=== PATIENT | female | born 1995 | race Caucasian/White ===

== ENCOUNTER 2018-02-17 20:08 | Emergency (ER) | payer SELFPAY ==
[~2018-02-17] VITALS: Ht 172.7 cm; Wt 113.4 kg
--- NOTE | 2018-02-17 20:22 | ED GU-Female ---
General Stated Complaint: ABD PAIN/BURNING WITH URINATION Source: patient Exam Limitations: no limitations History of Present Illness Date Seen by Provider: Feb 17, 2018 Time Seen by Provider: 20:20 Initial Comments To ER with reports of suprapubic abdominal pain that began this morning associated with urinary frequency, burning upon urination, only dribbling when she does urinate and noticing some blood on the toilet paper when she wipes. She thought she may be starting her menstrual period because she is a few days late. She inserted a tampon and when she removed it there was no blood on it. No fevers chills nausea or vomiting. Timing/Duration: this morning Severity/Quality: moderate Location: suprapubic Radiation: none Activities at Onset: none Prior Genitourinary Problems: none Associated Symptoms: dysuria, nausea/vomiting Allergies and Home Medications Patient Home Medication List Home Medication List Reviewed: Yes Review of Systems Review of Systems Constitutional: see HPI; No chills, No fever EENTM: see HPI Respiratory: no symptoms reported Cardiovascular: no symptoms reported Genitourinary: see HPI, dysuria Musculoskeletal: no symptoms reported Skin: no symptoms reported Past Xlvkqwb-Kuowbv-Izqjqy Hx Patient Social History Recent Foreign Travel: No Contact w/Someone Who Travel: No Physical Exam Vital Signs Vital Signs - First Documented 02/17/18 20:12 Temp 98.5 Pulse 73 Resp 12 B/P (MAP) 141/98 (112) Pulse Ox 100 Capillary Refill : Height, Weight, BMI Height: '" Weight: lbs. oz. kg; BMI Method: General Appearance: WD/WN, no apparent distress HEENT: PERRL/EOMI, normal ENT inspection Respiratory: no respiratory distress, no accessory muscle use Gastrointestinal: normal bowel sounds, non tender, soft Extremities: normal range of motion, non-tender Neurologic/Psychiatric: alert, normal mood/affect, oriented x 3 Skin: normal color, warm/dry Progress/Results/Core Measures Suspected Sepsis SIRS Temperature: Pulse: Respiratory Rate: Blood Pressure / Mean: Results/Orders Lab Results Laboratory Tests Test 02/17/18 20:15 Range/Units Urine Color YELLOW Urine Clarity VERY CLOUDY H Urine pH 6 5-9 Urine Specific [place] 1.020 1.016-1.022 Urine Protein 3+ H NEGATIVE Urine Glucose (UA) NEGATIVE NEGATIVE Urine Ketones 1+ H NEGATIVE Urine Nitrite POSITIVE H NEGATIVE Urine Bilirubin NEGATIVE NEGATIVE Urine Urobilinogen 4 H NORMAL MG/DL Urine Leukocyte Esterase 3+ H NEGATIVE Urine RBC (Auto) 5+ H NEGATIVE Urine RBC TNTC H /HPF Urine WBC TNTC H /HPF Urine Squamous Epithelial Cells 10-25 H /HPF Urine Crystals NONE /LPF Urine Bacteria MODERATE H /HPF Urine Casts NONE /LPF Urine Mucus NEGATIVE /LPF Urine Culture Indicated YES My Orders Orders - SANDRA VARGAS APRN Ua Culture If Indicated (02/17/18 20:10) Urine Bedside (02/17/18 20:10) Urine Culture (02/17/18 20:15) Vital Signs/I&O 02/17/18 20:12 Temp 98.5 Pulse 73 Resp 12 B/P (MAP) 141/98 (112) Pulse Ox 100 Capillary Refill : Departure Impression Primary Impression: Urinary tract infection Disposition: 01 HOME, SELF-CARE Condition: Stable Departure-Patient Inst. Decision time for Depature: 20:44 Referrals: NO,LOCAL PHYSICIAN (PCP/Family) Primary Care Physician Patient Instructions: Urinary Tract Infection, Adult (DC) Add. Discharge Instructions: 1. Return to ER for any concerns 2. Follow-up with your doctor next week 3. Scripts Sulfamethoxazole/Trimethoprim (Bactrim Ds Tablet) 1 Each Tablet 1 EACH PO BID, #10 TAB Prov: SANDRA VARGAS APRN 02/17/18 Work/School Note: Work Release Form Date Seen in the Emergency Department: Feb 17, 2018 Return to Work: Feb 18, 2018 SANDRA VARGAS APRN Feb 17, 2018 20:22
[2018-02-17 20:24] LABS: BILIRUBIN,URINE NEGATIVE (NEGATIVE); CLARITY,URINE VERY CLOUDY; COLOR,URINE YELLOW; GLUCOSE, URINE (UA) NEGATIVE (NEGATIVE); KETONES,URINE 1+ (NEGATIVE); LEUKOCYTE ESTERASE ,URINE 3+ (NEGATIVE); NITRITE,URINE POSITIVE (NEGATIVE); PH,URINE 6 (5-9); PROTEIN,URINE 3+ (NEGATIVE); UROBILINOGEN,URINE 4 MG/DL (NORMAL)
[2018-02-17 20:32] LABS: BACTERIA,URINE MODERATE /HPF; RBC,URINE TNTC /HPF; WBC,URINE TNTC /HPF
[2018-02-17] MEDS ORDERED: cefTRIAXone 1,000 MG/2.86 ml vial (IM ONLY) IM SCH (20:45)
[2018-02-17] MEDS ORDERED: SULF1TAB35 PO (20:45)
[2018-02-17] MEDS ORDERED: LIDOCAINE 1% INJ 20 ML 20 ML VIAL ONE (20:47)
[2018-02-17] MEDS: cefTRIAXone 1 GM/10 ML for IV (ROCEPHIN) ONE ×2 (20:57→20:58)
[2018-02-17] MEDS ORDERED: LIDOCAINE 1% INJ 20 ML 20 ML VIAL INJ ONE (21:00)
[2018-02-17 21:11] VITALS: BP 141/98
--- OUTSIDE RECORDS SUMMARY | 2018-02-18 12:18 | XMS REPORT ---
Author Author [facility] Medical Staff Organization [facility] Address [address], [place] [address] Phone [phone] Care Team Providers Care Music Department Chair Name Role Phone MAGY MONTALVO, HARDEEP PP [phone] Summary purpose TRANSITION OF CARE AUTO GENERATION Chief Complaint and Reason for Visit No authorized Reason for Visit (Admitting Diagnosis) is available for this visit. Problem list No authorized problems tracked for continuity of care are available for this visit. Encounters No authorized problems tracked for encounter diagnoses are available for this visit. Medications No medications recorded for this patient visit Allergies, adverse reactions, alerts Allergen Category Ingredient Status Reaction Severity Onset No known drug allergies No known drug allergies No known drug allergies Confirmed or Verified Immunizations No immunizations recorded for this patient visit Relevant diagnostic tests and/or laboratory data No authorized results are available for this patient visit History of procedures Procedure Code Code Type Description Date Performed Performing Physician 49579 CPT-4 THERAPEUTIC EXERCISES 03-12-2015 LANA PLATT 88688 CPT-4 THERAPEUTIC EXERCISES 03-18-2015 LANA PLATT 16721 CPT-4 THERAPEUTIC EXERCISES 03-21-2015 LANA PLATT Functional status No functional or cognitive status observations are available for this visit. Vital signs No authorized vital signs are available for this visit. Social history No Social History or smoking status observations were recorded for this visit. ( Unknown if ever smoked.) Treatment Plan No treatment plan text is available for this visit. Hospital discharge instructions No discharge instruction text is available for this visit.
--- OUTSIDE RECORDS SUMMARY | 2018-02-18 12:18 | XMS REPORT ---
Author Author [facility] Medical Staff Organization [facility] Address [address] [place], [place] [address] Phone [phone] Care Team Providers Care Library Circulation Department Chief Name Role Phone HARDEEP BHATTI MD PP [phone] Summary purpose TRANSITION OF CARE AUTO GENERATION [...] for this patient visit History of procedures No procedures recorded for this patient visit. Functional status No functional or cognitive status [...]
--- OUTSIDE RECORDS SUMMARY | 2018-02-18 12:18 | XMS REPORT ---
Author Author [facility] Medical Staff Organization [facility] Address [address] [place], [place] [address] Phone [phone] Care Team Providers Care Sap Fico Architect Name Role Phone HARDEEP BHATTI MD PP [phone] Summary purpose TRANSITION OF CARE AUTO GENERATION [...]
--- OUTSIDE RECORDS SUMMARY | 2018-02-18 12:18 | XMS REPORT ---
Author Author [facility] Medical Staff Organization [facility] Address [address] [place], [place] [address] Phone [phone] Care Team Providers Care Nurse Transition Name Role Phone HARDEEP BHATTI MD PP [phone] Summary purpose TRANSITION OF CARE AUTO GENERATION [...]
--- OUTSIDE RECORDS SUMMARY | 2018-02-18 12:19 | XMS REPORT ---
Author Author MISTY PAK Organization [facility] Address [address] [place] [address] Care Team Providers Care Manager Practice Name Role Phone MISTY PAK Unavailable PROBLEMS Unknown Problems ALLERGIES Substance Reaction Event Type Date Status Iodine hives Drug Allergy May, Active ENCOUNTERS Encounter Location Date Diagnosis [facility] [address] [place] [address] C [id number] [place], [place] [id number] May, BMI 40.0-44.9, adult Z68.41 and Acute right ankle pain M25.[address] C [id number] [place], [place] [id number] Dec, Pre-conception counseling Z31.69 and Non morbid obesity, unspecified obesity type E66.9 [facility] [address] [id number] [place] [id number] Nov, Breast tenderness N64.4 ; Morning sickness O21.0 and Non morbid obesity, unspecified obesity type E66.9 [facility] [address] [id number] [place] [id number] Dec, IMMUNIZATIONS No Known Immunizations SOCIAL HISTORY Never Assessed REASON FOR VISIT broke ankle 4 years ago. recently started new job. ankle and foot have been swelling and shooting pain throughtout leg. Jazmin PLAN OF CARE Activity Details Follow Up prn Reason: VITAL SIGNS Height 66.5 in 2017-05-30 Weight 256.6 lbs 2017-05-30 Temperature 98.2 degrees Fahrenheit 2017-05-30 Heart Rate 69 bpm 2017-05-30 Respiratory Rate 18 2017-05-30 BMI 40.79 kg/m2 2017-05-30 Blood pressure systolic 108 mmHg 2017-05-30 Blood pressure diastolic 76 mmHg 2017-05-30 MEDICATIONS Medication Instructions Dosage Frequency Start Date End Date Duration Status Meloxicam 15 mg Orally Once a day 1 tablet 24h May, Jun, 30 day(s) Active RESULTS Name Result Date Reference Range Xray : Ankle, Right 3 views (IN HOUSE) 2017-05-30 PROCEDURES Procedure Date Ordered Result Body Site X-RAY EXAM OF ANKLE May 30, 2017 INSTRUCTIONS MEDICATIONS ADMINISTERED No Known Medications MEDICAL (GENERAL) HISTORY Type Description Date Medical History Broken foot R Surgical History Right foot Surgical History tonsilectomy Surgical History screw removed from right ankle Hospitalization History surgeries Hospitalization History dehydration at age 6
--- OUTSIDE RECORDS SUMMARY | 2018-02-18 12:19 | XMS REPORT ---
Author GALDINO Myers Organization [employer] Address Unknown Phone Unavailable Care Team Providers Care Metal Sprayer Name Role Phone GALDINO TORRES CP Unavailable Allergies, Adverse Reactions, Alerts Substance Reaction Event Type Iodine hives Drug Allergy Problems Problem Type Condition Code Onset Dates Condition Status Assessment Non morbid obesity, unspecified obesity type E66.9 Active Assessment Pre-conception counseling Z31.69 Active Medications No Known Medications Procedures Procedure Coding System Code Date Office Visit, Est Pt., Level 2 CPT-4 70160 Dec 18, 2015 Vital Signs Date/Time: Dec 18, 2015 Cardiac Monitoring Heart Rate 78 bpm Weight 247.6 lbs Height 66.5 in Wt Percentile 99.26 % BMI 39.36 Index Blood Pressure Diastolic 82 mmHg Blood Pressure Systolic 130 mmHg BMIPercentile 98.63 % Results No Known Results Summary Purpose [employer] Submission
--- OUTSIDE RECORDS SUMMARY | 2018-02-18 12:19 | XMS REPORT ---
Author [facility] Medical Staff Organization [facility] Address [address] [place], [place] [address] Phone [phone] Care Team Providers Care Director Biologics Name Role Phone HARDEEP BHATTI MD PP [phone] Summary purpose TRANSITION OF CARE AUTO GENERATION [...] Code Type Description Date Performed Performing Physician 33531 CPT-4 PT EVALUATION 02-07-2015 LANA PLATT 51576 CPT-4 THERAPEUTIC EXERCISES 02-19-2015 LANA PLATT 22730 CPT-4 THERAPEUTIC EXERCISES 02-21-2015 LANA PLATT 05534 CPT-4 THERAPEUTIC EXERCISES 02-25-2015 LANA PLATT 65789 CPT-4 THERAPEUTIC EXERCISES 03-05-2015 LANA PLATT 97190 CPT-4 THERAPEUTIC EXERCISES 03-06-2015 LANA PLATT Functional status No functional or [...]
--- OUTSIDE RECORDS SUMMARY | 2018-02-18 12:19 | XMS REPORT ---
Author Author [facility] Medical Staff Organization [facility] Address [address] [place], [place] [address] Phone [phone] Care Team Providers Care Road Cleaner Name Role Phone MAGY MONTALVO, HARDEEP PP [phone] Summary purpose TRANSITION OF CARE AUTO GENERATION [...] Code Type Description Date Performed Performing Physician 80453 CPT-4 THERAPEUTIC EXERCISES 03-12-2015 LANA PLATT 89554 CPT-4 THERAPEUTIC EXERCISES 03-18-2015 LANA PLATT 43173 CPT-4 THERAPEUTIC EXERCISES 03-21-2015 LANA PLATT Functional [...]
--- OUTSIDE RECORDS SUMMARY | 2018-02-18 12:19 | XMS REPORT ---
Author Author Tameka Flores [facility] Address [address] [place], [place] [address] Care Team Providers Care Radio Director Name Role Phone Tameka Flores PCP Unavailable Allergies and Adverse Reactions Name Reaction Notes iodine hives Plan of Treatment Planned Activity Comments Planned Date Planned Time Plan/Goal TB Skin Test 03/24/2016 12:00 AM Medications Not available. Problem List Description Status Onset *No known medical problems Active Vital Signs Date Time BP-Sys(mm[Hg] BP-Alexa(mm[Hg]) HR(bpm) RR(rpm) Temp WT HT HC BMI BSA BMI Percentile O2 Sat(%) 03/24/2016 1:23:00 PM 126 mmHg 76 mmHg 85 bpm 18 rpm 98.5 F 252.125 lbs 68 in 38.34 kg/m2 2.34 m2 98.3 % 97 % Social History Name Description Comments denies alcohol use Tobacco Never smoker 03/24/2016 - History of Procedures Not available. Results Summary Not available. History Of Immunizations Not available. History of Past Illness Name Date of Onset Comments *No known medical problems Encounter for occupational health examination Mar 24 2016 1:25PM Payers Insurance Name Company Name Plan Name Plan Number Policy Number Policy Group Number Start Date [facility] Med Occupational Medicine [id number] N/A History of Encounters Visit Date Visit Type Provider 03/24/2016 Office visit Tameka Flores FIELD SERVICE TECHNICIAN
--- OUTSIDE RECORDS SUMMARY | 2018-02-18 12:19 | XMS REPORT | Clinical Summary ---
Author Author Admin, QIE Organization [employer] Address Unknown Phone Unavailable Allergies, Adverse Reactions, Alerts Allergy Name Reaction Description Start Date Severity Status Provider NKDA Critical Active Tay MAJOR Conditions or Problems Problem Name Problem Code Onset Date Status Entry Date Provider Comment Standard Description Annotate SPORTS PHYSICAL V70.3 Resolved Boo Vasquez MD Other general medical examination for administrative purposes Family History of Diabetes V18.0 Resolved Boo Vasquez MD Family history of diabetes mellitus Family History of Hypertension V17.4 Resolved Boo Vasquez MD Family history of other cardiovascular diseases Pharyngitis Acute 462 Inactive Liat Cheng MD Acute pharyngitis Toe injury 959.7 Resolved Liat Cheng MD Other and unspecified injury to knee, leg, ankle, and foot Sinusitis, acute 461.9 Resolved Liat Cheng MD Acute sinusitis, unspecified Cellulitis 682.9 Resolved Liat Cheng MD Cellulitis and abscess of unspecified sites Laceration, finger 883.0 Resolved Liat Cheng MD Open wound of fingers, without mention of complication Gastroenteritis 558.9 Inactive Liat Cheng MD Other and unspecified noninfectious gastroenteritis and colitis Abscess, skin 682.9 Resolved Boo Vasquez MD Cellulitis and abscess of unspecified sites Upper respiratory infection, viral 465.9 Resolved Liat Cheng MD Acute upper respiratory infections of unspecified site Insect bite NEC w/o infection 919.4 Resolved Liat Cheng MD Insect bite, nonvenomous, of other, multiple, and unspecified sites, without mention of infection Ankle pain, right 719.47 Resolved Liat Cheng MD Pain in joint involving ankle and foot Abdominal bloating 787.3 Resolved Liat Cheng MD Flatulence, eructation, and gas pain Pharyngitis 462 Resolved Liat Cheng MD Acute pharyngitis Fatigue 780.79 Resolved Liat Cheng MD Other malaise and fatigue U R I Active Liat Cheng MD UTI 599.0 Active Thai Almendarez APRN Urinary tract infection, site not specified Sexual activity, high risk V69.2 Active Thai Almendarez APRN High-risk sexual behavior SPORTS PHYSICAL ICD-V70.3 Inactive Boo Vasquez MD Family History of Diabetes ICD-V18.0 Inactive Boo Vasquez MD Family History of Hypertension ICD-V17.4 Inactive Boo Vasquez MD Pharyngitis Acute ICD-462 Inactive Liat Cheng MD Toe injury ICD-959.7 Inactive Liat Cheng MD Sinusitis, acute ICD-461.9 Inactive Liat Cheng MD Cellulitis ICD-682.9 Inactive Liat Cheng MD Laceration, finger ICD-883.0 Inactive Liat Cheng MD Gastroenteritis ICD-558.9 Inactive Liat Cheng MD Abscess, skin ICD-682.9 Inactive Boo Vasquez MD Upper respiratory infection, viral ICD-465.9 Inactive Liat Cheng MD Insect bite NEC w/o infection ICD-919.4 Inactive Lita Cheng MD Ankle pain, right ICD-719.47 Inactive Liat Cheng MD Abdominal bloating ICD-787.3 Inactive Liat Cheng MD Pharyngitis ICD-462 Inactive Liat Cheng MD Fatigue ICD-780.79 Inactive Liat Cheng MD Medication List Medication Instructions Start Date Stop Date Generic Name NDC Status Provider Patient Instruction KEFLEX 500 MG CAP 1 po qid CEPHALEXIN 26340265907 Active Thai Almendarez EXTERNAL GRINDER TENDER Active FLONASE 50 MCG/ACT SUSP 1 puff in easch nostril bid FLUTICASONE PROPIONATE Active Liat Cheng MD Active AZITHROMYCIN 250 MG TABS 2 pills day 1,1 pill day 2-5 AZITHROMYCIN 80373057574 No Longer Active Liat Cheng MD Active ZITHROMAX Z-GIANLUCA 250 MG TABS 2 today and then 1 daily for 4 days AZITHROMYCIN 68962952152 No Longer Active Liat Cheng MD Active LORATADINE 10 MG TABS 1 tablet by mouth daily PRN Congestion 2014 LORATADINE 00134679153 No Longer Active Audelia Ochoa EXTERNAL GRINDER TENDER Active MUCINEX DM MAXIMUM STRENGTH 60-1200 MG [id number] 1 po BID PRN Cough DEXTROMETHORPHAN-GUAIFENESIN 72411957157 No Longer Active Audelia Ochoa APRN Active PREDNISONE 20 MG TAB 2 tabs daily for 3 days, 1 tab daily for 3 days, 1/2 tab daily for 2 days PREDNISONE 29055315311 No Longer Active Boo Vasquez MD Active BACTRIM DS 800-160 MG TAB 1 tab by mouth twice daily TRIMETHOPRIM-SULFAMETHOXAZOLE 31086682989 No Longer Active Gama Bermeo MD Active ZOFRAN 8 MG ORAL TABS 1 q 8hr prn vomiting ONDANSETRON HCL 23385204048 No Longer Active Gama Bermeo MD Active AUGMENTIN 875-125 MG TABS 1 bid AMOXICILLIN-POT CLAVULANATE 70902783042 No Longer Active Liat Cheng MD Active HYDROCODONE-ACETAMINOPHEN TABS Take as directed/PRN HYDROCODONE-ACETAMINOPHEN TABS 58076192050 No Longer Active Liat Cheng MD Active CEFDINIR 300 MG CAPS 1 PO bid x 7 days CEFDINIR 21728468843 No Longer Active Liat Cheng MD Active CEFDINIR 300 MG CAPS 1 PO bid x 7 days CEFDINIR 300 MG CAPS 657778 CEFDINIR Inactive HYDROCODONE-ACETAMINOPHEN TABS Take as directed/PRN HYDROCODONE-ACETAMINOPHEN TABS HYDROCODONE-ACETAMINOPHEN TABS Inactive ZOFRAN 8 MG ORAL TABS 1 q 8hr prn vomiting ZOFRAN 8 MG ORAL TABS 556721 ONDANSETRON HCL Inactive MUCINEX DM MAXIMUM STRENGTH 60-1200 MG [id number] 1 po BID PRN Cough MUCINEX DM MAXIMUM STRENGTH 60-1200 MG [id number] DEXTROMETHORPHAN-GUAIFENESIN Inactive LORATADINE 10 MG TABS 1 tablet by mouth daily PRN Congestion 2014 LORATADINE 10 MG TABS 872937 LORATADINE Inactive ZITHROMAX Z-GIANLUCA 250 MG TABS 2 today and then 1 daily for 4 days ZITHROMAX Z-GIANLUCA 250 MG TABS 0109692 AZITHROMYCIN Inactive AUGMENTIN 875-125 MG TABS 1 bid AUGMENTIN 875-125 MG TABS 681488 AMOXICILLIN-POT CLAVULANATE Inactive BACTRIM DS 800-160 MG TAB 1 tab by mouth twice daily BACTRIM DS 800-160 MG TAB 990577 TRIMETHOPRIM-SULFAMETHOXAZOLE Inactive PREDNISONE 20 MG TAB 2 tabs daily for 3 days, 1 tab daily for 3 days, 1/2 tab daily for 2 days PREDNISONE 20 MG TAB 803061 PREDNISONE Inactive AZITHROMYCIN 250 MG TABS 2 pills day 1,1 pill day 2-5 AZITHROMYCIN 250 MG TABS 5627550 AZITHROMYCIN Inactive Immunizations Vaccine Administration Date Value Standard Description Adacel (Tetanus, reduced Diphtheria, and acellular Pertussis Immunization) Adacel [[id number]] tetanus toxoid, reduced diphtheria toxoid, and acellular pertussis vaccine, adsorbed DPT immunization #5 Historical oral polio vaccine (OPV) #4 Historical poliovirus vaccine, unspecified formulation MMR (measles, mumps, rubella) virus immunization #2 Historical DPT immunization #4 Historical oral polio vaccine (OPV) #3 Historical poliovirus vaccine, unspecified formulation MMR (measles, mumps, rubella) virus immunization #1 Historical hepatitis B vaccine #3 Historical hepatitis B vaccine, unspecified formulation DPT immunization #3 Historical Hemophilus influenza B immunization #3 Historical Haemophilus influenzae type b vaccine, conjugate unspecified formulation hepatitis B vaccine #2 given Historical hepatitis B vaccine, unspecified formulation DPT immunization #2 Historical Hemophilus influenza B immunization #2 Historical Haemophilus influenzae type b vaccine, conjugate unspecified formulation oral polio vaccine (OPV) #2 Historical poliovirus vaccine, unspecified formulation hepatitis B vaccine #1 given Historical hepatitis B vaccine, unspecified formulation DPT immunization #1 Historical Hemophilus influenza B immunization #1 Historical Haemophilus influenzae type b vaccine, conjugate unspecified formulation oral polio vaccine (OPV) #1 Historical poliovirus vaccine, unspecified formulation Vital Signs Date Name Value Unit Range Description blood pressure, diastolic - 8462-4 70 mm[Hg] BP grady blood pressure, systolic - 8480-6 112 mm[Hg] BP sys height E&M - 8302-2 65.5 [in_us] Bdy height temperature E&M 98.1 [degF] Body temperature weight E&M - 3141-9 254 [lb_av] Weight Measured blood pressure, diastolic - 8462-4 80 mm[Hg] BP grady blood pressure, systolic - 8480-6 132 mm[Hg] BP sys height E&M - 8302-2 65.5 [in_us] Bdy height temperature E&M 98.9 [degF] Body temperature weight E&M - 3141-9 249 [lb_av] Weight Measured blood pressure, diastolic - 8462-4 66 mm[Hg] BP grady blood pressure, systolic - 8480-6 129 mm[Hg] BP sys pulse rate E&M - 8867-4 102 /min Heart rate temperature E&M 97.9 [degF] Body temperature weight E&M - 3141-9 250 [lb_av] Weight Measured blood pressure, diastolic - 8462-4 70 mm[Hg] BP grady blood pressure, systolic - 8480-6 102 mm[Hg] BP sys pulse rate E&M - 8867-4 69 /min Heart rate temperature E&M 99.2 [degF] Body temperature weight E&M - 3141-9 250 [lb_av] Weight Measured blood pressure, diastolic - 8462-4 76 mm[Hg] BP grady blood pressure, systolic - 8480-6 112 mm[Hg] BP sys temperature E&M 98.9 [degF] Body temperature weight E&M - 3141-9 248.4 [lb_av] Weight Measured blood pressure, diastolic - 8462-4 74 mm[Hg] BP grady blood pressure, systolic - 8480-6 108 mm[Hg] BP sys pulse rate E&M - 8867-4 56 /min Heart rate temperature E&M 97.4 [degF] Body temperature weight E&M - 3141-9 249 [lb_av] Weight Measured blood pressure, diastolic - 8462-4 83 mm[Hg] BP grady blood pressure, systolic - 8480-6 119 mm[Hg] BP sys pulse rate E&M - 8867-4 91 /min Heart rate temperature E&M 97.8 [degF] Body temperature weight E&M - 3141-9 249 [lb_av] Weight Measured blood pressure, diastolic - 8462-4 77 mm[Hg] BP grady blood pressure, systolic - 8480-6 121 mm[Hg] BP sys pulse rate E&M - 8867-4 99 /min Heart rate temperature E&M 98.8 [degF] Body temperature weight E&M - 3141-9 243 [lb_av] Weight Measured Diagnostic Results Date Name Value Unit Range Description Lab Report: CBC W/DIFF, MONO w/Rflx EBV, Myco Pneumo - Hematology leukocyte count, blood 10.7 10^3/MM^3 10*3/mm3 4.6-10.2 neutrophils as percent of blood leukocytes 54.3 % 42.2-75.2 monocytes as percent of blood leukocytes 7.4 % 1.7-9.3 lymphocytes as percent of blood leukocytes 28.7 % 20.5-51.1 erythrocyte (RBC) count 4.35 10^6/MM^3 10*6/mm3 4.04-5.48 hemoglobin, blood 11.3 g/dL 12.0-16.0 hematocrit, blood 34.7 % 36.0-46.0 mean corpuscular volume, RBC 80 fL 80-97 mean corpuscular hemoglobin, RBC 26.1 pg 27.0-31.2 mean corpuscular hemoglobin concentration, RBC 32.7 G/DL % 31.8- 35.4 red blood cell distribution width 14.6 % 11.6-14.8 platelet count 369 10^3/MM^3 10*3/mm3 142-424 Lab Report: Comp. Metabolic Panel - Chemistry sodium, serum 140 mmol/L 758-618 7572/11/17 carbon dioxide, venous blood 25.9 mmol/L 21.0-32.0 potassium, serum 4.0 mmol/L 3.5-5.2 chloride, serum 103 mmol/L 98-107 blood glucose 83 mg/dL 65-110 urea nitrogen, blood 10 mg/dL 7-18 creatinine, serum 0.68 mg/dL 0.55-1.30 alanine aminotransferase (SGPT), serum 23 U/L 12-78 aspartate aminotransferase (SGOT), serum 16 U/L 15-37 calcium, serum 8.2 mg/dL 8.5-10.1 bilirubin, serum, total 0.80 mg/dL 0.00-1.00 Lab Report: RapidStrep Rflx/Cx - Lab Microbial identification kit, rapid strep method Negative-Throat Culture to Follow Negative Encounters Code Encounter Date Provider Facility CPT-13707 Level 3 Est. Patient 14:42:12 BEAVER TRAPPER Liat Cheng MD [facility] CPT-81548 Level 3 Est. Patient 16:38:12 BEAVER TRAPPER Valentin Blanco MD [facility] CPT-68234 Level 3 Est. Patient 14:12:52 CDT Liat Cheng MD [facility] CPT-72416 Level 2 Est. Patient 12:17:18 CDT Audelia Ochoa [facility] CPT-58195 Level 3 Est. Patient 15:02:49 CDT Boo Vasquez MD [facility] CPT-06153 Level 3 Est. Patient 16:21:33 BEAVER TRAPPER Gama Bermeo MD [facility] CPT-89899 Level 3 Est. Patient 11:32:23 BEAVER TRAPPER Liat Cheng MD [facility] CPT-61052 Level 3 Est. Patient 16:59:23 CDT Liat Cheng MD [facility] CPT-58252 Level 3 Est. Patient 17:02:11 BEAVER TRAPPER Tay MAJOR [facility] CPT-47120 Level 3 Est. Patient 16:49:05 BEAVER TRAPPER Liat Cheng MD [facility] CPT-90676 Level 3 Est. Patient 16:36:13 CDT Vivien Conway [facility] Procedures Code Procedure Name Date Entry Date Standard Description CPT-OV Office Visit 18:49:18 CDT CPT-41014 Administration single or combination vaccine inc oral 11 :11:48 CDT CPT-07463 Adacel Intramuscular Suspension 5-2-15.5 11:11:48 CDT CPT-20548 Toes 2V 17:03:02 BEAVER TRAPPER
--- OUTSIDE RECORDS SUMMARY | 2018-02-18 12:19 | XMS REPORT ---
Author GALDINO Myers Organization [employer] Address Unknown Phone Unavailable Care Team Providers Care Shingle Packer Name Role Phone GALDINO TORRES CP Unavailable Allergies, Adverse Reactions, Alerts Substance Reaction Event Type Iodine hives Drug Allergy Problems Problem Type Condition Code Onset Dates Condition Status Assessment Morning sickness O21.0 Active Assessment Non morbid obesity, unspecified obesity type E66.9 Active Assessment Breast tenderness N64.4 Active Medications Medication Code System Code Instructions Start Date End Date Status Dosage Implanon [facility] [address]-24 68 MG Subcutaneous not defined Procedures Procedure Coding System Code Date Office Visit, New Pt., Level 2 CPT-4 93199 December 02, 2015 URINE TEST CPT-4 53523 December 02, 2015 Vital Signs Date/Time: December 02, 2015 Cardiac Monitoring Heart Rate 84 bpm Weight 251.2 lbs Height 66.5 in Ht Percentile 81.24 % BMI 39.93 Index Blood Pressure Diastolic 62 mmHg Blood Pressure Systolic 140 mmHg BMIPercentile 98.73 % Wt Percentile 99.31 % Results No Known Results Summary Purpose [employer] Submission
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
--- OUTSIDE RECORDS SUMMARY | 2018-02-18 12:21 | XMS REPORT | Clinical Summary ---
Author Author Admin, QIE Organization [employer] Address Unknown Phone Unavailable Allergies, Adverse Reactions, [...] Pain in joint involving ankle and foot Ankle pain, right 719.47 Resolved Boo Vasquez MD Pain in joint involving ankle and foot Abdominal bloating 787.3 Resolved Liat Cheng MD Flatulence, eructation, and gas pain Pharyngitis 462 Resolved Liat Cheng MD Acute pharyngitis Pharyngitis 462 Resolved Boo Vasquez MD Acute pharyngitis Fatigue 780.79 Resolved Liat Cheng MD Other malaise and fatigue U R I Inactive Liat Cheng MD UTI 599.0 Resolved Liat Cheng MD Urinary tract infection, site not specified Sexual activity, high risk V69.2 Resolved Liat Cheng MD High-risk sexual behavior Premenstrual symptom 625.4 Active Anaya Ferrara MD Premenstrual tension syndromes CONTRACEPTION MANAGEMENT V25.09 Active Anaya Ferrara MD Encounter for other general counseling and advice on contraceptive management Incontinence, urine 788.30 Resolved Liat Cheng MD Urinary incontinence, unspecified Trichomonal infection 131.9 Resolved Liat Cheng MD Trichomoniasis, unspecified Abdominal pain 789.00 Resolved Liat Cheng MD Abdominal pain, unspecified site Lightheadedness 780.4 Resolved Liat Cheng MD Dizziness and giddiness Chest wall pain 786.52 Resolved Liat Cheng MD Painful respiration Pharyngitis Acute Active Liat Cheng MD Acute pharyngitis SPORTS PHYSICAL ICD-V70.3 Inactive Boo Vasquez MD [...] Cheng MD Ankle pain, right ICD-719.47 Inactive Boo Vasquez MD Abdominal bloating ICD-787.3 Inactive Liat Cheng MD Pharyngitis ICD-462 Inactive Boo Vasquez MD Fatigue ICD-780.79 Inactive Liat Cheng MD U R I Inactive Liat Cheng MD UTI ICD-599.0 Inactive Liat Cheng MD Sexual activity, high risk ICD-V69.2 Inactive Liat Cheng MD Incontinence, urine ICD-788.30 Inactive Liat Cheng MD Trichomonal infection ICD-131.9 Inactive Liat Cheng MD Abdominal pain ICD-789.00 Inactive Liat Cheng MD Lightheadedness ICD-780.4 Inactive Liat Cheng MD Chest wall pain ICD-786.52 Inactive Liat Cheng MD Medication List Medication Instructions Start Date Stop Date Generic Name NDC Status Provider Patient Instruction DICLOFENAC SODIUM 50 MG TBEC 1 tablet by mouth four times daily PRN Pain 2015 DICLOFENAC SODIUM 75844278391 No Longer Active Liat Cehng MD Active ZOFRAN 4 MG TABS 1 po q8hr PRN Nausea ONDANSETRON HCL 95268465488 No Longer Active Liat Cheng MD Active NEXPLANON 68 MG SC IMPL Inserted in the left upper arm ETONOGESTREL 88067711327 Active Liat Cheng MD Active FLAGYL 500 MG TAB 1 tablet by mouth bid. do not mix with etoh. METRONIDAZOLE 19908105214 No Longer Active Liat Cheng MD Active CIPRO 500 MG TAB 1 tablet by mouth twice daily CIPROFLOXACIN HCL 26439960263 No Longer Active Jillina Frazell METAL REFINER Active FLONASE 50 MCG/ACT SUSP 1 puff in easch nostril bid FLUTICASONE PROPIONATE No Longer Active Jillina Frazell METAL REFINER Active KEFLEX 500 MG CAP 1 po qid CEPHALEXIN 39661831455 No Longer Active Jillina Frazell METAL REFINER Active AZITHROMYCIN 250 MG TABS 2 pills day 1,1 pill day 2-5 AZITHROMYCIN 22038332240 No Longer Active Liat Cheng MD Active ZITHROMAX Z-GIANLUCA 250 MG TABS 2 today and then 1 daily for 4 days AZITHROMYCIN 41187119577 No Longer Active Liat Cheng MD Active LORATADINE 10 MG TABS 1 tablet by mouth daily PRN Congestion 2014 LORATADINE 97650685803 No Longer Active Audelia Yokum METAL REFINER Active MUCINEX DM MAXIMUM STRENGTH 60-1200 MG [id number] 1 po BID PRN Cough DEXTROMETHORPHAN-GUAIFENESIN 82419459624 No Longer Active Audelia Yokum METAL REFINER Active PREDNISONE 20 MG TAB 2 tabs daily for 3 days, 1 tab daily for 3 days, 1/2 tab daily for 2 days PREDNISONE 46490106135 No Longer Active Boo Vasquez MD Active BACTRIM DS 800-160 MG TAB 1 tab by mouth twice daily TRIMETHOPRIM-SULFAMETHOXAZOLE 68973917023 No Longer Active Gama Bermeo MD Active ZOFRAN 8 MG ORAL TABS 1 q 8hr prn vomiting ONDANSETRON HCL 20682126366 No Longer Active Gama Bermeo MD Active AUGMENTIN 875-125 MG TABS 1 bid AMOXICILLIN-POT CLAVULANATE 42998836864 No Longer Active Liat Cheng MD Active HYDROCODONE-ACETAMINOPHEN TABS Take as directed/PRN HYDROCODONE-ACETAMINOPHEN TABS 04582515743 No Longer Active Liat Cheng MD Active CEFDINIR 300 MG CAPS 1 PO bid x 7 days CEFDINIR 87735639067 No Longer Active Liat Cheng MD Active CEFDINIR 300 MG CAPS 1 PO bid x 7 days CEFDINIR 300 MG CAPS 907387 CEFDINIR Inactive HYDROCODONE-ACETAMINOPHEN TABS Take as directed/PRN HYDROCODONE-ACETAMINOPHEN TABS HYDROCODONE-ACETAMINOPHEN TABS Inactive ZOFRAN 8 MG ORAL TABS 1 q 8hr prn vomiting ZOFRAN 8 MG ORAL TABS 935286 ONDANSETRON HCL Inactive MUCINEX DM MAXIMUM STRENGTH 60-1200 MG [id number] 1 po BID PRN Cough MUCINEX DM MAXIMUM STRENGTH 60-1200 MG [id number] DEXTROMETHORPHAN-GUAIFENESIN Inactive LORATADINE 10 MG TABS 1 tablet by mouth daily PRN Congestion 2014 LORATADINE 10 MG TABS 553387 LORATADINE Inactive ZITHROMAX Z-GIANLUCA 250 MG TABS 2 today and then 1 daily for 4 days ZITHROMAX Z-GIANLUCA 250 MG TABS 0488631 AZITHROMYCIN Inactive KEFLEX 500 MG CAP 1 po qid KEFLEX 500 MG CAP 596001 CEPHALEXIN Inactive FLONASE 50 MCG/ACT SUSP 1 puff in easch nostril bid FLONASE 50 MCG/ACT SUSP 921221 FLUTICASONE PROPIONATE Inactive CIPRO 500 MG TAB 1 tablet by mouth twice daily CIPRO 500 MG TAB 341080 CIPROFLOXACIN HCL Inactive FLAGYL 500 MG TAB 1 tablet by mouth bid. do not mix with etoh. FLAGYL 500 MG TAB 135018 METRONIDAZOLE Inactive ZOFRAN 4 MG TABS 1 po q8hr PRN Nausea ZOFRAN 4 MG TABS 711681 ONDANSETRON HCL Inactive DICLOFENAC SODIUM 50 MG TBEC 1 tablet by mouth four times daily PRN Pain 2015 DICLOFENAC SODIUM 50 MG TBEC 823302 DICLOFENAC SODIUM Inactive AUGMENTIN 875-125 MG TABS 1 bid AUGMENTIN 875-125 MG TABS 264582 AMOXICILLIN-POT CLAVULANATE Inactive BACTRIM DS 800-160 MG TAB 1 tab by mouth twice daily BACTRIM DS 800-160 MG TAB 726872 TRIMETHOPRIM-SULFAMETHOXAZOLE Inactive PREDNISONE 20 MG TAB 2 tabs daily for 3 days, 1 tab daily for 3 days, 1/2 tab daily for 2 days PREDNISONE 20 MG TAB 150176 PREDNISONE Inactive AZITHROMYCIN 250 MG TABS 2 pills day 1,1 pill day 2-5 AZITHROMYCIN 250 MG TABS 1431987 AZITHROMYCIN Inactive Advance Directives Directive Description Start Date PERMISSION TO SHARE Immunizations Vaccine Administration Date Value Standard Description Adacel (Tetanus, reduced Diphtheria, and acellular Pertussis Immunization) Adacel [[id number]] tetanus toxoid, reduced diphtheria toxoid, and acellular [...] Range Description blood pressure, diastolic - 8462-4 72 mm[Hg] BP grady blood pressure, systolic - 8480-6 128 mm[Hg] BP sys temperature E&M 99.1 [degF] Body temperature weight E&M - 3141-9 252 [lb_av] Weight Measured blood pressure, diastolic - 8462-4 81 mm[Hg] BP grady blood pressure, systolic - 8480-6 145 mm[Hg] BP sys pulse rate E&M - 8867-4 101 /min Heart rate temperature E&M 99.3 [degF] Body temperature weight E&M - 3141-9 252.5 [lb_av] Weight Measured blood pressure, diastolic - 8462-4 88 mm[Hg] BP grady blood pressure, systolic - 8480-6 140 mm[Hg] BP sys height E&M - 8302-2 66 [in_us] Bdy height temperature E&M 98.3 [degF] Body temperature weight E&M - 3141-9 245.25 [lb_av] Weight Measured blood pressure, diastolic - 8462-4 72 mm[Hg] BP grady blood pressure, systolic - 8480-6 116 mm[Hg] BP sys temperature E&M 97.7 [degF] Body temperature weight E&M - 3141-9 246 [lb_av] Weight Measured blood pressure, diastolic - 8462-4 82 mm[Hg] BP grady blood pressure, systolic - 8480-6 134 mm[Hg] BP sys height E&M - 8302-2 66 [in_us] Bdy height temperature E&M 98.3 [degF] Body temperature weight E&M - 3141-9 244.38 [lb_av] Weight Measured blood pressure, diastolic - 8462-4 79 mm[Hg] BP grady blood pressure, systolic - 8480-6 144 mm[Hg] BP sys pulse rate E&M - 8867-4 87 /min Heart rate temperature E&M 99.9 [degF] Body temperature weight E&M - 3141-9 248.5 [lb_av] Weight Measured blood pressure, diastolic - 8462-4 79 mm[Hg] BP grady blood pressure, systolic - 8480-6 129 mm[Hg] BP sys pulse rate E&M - 8867-4 85 /min Heart rate temperature E&M 99.4 [degF] Body temperature weight E&M - 3141-9 252.5 [lb_av] Weight Measured blood pressure, diastolic - 8462-4 84 mm[Hg] BP grady blood pressure, systolic - 8480-6 128 mm[Hg] BP sys pulse rate E&M - 8867-4 88 /min Heart rate temperature E&M 98.5 [degF] Body temperature weight E&M - 3141-9 [...] E&M - 3141-9 249 [lb_av] Weight Measured Diagnostic Results Date Name [...] count 369 10^3/MM^3 10*3/mm3 142-424 Lab Report: Chlamydia/GC APTIMA/00572 - Lab chlamydia DNA probe NOT DETECTED NOT DETECTED chlamydia DNA probe NOT DETECTED NOT DETECTED Lab Report: Chlamydia/GC APTIMA/21606 - Microbiology Neisseria gonorrhoeae DNA probe NOT DETECTED NOT DETECTED Neisseria gonorrhoeae DNA probe NOT DETECTED NOT DETECTED Lab Report: Comp. Metabolic Panel - Chemistry sodium, serum 140 mmol/L 661-756 1774/11/17 carbon dioxide, venous blood 25.9 mmol/L 21.0-32.0 [...] strep method Negative-Throat Culture to Follow Negative Microbial identification kit, rapid strep method Negative-Throat Culture to Follow Negative Lab Report: NA INFLUENZA A/B - Toxicology rapid flu test Negative Negative;Positive Lab Report: UADIP W/MICRO, AUTO - Chemistry RBC, urine, dipstick 1+ Negative protein, total urine random Negative mg/dL Negative Lab Report: UADIP W/MICRO, AUTO - Urinalysis glucose, urine, semiquantitative Negative Negative ketones, urine, by test strip Negative Negative bilirubin, urine Negative Negative urine color Yellow Colorless;Lightyellow;Straw;Yellow appearance, urine Cloudy Clear specific gravity, urine 1.025 1.000-1.030 pH, urine, semiquantitative 5.0 5.0-8.5 urobilinogen, urine, semiquantitative (dipstick) 0.2 Normal leukocyte esterase, urine, by dipstick 2+ Negative nitrite, urine, semiquantitative Negative Negative Lab Report: UADIP W/MICRO, AUTO, Wet Prep - Chemistry protein, total urine random Negative mg/dL Negative RBC, urine, dipstick Negative Negative Lab Report: UADIP W/MICRO, AUTO, Wet Prep - Urinalysis urobilinogen, urine, semiquantitative (dipstick) 0.2 Normal leukocyte esterase, urine, by dipstick Negative Negative nitrite, urine, semiquantitative Negative Negative glucose, urine, semiquantitative Negative Negative ketones, urine, by test strip Negative Negative bilirubin, urine Negative Negative urine color Yellow Colorless;Lightyellow;Straw;Yellow appearance, urine Clear Clear specific gravity, urine 1.025 1.000-1.030 pH, urine, semiquantitative 6.5 5.0-8.5 Office Visit: 2 week follow up - Chemistry human chorionic gonadotropin, urine, qualitative (urine test) Negative Office Visit: 3 month follow up [...] negative Encounters Code Encounter Date Provider Facility CPT-76345 Level 3 Est. Patient 13:10:51 CDT Liat Cheng MD [facility] CPT-17211 Level 3 Est. Patient 14:16:58 CDT Boo Vasquez MD [facility]-43712 Level 3 Est. Patient 16:08:19 CDT Liat Cheng MD [facility] CPT-89327 Level 3 Est. Patient 15:48:30 PACKING MACHINE INSPECTOR Liat Cheng MD [facility] CPT-77686 Level 3 Est. Patient 14:24:59 PACKING MACHINE INSPECTOR Liat Cheng MD [facility] CPT-47040 Level 3 Est. Patient 15:06:21 PACKING MACHINE INSPECTOR Thai Almendarez APRN [facility] CPT-49601 Level 3 Est. Patient 15:43:50 PACKING MACHINE INSPECTOR Thai Almendarez METAL REFINER [facility] CPT-15278 Level 3 Est. Patient 14:42:12 PACKING MACHINE INSPECTOR Liat Cheng MD [facility] CPT-73422 Level 3 Est. Patient 16:38:12 PACKING MACHINE INSPECTOR Valentin Blanco MD [facility] CPT-00314 Level 3 Est. Patient 14:12:52 CDT Liat Cheng MD [facility] CPT-87803 Level 2 Est. Patient 12:17:18 CDT Audelia Ochoa [facility] [place] CPT-23266 Level 3 Est. Patient 15:02:49 CDT Boo Vasquez MD [facility] CPT-68638 Level 3 Est. Patient 16:21:33 PACKING MACHINE INSPECTOR Gama Bermeo MD [facility] CPT-74170 Level 3 Est. Patient 11:32:23 PACKING MACHINE INSPECTOR Liat Cheng MD [facility] CPT-33393 Level 3 Est. Patient 16:59:23 CDT Liat Cheng MD [facility] CPT-26960 Level 3 Est. Patient 17:02:11 PACKING MACHINE INSPECTOR Tay MAJOR [facility] CPT-46392 Level 3 Est. Patient 16:49:05 PACKING MACHINE INSPECTOR Liat Cheng MD [facility] CPT-45990 Level 3 Est. Patient 16:36:13 CDT Vivien Conway METAL REFINER [facility] Procedures Code Procedure Name Date Entry Date Standard Description CPT-27221 Ankle, right, Complete - Min 3V 16:15:36 CDT CPT-J7307 Nexplanon (Implant) 16:25:36 PACKING MACHINE INSPECTOR CPT-31088 Nexplanon Placement 16:25:36 PACKING MACHINE INSPECTOR CPT-OV Office Visit 16:25:36 PACKING MACHINE INSPECTOR CPT-OV Office Visit 18:49:22 PACKING MACHINE INSPECTOR CPT-OV Office Visit 18:49:18 CDT CPT-94982 Administration single or combination vaccine inc oral 11 :11:48 CDT CPT-58607 Adacel Intramuscular Suspension 5-2-15.5 11:11:48 CDT CPT-48861 Toes 2V 17:03:02 PACKING MACHINE INSPECTOR
--- OUTSIDE RECORDS SUMMARY | 2018-02-18 12:22 | XMS REPORT | Clinical Summary ---
Author Author Admin, QIE Organization [employer] Address Unknown Phone Unavailable Allergies, Adverse Reactions, [...] Liat Cheng MD Painful respiration Pharyngitis Acute Inactive Liat Cheng MD Acute pharyngitis SPORTS PHYSICAL ICD-V70.3 Inactive Boo Vasquez MD Family History of Diabetes ICD-V18.0 Inactive Boo Vasquez MD Family History of Hypertension ICD-V17.4 Inactive Boo Vasquez MD Pharyngitis Acute ICD-462 Inactive Liat Cheng MD Sinusitis, acute ICD-461.9 [...] Trichomonal infection ICD-131.9 Inactive Liat Cheng MD Toe injury ICD-959.7 Inactive Liat Cheng MD Abdominal pain ICD-789.00 Inactive Liat Cheng MD Lightheadedness ICD-780.4 Inactive Liat Cheng MD Chest wall pain ICD-786.52 Inactive Liat Cheng MD Pharyngitis Acute Inactive Liat Cheng MD Medication List Medication Instructions Start Date Stop Date Generic Name NDC Status Provider Patient Instruction DICLOFENAC SODIUM 50 MG TBEC 1 tablet by mouth four times daily PRN Pain 2015 DICLOFENAC SODIUM 50120605043 No Longer Active Liat Cheng MD Active ZOFRAN 4 MG TABS 1 po q8hr PRN Nausea ONDANSETRON HCL 72562670068 No Longer Active Liat Cheng MD Active NEXPLANON 68 MG SC IMPL Inserted in the left upper arm ETONOGESTREL 41225126109 Active Liat Cheng MD Active FLAGYL 500 MG TAB 1 tablet by mouth bid. do not mix with etoh. METRONIDAZOLE 73196317679 No Longer Active Liat Cheng MD Active CIPRO 500 MG TAB 1 tablet by mouth twice daily CIPROFLOXACIN HCL 55063107403 No Longer Active Mxaimllpb Almendarez APRN Active FLONASE 50 MCG/ACT SUSP 1 puff in easch nostril bid FLUTICASONE PROPIONATE No Longer Active Maximllpb Almendarez APRN Active KEFLEX 500 MG CAP 1 po qid CEPHALEXIN 30738335812 No Longer Active Maximllpb Almendarez APRN Active AZITHROMYCIN 250 MG TABS 2 pills day 1,1 pill day 2-5 AZITHROMYCIN 21877013036 No Longer Active Liat Cheng MD Active ZITHROMAX Z-GIANLUCA 250 MG TABS 2 today and then 1 daily for 4 days AZITHROMYCIN 87907113313 No Longer Active Liat Cheng MD Active LORATADINE 10 MG TABS 1 tablet by mouth daily PRN Congestion 2014 LORATADINE 68313266080 No Longer Active Audelia Yokum BOX NAILER Active MUCINEX DM MAXIMUM STRENGTH 60-1200 MG [id number] 1 po BID PRN Cough DEXTROMETHORPHAN-GUAIFENESIN 50573706562 No Longer Active Audelia Yokum BOX NAILER Active PREDNISONE 20 MG TAB 2 tabs daily for 3 days, 1 tab daily for 3 days, 1/2 tab daily for 2 days PREDNISONE 79439399799 No Longer Active Boo Vasquez MD Active BACTRIM DS 800-160 MG TAB 1 tab by mouth twice daily TRIMETHOPRIM-SULFAMETHOXAZOLE 03815269718 No Longer Active Gama Bermeo MD Active ZOFRAN 8 MG ORAL TABS 1 q 8hr prn vomiting ONDANSETRON HCL 07866340948 No Longer Active Gama Bermeo MD Active AUGMENTIN 875-125 MG TABS 1 bid AMOXICILLIN-POT CLAVULANATE 33388717250 No Longer Active Liat Cheng MD Active HYDROCODONE-ACETAMINOPHEN TABS Take as directed/PRN HYDROCODONE-ACETAMINOPHEN TABS 28819203856 No Longer Active Liat Cheng MD Active CEFDINIR 300 MG CAPS 1 PO bid x 7 days CEFDINIR 53137857291 No Longer Active Liat Cheng MD Active CEFDINIR 300 MG CAPS 1 PO bid x 7 days CEFDINIR 300 MG CAPS 206168 CEFDINIR Inactive HYDROCODONE-ACETAMINOPHEN TABS Take as directed/PRN HYDROCODONE-ACETAMINOPHEN TABS HYDROCODONE-ACETAMINOPHEN TABS Inactive ZOFRAN 8 MG ORAL TABS 1 q 8hr prn vomiting ZOFRAN 8 MG ORAL TABS 781826 ONDANSETRON HCL Inactive MUCINEX DM MAXIMUM STRENGTH 60-1200 MG [id number] 1 po BID PRN Cough MUCINEX DM MAXIMUM STRENGTH 60-1200 MG [id number] DEXTROMETHORPHAN-GUAIFENESIN Inactive LORATADINE 10 MG TABS 1 tablet by mouth daily PRN Congestion 2014 LORATADINE 10 MG TABS 675479 LORATADINE Inactive ZITHROMAX Z-GIANLUCA 250 MG TABS 2 today and then 1 daily for 4 days ZITHROMAX Z-GIANLUCA 250 MG TABS 9119765 AZITHROMYCIN Inactive KEFLEX 500 MG CAP 1 po qid KEFLEX 500 MG CAP 442728 CEPHALEXIN Inactive FLONASE 50 MCG/ACT SUSP 1 puff in easch nostril bid FLONASE 50 MCG/ACT SUSP 158116 FLUTICASONE PROPIONATE Inactive CIPRO 500 MG TAB 1 tablet by mouth twice daily CIPRO 500 MG TAB 842038 CIPROFLOXACIN HCL Inactive FLAGYL 500 MG TAB 1 tablet by mouth bid. do not mix with etoh. FLAGYL 500 MG TAB 322336 METRONIDAZOLE Inactive ZOFRAN 4 MG TABS 1 po q8hr PRN Nausea ZOFRAN 4 MG TABS 989309 ONDANSETRON HCL Inactive DICLOFENAC SODIUM 50 MG TBEC 1 tablet by mouth four times daily PRN Pain 2015 DICLOFENAC SODIUM 50 MG TBEC 246101 DICLOFENAC SODIUM Inactive AUGMENTIN 875-125 MG TABS 1 bid AUGMENTIN 875-125 MG TABS 605110 AMOXICILLIN-POT CLAVULANATE Inactive BACTRIM DS 800-160 MG TAB 1 tab by mouth twice daily BACTRIM DS 800-160 MG TAB 958260 TRIMETHOPRIM-SULFAMETHOXAZOLE Inactive PREDNISONE 20 MG TAB 2 tabs daily for 3 days, 1 tab daily for 3 days, 1/2 tab daily for 2 days PREDNISONE 20 MG TAB 115077 PREDNISONE Inactive AZITHROMYCIN 250 MG TABS 2 pills day 1,1 pill day 2-5 AZITHROMYCIN 250 MG TABS 8829829 AZITHROMYCIN Inactive Advance Directives Directive Description Start Date PERMISSION TO SHARE Immunizations Vaccine Administration Date Value Standard Description Adacel (Tetanus, reduced Diphtheria, and acellular Pertussis Immunization) Adacel [[id number]] tetanus toxoid, reduced diphtheria toxoid, and acellular [...] 369 10^3/MM^3 10*3/mm3 142-424 Lab Report: Chlamydia/GC [facility]/09197 - Lab chlamydia DNA probe NOT DETECTED NOT DETECTED chlamydia DNA probe NOT DETECTED NOT DETECTED Lab Report: Chlamydia/GC [facility]/50833 - Microbiology Neisseria gonorrhoeae DNA probe NOT DETECTED NOT DETECTED Neisseria gonorrhoeae DNA probe NOT DETECTED NOT DETECTED Lab Report: Comp. Metabolic Panel - Chemistry sodium, serum 140 mmol/L 546-528 1324/11/17 carbon dioxide, venous blood 25.9 mmol/L 21.0-32.0 [...] negative Encounters Code Encounter Date Provider Facility CPT-93606 Level 3 Est. Patient 13:10:51 CDT Liat Cheng MD [facility] CPT-88154 Level 3 Est. Patient 14:16:58 CDT Boo Vasquez MD [facility]-03626 Level 3 Est. Patient 16:08:19 CDT Liat Cheng MD [facility]-86340 Level 3 Est. Patient 15:48:30 CAREER ADVISOR Liat Cheng MD [facility] CPT-81146 Level 3 Est. Patient 14:24:59 CAREER ADVISOR Liat Cheng MD [facility]-20972 Level 3 Est. Patient 15:06:21 CAREER ADVISOR Thai Almendarez [facility]-93643 Level 3 Est. Patient 15:43:50 CAREER ADVISOR Thai Almendarez [facility]-44336 Level 3 Est. Patient 14:42:12 CAREER ADVISOR Liat Cheng MD [facility] CPT-14398 Level 3 Est. Patient 16:38:12 CAREER ADVISOR Valentin Blanco MD [facility]-35693 Level 3 Est. Patient 14:12:52 CDT Liat Cheng MD [facility] CPT-64396 Level 2 Est. Patient 12:17:18 CDT Audelia Ochoa [facility] CPT-52037 Level 3 Est. Patient 15:02:49 CDT Boo Vasquez MD [facility] CPT-11984 Level 3 Est. Patient 16:21:33 CAREER ADVISOR Gama Bermeo MD [facility] CPT-09360 Level 3 Est. Patient 11:32:23 CAREER ADVISOR Liat Cheng MD [facility] CPT-23161 Level 3 Est. Patient 16:59:23 CDT Liat Cheng MD [facility] CPT-04321 Level 3 Est. Patient 17:02:11 CAREER ADVISOR Tay MAJOR [facility] CPT-59687 Level 3 Est. Patient 16:49:05 CAREER ADVISOR Liat Cheng MD [facility] CPT-41676 Level 3 Est. Patient 16:36:13 CDT Vivien Conway [facility] Procedures Code Procedure Name Date Entry Date Standard Description CPT-58446 Ankle, right, Complete - Min 3V 16:15:36 CDT CPT-J7307 Nexplanon (Implant) 16:25:36 CAREER ADVISOR CPT-83627 Nexplanon Placement 16:25:36 CAREER ADVISOR CPT-OV Office Visit 16:25:36 CAREER ADVISOR CPT-OV Office Visit 18:49:22 CAREER ADVISOR CPT-OV Office Visit 18:49:18 CDT CPT-51391 Administration single or combination vaccine inc oral 11 :11:48 CDT CPT-72948 Adacel Intramuscular Suspension 5-2-15.5 11:11:48 CDT CPT-89626 Toes 2V 17:03:02 CAREER ADVISOR
--- OUTSIDE RECORDS SUMMARY | 2018-02-18 12:23 | XMS REPORT | Clinical Summary ---
Author Author Admin, QIE Organization [employer] Address Unknown Phone Unavailable Allergies, Adverse Reactions, [...] unspecified sites Upper respiratory infection, viral 465.9 Active Boo Vasquez MD Acute upper respiratory infections of unspecified site SPORTS PHYSICAL ICD-V70.3 Inactive Boo Vasquez MD [...] Abscess, skin ICD-682.9 Inactive Boo Vasquez MD Medication List Medication Instructions Start Date Stop Date Generic Name NDC Status Provider Patient Instruction LORATADINE 10 MG TABS 1 tablet by mouth daily PRN Congestion 2014 LORATADINE 38703434156 No Longer Active Audelia Yokum STUCCO WORKER Active MUCINEX DM MAXIMUM STRENGTH 60-1200 MG [id number] 1 po BID PRN Cough DEXTROMETHORPHAN-GUAIFENESIN 06390537435 No Longer Active Audelia Yokum STUCCO WORKER Active PREDNISONE 20 MG TAB 2 tabs daily for 3 days, 1 tab daily for 3 days, 1/2 tab daily for 2 days PREDNISONE 98687617481 No Longer Active Boo Vasquez MD Active BACTRIM DS 800-160 MG TAB 1 tab by mouth twice daily TRIMETHOPRIM-SULFAMETHOXAZOLE 73198863086 No Longer Active Gama Bermeo MD Active ZOFRAN 8 MG ORAL TABS 1 q 8hr prn vomiting ONDANSETRON HCL 29483213371 No Longer Active Gama Bermeo MD Active AUGMENTIN 875-125 MG TABS 1 bid AMOXICILLIN-POT CLAVULANATE 94288461319 No Longer Active Liat Cheng MD Active HYDROCODONE-ACETAMINOPHEN TABS Take as directed/PRN HYDROCODONE-ACETAMINOPHEN TABS 97758780602 No Longer Active Liat Cheng MD Active CEFDINIR 300 MG CAPS 1 PO bid x 7 days CEFDINIR 32795672644 No Longer Active Liat Cheng MD Active CEFDINIR 300 MG CAPS 1 PO bid x 7 days CEFDINIR 300 MG CAPS 242466 CEFDINIR Inactive HYDROCODONE-ACETAMINOPHEN TABS Take as directed/PRN HYDROCODONE-ACETAMINOPHEN TABS HYDROCODONE-ACETAMINOPHEN TABS Inactive ZOFRAN 8 MG ORAL TABS 1 q 8hr prn vomiting ZOFRAN 8 MG ORAL TABS 090648 ONDANSETRON HCL Inactive MUCINEX DM MAXIMUM STRENGTH 60-1200 MG [id number] 1 po BID PRN Cough MUCINEX DM MAXIMUM STRENGTH 60-1200 MG [id number] DEXTROMETHORPHAN-GUAIFENESIN Inactive LORATADINE 10 MG TABS 1 tablet by mouth daily PRN Congestion 2014 LORATADINE 10 MG TABS 525721 LORATADINE Inactive AUGMENTIN 875-125 MG TABS 1 bid AUGMENTIN 875-125 MG TABS 801243 AMOXICILLIN-POT CLAVULANATE Inactive BACTRIM DS 800-160 MG TAB 1 tab by mouth twice daily BACTRIM DS 800-160 MG TAB TRIMETHOPRIM-SULFAMETHOXAZOLE Inactive PREDNISONE 20 MG TAB 2 tabs daily for 3 days, 1 tab daily for 3 days, 1/2 tab daily for 2 days PREDNISONE 20 MG TAB 289854 PREDNISONE Inactive Immunizations Vaccine Administration Date Value Standard Description Adacel (Tetanus, reduced Diphtheria, and acellular Pertussis Immunization) Adacel [[id number]] tetanus toxoid, reduced diphtheria toxoid, and acellular [...] E&M - 3141-9 243 [lb_av] Weight Measured blood pressure, diastolic - 8462-4 64 mm[Hg] BP grady blood pressure, systolic - 8480-6 120 mm[Hg] BP sys height E&M - 8302-2 66 [in_us] Bdy height temperature E&M 98.1 [degF] Body temperature weight E&M - 3141-9 237.38 [lb_av] Weight Measured blood pressure, diastolic - 8462-4 64 mm[Hg] BP grady blood pressure, systolic - 8480-6 130 mm[Hg] BP sys height E&M - 8302-2 65 [in_us] Bdy height temperature E&M 98.4 [degF] Body temperature weight E&M - 3141-9 230.13 [lb_av] Weight Measured blood pressure, diastolic - 8462-4 70 mm[Hg] BP grady blood pressure, systolic - 8480-6 130 mm[Hg] BP sys height E&M - 8302-2 65.5 [in_us] Bdy height temperature E&M 99.5 [degF] Body temperature weight E&M - 3141-9 233.50 [lb_av] Weight Measured Encounters Code Encounter Date Provider Facility CPT-90200 Level 3 Est. Patient 15:02:49 CDT Boo Vasquez MD [facility] CPT-15268 Level 3 Est. Patient 16:21:33 INSOLE BEVELER Gama Bermeo MD [facility] CPT-93586 Level 3 Est. Patient 11:32:23 INSOLE BEVELER Liat Cheng MD [facility] CPT-46903 Level 3 Est. Patient 16:59:23 CDT Liat Cheng MD [facility] CPT-14256 Level 3 Est. Patient 17:02:11 INSOLE BEVELER Tay MAJOR [facility] CPT-46335 Level 3 Est. Patient 16:49:05 INSOLE BEVELER Liat Cheng MD [facility] CPT-66076 Level 3 Est. Patient 16:36:13 CDT Vivien Conway APRN [facility] Procedures Code Procedure Name Date Entry Date Standard Description CPT-14378 Administration single or combination vaccine inc oral 11 :11:48 CDT CPT-56879 Adacel Intramuscular Suspension 5-2-15.5 11:11:48 CDT CPT-04820 Toes 2V 17:03:02 INSOLE BEVELER
--- OUTSIDE RECORDS SUMMARY | 2018-02-18 12:23 | XMS REPORT | Clinical Summary ---
Author Author Admin, QIE Organization [employer] Address Unknown Phone Unavailable Allergies, Adverse Reactions, Alerts Allergy Name Reaction Description Start Date Severity Status Provider NKDA Mild No Longer Active Valentin Blanco MD IODINE break out in a rash Critical Active Anaya Ferrara MD NKDA Critical No Longer Active Tay MAJOR NKDA UNK Inactive Viktoria Wood LRT Conditions or Problems Problem Name Problem Code [...] MD Acute pharyngitis Toe injury 959.7 Resolved iLat Cheng MD Other and unspecified injury to [...] Acute Inactive Liat Cheng MD Acute pharyngitis Preconception counseling V26.49 Active Anaya Ferrara MD Other procreative management counseling and advice HTN 401.9 Active Anaya Ferrara MD Unspecified essential hypertension Pharyngitis 462 Active Valentin Blanco MD Acute pharyngitis SPORTS PHYSICAL ICD-V70.3 Inactive [...] Generic Name NDC Status Provider Patient Instruction AMOXICILLIN 500 MG TABS 2 tabs twice a day for 10 days AMOXICILLIN 43077748870 Active Valentin Blanco MD Active NEXPLANON 68 MG SC IMPL Inserted in the left upper arm ETONOGESTREL 08648714402 No Longer Active Valentin Blanco MD Active DICLOFENAC SODIUM 50 MG TBEC 1 tablet by mouth four times daily PRN Pain 2015 DICLOFENAC SODIUM 40943467764 No Longer Active Liat Cheng MD Active ZOFRAN 4 MG TABS 1 po q8hr PRN Nausea ONDANSETRON HCL 22485300719 No Longer Active Liat Cheng MD Active FLAGYL 500 MG TAB 1 tablet by mouth bid. do not mix with etoh. METRONIDAZOLE 07966869335 No Longer Active Liat Cheng MD Active CIPRO 500 MG TAB 1 tablet by mouth twice daily CIPROFLOXACIN HCL 05675679197 No Longer Active Jillina Fraaranzal RUSSELL Active FLONASE 50 MCG/ACT SUSP 1 puff in easch nostril bid FLUTICASONE PROPIONATE No Longer Active Jillpb Fraaranzal RUSSELL Active KEFLEX 500 MG CAP 1 po qid CEPHALEXIN 12275650528 No Longer Active Jillpb Almendarez APRN Active AZITHROMYCIN 250 MG TABS 2 pills day 1,1 pill day 2-5 AZITHROMYCIN 86179313051 No Longer Active Liat Cheng MD Active ZITHROMAX Z-GIANLUCA 250 MG TABS 2 today and then 1 daily for 4 days AZITHROMYCIN 73521299283 No Longer Active Liat Cheng MD Active LORATADINE 10 MG TABS 1 tablet by mouth daily PRN Congestion 2014 LORATADINE 56135328409 No Longer Active Audelia Yokbillie WELLS Active MUCINEX DM MAXIMUM STRENGTH 60-1200 MG [id number] 1 po BID PRN Cough DEXTROMETHORPHAN-GUAIFENESIN 57871957282 No Longer Active Audelia Yokum ORCHESTRA DIRECTOR Active PREDNISONE 20 MG TAB 2 tabs daily for 3 days, 1 tab daily for 3 days, 1/2 tab daily for 2 days PREDNISONE 11491562552 No Longer Active Boo Vasquez MD Active BACTRIM DS 800-160 MG TAB 1 tab by mouth twice daily TRIMETHOPRIM-SULFAMETHOXAZOLE 50845684702 No Longer Active Gama Bermeo MD Active ZOFRAN 8 MG ORAL TABS 1 q 8hr prn vomiting ONDANSETRON HCL 67044052118 No Longer Active Gama Bermeo MD Active AUGMENTIN 875-125 MG TABS 1 bid AMOXICILLIN-POT CLAVULANATE 76653984631 No Longer Active Liat Cheng MD Active HYDROCODONE-ACETAMINOPHEN TABS Take as directed/PRN HYDROCODONE-ACETAMINOPHEN TABS 87532592956 No Longer Active Liat Cheng MD Active CEFDINIR 300 MG CAPS 1 PO bid x 7 days CEFDINIR 24182134995 No Longer Active Liat Cheng MD Active CEFDINIR 300 MG CAPS 1 PO bid x 7 days CEFDINIR 300 MG CAPS 955528 CEFDINIR Inactive HYDROCODONE-ACETAMINOPHEN TABS Take as directed/PRN HYDROCODONE-ACETAMINOPHEN TABS HYDROCODONE-ACETAMINOPHEN TABS Inactive ZOFRAN 8 MG ORAL TABS 1 q 8hr prn vomiting ZOFRAN 8 MG ORAL TABS 261522 ONDANSETRON HCL Inactive MUCINEX DM MAXIMUM STRENGTH 60-1200 MG [id number] 1 po BID PRN Cough MUCINEX DM MAXIMUM STRENGTH 60-1200 MG [id number] DEXTROMETHORPHAN-GUAIFENESIN Inactive LORATADINE 10 MG TABS 1 tablet by mouth daily PRN Congestion 2014 LORATADINE 10 MG TABS 308510 LORATADINE Inactive ZITHROMAX Z-GIANLUCA 250 MG TABS 2 today and then 1 daily for 4 days ZITHROMAX Z-GIANLUCA 250 MG TABS 9369030 AZITHROMYCIN Inactive KEFLEX 500 MG CAP 1 po qid KEFLEX 500 MG CAP 290842 CEPHALEXIN Inactive FLONASE 50 MCG/ACT SUSP 1 puff in easch nostril bid FLONASE 50 MCG/ACT SUSP FLUTICASONE PROPIONATE Inactive CIPRO 500 MG TAB 1 tablet by mouth twice daily CIPRO 500 MG TAB 715805 CIPROFLOXACIN HCL Inactive FLAGYL 500 MG TAB 1 tablet by mouth bid. do not mix with etoh. FLAGYL 500 MG TAB 579276 METRONIDAZOLE Inactive ZOFRAN 4 MG TABS 1 po q8hr PRN Nausea ZOFRAN 4 MG TABS 402556 ONDANSETRON HCL Inactive DICLOFENAC SODIUM 50 MG TBEC 1 tablet by mouth four times daily PRN Pain 2015 DICLOFENAC SODIUM 50 MG TBEC 913411 DICLOFENAC SODIUM Inactive NEXPLANON 68 MG SC IMPL Inserted in the left upper arm NEXPLANON 68 MG SC IMPL ETONOGESTREL Inactive AUGMENTIN 875-125 MG TABS 1 bid AUGMENTIN 875-125 MG TABS 024401 AMOXICILLIN-POT CLAVULANATE Inactive BACTRIM DS 800-160 MG TAB 1 tab by mouth twice daily BACTRIM DS 800-160 MG TAB 063693 TRIMETHOPRIM-SULFAMETHOXAZOLE Inactive PREDNISONE 20 MG TAB 2 tabs daily for 3 days, 1 tab daily for 3 days, 1/2 tab daily for 2 days PREDNISONE 20 MG TAB 079092 PREDNISONE Inactive AZITHROMYCIN 250 MG TABS 2 pills day 1,1 pill day 2-5 AZITHROMYCIN 250 MG TABS 7581841 AZITHROMYCIN Inactive Advance Directives Directive Description Start Date PERMISSION TO SHARE Immunizations Vaccine Administration Date Value Standard Description Adacel (Tetanus, reduced Diphtheria, and acellular Pertussis Immunization) Adacel [[id number]] tetanus toxoid, reduced diphtheria toxoid, and acellular [...] Range Description blood pressure, diastolic - 8462-4 94 mm[Hg] BP grady blood pressure, systolic - 8480-6 162 mm[Hg] BP sys pulse rate E&M - 8867-4 115 /min Heart rate temperature E&M 99.9 [degF] Body temperature weight E&M - 3141-9 251.5 [lb_av] Weight Measured blood pressure, diastolic - 8462-4 82 mm[Hg] BP grady blood pressure, systolic - 8480-6 151 mm[Hg] BP sys pulse rate E&M - 8867-4 85 /min Heart rate temperature E&M 98.5 [degF] [...] 369 10^3/MM^3 10*3/mm3 142-424 Lab Report: Chlamydia/GC APTIMA/[id number] - Lab chlamydia DNA probe NOT DETECTED NOT DETECTED chlamydia DNA probe NOT DETECTED NOT DETECTED Lab Report: Chlamydia/GC [facility]TIMA/38645 - Microbiology Neisseria gonorrhoeae DNA probe NOT DETECTED NOT DETECTED Neisseria gonorrhoeae DNA probe NOT DETECTED NOT DETECTED Lab Report: Comp. Metabolic Panel - Chemistry sodium, serum 140 mmol/L 608-456 9904/11/17 carbon dioxide, venous blood 25.9 mmol/L 21.0-32.0 [...] negative Encounters Code Encounter Date Provider Facility CPT-55160 Level 3 Est. Patient 16:38:37 PLATE INSPECTOR Valentin Blanco MD [facility] CPT-52481 Level 3 Est. Patient 13:10:51 CDT Liat Cheng MD [facility] CPT-33244 Level 3 Est. Patient 14:16:58 CDT Boo Vasquez MD [facility]-00170 Level 3 Est. Patient 16:08:19 CDT Liat Cheng MD [facility] CPT-68080 Level 3 Est. Patient 15:48:30 PLATE INSPECTOR Liat Cheng MD [facility] CPT-03435 Level 3 Est. Patient 14:24:59 PLATE INSPECTOR Liat Cheng MD [facility] CPT-04041 Level 3 Est. Patient 15:06:21 PLATE INSPECTOR Thai Almendarez [facility]-53445 Level 3 Est. Patient 15:43:50 PLATE INSPECTOR Thai Almendarez [facility]-75532 Level 3 Est. Patient 14:42:12 PLATE INSPECTOR Liat Cheng MD [facility]-95647 Level 3 Est. Patient 16:38:12 PLATE INSPECTOR Valentin Blanco MD [facility] CPT-30266 Level 3 Est. Patient 14:12:52 CDT Liat Cheng MD [facility] CPT-04917 Level 2 Est. Patient 12:17:18 CDT Audelia Ochoa [facility] CPT-40769 Level 3 Est. Patient 15:02:49 CDT Boo Vasquez MD [facility] CPT-77389 Level 3 Est. Patient 16:21:33 PLATE INSPECTOR Gama Bermeo MD [facility] CPT-94768 Level 3 Est. Patient 11:32:23 PLATE INSPECTOR Liat Cheng MD [facility] CPT-37829 Level 3 Est. Patient 16:59:23 CDT Liat Cheng MD [facility] CPT-80132 Level 3 Est. Patient 17:02:11 PLATE INSPECTOR Tay MAJOR [facility] CPT-00108 Level 3 Est. Patient 16:49:05 PLATE INSPECTOR Liat Cheng MD [facility] CPT-89080 Level 3 Est. Patient 16:36:13 CDT Vivien Conway [facility] Procedures Code Procedure Name Date Entry Date Standard Description CPT-67092 Nexplanon Removal 15:41:24 CDT CPT-OV Office Visit 09:29:28 CDT CPT-000 Give Immunizations Due 16:59:23 CDT CPT-08415 Ankle, right, Complete - Min 3V 16:15:36 CDT CPT-J7307 Nexplanon (Implant) 16:25:36 PLATE INSPECTOR CPT-56156 Nexplanon Placement 16:25:36 PLATE INSPECTOR CPT-OV Office Visit 16:25:36 PLATE INSPECTOR CPT-OV Office Visit 18:49:22 PLATE INSPECTOR CPT-OV Office Visit 18:49:18 CDT CPT-63959 Administration single or combination vaccine inc oral 11 :11:48 CDT CPT-23868 Adacel Intramuscular Suspension 5-2-15.5 11:11:48 CDT CPT-52775 Toes 2V 17:03:02 PLATE INSPECTOR
--- OUTSIDE RECORDS SUMMARY | 2018-02-18 12:24 | XMS REPORT | Clinical Summary ---
Author Author Admin, QIE Organization [employer] Address Unknown Phone Unavailable Allergies, Adverse Reactions, [...] Liat Cheng MD UTI 599.0 Active Thai Almendarze APRN Urinary tract infection, site not specified [...] 500 MG CAP 1 po qid CEPHALEXIN 80762045546 Active Thai Almendarez [employer]APER [employer]ED [employer] LAYOUT Active FLONASE 50 MCG/ACT SUSP 1 puff in easch nostril bid FLUTICASONE PROPIONATE Active Liat Cheng MD Active AZITHROMYCIN 250 MG TABS 2 pills day 1,1 pill day 2-5 AZITHROMYCIN 46653471247 No Longer Active Liat Cheng MD Active ZITHROMAX Z-GIANLUCA 250 MG TABS 2 today and then 1 daily for 4 days AZITHROMYCIN 37191840614 No Longer Active Liat Cheng MD Active LORATADINE 10 MG TABS 1 tablet by mouth daily PRN Congestion 2014 LORATADINE 61715200850 No Longer Active Audelia Ochoa TAPER PRINTED CIRCUIT LAYOUT Active MUCINEX DM MAXIMUM STRENGTH 60-1200 MG [id number] 1 po BID PRN Cough DEXTROMETHORPHAN-GUAIFENESIN 09817964789 No Longer Active Audelia Ochoa APRN Active PREDNISONE 20 MG TAB 2 tabs daily for 3 days, 1 tab daily for 3 days, 1/2 tab daily for 2 days PREDNISONE 23445354254 No Longer Active Boo Vasquez MD Active BACTRIM DS 800-160 MG TAB 1 tab by mouth twice daily TRIMETHOPRIM-SULFAMETHOXAZOLE 83440692244 No Longer Active Gama Bermeo MD Active ZOFRAN 8 MG ORAL TABS 1 q 8hr prn vomiting ONDANSETRON HCL 57759379157 No Longer Active Gama Bermeo MD Active AUGMENTIN 875-125 MG TABS 1 bid AMOXICILLIN-POT CLAVULANATE 12024286501 No Longer Active Liat Cheng MD Active HYDROCODONE-ACETAMINOPHEN TABS Take as directed/PRN HYDROCODONE-ACETAMINOPHEN TABS 82653357960 No Longer Active Liat Cheng MD Active CEFDINIR 300 MG CAPS 1 PO bid x 7 days CEFDINIR 50572407133 No Longer Active Liat Cheng MD Active CEFDINIR 300 MG CAPS 1 PO bid x 7 days CEFDINIR 300 MG CAPS 799171 CEFDINIR Inactive HYDROCODONE-ACETAMINOPHEN TABS Take as directed/PRN HYDROCODONE-ACETAMINOPHEN TABS HYDROCODONE-ACETAMINOPHEN TABS Inactive ZOFRAN 8 MG ORAL TABS 1 q 8hr prn vomiting ZOFRAN 8 MG ORAL TABS 545768 ONDANSETRON HCL Inactive MUCINEX DM MAXIMUM STRENGTH 60-1200 MG [id number]-QVM 1 po BID PRN Cough MUCINEX DM MAXIMUM STRENGTH 60-1200 MG [id number] DEXTROMETHORPHAN-GUAIFENESIN Inactive LORATADINE 10 MG TABS 1 tablet by mouth daily PRN Congestion 2014 LORATADINE 10 MG TABS 073901 LORATADINE Inactive ZITHROMAX Z-GIANLUCA 250 MG TABS 2 today and then 1 daily for 4 days ZITHROMAX Z-GIANLUCA 250 MG TABS 5313438 AZITHROMYCIN Inactive AUGMENTIN 875-125 MG TABS 1 bid AUGMENTIN 875-125 MG TABS 224030 AMOXICILLIN-POT CLAVULANATE Inactive BACTRIM DS 800-160 MG TAB 1 tab by mouth twice daily BACTRIM DS 800-160 MG TAB 040057 TRIMETHOPRIM-SULFAMETHOXAZOLE Inactive PREDNISONE 20 MG TAB 2 tabs daily for 3 days, 1 tab daily for 3 days, 1/2 tab daily for 2 days PREDNISONE 20 MG TAB 297971 PREDNISONE Inactive AZITHROMYCIN 250 MG TABS 2 pills day 1,1 pill day 2-5 AZITHROMYCIN 250 MG TABS 4777597 AZITHROMYCIN Inactive Immunizations Vaccine Administration Date Value Standard Description Adacel (Tetanus, reduced Diphtheria, and acellular Pertussis Immunization) Adacel [[id number]] tetanus toxoid, reduced diphtheria toxoid, and acellular [...] Panel - Chemistry sodium, serum 140 mmol/L 356-393 3527/11/17 carbon dioxide, venous blood 25.9 mmol/L 21.0-32.0 [...] Negative Encounters Code Encounter Date Provider Facility CPT-10918 Level 3 Est. Patient 14:42:12 CLIENT TECHNICAL SUPPORT ASSOCIATE Liat Cheng MD [facility] CPT-23146 Level 3 Est. Patient 16:38:12 CLIENT TECHNICAL SUPPORT ASSOCIATE Vaelntin Blanco MD [facility] CPT-78864 Level 3 Est. Patient 14:12:52 CDT Liat Cheng MD [facility] CPT-22852 Level 2 Est. Patient 12:17:18 CDT Audelia Ochoa [facility] CPT-70545 Level 3 Est. Patient 15:02:49 CDT Boo Vasquez MD [facility] CPT-12792 Level 3 Est. Patient 16:21:33 CLIENT TECHNICAL SUPPORT ASSOCIATE Gama Bermeo MD [facility] CPT-20760 Level 3 Est. Patient 11:32:23 CLIENT TECHNICAL SUPPORT ASSOCIATE Liat Cheng MD [facility] CPT-85563 Level 3 Est. Patient 16:59:23 CDT Liat Cheng MD [facility] CPT-39392 Level 3 Est. Patient 17:02:11 CLIENT TECHNICAL SUPPORT ASSOCIATE Tay MAJOR [facility] CPT-59715 Level 3 Est. Patient 16:49:05 CLIENT TECHNICAL SUPPORT ASSOCIATE Liat Cheng MD [facility] CPT-21850 Level 3 Est. Patient 16:36:13 CDT Vivien Conway [facility] Procedures Code Procedure Name Date Entry Date Standard Description CPT-OV Office Visit 18:49:18 CDT CPT-75421 Administration single or combination vaccine inc oral 11 :11:48 CDT CPT-75703 Adacel Intramuscular Suspension 5-2-15.5 11:11:48 CDT CPT-83314 Toes 2V 17:03:02 CLIENT TECHNICAL SUPPORT ASSOCIATE
--- OUTSIDE RECORDS SUMMARY | 2018-02-18 12:24 | XMS REPORT | Clinical Summary ---
Author Author Admin, ISRRAEL Organization [facility] Address Unknown Phone Unavailable Allergies, Adverse Reactions, [...] Insect bite NEC w/o infection 919.4 Resolved Lait Cheng MD Insect bite, nonvenomous, of other, [...] I Inactive Liat Cheng MD UTI 599.0 Active Thai Almendarez APRN Urinary tract infection, site not specified Sexual activity, high risk V69.2 Active Thai Almendarez APRN High-risk sexual behavior Premenstrual symptom 625.4 Active Anaya Ferrara MD Premenstrual tension syndromes CONTRACEPTION MANAGEMENT V25.09 Active Anaya Ferrara MD Encounter for other general counseling and advice on contraceptive management Incontinence, urine 788.30 Active Thai Almendarez APRN Urinary incontinence, unspecified Trichomonal infection 131.9 Active Thai Almendarez APRN Trichomoniasis, unspecified Abdominal pain 789.00 Active Liat Cheng MD Abdominal pain, unspecified site SPORTS PHYSICAL ICD-V70.3 Inactive Boo [...] Liat Cheng MD Ankle pain, right ICD-719.47 Oneil Cheng MD Abdominal bloating ICD-787.3 Oneil Cheng MD Pharyngitis ICD-462 Inactive Liat Cheng MD Fatigue ICD-780.79 Oneil Cheng MD U R I Inactive Liat Cheng MD Medication List Medication Instructions Start Date Stop Date Generic Name NDC Status Provider Patient Instruction ZOFRAN 4 MG TABS 1 po q8hr PRN Nausea ONDANSETRON HCL 17883668449 Active Angeline Santiago CAR INSTALLATIONS SUPERVISOR Active NEXPLANON 68 MG SC IMPL Inserted in the left upper arm ETONOGESTREL 80979912383 Active Liat Cheng MD Active FLAGYL 500 MG TAB 1 tablet by mouth bid. do not mix with etoh. METRONIDAZOLE 51450017040 No Longer Active Liat Cheng MD Active CIPRO 500 MG TAB 1 tablet by mouth twice daily CIPROFLOXACIN HCL 95956282228 No Longer Active Jillina Frazell CAR INSTALLATIONS SUPERVISOR Active FLONASE 50 MCG/ACT SUSP 1 puff in easch nostril bid FLUTICASONE PROPIONATE No Longer Active Jillina Erickson WELLS Active KEFLEX 500 MG CAP 1 po qid CEPHALEXIN 88693427842 No Longer Active Jillina Frankiel CAR INSTALLATIONS SUPERVISOR Active AZITHROMYCIN 250 MG TABS 2 pills day 1,1 pill day 2-5 AZITHROMYCIN 93610525670 No Longer Active Liat Cheng MD Active ZITHROMAX Z-GIANLUCA 250 MG TABS 2 today and then 1 daily for 4 days AZITHROMYCIN 44361786179 No Longer Active Liat Cheng MD Active LORATADINE 10 MG TABS 1 tablet by mouth daily PRN Congestion 2014 LORATADINE 83727838987 No Longer Active Audelia Yokum CAR INSTALLATIONS SUPERVISOR Active MUCINEX DM MAXIMUM STRENGTH 60-1200 MG [id number] 1 po BID PRN Cough DEXTROMETHORPHAN-GUAIFENESIN 56100119327 No Longer Active Audelia Yokum CAR INSTALLATIONS SUPERVISOR Active PREDNISONE 20 MG TAB 2 tabs daily for 3 days, 1 tab daily for 3 days, 1/2 tab daily for 2 days PREDNISONE 09256061480 No Longer Active Boo Vasquez MD Active BACTRIM DS 800-160 MG TAB 1 tab by mouth twice daily TRIMETHOPRIM-SULFAMETHOXAZOLE 12946925789 No Longer Active Gama Bermeo MD Active ZOFRAN 8 MG ORAL TABS 1 q 8hr prn vomiting ONDANSETRON HCL 24584996332 No Longer Active Gama Bermeo MD Active AUGMENTIN 875-125 MG TABS 1 bid AMOXICILLIN-POT CLAVULANATE 14194498200 No Longer Active Liat Cheng MD Active HYDROCODONE-ACETAMINOPHEN TABS Take as directed/PRN HYDROCODONE-ACETAMINOPHEN TABS 96302520099 No Longer Active Liat Cheng MD Active CEFDINIR 300 MG CAPS 1 PO bid x 7 days CEFDINIR 14989974744 No Longer Active Liat Cheng MD Active CEFDINIR 300 MG CAPS 1 PO bid x 7 days CEFDINIR 300 MG CAPS 420265 CEFDINIR Inactive HYDROCODONE-ACETAMINOPHEN TABS Take as directed/PRN HYDROCODONE-ACETAMINOPHEN TABS HYDROCODONE-ACETAMINOPHEN TABS Inactive ZOFRAN 8 MG ORAL TABS 1 q 8hr prn vomiting ZOFRAN 8 MG ORAL TABS 316223 ONDANSETRON HCL Inactive MUCINEX DM MAXIMUM STRENGTH 60-1200 MG [id number] 1 po BID PRN Cough MUCINEX DM MAXIMUM STRENGTH 60-1200 MG [id number] DEXTROMETHORPHAN-GUAIFENESIN Inactive LORATADINE 10 MG TABS 1 tablet by mouth daily PRN Congestion 2014 LORATADINE 10 MG TABS 019370 LORATADINE Inactive ZITHROMAX Z-GIANLUCA 250 MG TABS 2 today and then 1 daily for 4 days ZITHROMAX Z-GIANLUCA 250 MG TABS 6012038 AZITHROMYCIN Inactive KEFLEX 500 MG CAP 1 po qid KEFLEX 500 MG CAP 905773 CEPHALEXIN Inactive FLONASE 50 MCG/ACT SUSP 1 puff in easch nostril bid FLONASE 50 MCG/ACT SUSP FLUTICASONE PROPIONATE Inactive CIPRO 500 MG TAB 1 tablet by mouth twice daily CIPRO 500 MG TAB 189141 CIPROFLOXACIN HCL Inactive FLAGYL 500 MG TAB 1 tablet by mouth bid. do not mix with etoh. FLAGYL 500 MG TAB 043685 METRONIDAZOLE Inactive AUGMENTIN 875-125 MG TABS 1 bid AUGMENTIN 875-125 MG TABS 286205 AMOXICILLIN-POT CLAVULANATE Inactive BACTRIM DS 800-160 MG TAB 1 tab by mouth twice daily BACTRIM DS 800-160 MG TAB 106255 TRIMETHOPRIM-SULFAMETHOXAZOLE Inactive PREDNISONE 20 MG TAB 2 tabs daily for 3 days, 1 tab daily for 3 days, 1/2 tab daily for 2 days PREDNISONE 20 MG TAB 574003 PREDNISONE Inactive AZITHROMYCIN 250 MG TABS 2 pills day 1,1 pill day 2-5 AZITHROMYCIN 250 MG TABS 9696954 AZITHROMYCIN Inactive Advance Directives Directive Description Start Date PERMISSION TO SHARE Immunizations Vaccine Administration Date Value Standard Description Adacel (Tetanus, reduced Diphtheria, and acellular Pertussis Immunization) Adacel [[id number]] tetanus toxoid, reduced diphtheria toxoid, and acellular pertussis vaccine, adsorbed DPT immunization #5 Historical oral polio vaccine (OPV) #4 Historical poliovirus vaccine, unspecified formulation MMR (measles, mumps, rubella) virus immunization #2 Historical DPT immunization #4 Historical oral polio vaccine (OPV) #3 Historical poliovirus vaccine, unspecified formulation MMR (measles, mumps, rubella) virus immunization #1 Historical Hemophilus influenza B immunization #3 Historical Haemophilus influenzae type b vaccine, conjugate unspecified formulation DPT immunization #3 Historical hepatitis B vaccine #3 Historical hepatitis B vaccine, unspecified formulation Hemophilus influenza B immunization #2 Historical Haemophilus influenzae type b vaccine, conjugate unspecified formulation oral polio vaccine (OPV) #2 Historical poliovirus vaccine, unspecified formulation DPT immunization #2 Historical hepatitis B vaccine #2 given Historical hepatitis B vaccine, unspecified formulation Hemophilus influenza B immunization #1 Historical Haemophilus influenzae type b vaccine, conjugate unspecified formulation oral polio vaccine (OPV) #1 Historical poliovirus vaccine, unspecified formulation DPT immunization #1 Historical hepatitis B vaccine #1 given Historical hepatitis B vaccine, unspecified formulation Vital Signs Date Name Value Unit Range Description blood pressure, diastolic - 8462-4 82 mm[Hg] [...] 369 10^3/MM^3 10*3/mm3 142-424 Lab Report: Chlamydia/GC APTIMA/60732 - Lab chlamydia DNA probe NOT DETECTED NOT DETECTED chlamydia DNA probe NOT DETECTED NOT DETECTED Lab Report: Chlamydia/GC APTIMA/46042 - Microbiology Neisseria gonorrhoeae DNA probe NOT DETECTED NOT DETECTED Neisseria gonorrhoeae DNA probe NOT DETECTED NOT DETECTED Lab Report: Comp. Metabolic Panel - Chemistry sodium, serum 140 mmol/L 560-175 0399/11/17 carbon dioxide, venous blood 25.9 mmol/L 21.0-32.0 [...] Negative-Throat Culture to Follow Negative Lab Report: UADIP W/MICRO, AUTO - Chemistry protein, total urine random Negative mg/dL Negative RBC, urine, dipstick 1+ Negative Lab Report: UADIP W/MICRO, AUTO - Urinalysis urobilinogen, urine, semiquantitative (dipstick) 0.2 Normal leukocyte esterase, urine, by dipstick 2+ Negative nitrite, urine, semiquantitative Negative Negative glucose, urine, semiquantitative Negative Negative ketones, urine, by test strip Negative Negative bilirubin, urine Negative Negative urine color Yellow Colorless;Lightyellow;Straw;Yellow appearance, urine Cloudy Clear specific gravity, urine 1.025 1.000-1.030 pH, urine, semiquantitative 5.0 5.0-8.5 Lab Report: UADIP W/MICRO, AUTO, Wet Prep [...] negative Encounters Code Encounter Date Provider Facility CPT-59444 Level 3 Est. Patient 14:24:59 REHABILITATION PSYCHOLOGIST Liat Cheng MD [facility] CPT-51123 Level 3 Est. Patient 15:06:21 REHABILITATION PSYCHOLOGIST Thai Almendarez [facility] CPT-83599 Level 3 Est. Patient 15:43:50 REHABILITATION PSYCHOLOGIST Thai Almendarez [facility] CPT-50502 Level 3 Est. Patient 14:42:12 REHABILITATION PSYCHOLOGIST Liat Cheng MD [facility] CPT-63333 Level 3 Est. Patient 16:38:12 REHABILITATION PSYCHOLOGIST Valentin Blanco MD [facility] CPT-86334 Level 3 Est. Patient 14:12:52 CDT Liat Cheng MD [facility] CPT-62322 Level 2 Est. Patient 12:17:18 CDT Audelia Ochoa [facility] CPT-91417 Level 3 Est. Patient 15:02:49 CDT Boo Vasquez MD [facility] CPT-76411 Level 3 Est. Patient 16:21:33 REHABILITATION PSYCHOLOGIST Gama Bermeo MD [facility] CPT-60635 Level 3 Est. Patient 11:32:23 REHABILITATION PSYCHOLOGIST Liat Cheng MD [facility] CPT-23443 Level 3 Est. Patient 16:59:23 CDT Liat Cheng MD [facility] CPT-33078 Level 3 Est. Patient 17:02:11 REHABILITATION PSYCHOLOGIST Tay MAJOR [facility] CPT-70859 Level 3 Est. Patient 16:49:05 REHABILITATION PSYCHOLOGIST Liat Cheng MD [facility] CPT-35761 Level 3 Est. Patient 16:36:13 CDT Vivien Conway [facility] Procedures Code Procedure Name Date Entry Date Standard Description CPT-J7307 Nexplanon (Implant) 16:25:36 REHABILITATION PSYCHOLOGIST CPT-19547 Nexplanon Placement 16:25:36 REHABILITATION PSYCHOLOGIST CPT-OV Office Visit 16:25:36 REHABILITATION PSYCHOLOGIST CPT-OV Office Visit 18:49:22 REHABILITATION PSYCHOLOGIST CPT-OV Office Visit 18:49:18 CDT CPT-56382 Administration single or combination vaccine inc oral 11 :11:48 CDT CPT-55655 Adacel Intramuscular Suspension 5-2-15.5 11:11:48 CDT CPT-90675 Toes 2V 17:03:02 REHABILITATION PSYCHOLOGIST
--- OUTSIDE RECORDS SUMMARY | 2018-02-18 12:26 | XMS REPORT | Clinical Summary ---
Author Author Admin, QIE Organization [facility] Address Unknown Phone Unavailable Allergies, Adverse Reactions, [...] twice a day for 10 days AMOXICILLIN 00385593063 Active Valentin Blanco MD Active NEXPLANON 68 MG SC IMPL Inserted in the left upper arm ETONOGESTREL 10736888309 No Longer Active Valentin Blanco MD Active DICLOFENAC SODIUM 50 MG TBEC 1 tablet by mouth four times daily PRN Pain 2015 DICLOFENAC SODIUM 08725990244 No Longer Active Liat Cheng MD Active ZOFRAN 4 MG TABS 1 po q8hr PRN Nausea ONDANSETRON HCL 20325553276 No Longer Active Liat Cheng MD Active FLAGYL 500 MG TAB 1 tablet by mouth bid. do not mix with etoh. METRONIDAZOLE 87076454621 No Longer Active Liat Cheng MD Active CIPRO 500 MG TAB 1 tablet by mouth twice daily CIPROFLOXACIN HCL 03684319873 No Longer Active Jillina Fraaranzal RUSSELL Active FLONASE 50 MCG/ACT SUSP 1 puff in easch nostril bid FLUTICASONE PROPIONATE No Longer Active Jillpb Fraaranzal RUSSELL Active KEFLEX 500 MG CAP 1 po qid CEPHALEXIN 49393388699 No Longer Active Jillpb Almendarez APRN Active AZITHROMYCIN 250 MG TABS 2 pills day 1,1 pill day 2-5 AZITHROMYCIN 53631880649 No Longer Active Liat Cheng MD Active ZITHROMAX Z-GIANLUCA 250 MG TABS 2 today and then 1 daily for 4 days AZITHROMYCIN 69896303417 No Longer Active Liat Cheng MD Active LORATADINE 10 MG TABS 1 tablet by mouth daily PRN Congestion 2014 LORATADINE 38669477319 No Longer Active Audelia Yokbillie WELLS Active MUCINEX DM MAXIMUM STRENGTH 60-1200 MG [id number] 1 po BID PRN Cough DEXTROMETHORPHAN-GUAIFENESIN 44589860661 No Longer Active Audelia Yokum EDUCATIONAL GUIDANCE COUNSELOR Active PREDNISONE 20 MG TAB 2 tabs daily for 3 days, 1 tab daily for 3 days, 1/2 tab daily for 2 days PREDNISONE 25775302970 No Longer Active Boo Vasquez MD Active BACTRIM DS 800-160 MG TAB 1 tab by mouth twice daily TRIMETHOPRIM-SULFAMETHOXAZOLE 90188115748 No Longer Active Gama Bermeo MD Active ZOFRAN 8 MG ORAL TABS 1 q 8hr prn vomiting ONDANSETRON HCL 39691327179 No Longer Active Gama Bermeo MD Active AUGMENTIN 875-125 MG TABS 1 bid AMOXICILLIN-POT CLAVULANATE 70735308943 No Longer Active Liat Cheng MD Active HYDROCODONE-ACETAMINOPHEN TABS Take as directed/PRN HYDROCODONE-ACETAMINOPHEN TABS 96090530258 No Longer Active Liat Cheng MD Active CEFDINIR 300 MG CAPS 1 PO bid x 7 days CEFDINIR 05576278578 No Longer Active Liat Cheng MD Active CEFDINIR 300 MG CAPS 1 PO bid x 7 days CEFDINIR 300 MG CAPS 403611 CEFDINIR Inactive HYDROCODONE-ACETAMINOPHEN TABS Take as directed/PRN HYDROCODONE-ACETAMINOPHEN TABS HYDROCODONE-ACETAMINOPHEN TABS Inactive ZOFRAN 8 MG ORAL TABS 1 q 8hr prn vomiting ZOFRAN 8 MG ORAL TABS 566244 ONDANSETRON HCL Inactive MUCINEX DM MAXIMUM STRENGTH 60-1200 MG [id number] 1 po BID PRN Cough MUCINEX DM MAXIMUM STRENGTH 60-1200 MG [id number] DEXTROMETHORPHAN-GUAIFENESIN Inactive LORATADINE 10 MG TABS 1 tablet by mouth daily PRN Congestion 2014 LORATADINE 10 MG TABS 874972 LORATADINE Inactive ZITHROMAX Z-GIANLUCA 250 MG TABS 2 today and then 1 daily for 4 days ZITHROMAX Z-GIANLUCA 250 MG TABS 0498878 AZITHROMYCIN Inactive KEFLEX 500 MG CAP 1 po qid KEFLEX 500 MG CAP 613319 CEPHALEXIN Inactive FLONASE 50 MCG/ACT SUSP 1 puff in easch nostril bid FLONASE 50 MCG/ACT SUSP FLUTICASONE PROPIONATE Inactive CIPRO 500 MG TAB 1 tablet by mouth twice daily CIPRO 500 MG TAB 095712 CIPROFLOXACIN HCL Inactive FLAGYL 500 MG TAB 1 tablet by mouth bid. do not mix with etoh. FLAGYL 500 MG TAB 760002 METRONIDAZOLE Inactive ZOFRAN 4 MG TABS 1 po q8hr PRN Nausea ZOFRAN 4 MG TABS 990895 ONDANSETRON HCL Inactive DICLOFENAC SODIUM 50 MG TBEC 1 tablet by mouth four times daily PRN Pain 2015 DICLOFENAC SODIUM 50 MG TBEC 446634 DICLOFENAC SODIUM Inactive NEXPLANON 68 MG SC IMPL Inserted in the left upper arm NEXPLANON 68 MG SC IMPL ETONOGESTREL Inactive AUGMENTIN 875-125 MG TABS 1 bid AUGMENTIN 875-125 MG TABS 032040 AMOXICILLIN-POT CLAVULANATE Inactive BACTRIM DS 800-160 MG TAB 1 tab by mouth twice daily BACTRIM DS 800-160 MG TAB 337043 TRIMETHOPRIM-SULFAMETHOXAZOLE Inactive PREDNISONE 20 MG TAB 2 tabs daily for 3 days, 1 tab daily for 3 days, 1/2 tab daily for 2 days PREDNISONE 20 MG TAB 082853 PREDNISONE Inactive AZITHROMYCIN 250 MG TABS 2 pills day 1,1 pill day 2-5 AZITHROMYCIN 250 MG TABS 6016274 AZITHROMYCIN Inactive Advance Directives Directive Description Start Date PERMISSION TO SHARE Immunizations Vaccine Administration Date Value Standard Description Adacel (Tetanus, reduced Diphtheria, and acellular Pertussis Immunization) Adacel [[id number]] tetanus toxoid, reduced diphtheria toxoid, and acellular [...] 369 10^3/MM^3 10*3/mm3 142-424 Lab Report: Chlamydia/GC APTIMA/84779 - Lab chlamydia DNA probe NOT DETECTED NOT DETECTED chlamydia DNA probe NOT DETECTED NOT DETECTED Lab Report: Chlamydia/GC APTIMA/99867 - Microbiology Neisseria gonorrhoeae DNA probe NOT DETECTED NOT DETECTED Neisseria gonorrhoeae DNA probe NOT DETECTED NOT DETECTED Lab Report: Comp. Metabolic Panel - Chemistry sodium, serum 140 mmol/L 401-633 9270/11/17 carbon dioxide, venous blood 25.9 mmol/L 21.0-32.0 [...] negative Encounters Code Encounter Date Provider Facility CPT-37815 Level 3 Est. Patient 16:38:37 BLUEPRINT ASSEMBLER Valentin Blanco MD [facility] CPT-43997 Level 3 Est. Patient 13:10:51 CDT Liat Cheng MD [facility] CPT-08820 Level 3 Est. Patient 14:16:58 CDT Boo Vasquez MD [facility]-75609 Level 3 Est. Patient 16:08:19 CDT Liat Cheng MD [facility] CPT-53415 Level 3 Est. Patient 15:48:30 BLUEPRINT ASSEMBLER Liat Cheng MD [facility] CPT-58603 Level 3 Est. Patient 14:24:59 BLUEPRINT ASSEMBLER Liat Cheng MD [facility] CPT-50054 Level 3 Est. Patient 15:06:21 BLUEPRINT ASSEMBLER Thai Almendarez [facility]-15760 Level 3 Est. Patient 15:43:50 BLUEPRINT ASSEMBLER Thai Almendarez [facility]-93229 Level 3 Est. Patient 14:42:12 BLUEPRINT ASSEMBLER Liat Cheng MD [facility]-09263 Level 3 Est. Patient 16:38:12 BLUEPRINT ASSEMBLER Valentin Blanco MD [facility] CPT-79074 Level 3 Est. Patient 14:12:52 CDT Liat Cheng MD [facility] CPT-58597 Level 2 Est. Patient 12:17:18 CDT Audelia Ochoa [facility] CPT-49726 Level 3 Est. Patient 15:02:49 CDT Boo Vasquez MD [facility] CPT-50928 Level 3 Est. Patient 16:21:33 BLUEPRINT ASSEMBLER Gama Bermeo MD [facility] CPT-63996 Level 3 Est. Patient 11:32:23 BLUEPRINT ASSEMBLER Liat Cheng MD [facility] CPT-11196 Level 3 Est. Patient 16:59:23 CDT Liat Cheng MD [facility] CPT-59395 Level 3 Est. Patient 17:02:11 BLUEPRINT ASSEMBLER Tay MAJOR [facility] CPT-33752 Level 3 Est. Patient 16:49:05 BLUEPRINT ASSEMBLER Liat Cheng MD [facility] CPT-97327 Level 3 Est. Patient 16:36:13 CDT Vivien Conway [facility] Procedures Code Procedure Name Date Entry Date Standard Description CPT-41253 Nexplanon Removal 15:41:24 CDT CPT-OV Office Visit 09:29:28 CDT CPT-000 Give Immunizations Due 16:59:23 CDT CPT-49757 Ankle, right, Complete - Min 3V 16:15:36 CDT CPT-J7307 Nexplanon (Implant) 16:25:36 BLUEPRINT ASSEMBLER CPT-16480 Nexplanon Placement 16:25:36 BLUEPRINT ASSEMBLER CPT-OV Office Visit 16:25:36 BLUEPRINT ASSEMBLER CPT-OV Office Visit 18:49:22 BLUEPRINT ASSEMBLER CPT-OV Office Visit 18:49:18 CDT CPT-11458 Administration single or combination vaccine inc oral 11 :11:48 CDT CPT-94386 Adacel Intramuscular Suspension 5-2-15.5 11:11:48 CDT CPT-80560 Toes 2V 17:03:02 BLUEPRINT ASSEMBLER
--- OUTSIDE RECORDS SUMMARY | 2018-02-18 12:26 | XMS REPORT | Clinical Summary ---
Author Author Admin, QIE Organization [employer] Address Unknown Phone Unavailable Allergies, Adverse Reactions, [...] tension syndromes CONTRACEPTION MANAGEMENT V25.09 Active Anaya Ferraar MD Encounter for other general counseling and advice on contraceptive management Incontinence, urine 788.30 Active Thai Almendarez APRN Urinary incontinence, unspecified Trichomonal infection 131.9 Active Thai Almendarez APRN Trichomoniasis, unspecified SPORTS PHYSICAL ICD-V70.3 Inactive Boo Vasquez MD [...] ICD-719.47 Oneil Cheng MD Abdominal bloating ICD-787.3 Inactive Liat Cheng MD Pharyngitis ICD-462 Inactive Liat Cheng MD Fatigue ICD-780.79 Inactive Liat Cheng MD U R I Inactive Liat Cheng MD Medication List Medication Instructions Start Date Stop Date Generic Name NDC Status Provider Patient Instruction CIPRO 500 MG TAB 1 tablet by mouth twice daily CIPROFLOXACIN HCL 31039688057 No Longer Active Jillina Frazell ELECTRIC ORGAN CHECKER Active FLAGYL 500 MG TAB 1 tablet by mouth bid. do not mix with etoh. METRONIDAZOLE 13663208835 Active Jillina Frazell ELECTRIC ORGAN CHECKER Active FLONASE 50 MCG/ACT SUSP 1 puff in easch nostril bid FLUTICASONE PROPIONATE No Longer Active Jillina Erickson WELLS Active KEFLEX 500 MG CAP 1 po qid CEPHALEXIN 90996845911 No Longer Active Thai Almendarez APRN Active AZITHROMYCIN 250 MG TABS 2 pills day 1,1 pill day 2-5 AZITHROMYCIN 00900513155 No Longer Active Liat Cheng MD Active ZITHROMAX Z-GIANLUCA 250 MG TABS 2 today and then 1 daily for 4 days AZITHROMYCIN 36809144293 No Longer Active Liat Cheng MD Active LORATADINE 10 MG TABS 1 tablet by mouth daily PRN Congestion 2014 LORATADINE 23998497882 No Longer Active Audelia Yokum ELECTRIC ORGAN CHECKER Active MUCINEX DM MAXIMUM STRENGTH 60-1200 MG [id number] 1 po BID PRN Cough DEXTROMETHORPHAN-GUAIFENESIN 47638458656 No Longer Active Audelia Yokum ELECTRIC ORGAN CHECKER Active PREDNISONE 20 MG TAB 2 tabs daily for 3 days, 1 tab daily for 3 days, 1/2 tab daily for 2 days PREDNISONE 88462455293 No Longer Active Boo Vasquez MD Active BACTRIM DS 800-160 MG TAB 1 tab by mouth twice daily TRIMETHOPRIM-SULFAMETHOXAZOLE 84253228572 No Longer Active Gama Bermeo MD Active ZOFRAN 8 MG ORAL TABS 1 q 8hr prn vomiting ONDANSETRON HCL 13757741791 No Longer Active Gama Bermeo MD Active AUGMENTIN 875-125 MG TABS 1 bid AMOXICILLIN-POT CLAVULANATE 58084790658 No Longer Active Liat Cheng MD Active HYDROCODONE-ACETAMINOPHEN TABS Take as directed/PRN HYDROCODONE-ACETAMINOPHEN TABS 48974001379 No Longer Active Liat Cheng MD Active CEFDINIR 300 MG CAPS 1 PO bid x 7 days CEFDINIR 81084756025 No Longer Active Liat Cheng MD Active CEFDINIR 300 MG CAPS 1 PO bid x 7 days CEFDINIR 300 MG CAPS 882817 CEFDINIR Inactive HYDROCODONE-ACETAMINOPHEN TABS Take as directed/PRN HYDROCODONE-ACETAMINOPHEN TABS HYDROCODONE-ACETAMINOPHEN TABS Inactive ZOFRAN 8 MG ORAL TABS 1 q 8hr prn vomiting ZOFRAN 8 MG ORAL TABS 393149 ONDANSETRON HCL Inactive MUCINEX DM MAXIMUM STRENGTH 60-1200 MG [id number] 1 po BID PRN Cough MUCINEX DM MAXIMUM STRENGTH 60-1200 MG [id number] DEXTROMETHORPHAN-GUAIFENESIN Inactive LORATADINE 10 MG TABS 1 tablet by mouth daily PRN Congestion 2014 LORATADINE 10 MG TABS 511531 LORATADINE Inactive ZITHROMAX Z-GIANLUCA 250 MG TABS 2 today and then 1 daily for 4 days ZITHROMAX Z-GIANLUCA 250 MG TABS 0641899 AZITHROMYCIN Inactive KEFLEX 500 MG CAP 1 po qid KEFLEX 500 MG CAP 577552 CEPHALEXIN Inactive FLONASE 50 MCG/ACT SUSP 1 puff in easch nostril bid FLONASE 50 MCG/ACT SUSP FLUTICASONE PROPIONATE Inactive CIPRO 500 MG TAB 1 tablet by mouth twice daily CIPRO 500 MG TAB 889518 CIPROFLOXACIN HCL Inactive AUGMENTIN 875-125 MG TABS 1 bid AUGMENTIN 875-125 MG TABS 535287 AMOXICILLIN-POT CLAVULANATE Inactive BACTRIM DS 800-160 MG TAB 1 tab by mouth twice daily BACTRIM DS 800-160 MG TAB 177709 TRIMETHOPRIM-SULFAMETHOXAZOLE Inactive PREDNISONE 20 MG TAB 2 tabs daily for 3 days, 1 tab daily for 3 days, 1/2 tab daily for 2 days PREDNISONE 20 MG TAB 623374 PREDNISONE Inactive AZITHROMYCIN 250 MG TABS 2 pills day 1,1 pill day 2-5 AZITHROMYCIN 250 MG TABS 2253239 AZITHROMYCIN Inactive Immunizations Vaccine Administration Date Value Standard Description Adacel (Tetanus, reduced Diphtheria, and acellular Pertussis Immunization) Adacel [[id number]] tetanus toxoid, reduced diphtheria toxoid, and acellular [...] Range Description blood pressure, diastolic - 8462-4 79 mm[Hg] [...] 369 10^3/MM^3 10*3/mm3 142-424 Lab Report: Chlamydia/GC APTIMA/26253 - Lab chlamydia DNA probe NOT DETECTED NOT DETECTED chlamydia DNA probe NOT DETECTED NOT DETECTED Lab Report: Chlamydia/GC APTIMA/79260 - Microbiology Neisseria gonorrhoeae DNA probe NOT DETECTED NOT DETECTED Neisseria gonorrhoeae DNA probe NOT DETECTED NOT DETECTED Lab Report: Comp. Metabolic Panel - Chemistry sodium, serum 140 mmol/L 393-125 7539/11/17 carbon dioxide, venous blood 25.9 mmol/L 21.0-32.0 [...] negative Encounters Code Encounter Date Provider Facility CPT-61866 Level 3 Est. Patient 15:06:21 RECEIVER/LABORER Thai Almendarez [facility] CPT-88828 Level 3 Est. Patient 15:43:50 RECEIVER/LABORER Thai Almendarez [facility] CPT-44608 Level 3 Est. Patient 14:42:12 RECEIVER/LABORER Liat Cheng MD [facility] CPT-30721 Level 3 Est. Patient 16:38:12 RECEIVER/LABORER Valentin Blanco MD [facility] CPT-21591 Level 3 Est. Patient 14:12:52 CDT Liat Cheng MD [facility] CPT-03806 Level 2 Est. Patient 12:17:18 CDT Audelia Ochoa [facility] CPT-10970 Level 3 Est. Patient 15:02:49 CDT Boo Vasquez MD [facility] CPT-03339 Level 3 Est. Patient 16:21:33 RECEIVER/LABORER Gama Bermeo MD [facility] CPT-90732 Level 3 Est. Patient 11:32:23 RECEIVER/LABORER Liat Cheng MD [facility] CPT-55129 Level 3 Est. Patient 16:59:23 CDT Liat Cheng MD [facility] CPT-22042 Level 3 Est. Patient 17:02:11 RECEIVER/LABORER Tay MAJOR [facility] CPT-38642 Level 3 Est. Patient 16:49:05 RECEIVER/LABORER Liat Cheng MD [facility] CPT-11448 Level 3 Est. Patient 16:36:13 CDT Vivien Conway [facility] Procedures Code Procedure Name Date Entry Date Standard Description CPT-J7307 Nexplanon (Implant) 16:25:36 RECEIVER/LABORER CPT-58925 Nexplanon Placement 16:25:36 RECEIVER/LABORER CPT-OV Office Visit 16:25:36 RECEIVER/LABORER CPT-OV Office Visit 18:49:22 RECEIVER/LABORER CPT-OV Office Visit 18:49:18 CDT CPT-90071 Administration single or combination vaccine inc oral 11 :11:48 CDT CPT-86957 Adacel Intramuscular Suspension 5-2-15.5 11:11:48 CDT CPT-20541 Toes 2V 17:03:02 RECEIVER/LABORER
--- OUTSIDE RECORDS SUMMARY | 2018-02-18 12:27 | XMS REPORT | Clinical Summary ---
Author Author Admin, QIE Organization [employer] Address Unknown Phone Unavailable Allergies, Adverse Reactions, [...] 500 MG CAP 1 po qid CEPHALEXIN 16589200812 Active Thai Almendarez MOLD PULLER Active FLONASE 50 MCG/ACT SUSP 1 puff in easch nostril bid FLUTICASONE PROPIONATE Active Liat Cheng MD Active AZITHROMYCIN 250 MG TABS 2 pills day 1,1 pill day 2-5 AZITHROMYCIN 12825369802 No Longer Active Liat Cheng MD Active ZITHROMAX Z-GIANLUCA 250 MG TABS 2 today and then 1 daily for 4 days AZITHROMYCIN 40522685566 No Longer Active Liat Cheng MD Active LORATADINE 10 MG TABS 1 tablet by mouth daily PRN Congestion 2014 LORATADINE 75588090726 No Longer Active Audelia Ochoa MOLD PULLER Active MUCINEX DM MAXIMUM STRENGTH 60-1200 MG [id number] 1 po BID PRN Cough DEXTROMETHORPHAN-GUAIFENESIN 82460699979 No Longer Active Audelia Ochoa APRN Active PREDNISONE 20 MG TAB 2 tabs daily for 3 days, 1 tab daily for 3 days, 1/2 tab daily for 2 days PREDNISONE 23486710734 No Longer Active Boo Vasquez MD Active BACTRIM DS 800-160 MG TAB 1 tab by mouth twice daily TRIMETHOPRIM-SULFAMETHOXAZOLE 81067098481 No Longer Active Gama Bermeo MD Active ZOFRAN 8 MG ORAL TABS 1 q 8hr prn vomiting ONDANSETRON HCL 13863457120 No Longer Active Gama Bermeo MD Active AUGMENTIN 875-125 MG TABS 1 bid AMOXICILLIN-POT CLAVULANATE 29651717018 No Longer Active Liat Cheng MD Active HYDROCODONE-ACETAMINOPHEN TABS Take as directed/PRN HYDROCODONE-ACETAMINOPHEN TABS 83712726318 No Longer Active Liat Cheng MD Active CEFDINIR 300 MG CAPS 1 PO bid x 7 days CEFDINIR 63854188588 No Longer Active Liat Cheng MD Active CEFDINIR 300 MG CAPS 1 PO bid x 7 days CEFDINIR 300 MG CAPS 030326 CEFDINIR Inactive HYDROCODONE-ACETAMINOPHEN TABS Take as directed/PRN HYDROCODONE-ACETAMINOPHEN TABS HYDROCODONE-ACETAMINOPHEN TABS Inactive ZOFRAN 8 MG ORAL TABS 1 q 8hr prn vomiting ZOFRAN 8 MG ORAL TABS 317541 ONDANSETRON HCL Inactive MUCINEX DM MAXIMUM STRENGTH 60-1200 MG [id number] 1 po BID PRN Cough MUCINEX DM MAXIMUM STRENGTH 60-1200 MG [id number] DEXTROMETHORPHAN-GUAIFENESIN Inactive LORATADINE 10 MG TABS 1 tablet by mouth daily PRN Congestion 2014 LORATADINE 10 MG TABS 111157 LORATADINE Inactive ZITHROMAX Z-GIANLUCA 250 MG TABS 2 today and then 1 daily for 4 days ZITHROMAX Z-GIANLUCA 250 MG TABS 9702523 AZITHROMYCIN Inactive AUGMENTIN 875-125 MG TABS 1 bid AUGMENTIN 875-125 MG TABS 967370 AMOXICILLIN-POT CLAVULANATE Inactive BACTRIM DS 800-160 MG TAB 1 tab by mouth twice daily BACTRIM DS 800-160 MG TAB 466960 TRIMETHOPRIM-SULFAMETHOXAZOLE Inactive PREDNISONE 20 MG TAB 2 tabs daily for 3 days, 1 tab daily for 3 days, 1/2 tab daily for 2 days PREDNISONE 20 MG TAB 246567 PREDNISONE Inactive AZITHROMYCIN 250 MG TABS 2 pills day 1,1 pill day 2-5 AZITHROMYCIN 250 MG TABS 3670269 AZITHROMYCIN Inactive Immunizations Vaccine Administration Date Value Standard Description Adacel (Tetanus, reduced Diphtheria, and acellular Pertussis Immunization) Adacel [[id number]] tetanus toxoid, reduced diphtheria toxoid, and acellular [...] Panel - Chemistry sodium, serum 140 mmol/L 509-491 9525/11/17 carbon dioxide, venous blood 25.9 mmol/L 21.0-32.0 [...] Negative Encounters Code Encounter Date Provider Facility CPT-22704 Level 3 Est. Patient 14:42:12 MANAGER EMPLOYMENT Liat Cheng MD [facility] CPT-97984 Level 3 Est. Patient 16:38:12 MANAGER EMPLOYMENT Valentin Blanco MD [facility] CPT-97333 Level 3 Est. Patient 14:12:52 CDT Liat Cheng MD [facility] CPT-20729 Level 2 Est. Patient 12:17:18 CDT Audelia Ochoa [facility] CPT-47749 Level 3 Est. Patient 15:02:49 CDT Boo Vasquez MD [facility] CPT-22193 Level 3 Est. Patient 16:21:33 MANAGER EMPLOYMENT Gama Bermeo MD [facility] CPT-43023 Level 3 Est. Patient 11:32:23 MANAGER EMPLOYMENT Liat Cheng MD [facility] CPT-18829 Level 3 Est. Patient 16:59:23 CDT Liat Cheng MD [facility] CPT-88867 Level 3 Est. Patient 17:02:11 MANAGER EMPLOYMENT Tay MAJOR [facility] CPT-18875 Level 3 Est. Patient 16:49:05 MANAGER EMPLOYMENT Liat Cheng MD [facility] CPT-82989 Level 3 Est. Patient 16:36:13 CDT Vivien Conway [facility] Procedures Code Procedure Name Date Entry Date Standard Description CPT-OV Office Visit 18:49:18 CDT CPT-59820 Administration single or combination vaccine inc oral 11 :11:48 CDT CPT-11835 Adacel Intramuscular Suspension 5-2-15.5 11:11:48 CDT CPT-75785 Toes 2V 17:03:02 MANAGER EMPLOYMENT
--- OUTSIDE RECORDS SUMMARY | 2018-02-18 12:27 | XMS REPORT | Clinical Summary ---
[...] tablet by mouth twice daily CIPROFLOXACIN HCL 19472405876 Active Jillina Frazell MECHANICAL INSPECTOR Active FLAGYL 500 MG TAB 1 tablet by mouth bid. do not mix with etoh. METRONIDAZOLE 28576292846 Active Jillina Frazell MECHANICAL INSPECTOR Active FLONASE 50 MCG/ACT SUSP 1 puff in easch nostril bid FLUTICASONE PROPIONATE No Longer Active Jillpb Almendarez MECHANICAL INSPECTOR Active KEFLEX 500 MG CAP 1 po qid CEPHALEXIN 89301787435 No Longer Active Jillina Frankiel MECHANICAL INSPECTOR Active AZITHROMYCIN 250 MG TABS 2 pills day 1,1 pill day 2-5 AZITHROMYCIN 45814693512 No Longer Active Liat Cheng MD Active ZITHROMAX Z-GIANLUCA 250 MG TABS 2 today and then 1 daily for 4 days AZITHROMYCIN 26643464897 No Longer Active Liat Cheng MD Active LORATADINE 10 MG TABS 1 tablet by mouth daily PRN Congestion 2014 LORATADINE 38324684198 No Longer Active Audelia Yokum MECHANICAL INSPECTOR Active MUCINEX DM MAXIMUM STRENGTH 60-1200 MG [id number] 1 po BID PRN Cough DEXTROMETHORPHAN-GUAIFENESIN 05901615982 No Longer Active Audelia Yokum MECHANICAL INSPECTOR Active PREDNISONE 20 MG TAB 2 tabs daily for 3 days, 1 tab daily for 3 days, 1/2 tab daily for 2 days PREDNISONE 50517100615 No Longer Active Boo Vasquez MD Active BACTRIM DS 800-160 MG TAB 1 tab by mouth twice daily TRIMETHOPRIM-SULFAMETHOXAZOLE 86405479360 No Longer Active Gama Bermeo MD Active ZOFRAN 8 MG ORAL TABS 1 q 8hr prn vomiting ONDANSETRON HCL 07808438185 No Longer Active Gama Bermeo MD Active AUGMENTIN 875-125 MG TABS 1 bid AMOXICILLIN-POT CLAVULANATE 97524626738 No Longer Active Liat Cheng MD Active HYDROCODONE-ACETAMINOPHEN TABS Take as directed/PRN HYDROCODONE-ACETAMINOPHEN TABS 43139725184 No Longer Active Liat Cheng MD Active CEFDINIR 300 MG CAPS 1 PO bid x 7 days CEFDINIR 24219400902 No Longer Active Liat Cheng MD Active CEFDINIR 300 MG CAPS 1 PO bid x 7 days CEFDINIR 300 MG CAPS 087100 CEFDINIR Inactive HYDROCODONE-ACETAMINOPHEN TABS Take as directed/PRN HYDROCODONE-ACETAMINOPHEN TABS HYDROCODONE-ACETAMINOPHEN TABS Inactive ZOFRAN 8 MG ORAL TABS 1 q 8hr prn vomiting ZOFRAN 8 MG ORAL TABS 900379 ONDANSETRON HCL Inactive MUCINEX DM MAXIMUM STRENGTH 60-1200 MG [id number] 1 po BID PRN Cough MUCINEX DM MAXIMUM STRENGTH 60-1200 MG [id number] DEXTROMETHORPHAN-GUAIFENESIN Inactive LORATADINE 10 MG TABS 1 tablet by mouth daily PRN Congestion 2014 LORATADINE 10 MG TABS 912901 LORATADINE Inactive ZITHROMAX Z-GIANLUCA 250 MG TABS 2 today and then 1 daily for 4 days ZITHROMAX Z-GIANLUCA 250 MG TABS 1511705 AZITHROMYCIN Inactive KEFLEX 500 MG CAP 1 po qid KEFLEX 500 MG CAP 520724 CEPHALEXIN Inactive FLONASE 50 MCG/ACT SUSP 1 puff in easch nostril bid FLONASE 50 MCG/ACT SUSP FLUTICASONE PROPIONATE Inactive AUGMENTIN 875-125 MG TABS 1 bid AUGMENTIN 875-125 MG TABS 985581 AMOXICILLIN-POT CLAVULANATE Inactive BACTRIM DS 800-160 MG TAB 1 tab by mouth twice daily BACTRIM DS 800-160 MG TAB 616215 TRIMETHOPRIM-SULFAMETHOXAZOLE Inactive PREDNISONE 20 MG TAB 2 tabs daily for 3 days, 1 tab daily for 3 days, 1/2 tab daily for 2 days PREDNISONE 20 MG TAB 607421 PREDNISONE Inactive AZITHROMYCIN 250 MG TABS 2 pills day 1,1 pill day 2-5 AZITHROMYCIN 250 MG TABS 0939634 AZITHROMYCIN Inactive Immunizations Vaccine Administration Date Value Standard Description Adacel (Tetanus, reduced Diphtheria, and acellular Pertussis Immunization) Adacel [[id number]] tetanus toxoid, reduced diphtheria toxoid, and acellular [...] Range Description blood pressure, diastolic - 8462-4 84 mm[Hg] [...] 369 10^3/MM^3 10*3/mm3 142-424 Lab Report: Chlamydia/GC APTIMA/66555 - Lab chlamydia DNA probe NOT DETECTED NOT DETECTED Lab Report: Chlamydia/GC APTIMA/79140 - Microbiology Neisseria gonorrhoeae DNA probe NOT DETECTED NOT DETECTED Lab Report: Comp. Metabolic Panel - Chemistry sodium, serum 140 mmol/L 543-574 1379/11/17 carbon dioxide, venous blood 25.9 mmol/L 21.0-32.0 [...] 1.025 1.000-1.030 pH, urine, semiquantitative 5.0 5.0-8.5 Office Visit: 2 week follow up [...] negative Encounters Code Encounter Date Provider Facility CPT-86822 Level 3 Est. Patient 15:43:50 WARP DRESSER Thai Almendarez [facility] CPT-65736 Level 3 Est. Patient 14:42:12 WARP DRESSER Liat Cheng MD [facility] CPT-74812 Level 3 Est. Patient 16:38:12 WARP DRESSER Valentin Blanco MD [facility] CPT-21072 Level 3 Est. Patient 14:12:52 CDT Liat Cheng MD [facility] CPT-35445 Level 2 Est. Patient 12:17:18 CDT Audelia Ochoa [facility] CPT-97025 Level 3 Est. Patient 15:02:49 CDT Boo Vasquez MD [facility] CPT-29846 Level 3 Est. Patient 16:21:33 WARP DRESSER Gama Bermeo MD [facility] CPT-82307 Level 3 Est. Patient 11:32:23 WARP DRESSER Liat Cheng MD [facility] CPT-40717 Level 3 Est. Patient 16:59:23 CDT Liat Cheng MD [facility] CPT-46562 Level 3 Est. Patient 17:02:11 WARP DRESSER Tay MAJOR [facility] CPT-78363 Level 3 Est. Patient 16:49:05 WARP DRESSER Liat Cheng MD [facility] CPT-66248 Level 3 Est. Patient 16:36:13 CDT Vivien Conway MECHANICAL INSPECTOR [facility] Procedures Code Procedure Name Date Entry Date Standard Description CPT-J7307 Nexplanon (Implant) 16:25:36 WARP DRESSER CPT-04607 Nexplanon Placement 16:25:36 WARP DRESSER CPT-OV Office Visit 16:25:36 WARP DRESSER CPT-OV Office Visit 18:49:22 WARP DRESSER CPT-OV Office Visit 18:49:18 CDT CPT-50161 Administration single or combination vaccine inc oral 11 :11:48 CDT CPT-05233 Adacel Intramuscular Suspension 5-2-15.5 11:11:48 CDT CPT-11095 Toes 2V 17:03:02 WARP DRESSER
--- OUTSIDE RECORDS SUMMARY | 2018-02-18 12:28 | XMS REPORT | Clinical Summary ---
Author Author Admin, ISRRAEL Organization [facility] Address Unknown Phone Unavailable Allergies, Adverse Reactions, [...] 1 po q8hr PRN Nausea ONDANSETRON HCL 31893086264 Active Angeline Santiago SLIDE FASTENERS INSPECTOR Active NEXPLANON 68 MG SC IMPL Inserted in the left upper arm ETONOGESTREL 75455337858 Active Liat Cheng MD Active FLAGYL 500 MG TAB 1 tablet by mouth bid. do not mix with etoh. METRONIDAZOLE 29788144041 No Longer Active Liat Cheng MD Active CIPRO 500 MG TAB 1 tablet by mouth twice daily CIPROFLOXACIN HCL 49458318198 No Longer Active Jillina Frazell SLIDE FASTENERS INSPECTOR Active FLONASE 50 MCG/ACT SUSP 1 puff in easch nostril bid FLUTICASONE PROPIONATE No Longer Active Jillina Erickson WELLS Active KEFLEX 500 MG CAP 1 po qid CEPHALEXIN 68046292373 No Longer Active Jillina Frankiel SLIDE FASTENERS INSPECTOR Active AZITHROMYCIN 250 MG TABS 2 pills day 1,1 pill day 2-5 AZITHROMYCIN 85853347517 No Longer Active Liat Cheng MD Active ZITHROMAX Z-GIANLUCA 250 MG TABS 2 today and then 1 daily for 4 days AZITHROMYCIN 23620375767 No Longer Active Liat Cheng MD Active LORATADINE 10 MG TABS 1 tablet by mouth daily PRN Congestion 2014 LORATADINE 05404102329 No Longer Active Audelia Yokum SLIDE FASTENERS INSPECTOR Active MUCINEX DM MAXIMUM STRENGTH 60-1200 MG [id number] 1 po BID PRN Cough DEXTROMETHORPHAN-GUAIFENESIN 63634159185 No Longer Active Audelia Yokum SLIDE FASTENERS INSPECTOR Active PREDNISONE 20 MG TAB 2 tabs daily for 3 days, 1 tab daily for 3 days, 1/2 tab daily for 2 days PREDNISONE 98386861602 No Longer Active Boo Vasquez MD Active BACTRIM DS 800-160 MG TAB 1 tab by mouth twice daily TRIMETHOPRIM-SULFAMETHOXAZOLE 52526030563 No Longer Active Gama Bermeo MD Active ZOFRAN 8 MG ORAL TABS 1 q 8hr prn vomiting ONDANSETRON HCL 57221084929 No Longer Active Gama Bermeo MD Active AUGMENTIN 875-125 MG TABS 1 bid AMOXICILLIN-POT CLAVULANATE 82698880969 No Longer Active Liat Cheng MD Active HYDROCODONE-ACETAMINOPHEN TABS Take as directed/PRN HYDROCODONE-ACETAMINOPHEN TABS 75699973440 No Longer Active Liat Cheng MD Active CEFDINIR 300 MG CAPS 1 PO bid x 7 days CEFDINIR 15790914324 No Longer Active Liat Cheng MD Active CEFDINIR 300 MG CAPS 1 PO bid x 7 days CEFDINIR 300 MG CAPS 218648 CEFDINIR Inactive HYDROCODONE-ACETAMINOPHEN TABS Take as directed/PRN HYDROCODONE-ACETAMINOPHEN TABS HYDROCODONE-ACETAMINOPHEN TABS Inactive ZOFRAN 8 MG ORAL TABS 1 q 8hr prn vomiting ZOFRAN 8 MG ORAL TABS 975316 ONDANSETRON HCL Inactive MUCINEX DM MAXIMUM STRENGTH 60-1200 MG [id number] 1 po BID PRN Cough MUCINEX DM MAXIMUM STRENGTH 60-1200 MG [id number] DEXTROMETHORPHAN-GUAIFENESIN Inactive LORATADINE 10 MG TABS 1 tablet by mouth daily PRN Congestion 2014 LORATADINE 10 MG TABS 499541 LORATADINE Inactive ZITHROMAX Z-GIANLUCA 250 MG TABS 2 today and then 1 daily for 4 days ZITHROMAX Z-GIANLUCA 250 MG TABS 2652783 AZITHROMYCIN Inactive KEFLEX 500 MG CAP 1 po qid KEFLEX 500 MG CAP 398760 CEPHALEXIN Inactive FLONASE 50 MCG/ACT SUSP 1 puff in easch nostril bid FLONASE 50 MCG/ACT SUSP FLUTICASONE PROPIONATE Inactive CIPRO 500 MG TAB 1 tablet by mouth twice daily CIPRO 500 MG TAB 028648 CIPROFLOXACIN HCL Inactive FLAGYL 500 MG TAB 1 tablet by mouth bid. do not mix with etoh. FLAGYL 500 MG TAB 844887 METRONIDAZOLE Inactive AUGMENTIN 875-125 MG TABS 1 bid AUGMENTIN 875-125 MG TABS 092361 AMOXICILLIN-POT CLAVULANATE Inactive BACTRIM DS 800-160 MG TAB 1 tab by mouth twice daily BACTRIM DS 800-160 MG TAB 341337 TRIMETHOPRIM-SULFAMETHOXAZOLE Inactive PREDNISONE 20 MG TAB 2 tabs daily for 3 days, 1 tab daily for 3 days, 1/2 tab daily for 2 days PREDNISONE 20 MG TAB 132668 PREDNISONE Inactive AZITHROMYCIN 250 MG TABS 2 pills day 1,1 pill day 2-5 AZITHROMYCIN 250 MG TABS 9758325 AZITHROMYCIN Inactive Advance Directives Directive Description Start Date PERMISSION TO SHARE Immunizations Vaccine Administration Date Value Standard Description Adacel (Tetanus, reduced Diphtheria, and acellular Pertussis Immunization) Adacel [[id number]] tetanus toxoid, reduced diphtheria toxoid, and acellular [...] MONO w/Rflx EBV, Myco Pneumo - Hematology erythrocyte (RBC) count 4.35 10^6/MM^3 10*6/mm3 4.04-5.48 hemoglobin, blood 11.3 g/dL 12.0-16.0 hematocrit, blood 34.7 % 36.0-46.0 mean corpuscular volume, RBC 80 fL 80-97 mean corpuscular hemoglobin, RBC 26.1 pg 27.0-31.2 mean corpuscular hemoglobin concentration, RBC 32.7 G/DL % 31.8- 35.4 red blood cell distribution width 14.6 % 11.6-14.8 platelet count 369 10^3/MM^3 10*3/mm3 004-824 1902/11/17 lymphocytes as percent of blood leukocytes 28.7 % 20.5-51.1 monocytes as percent of blood leukocytes 7.4 % 1.7-9.3 neutrophils as percent of blood leukocytes 54.3 % 42.2-75.2 leukocyte count, blood 10.7 10^3/MM^3 10*3/mm3 4.6-10.2 Lab Report: Chlamydia/GC APTIMA/85982 - Lab chlamydia DNA probe NOT DETECTED NOT DETECTED chlamydia DNA probe NOT DETECTED NOT DETECTED Lab Report: Chlamydia/GC APTIMA/21595 - Microbiology Neisseria gonorrhoeae DNA probe NOT DETECTED NOT DETECTED Neisseria gonorrhoeae DNA probe NOT DETECTED NOT DETECTED Lab Report: Comp. Metabolic Panel - Chemistry carbon dioxide, venous blood 25.9 mmol/L 21.0-32.0 potassium, serum 4.0 mmol/L 3.5-5.2 chloride, serum 103 mmol/L 98-107 blood glucose 83 mg/dL 65-110 sodium, serum 140 mmol/L 705-889 3710/11/17 urea nitrogen, blood 10 mg/dL 7-18 creatinine, [...] leukocyte esterase, urine, by dipstick 2+ Negative glucose, urine, semiquantitative Negative Negative ketones, urine, by test strip Negative Negative bilirubin, urine Negative Negative urine color Yellow Colorless;Lightyellow;Straw;Yellow appearance, urine Cloudy Clear specific gravity, urine 1.025 1.000-1.030 pH, urine, semiquantitative 5.0 5.0-8.5 nitrite, urine, semiquantitative Negative Negative Lab Report: [...] Office Visit: Redness, vaginal burning - Chemistry RBC, urine, dipstick 1+ protein, total urine random negative mg/dL Office Visit: Redness, vaginal burning - Urinalysis pH, urine, semiquantitative 6 specific gravity, urine 1.015 ketones, urine, by test strip negative bilirubin, urine negative glucose, urine, semiquantitative negative urinalysis, routine Clean Catch urine color yellow appearance, urine clear leukocyte esterase, urine, by dipstick 2+ nitrite, urine, semiquantitative negative urobilinogen, urine, semiquantitative (dipstick) negative Encounters Code Encounter Date Provider Facility CPT-25246 Level 3 Est. Patient 14:24:59 HEAD SCORER Liat Cheng MD [facility] CPT-56306 Level 3 Est. Patient 15:06:21 HEAD SCORER Thai Almendarez [facility] CPT-17502 Level 3 Est. Patient 15:43:50 HEAD SCORER Thai Almendarez [facility] CPT-44266 Level 3 Est. Patient 14:42:12 HEAD SCORER Liat Cheng MD [facility] CPT-64929 Level 3 Est. Patient 16:38:12 HEAD SCORER Valentin Blanco MD [facility] CPT-20008 Level 3 Est. Patient 14:12:52 CDT Liat Cheng MD [facility] CPT-68737 Level 2 Est. Patient 12:17:18 CDT Audelia Ochoa [facility] CPT-91869 Level 3 Est. Patient 15:02:49 CDT Boo Vasquez MD [facility] CPT-81907 Level 3 Est. Patient 16:21:33 HEAD SCORER Gama Bermeo MD [facility] CPT-70153 Level 3 Est. Patient 11:32:23 HEAD SCORER Liat Cheng MD [facility] CPT-97015 Level 3 Est. Patient 16:59:23 CDT Liat Cheng MD [facility] CPT-28763 Level 3 Est. Patient 17:02:11 HEAD SCORER Tay MAJOR [facility] CPT-00336 Level 3 Est. Patient 16:49:05 HEAD SCORER Liat Cheng MD [facility] CPT-18168 Level 3 Est. Patient 16:36:13 CDT Vivien Conway [facility] Procedures Code Procedure Name Date Entry Date Standard Description CPT-J7307 Nexplanon (Implant) 16:25:36 HEAD SCORER CPT-45968 Nexplanon Placement 16:25:36 HEAD SCORER CPT-OV Office Visit 16:25:36 HEAD SCORER CPT-OV Office Visit 18:49:22 HEAD SCORER CPT-OV Office Visit 18:49:18 CDT CPT-02782 Administration single or combination vaccine inc oral 11 :11:48 CDT CPT-44681 Adacel Intramuscular Suspension 5-2-15.5 11:11:48 CDT CPT-28176 Toes 2V 17:03:02 HEAD SCORER
--- OUTSIDE RECORDS SUMMARY | 2018-02-18 12:29 | XMS REPORT | Clinical Summary ---
Author Author Admin, QIE Organization [facility] [employer] Address Unknown Phone Unavailable Allergies, Adverse Reactions, [...] tablet by mouth twice daily CIPROFLOXACIN HCL 83984172463 No Longer Active Jillina Frazell MAINSPRING BARREL ASSEMBLY CLEANER Active FLAGYL 500 MG TAB 1 tablet by mouth bid. do not mix with etoh. METRONIDAZOLE 88277301962 Active Jillina Frazell MAINSPRING BARREL ASSEMBLY CLEANER Active FLONASE 50 MCG/ACT SUSP 1 puff in easch nostril bid FLUTICASONE PROPIONATE No Longer Active Jillina Erickson WELLS Active KEFLEX 500 MG CAP 1 po qid CEPHALEXIN 12375797084 No Longer Active Thai Almendarez APRN Active AZITHROMYCIN 250 MG TABS 2 pills day 1,1 pill day 2-5 AZITHROMYCIN 03620965214 No Longer Active Liat Cheng MD Active ZITHROMAX Z-GIANLUCA 250 MG TABS 2 today and then 1 daily for 4 days AZITHROMYCIN 54382120312 No Longer Active Liat Cheng MD Active LORATADINE 10 MG TABS 1 tablet by mouth daily PRN Congestion 2014 LORATADINE 62028420945 No Longer Active Audelia Yokum MAINSPRING BARREL ASSEMBLY CLEANER Active MUCINEX DM MAXIMUM STRENGTH 60-1200 MG [id number] 1 po BID PRN Cough DEXTROMETHORPHAN-GUAIFENESIN 19631564205 No Longer Active Audelia Yokum MAINSPRING BARREL ASSEMBLY CLEANER Active PREDNISONE 20 MG TAB 2 tabs daily for 3 days, 1 tab daily for 3 days, 1/2 tab daily for 2 days PREDNISONE 64908406224 No Longer Active Boo Vasquez MD Active BACTRIM DS 800-160 MG TAB 1 tab by mouth twice daily TRIMETHOPRIM-SULFAMETHOXAZOLE 21619666238 No Longer Active Gama Bermeo MD Active ZOFRAN 8 MG ORAL TABS 1 q 8hr prn vomiting ONDANSETRON HCL 20668401212 No Longer Active Gama Bermeo MD Active AUGMENTIN 875-125 MG TABS 1 bid AMOXICILLIN-POT CLAVULANATE 70039428132 No Longer Active Liat Cheng MD Active HYDROCODONE-ACETAMINOPHEN TABS Take as directed/PRN HYDROCODONE-ACETAMINOPHEN TABS 91868068432 No Longer Active Liat Cheng MD Active CEFDINIR 300 MG CAPS 1 PO bid x 7 days CEFDINIR 61518873129 No Longer Active Liat Cheng MD Active CEFDINIR 300 MG CAPS 1 PO bid x 7 days CEFDINIR 300 MG CAPS 627648 CEFDINIR Inactive HYDROCODONE-ACETAMINOPHEN TABS Take as directed/PRN HYDROCODONE-ACETAMINOPHEN TABS HYDROCODONE-ACETAMINOPHEN TABS Inactive ZOFRAN 8 MG ORAL TABS 1 q 8hr prn vomiting ZOFRAN 8 MG ORAL TABS 224835 ONDANSETRON HCL Inactive MUCINEX DM MAXIMUM STRENGTH 60-1200 MG [id number] 1 po BID PRN Cough MUCINEX DM MAXIMUM STRENGTH 60-1200 MG [id number] DEXTROMETHORPHAN-GUAIFENESIN Inactive LORATADINE 10 MG TABS 1 tablet by mouth daily PRN Congestion 2014 LORATADINE 10 MG TABS 050718 LORATADINE Inactive ZITHROMAX Z-GIANLUCA 250 MG TABS 2 today and then 1 daily for 4 days ZITHROMAX Z-GIANLUCA 250 MG TABS 3938328 AZITHROMYCIN Inactive KEFLEX 500 MG CAP 1 po qid KEFLEX 500 MG CAP 105608 CEPHALEXIN Inactive FLONASE 50 MCG/ACT SUSP 1 puff in easch nostril bid FLONASE 50 MCG/ACT SUSP FLUTICASONE PROPIONATE Inactive CIPRO 500 MG TAB 1 tablet by mouth twice daily CIPRO 500 MG TAB 796634 CIPROFLOXACIN HCL Inactive AUGMENTIN 875-125 MG TABS 1 bid AUGMENTIN 875-125 MG TABS 561122 AMOXICILLIN-POT CLAVULANATE Inactive BACTRIM DS 800-160 MG TAB 1 tab by mouth twice daily BACTRIM DS 800-160 MG TAB 786849 TRIMETHOPRIM-SULFAMETHOXAZOLE Inactive PREDNISONE 20 MG TAB 2 tabs daily for 3 days, 1 tab daily for 3 days, 1/2 tab daily for 2 days PREDNISONE 20 MG TAB 385374 PREDNISONE Inactive AZITHROMYCIN 250 MG TABS 2 pills day 1,1 pill day 2-5 AZITHROMYCIN 250 MG TABS 9535943 AZITHROMYCIN Inactive Immunizations Vaccine Administration Date Value Standard Description Adacel (Tetanus, reduced Diphtheria, and acellular Pertussis Immunization) Adacel [[id number]] tetanus toxoid, reduced diphtheria toxoid, and acellular [...] 369 10^3/MM^3 10*3/mm3 142-424 Lab Report: Chlamydia/GC APTIMA/93668 - Lab chlamydia DNA probe NOT DETECTED NOT DETECTED Lab Report: Chlamydia/GC APTIMA/59221 - Microbiology Neisseria gonorrhoeae DNA probe NOT DETECTED NOT DETECTED Lab Report: Comp. Metabolic Panel - Chemistry sodium, serum 140 mmol/L 697-290 6527/11/17 carbon dioxide, venous blood 25.9 mmol/L 21.0-32.0 [...] negative Encounters Code Encounter Date Provider Facility CPT-82853 Level 3 Est. Patient 15:06:21 SUPERVISOR ENGRAVING Thai Almendarez [facility] CPT-57229 Level 3 Est. Patient 15:43:50 SUPERVISOR ENGRAVING Thai Almendarez [facility] CPT-57619 Level 3 Est. Patient 14:42:12 SUPERVISOR ENGRAVING Liat Cheng MD [facility] CPT-41972 Level 3 Est. Patient 16:38:12 SUPERVISOR ENGRAVING Valentin Blanco MD [facility] CPT-68424 Level 3 Est. Patient 14:12:52 CDT Liat Cheng MD [facility] CPT-66745 Level 2 Est. Patient 12:17:18 CDT [facility] 3 Est. Patient 15:02:49 CDT Boo Vasquez MD [facility] CPT-74615 Level 3 Est. Patient 16:21:33 SUPERVISOR ENGRAVING Gama Bermeo MD [facility] CPT-09443 Level 3 Est. Patient 11:32:23 SUPERVISOR ENGRAVING Liat Cheng MD [facility] CPT-97527 Level 3 Est. Patient 16:59:23 CDT Liat Cheng MD [facility] CPT-10987 Level 3 Est. Patient 17:02:11 SUPERVISOR ENGRAVING Tay MAJOR [facility] CPT-93781 Level 3 Est. Patient 16:49:05 SUPERVISOR ENGRAVING Liat Cheng MD [facility] CPT-32351 Level 3 Est. Patient 16:36:13 CDT Vivien Conway MAINSPRING BARREL ASSEMBLY CLEANER [facility] Procedures Code Procedure Name Date Entry Date Standard Description CPT-J7307 Nexplanon (Implant) 16:25:36 SUPERVISOR ENGRAVING CPT-27682 Nexplanon Placement 16:25:36 SUPERVISOR ENGRAVING CPT-OV Office Visit 16:25:36 SUPERVISOR ENGRAVING CPT-OV Office Visit 18:49:22 SUPERVISOR ENGRAVING CPT-OV Office Visit 18:49:18 CDT CPT-03993 Administration single or combination vaccine inc oral 11 :11:48 CDT CPT-90265 Adacel Intramuscular Suspension 5-2-15.5 11:11:48 CDT CPT-00885 Toes 2V 17:03:02 SUPERVISOR ENGRAVING
--- OUTSIDE RECORDS SUMMARY | 2018-02-18 12:30 | XMS REPORT | Clinical Summary ---
Author Author Admin, QIE Organization [facility] Address Unknown Phone Unavailable Allergies, Adverse Reactions, [...] tablet by mouth twice daily CIPROFLOXACIN HCL 10218451035 No Longer Active Jillina Frazell LIBRARIAN Active FLAGYL 500 MG TAB 1 tablet by mouth bid. do not mix with etoh. METRONIDAZOLE 91333421095 Active Jillina Frazell LIBRARIAN Active FLONASE 50 MCG/ACT SUSP 1 puff in easch nostril bid FLUTICASONE PROPIONATE No Longer Active Jillina Erickson WELLS Active KEFLEX 500 MG CAP 1 po qid CEPHALEXIN 76868765102 No Longer Active Thai Almendarez APRN Active AZITHROMYCIN 250 MG TABS 2 pills day 1,1 pill day 2-5 AZITHROMYCIN 61582284131 No Longer Active Liat Cheng MD Active ZITHROMAX Z-GIANLUCA 250 MG TABS 2 today and then 1 daily for 4 days AZITHROMYCIN 46975411583 No Longer Active Liat Cheng MD Active LORATADINE 10 MG TABS 1 tablet by mouth daily PRN Congestion 2014 LORATADINE 68864950176 No Longer Active Audelia Yokum LIBRARIAN Active MUCINEX DM MAXIMUM STRENGTH 60-1200 MG [id number] 1 po BID PRN Cough DEXTROMETHORPHAN-GUAIFENESIN 76659284194 No Longer Active Audelia Yokum LIBRARIAN Active PREDNISONE 20 MG TAB 2 tabs daily for 3 days, 1 tab daily for 3 days, 1/2 tab daily for 2 days PREDNISONE 83565931653 No Longer Active Boo Vasquez MD Active BACTRIM DS 800-160 MG TAB 1 tab by mouth twice daily TRIMETHOPRIM-SULFAMETHOXAZOLE 06723933519 No Longer Active Gama Bermeo MD Active ZOFRAN 8 MG ORAL TABS 1 q 8hr prn vomiting ONDANSETRON HCL 83620630579 No Longer Active Gama Bermeo MD Active AUGMENTIN 875-125 MG TABS 1 bid AMOXICILLIN-POT CLAVULANATE 32361813429 No Longer Active Liat Cheng MD Active HYDROCODONE-ACETAMINOPHEN TABS Take as directed/PRN HYDROCODONE-ACETAMINOPHEN TABS 15662223261 No Longer Active Liat Cheng MD Active CEFDINIR 300 MG CAPS 1 PO bid x 7 days CEFDINIR 41255768628 No Longer Active Liat Cheng MD Active CEFDINIR 300 MG CAPS 1 PO bid x 7 days CEFDINIR 300 MG CAPS 449154 CEFDINIR Inactive HYDROCODONE-ACETAMINOPHEN TABS Take as directed/PRN HYDROCODONE-ACETAMINOPHEN TABS HYDROCODONE-ACETAMINOPHEN TABS Inactive ZOFRAN 8 MG ORAL TABS 1 q 8hr prn vomiting ZOFRAN 8 MG ORAL TABS 923701 ONDANSETRON HCL Inactive MUCINEX DM MAXIMUM STRENGTH 60-1200 MG [id number] 1 po BID PRN Cough MUCINEX DM MAXIMUM STRENGTH 60-1200 MG [id number] DEXTROMETHORPHAN-GUAIFENESIN Inactive LORATADINE 10 MG TABS 1 tablet by mouth daily PRN Congestion 2014 LORATADINE 10 MG TABS 639301 LORATADINE Inactive ZITHROMAX Z-GIANLUCA 250 MG TABS 2 today and then 1 daily for 4 days ZITHROMAX Z-GIANLUCA 250 MG TABS 8096237 AZITHROMYCIN Inactive KEFLEX 500 MG CAP 1 po qid KEFLEX 500 MG CAP 603197 CEPHALEXIN Inactive FLONASE 50 MCG/ACT SUSP 1 puff in easch nostril bid FLONASE 50 MCG/ACT SUSP FLUTICASONE PROPIONATE Inactive CIPRO 500 MG TAB 1 tablet by mouth twice daily CIPRO 500 MG TAB 051502 CIPROFLOXACIN HCL Inactive AUGMENTIN 875-125 MG TABS 1 bid AUGMENTIN 875-125 MG TABS 582946 AMOXICILLIN-POT CLAVULANATE Inactive BACTRIM DS 800-160 MG TAB 1 tab by mouth twice daily BACTRIM DS 800-160 MG TAB 802663 TRIMETHOPRIM-SULFAMETHOXAZOLE Inactive PREDNISONE 20 MG TAB 2 tabs daily for 3 days, 1 tab daily for 3 days, 1/2 tab daily for 2 days PREDNISONE 20 MG TAB 220664 PREDNISONE Inactive AZITHROMYCIN 250 MG TABS 2 pills day 1,1 pill day 2-5 AZITHROMYCIN 250 MG TABS 1885708 AZITHROMYCIN Inactive Immunizations Vaccine Administration Date Value Standard Description Adacel (Tetanus, reduced Diphtheria, and acellular Pertussis Immunization) Adacel [[id number]] tetanus toxoid, reduced diphtheria toxoid, and acellular [...] 369 10^3/MM^3 10*3/mm3 142-424 Lab Report: Chlamydia/GC APTIMA/52003 - Lab chlamydia DNA probe NOT DETECTED NOT DETECTED chlamydia DNA probe NOT DETECTED NOT DETECTED Lab Report: Chlamydia/GC APTIMA/22752 - Microbiology Neisseria gonorrhoeae DNA probe NOT DETECTED NOT DETECTED Neisseria gonorrhoeae DNA probe NOT DETECTED NOT DETECTED Lab Report: Comp. Metabolic Panel - Chemistry sodium, serum 140 mmol/L 508-278 3347/11/17 carbon dioxide, venous blood 25.9 mmol/L 21.0-32.0 [...] negative Encounters Code Encounter Date Provider Facility CPT-13069 Level 3 Est. Patient 15:06:21 REFINERY OPERATOR Thai Almendarez [facility] CPT-43576 Level 3 Est. Patient 15:43:50 REFINERY OPERATOR Thai Almendarez [facility] CPT-17497 Level 3 Est. Patient 14:42:12 REFINERY OPERATOR Liat Cheng MD [facility] CPT-34752 Level 3 Est. Patient 16:38:12 REFINERY OPERATOR Valentin Blanco MD [facility] CPT-42605 Level 3 Est. Patient 14:12:52 CDT Liat Cheng MD [facility] CPT-53474 Level 2 Est. Patient 12:17:18 CDT Audelia Ochoa [facility] CPT-94349 Level 3 Est. Patient 15:02:49 CDT Boo Vasquez MD [facility] CPT-74734 Level 3 Est. Patient 16:21:33 REFINERY OPERATOR Gama Bermeo MD [facility] CPT-29609 Level 3 Est. Patient 11:32:23 REFINERY OPERATOR Liat Cheng MD [facility] CPT-27200 Level 3 Est. Patient 16:59:23 CDT Liat Cheng MD [facility] CPT-41154 Level 3 Est. Patient 17:02:11 REFINERY OPERATOR Tay MAJOR [facility] CPT-14860 Level 3 Est. Patient 16:49:05 REFINERY OPERATOR Liat Cheng MD [facility] CPT-19366 Level 3 Est. Patient 16:36:13 CDT Vivien Conway [facility] Procedures Code Procedure Name Date Entry Date Standard Description CPT-J7307 Nexplanon (Implant) 16:25:36 REFINERY OPERATOR CPT-11638 Nexplanon Placement 16:25:36 REFINERY OPERATOR CPT-OV Office Visit 16:25:36 REFINERY OPERATOR CPT-OV Office Visit 18:49:22 REFINERY OPERATOR CPT-OV Office Visit 18:49:18 CDT CPT-11826 Administration single or combination vaccine inc oral 11 :11:48 CDT CPT-19497 Adacel Intramuscular Suspension 5-2-15.5 11:11:48 CDT CPT-16869 Toes 2V 17:03:02 REFINERY OPERATOR
--- OUTSIDE RECORDS SUMMARY | 2018-02-18 12:31 | XMS REPORT | Clinical Summary ---
Author Author Admin, QIE Organization [employer] Address Unknown Phone Unavailable Allergies, Adverse Reactions, [...] ankle and foot Abdominal bloating 787.3 Resolved Lait Cheng MD Flatulence, eructation, and gas pain Pharyngitis 462 Resolved Liat Cheng MD Acute pharyngitis Pharyngitis 462 Active Liat Cheng MD Acute pharyngitis Fatigue 780.79 [...] MD Abdominal pain, unspecified site Lightheadedness 780.4 Active Liat Cheng MD Dizziness and giddiness Family History of Diabetes ICD-V18.0 Inactive Boo [...] w/o infection ICD-919.4 Inactive Liat Cheng MD SPORTS PHYSICAL ICD-V70.3 Inactive Boo Vasquez MD Fatigue ICD-780.79 Inactive Liat Cheng MD U R I Inactive Liat Cheng MD UTI ICD-599.0 Inactive Liat Cheng MD Sexual activity, high risk ICD-V69.2 Inactive Liat Cheng MD Incontinence, urine ICD-788.30 Inactive Liat Cheng MD Trichomonal infection ICD-131.9 Inactive Liat Cheng MD Abdominal pain ICD-789.00 Inactive Liat Cheng MD Ankle pain, right ICD-719.47 Inactive Liat Cheng MD Abdominal bloating ICD-787.3 Inactive Liat Cheng MD Medication List Medication Instructions Start Date Stop Date Generic Name NDC Status Provider Patient Instruction ZOFRAN 4 MG TABS 1 po q8hr PRN Nausea ONDANSETRON HCL 41870166222 Active Angeline Santiago APRN Active NEXPLANON 68 MG SC IMPL Inserted in the left upper arm ETONOGESTREL 79812099983 Active Liat Cheng MD Active FLAGYL 500 MG TAB 1 tablet by mouth bid. do not mix with etoh. METRONIDAZOLE 45158937909 No Longer Active Liat Cheng MD Active CIPRO 500 MG TAB 1 tablet by mouth twice daily CIPROFLOXACIN HCL 38496360601 No Longer Active Jillina Frazell WRITER PRODUCER Active FLONASE 50 MCG/ACT SUSP 1 puff in easch nostril bid FLUTICASONE PROPIONATE No Longer Active Jillina Frazell WRITER PRODUCER Active KEFLEX 500 MG CAP 1 po qid CEPHALEXIN 33074846929 No Longer Active Jillina Frazell WRITER PRODUCER Active AZITHROMYCIN 250 MG TABS 2 pills day 1,1 pill day 2-5 AZITHROMYCIN 50050048310 No Longer Active Liat Cheng MD Active ZITHROMAX Z-GIANLUCA 250 MG TABS 2 today and then 1 daily for 4 days AZITHROMYCIN 60653448148 No Longer Active Liat Cheng MD Active LORATADINE 10 MG TABS 1 tablet by mouth daily PRN Congestion 2014 LORATADINE 06282699784 No Longer Active Audelia Yokum WRITER PRODUCER Active MUCINEX DM MAXIMUM STRENGTH 60-1200 MG [id number] 1 po BID PRN Cough DEXTROMETHORPHAN-GUAIFENESIN 63639425447 No Longer Active Audelia Yokum WRITER PRODUCER Active PREDNISONE 20 MG TAB 2 tabs daily for 3 days, 1 tab daily for 3 days, 1/2 tab daily for 2 days PREDNISONE 04961396684 No Longer Active Boo Vasquez MD Active BACTRIM DS 800-160 MG TAB 1 tab by mouth twice daily TRIMETHOPRIM-SULFAMETHOXAZOLE 68576473244 No Longer Active Gama Bermeo MD Active ZOFRAN 8 MG ORAL TABS 1 q 8hr prn vomiting ONDANSETRON HCL 08946711570 No Longer Active Gama Bermeo MD Active AUGMENTIN 875-125 MG TABS 1 bid AMOXICILLIN-POT CLAVULANATE 52897232061 No Longer Active Liat Cheng MD Active HYDROCODONE-ACETAMINOPHEN TABS Take as directed/PRN HYDROCODONE-ACETAMINOPHEN TABS 91738687327 No Longer Active Liat Cheng MD Active CEFDINIR 300 MG CAPS 1 PO bid x 7 days CEFDINIR 78472277876 No Longer Active Liat Cheng MD Active CEFDINIR 300 MG CAPS 1 PO bid x 7 days CEFDINIR 300 MG CAPS 886294 CEFDINIR Inactive HYDROCODONE-ACETAMINOPHEN TABS Take as directed/PRN HYDROCODONE-ACETAMINOPHEN TABS HYDROCODONE-ACETAMINOPHEN TABS Inactive ZOFRAN 8 MG ORAL TABS 1 q 8hr prn vomiting ZOFRAN 8 MG ORAL TABS 961906 ONDANSETRON HCL Inactive MUCINEX DM MAXIMUM STRENGTH 60-1200 MG [id number] 1 po BID PRN Cough MUCINEX DM MAXIMUM STRENGTH 60-1200 MG [id number] DEXTROMETHORPHAN-GUAIFENESIN Inactive LORATADINE 10 MG TABS 1 tablet by mouth daily PRN Congestion 2014 LORATADINE 10 MG TABS 902720 LORATADINE Inactive ZITHROMAX Z-GIANLUCA 250 MG TABS 2 today and then 1 daily for 4 days ZITHROMAX Z-GIANLUCA 250 MG TABS 4311394 AZITHROMYCIN Inactive KEFLEX 500 MG CAP 1 po qid KEFLEX 500 MG CAP 333264 CEPHALEXIN Inactive FLONASE 50 MCG/ACT SUSP 1 puff in easch nostril bid FLONASE 50 MCG/ACT SUSP FLUTICASONE PROPIONATE Inactive CIPRO 500 MG TAB 1 tablet by mouth twice daily CIPRO 500 MG TAB 737654 CIPROFLOXACIN HCL Inactive FLAGYL 500 MG TAB 1 tablet by mouth bid. do not mix with etoh. FLAGYL 500 MG TAB 744225 METRONIDAZOLE Inactive AUGMENTIN 875-125 MG TABS 1 bid AUGMENTIN 875-125 MG TABS 106560 AMOXICILLIN-POT CLAVULANATE Inactive BACTRIM DS 800-160 MG TAB 1 tab by mouth twice daily BACTRIM DS 800-160 MG TAB 069067 TRIMETHOPRIM-SULFAMETHOXAZOLE Inactive PREDNISONE 20 MG TAB 2 tabs daily for 3 days, 1 tab daily for 3 days, 1/2 tab daily for 2 days PREDNISONE 20 MG TAB 710841 PREDNISONE Inactive AZITHROMYCIN 250 MG TABS 2 pills day 1,1 pill day 2-5 AZITHROMYCIN 250 MG TABS 5370955 AZITHROMYCIN Inactive Advance Directives Directive Description Start Date PERMISSION TO SHARE Immunizations Vaccine Administration Date Value Standard Description Adacel (Tetanus, reduced Diphtheria, and acellular Pertussis Immunization) Adacel [[id number]] tetanus toxoid, reduced diphtheria toxoid, and acellular [...] pressure, diastolic - 8462-4 82 mm[Hg] BP grday blood pressure, systolic - 8480-6 134 mm[Hg] [...] 369 10^3/MM^3 10*3/mm3 142-424 Lab Report: Chlamydia/GC APTIMA/[id number] - Lab chlamydia DNA probe NOT DETECTED NOT DETECTED chlamydia DNA probe NOT DETECTED NOT DETECTED Lab Report: Chlamydia/GC APTIMA/35423 - Microbiology Neisseria gonorrhoeae DNA probe NOT DETECTED NOT DETECTED Neisseria gonorrhoeae DNA probe NOT DETECTED NOT DETECTED Lab Report: Comp. Metabolic Panel - Chemistry sodium, serum 140 mmol/L 408-296 9980/11/17 carbon dioxide, venous blood 25.9 mmol/L 21.0-32.0 [...] negative Encounters Code Encounter Date Provider Facility CPT-49995 Level 3 Est. Patient 15:48:30 SOURCING CONSULTANT Liat Cheng MD [facility] CPT-89229 Level 3 Est. Patient 14:24:59 SOURCING CONSULTANT Liat Cheng MD [facility] CPT-67596 Level 3 Est. Patient 15:06:21 SOURCING CONSULTANT Thai Almendarez [facility]-76007 Level 3 Est. Patient 15:43:50 SOURCING CONSULTANT Thai Almendarez [facility]-39408 Level 3 Est. Patient 14:42:12 SOURCING CONSULTANT Liat Cheng MD [facility] CPT-44733 Level 3 Est. Patient 16:38:12 SOURCING CONSULTANT Valentin Blanco MD [facility] CPT-17404 Level 3 Est. Patient 14:12:52 CDT Liat Cheng MD [facility]-79307 Level 2 Est. Patient 12:17:18 CDT Audelia Ochoa [facility]-15559 Level 3 Est. Patient 15:02:49 CDT Boo Vasquez MD [facility]-38704 Level 3 Est. Patient 16:21:33 SOURCING CONSULTANT Gama Bermeo MD [facility]-09531 Level 3 Est. Patient 11:32:23 SOURCING CONSULTANT Liat Cheng MD [facility] CPT-00702 Level 3 Est. Patient 16:59:23 CDT Liat Cheng MD [facility] CPT-63095 Level 3 Est. Patient 17:02:11 SOURCING CONSULTANT Tay MAJOR [facility] CPT-81267 Level 3 Est. Patient 16:49:05 SOURCING CONSULTANT Liat Cheng MD [facility] CPT-97913 Level 3 Est. Patient 16:36:13 CDT Vivien Conway APRN [facility] Procedures Code Procedure Name Date Entry Date Standard Description CPT-J7307 Nexplanon (Implant) 16:25:36 SOURCING CONSULTANT CPT-00945 Nexplanon Placement 16:25:36 SOURCING CONSULTANT CPT-OV Office Visit 16:25:36 SOURCING CONSULTANT CPT-OV Office Visit 18:49:22 SOURCING CONSULTANT CPT-OV Office Visit 18:49:18 CDT CPT-83110 Administration single or combination vaccine inc oral 11 :11:48 CDT CPT-98672 Adacel Intramuscular Suspension 5-2-15.5 11:11:48 CDT CPT-57566 Toes 2V 17:03:02 SOURCING CONSULTANT
--- OUTSIDE RECORDS SUMMARY | 2018-02-18 12:31 | XMS REPORT | Clinical Summary ---
Author Author Admin, QIE Organization [employer] Address Unknown Phone Unavailable Allergies, Adverse Reactions, [...] Acute pharyngitis Toe injury 959.7 Resolved Liat Chegn MD Other and unspecified injury to knee, [...] Sinusitis, acute ICD-461.9 Inactive Liat Cheng MD Laceration, finger ICD-883.0 Inactive Liat Cheng MD Gastroenteritis ICD-558.9 Inactive Liat Cheng MD Abscess, skin ICD-682.9 Inactive Boo Vasquez MD Upper respiratory infection, viral ICD-465.9 Inactive Liat Cheng MD Insect bite NEC w/o infection ICD-919.4 Oneil Cheng MD Abdominal bloating ICD-787.3 Oneil Cheng MD Ankle pain, right ICD-719.47 Oneil Cheng MD Cellulitis ICD-682.9 Inactive Liat Cheng MD U R I Inactive Liat Cheng MD Pharyngitis ICD-462 Inactive Liat Cheng MD Fatigue ICD-780.79 Inactive Liat Cheng MD Medication List Medication Instructions Start Date Stop Date Generic Name NDC Status Provider Patient Instruction CIPRO 500 MG TAB 1 tablet by mouth twice daily CIPROFLOXACIN HCL 37074949941 No Longer Active Jillina Frazell SOLDERING TECHNICIAN Active FLAGYL 500 MG TAB 1 tablet by mouth bid. do not mix with etoh. METRONIDAZOLE 03139778469 Active Jillina Frazell SOLDERING TECHNICIAN Active FLONASE 50 MCG/ACT SUSP 1 puff in easch nostril bid FLUTICASONE PROPIONATE No Longer Active Jillina Erickson WELLS Active KEFLEX 500 MG CAP 1 po qid CEPHALEXIN 61906116535 No Longer Active Thai Almendarez APRN Active AZITHROMYCIN 250 MG TABS 2 pills day 1,1 pill day 2-5 AZITHROMYCIN 50067899080 No Longer Active Liat Cheng MD Active ZITHROMAX Z-GIANLUCA 250 MG TABS 2 today and then 1 daily for 4 days AZITHROMYCIN 30862316268 No Longer Active Liat Cheng MD Active LORATADINE 10 MG TABS 1 tablet by mouth daily PRN Congestion 2014 LORATADINE 77834803507 No Longer Active Audelia Yokum SOLDERING TECHNICIAN Active MUCINEX DM MAXIMUM STRENGTH 60-1200 MG [id number] 1 po BID PRN Cough DEXTROMETHORPHAN-GUAIFENESIN 92694853609 No Longer Active Audelia Yokum SOLDERING TECHNICIAN Active PREDNISONE 20 MG TAB 2 tabs daily for 3 days, 1 tab daily for 3 days, 1/2 tab daily for 2 days PREDNISONE 48374512831 No Longer Active Boo Vasquez MD Active BACTRIM DS 800-160 MG TAB 1 tab by mouth twice daily TRIMETHOPRIM-SULFAMETHOXAZOLE 96182367108 No Longer Active Gama Bermeo MD Active ZOFRAN 8 MG ORAL TABS 1 q 8hr prn vomiting ONDANSETRON HCL 61808740939 No Longer Active Gama Bermeo MD Active AUGMENTIN 875-125 MG TABS 1 bid AMOXICILLIN-POT CLAVULANATE 44836729265 No Longer Active Liat Cheng MD Active HYDROCODONE-ACETAMINOPHEN TABS Take as directed/PRN HYDROCODONE-ACETAMINOPHEN TABS 26066128377 No Longer Active Liat Cheng MD Active CEFDINIR 300 MG CAPS 1 PO bid x 7 days CEFDINIR 95271676719 No Longer Active Liat Cheng MD Active CEFDINIR 300 MG CAPS 1 PO bid x 7 days CEFDINIR 300 MG CAPS 548461 CEFDINIR Inactive HYDROCODONE-ACETAMINOPHEN TABS Take as directed/PRN HYDROCODONE-ACETAMINOPHEN TABS HYDROCODONE-ACETAMINOPHEN TABS Inactive ZOFRAN 8 MG ORAL TABS 1 q 8hr prn vomiting ZOFRAN 8 MG ORAL TABS 490748 ONDANSETRON HCL Inactive MUCINEX DM MAXIMUM STRENGTH 60-1200 MG [id number] 1 po BID PRN Cough MUCINEX DM MAXIMUM STRENGTH 60-1200 MG [id number] DEXTROMETHORPHAN-GUAIFENESIN Inactive LORATADINE 10 MG TABS 1 tablet by mouth daily PRN Congestion 2014 LORATADINE 10 MG TABS 623835 LORATADINE Inactive ZITHROMAX Z-GIANLUCA 250 MG TABS 2 today and then 1 daily for 4 days ZITHROMAX Z-GIANLUCA 250 MG TABS 2099647 AZITHROMYCIN Inactive KEFLEX 500 MG CAP 1 po qid KEFLEX 500 MG CAP 725600 CEPHALEXIN Inactive FLONASE 50 MCG/ACT SUSP 1 puff in easch nostril bid FLONASE 50 MCG/ACT SUSP FLUTICASONE PROPIONATE Inactive CIPRO 500 MG TAB 1 tablet by mouth twice daily CIPRO 500 MG TAB 739997 CIPROFLOXACIN HCL Inactive AUGMENTIN 875-125 MG TABS 1 bid AUGMENTIN 875-125 MG TABS 014767 AMOXICILLIN-POT CLAVULANATE Inactive BACTRIM DS 800-160 MG TAB 1 tab by mouth twice daily BACTRIM DS 800-160 MG TAB 277945 TRIMETHOPRIM-SULFAMETHOXAZOLE Inactive PREDNISONE 20 MG TAB 2 tabs daily for 3 days, 1 tab daily for 3 days, 1/2 tab daily for 2 days PREDNISONE 20 MG TAB 077306 PREDNISONE Inactive AZITHROMYCIN 250 MG TABS 2 pills day 1,1 pill day 2-5 AZITHROMYCIN 250 MG TABS 3494035 AZITHROMYCIN Inactive Immunizations Vaccine Administration Date Value Standard Description Adacel (Tetanus, reduced Diphtheria, and acellular Pertussis Immunization) Adacel [NPR652] tetanus toxoid, reduced diphtheria toxoid, and acellular pertussis vaccine, adsorbed oral polio vaccine (OPV) #4 Historical poliovirus vaccine, unspecified formulation MMR (measles, mumps, rubella) virus immunization #2 Historical DPT immunization #5 Historical oral polio vaccine (OPV) #3 Historical poliovirus vaccine, unspecified formulation DPT immunization #4 Historical MMR (measles, mumps, rubella) virus immunization #1 Historical DPT immunization #3 Historical hepatitis B vaccine #3 Historical hepatitis B vaccine, unspecified formulation Hemophilus influenza B immunization #3 Historical Haemophilus influenzae type b vaccine, conjugate unspecified formulation oral polio vaccine (OPV) #2 Historical poliovirus vaccine, unspecified formulation DPT immunization #2 Historical hepatitis B vaccine #2 given Historical hepatitis B vaccine, unspecified formulation Hemophilus influenza B immunization #2 Historical Haemophilus influenzae type b vaccine, conjugate unspecified formulation DPT immunization #1 Historical hepatitis B vaccine #1 given Historical hepatitis B vaccine, unspecified formulation oral polio vaccine (OPV) #1 Historical poliovirus vaccine, unspecified formulation Hemophilus influenza B immunization #1 Historical Haemophilus influenzae type b vaccine, conjugate unspecified formulation Vital Signs Date Name Value [...] % 11.6-14.8 platelet count 369 10^3/MM^3 10*3/mm3 603-102 0670/11/17 lymphocytes as percent of blood leukocytes 28.7 % 20.5-51.1 monocytes as percent of blood leukocytes 7.4 % 1.7-9.3 neutrophils as percent of blood leukocytes 54.3 % 42.2-75.2 leukocyte count, blood 10.7 10^3/MM^3 10*3/mm3 4.6-10.2 Lab Report: Chlamydia/GC APTIMA/82736 - Lab chlamydia DNA probe NOT DETECTED NOT DETECTED chlamydia DNA probe NOT DETECTED NOT DETECTED Lab Report: Chlamydia/GC APTIMA/66685 - Microbiology Neisseria gonorrhoeae DNA probe NOT DETECTED NOT DETECTED Neisseria gonorrhoeae DNA probe NOT DETECTED NOT DETECTED Lab Report: Comp. Metabolic Panel - Chemistry carbon dioxide, venous blood 25.9 mmol/L 21.0-32.0 potassium, serum 4.0 mmol/L 3.5-5.2 chloride, serum 103 mmol/L 98-107 blood glucose 83 mg/dL 65-110 urea nitrogen, blood 10 mg/dL 7-18 sodium, serum 140 mmol/L 678-520 7238/11/17 creatinine, serum 0.68 mg/dL 0.55-1.30 alanine aminotransferase [...] negative Encounters Code Encounter Date Provider Facility CPT-18586 Level 3 Est. Patient 15:06:21 OFFICE RENTAL CLERK Thai Almendarez [facility] CPT-15338 Level 3 Est. Patient 15:43:50 OFFICE RENTAL CLERK Thai Almendarez [facility] CPT-00606 Level 3 Est. Patient 14:42:12 OFFICE RENTAL CLERK Liat Cheng MD [facility] CPT-55252 Level 3 Est. Patient 16:38:12 OFFICE RENTAL CLERK Valentin Blanco MD [facility] CPT-36737 Level 3 Est. Patient 14:12:52 CDT Liat Cheng MD [facility] CPT-01139 Level 2 Est. Patient 12:17:18 CDT Audelia Ochoa [facility] CPT-11967 Level 3 Est. Patient 15:02:49 CDT Boo Vasquez MD [facility] CPT-28766 Level 3 Est. Patient 16:21:33 OFFICE RENTAL CLERK Gama Bermeo MD [facility] CPT-51679 Level 3 Est. Patient 11:32:23 OFFICE RENTAL CLERK Liat Cheng MD [facility] CPT-30661 Level 3 Est. Patient 16:59:23 CDT Liat Chneg MD [facility] CPT-59340 Level 3 Est. Patient 17:02:11 OFFICE RENTAL CLERK Tay MAJOR [facility] CPT-24785 Level 3 Est. Patient 16:49:05 OFFICE RENTAL CLERK Liat Cheng MD [facility] CPT-25690 Level 3 Est. Patient 16:36:13 CDT Vivien Conway [facility] Procedures Code Procedure Name Date Entry Date Standard Description CPT-J7307 Nexplanon (Implant) 16:25:36 OFFICE RENTAL CLERK CPT-90951 Nexplanon Placement 16:25:36 OFFICE RENTAL CLERK CPT-OV Office Visit 16:25:36 OFFICE RENTAL CLERK CPT-OV Office Visit 18:49:22 OFFICE RENTAL CLERK CPT-OV Office Visit 18:49:18 CDT CPT-16208 Administration single or combination vaccine inc oral 11 :11:48 CDT CPT-83148 Adacel Intramuscular Suspension 5-2-15.5 11:11:48 CDT CPT-37989 Toes 2V 17:03:02 OFFICE RENTAL CLERK
--- OUTSIDE RECORDS SUMMARY | 2018-02-18 12:32 | XMS REPORT | Clinical Summary ---
Author Author Admin, QIE Organization [employer] Address Unknown Phone Unavailable Allergies, Adverse Reactions, [...] Active Liat Cheng MD Dizziness and giddiness SPORTS PHYSICAL ICD-V70.3 Inactive Boo Vasquez MD [...] NEC w/o infection ICD-919.4 Oneil Cheng MD Ankle pain, right ICD-719.47 Inactive Liat Cheng MD Abdominal bloating ICD-787.3 Inactive Liat Cheng MD Fatigue ICD-780.79 Inactive Liat Cheng MD U R I Inactive Liat Cheng MD UTI ICD-599.0 Inactive Liat Cheng MD Sexual activity, high risk ICD-V69.2 Inactive Liat Cheng MD Incontinence, urine ICD-788.30 Inactive Liat Cheng MD Trichomonal infection ICD-131.9 Inactive Liat Cheng MD Abdominal pain ICD-789.00 Inactive Liat Cheng MD Medication List Medication Instructions Start Date Stop Date Generic Name NDC Status Provider Patient Instruction ZOFRAN 4 MG TABS 1 po q8hr PRN Nausea ONDANSETRON HCL 46380101226 Active Angeline Santiago APRN Active NEXPLANON 68 MG SC IMPL Inserted in the left upper arm ETONOGESTREL 15349037275 Active Liat Cheng MD Active FLAGYL 500 MG TAB 1 tablet by mouth bid. do not mix with etoh. METRONIDAZOLE 64960475506 No Longer Active Liat Cheng MD Active CIPRO 500 MG TAB 1 tablet by mouth twice daily CIPROFLOXACIN HCL 60849535999 No Longer Active Jillina Erickson WELLS Active FLONASE 50 MCG/ACT SUSP 1 puff in easch nostril bid FLUTICASONE PROPIONATE No Longer Active Maximllpb Almendarez APRN Active KEFLEX 500 MG CAP 1 po qid CEPHALEXIN 49481426241 No Longer Active Jillina Fraaranzal LEAD DATA ENTRY OPERATOR Active AZITHROMYCIN 250 MG TABS 2 pills day 1,1 pill day 2-5 AZITHROMYCIN 22248450724 No Longer Active Liat Cheng MD Active ZITHROMAX Z-GIANLUCA 250 MG TABS 2 today and then 1 daily for 4 days AZITHROMYCIN 31555100129 No Longer Active Liat Cheng MD Active LORATADINE 10 MG TABS 1 tablet by mouth daily PRN Congestion 2014 LORATADINE 40157876770 No Longer Active Audelia Yokum LEAD DATA ENTRY OPERATOR Active MUCINEX DM MAXIMUM STRENGTH 60-1200 MG [id number] 1 po BID PRN Cough DEXTROMETHORPHAN-GUAIFENESIN 29316036579 No Longer Active Audelia Yokum LEAD DATA ENTRY OPERATOR Active PREDNISONE 20 MG TAB 2 tabs daily for 3 days, 1 tab daily for 3 days, 1/2 tab daily for 2 days PREDNISONE 19982754559 No Longer Active Boo Vasquez MD Active BACTRIM DS 800-160 MG TAB 1 tab by mouth twice daily TRIMETHOPRIM-SULFAMETHOXAZOLE 18198262268 No Longer Active Gama Bermeo MD Active ZOFRAN 8 MG ORAL TABS 1 q 8hr prn vomiting ONDANSETRON HCL 24612500743 No Longer Active Gama Bermeo MD Active AUGMENTIN 875-125 MG TABS 1 bid AMOXICILLIN-POT CLAVULANATE 12289062965 No Longer Active Liat Cheng MD Active HYDROCODONE-ACETAMINOPHEN TABS Take as directed/PRN HYDROCODONE-ACETAMINOPHEN TABS 90186064036 No Longer Active Liat Cheng MD Active CEFDINIR 300 MG CAPS 1 PO bid x 7 days CEFDINIR 13869966673 No Longer Active Liat Cheng MD Active CEFDINIR 300 MG CAPS 1 PO bid x 7 days CEFDINIR 300 MG CAPS 264560 CEFDINIR Inactive HYDROCODONE-ACETAMINOPHEN TABS Take as directed/PRN HYDROCODONE-ACETAMINOPHEN TABS HYDROCODONE-ACETAMINOPHEN TABS Inactive ZOFRAN 8 MG ORAL TABS 1 q 8hr prn vomiting ZOFRAN 8 MG ORAL TABS 886529 ONDANSETRON HCL Inactive MUCINEX DM MAXIMUM STRENGTH 60-1200 MG [id number] 1 po BID PRN Cough MUCINEX DM MAXIMUM STRENGTH 60-1200 MG [id number] DEXTROMETHORPHAN-GUAIFENESIN Inactive LORATADINE 10 MG TABS 1 tablet by mouth daily PRN Congestion 2014 LORATADINE 10 MG TABS 684561 LORATADINE Inactive ZITHROMAX Z-GIANLUCA 250 MG TABS 2 today and then 1 daily for 4 days ZITHROMAX Z-GIANLUCA 250 MG TABS 7652285 AZITHROMYCIN Inactive KEFLEX 500 MG CAP 1 po qid KEFLEX 500 MG CAP 034981 CEPHALEXIN Inactive FLONASE 50 MCG/ACT SUSP 1 puff in easch nostril bid FLONASE 50 MCG/ACT SUSP FLUTICASONE PROPIONATE Inactive CIPRO 500 MG TAB 1 tablet by mouth twice daily CIPRO 500 MG TAB 327711 CIPROFLOXACIN HCL Inactive FLAGYL 500 MG TAB 1 tablet by mouth bid. do not mix with etoh. FLAGYL 500 MG TAB 594814 METRONIDAZOLE Inactive AUGMENTIN 875-125 MG TABS 1 bid AUGMENTIN 875-125 MG TABS 323982 AMOXICILLIN-POT CLAVULANATE Inactive BACTRIM DS 800-160 MG TAB 1 tab by mouth twice daily BACTRIM DS 800-160 MG TAB 415189 TRIMETHOPRIM-SULFAMETHOXAZOLE Inactive PREDNISONE 20 MG TAB 2 tabs daily for 3 days, 1 tab daily for 3 days, 1/2 tab daily for 2 days PREDNISONE 20 MG TAB 807171 PREDNISONE Inactive AZITHROMYCIN 250 MG TABS 2 pills day 1,1 pill day 2-5 AZITHROMYCIN 250 MG TABS 6775043 AZITHROMYCIN Inactive Advance Directives Directive Description Start Date PERMISSION TO SHARE Immunizations Vaccine Administration Date Value Standard Description Adacel (Tetanus, reduced Diphtheria, and acellular Pertussis Immunization) Adacel [NLR501] tetanus toxoid, reduced diphtheria toxoid, and acellular [...] 369 10^3/MM^3 10*3/mm3 142-424 Lab Report: Chlamydia/GC APTIMA/31069 - Lab chlamydia DNA probe NOT DETECTED NOT DETECTED chlamydia DNA probe NOT DETECTED NOT DETECTED Lab Report: Chlamydia/GC APTIMA/74641 - Microbiology Neisseria gonorrhoeae DNA probe NOT DETECTED NOT DETECTED Neisseria gonorrhoeae DNA probe NOT DETECTED NOT DETECTED Lab Report: Comp. Metabolic Panel - Chemistry sodium, serum 140 mmol/L 134-797 0425/11/17 carbon dioxide, venous blood 25.9 mmol/L 21.0-32.0 [...] negative Encounters Code Encounter Date Provider Facility CPT-92885 Level 3 Est. Patient 15:48:30 ROCKET ENGINE TESTER Liat Cheng MD [facility] CPT-51219 Level 3 Est. Patient 14:24:59 ROCKET ENGINE TESTER Liat Cheng MD [facility] CPT-27572 Level 3 Est. Patient 15:06:21 ROCKET ENGINE TESTER Thai Almendarez [facility]-84699 Level 3 Est. Patient 15:43:50 ROCKET ENGINE TESTER Thai Almendarez [facility]-85258 Level 3 Est. Patient 14:42:12 ROCKET ENGINE TESTER Liat Cheng MD [facility] CPT-89179 Level 3 Est. Patient 16:38:12 ROCKET ENGINE TESTER Valentin Blanco MD [facility] CPT-99764 Level 3 Est. Patient 14:12:52 CDT Liat Cheng MD [facility]-39306 Level 2 Est. Patient 12:17:18 CDT Audelia Ochoa [facility]-96969 Level 3 Est. Patient 15:02:49 CDT Boo Vasquez MD [facility]-59185 Level 3 Est. Patient 16:21:33 ROCKET ENGINE TESTER Gama Bermeo MD [facility]-08675 Level 3 Est. Patient 11:32:23 ROCKET ENGINE TESTER Liat Cheng MD [facility] CPT-23764 Level 3 Est. Patient 16:59:23 CDT Liat Cheng MD [facility] CPT-30064 Level 3 Est. Patient 17:02:11 ROCKET ENGINE TESTER Tay MAJOR [facility] CPT-95531 Level 3 Est. Patient 16:49:05 ROCKET ENGINE TESTER Liat Cheng MD [facility] CPT-01061 Level 3 Est. Patient 16:36:13 CDT Vivien Conway APRN [facility] Procedures Code Procedure Name Date Entry Date Standard Description CPT-J7307 Nexplanon (Implant) 16:25:36 ROCKET ENGINE TESTER CPT-46433 Nexplanon Placement 16:25:36 ROCKET ENGINE TESTER CPT-OV Office Visit 16:25:36 ROCKET ENGINE TESTER CPT-OV Office Visit 18:49:22 ROCKET ENGINE TESTER CPT-OV Office Visit 18:49:18 CDT CPT-78452 Administration single or combination vaccine inc oral 11 :11:48 CDT CPT-17231 Adacel Intramuscular Suspension 5-2-15.5 11:11:48 CDT CPT-22795 Toes 2V 17:03:02 ROCKET ENGINE TESTER
--- OUTSIDE RECORDS SUMMARY | 2018-02-18 12:33 | XMS REPORT | Clinical Summary ---
Author Author Admin, QIE Organization [employer] Address Unknown Phone Unavailable Allergies, Adverse Reactions, [...] Sexual activity, high risk V69.2 Active Thai Almednarez APRN High-risk sexual behavior Premenstrual symptom 625.4 Active Anaya Ferrara MD Premenstrual tension syndromes CONTRACEPTION MANAGEMENT V25.09 Active Anaya Ferrara MD Encounter for other general counseling and advice on contraceptive management Incontinence, urine 788.30 Active Thai Almendarez APRN Urinary incontinence, unspecified Trichomonal infection 131.9 Active Thai Almendarez APRN Trichomoniasis, unspecified Family History of Diabetes ICD-V18.0 Inactive Boo Vasquez MD Family History of Hypertension ICD-V17.4 Inactive Boo Vasquez MD Pharyngitis Acute ICD-462 Inactive Liat Cheng MD SPORTS PHYSICAL ICD-V70.3 Inactive Boo Vasquez MD Toe injury ICD-959.7 Inactive Liat Cheng MD Sinusitis, acute ICD-461.9 Inactive Liat Cheng MD Gastroenteritis ICD-558.9 Inactive Liat Cheng MD Abscess, skin ICD-682.9 Inactive Boo Vasquez MD Upper respiratory infection, viral ICD-465.9 Inactive Liat Cheng MD Insect bite NEC w/o infection ICD-919.4 Inactive Liat Cheng MD Cellulitis ICD-682.9 Inactive Liat Cheng MD Abdominal bloating ICD-787.3 Inactive Liat Cheng MD Ankle pain, right ICD-719.47 Inactive Liat Cheng MD Fatigue ICD-780.79 Inactive Liat Cheng MD U R I Inactive Liat Cheng MD Pharyngitis ICD-462 Oneil Cheng MD Laceration, finger ICD-883.0 Oneil Cheng MD Medication List Medication Instructions Start Date Stop Date Generic Name NDC Status Provider Patient Instruction CIPRO 500 MG TAB 1 tablet by mouth twice daily CIPROFLOXACIN HCL 68559567252 Active Jillina Frazell C D STRIPPER Active FLAGYL 500 MG TAB 1 tablet by mouth bid. do not mix with etoh. METRONIDAZOLE 27129573557 Active Jillina Frazell C D STRIPPER Active FLONASE 50 MCG/ACT SUSP 1 puff in easch nostril bid FLUTICASONE PROPIONATE No Longer Active Jillpb Almendarez C D STRIPPER Active KEFLEX 500 MG CAP 1 po qid CEPHALEXIN 54961981490 No Longer Active Jillina Frankiel C D STRIPPER Active AZITHROMYCIN 250 MG TABS 2 pills day 1,1 pill day 2-5 AZITHROMYCIN 15906019576 No Longer Active Liat Cheng MD Active ZITHROMAX Z-GIANLUCA 250 MG TABS 2 today and then 1 daily for 4 days AZITHROMYCIN 98422736541 No Longer Active Liat Cheng MD Active LORATADINE 10 MG TABS 1 tablet by mouth daily PRN Congestion 2014 LORATADINE 55344760518 No Longer Active Audelia Yokum C D STRIPPER Active MUCINEX DM MAXIMUM STRENGTH 60-1200 MG [id number] 1 po BID PRN Cough DEXTROMETHORPHAN-GUAIFENESIN 11017569550 No Longer Active Audelia Yokum C D STRIPPER Active PREDNISONE 20 MG TAB 2 tabs daily for 3 days, 1 tab daily for 3 days, 1/2 tab daily for 2 days PREDNISONE 61165632438 No Longer Active Boo Vasquez MD Active BACTRIM DS 800-160 MG TAB 1 tab by mouth twice daily TRIMETHOPRIM-SULFAMETHOXAZOLE 82883943100 No Longer Active Gama Bermeo MD Active ZOFRAN 8 MG ORAL TABS 1 q 8hr prn vomiting ONDANSETRON HCL 20290621071 No Longer Active Gama Bermeo MD Active AUGMENTIN 875-125 MG TABS 1 bid AMOXICILLIN-POT CLAVULANATE 41656892328 No Longer Active Liat Cheng MD Active HYDROCODONE-ACETAMINOPHEN TABS Take as directed/PRN HYDROCODONE-ACETAMINOPHEN TABS 44370927568 No Longer Active Liat Cheng MD Active CEFDINIR 300 MG CAPS 1 PO bid x 7 days CEFDINIR 02424508202 No Longer Active Liat Cheng MD Active CEFDINIR 300 MG CAPS 1 PO bid x 7 days CEFDINIR 300 MG CAPS 054973 CEFDINIR Inactive HYDROCODONE-ACETAMINOPHEN TABS Take as directed/PRN HYDROCODONE-ACETAMINOPHEN TABS HYDROCODONE-ACETAMINOPHEN TABS Inactive ZOFRAN 8 MG ORAL TABS 1 q 8hr prn vomiting ZOFRAN 8 MG ORAL TABS 124116 ONDANSETRON HCL Inactive MUCINEX DM MAXIMUM STRENGTH 60-1200 MG [id number] 1 po BID PRN Cough MUCINEX DM MAXIMUM STRENGTH 60-1200 MG [id number] DEXTROMETHORPHAN-GUAIFENESIN Inactive LORATADINE 10 MG TABS 1 tablet by mouth daily PRN Congestion 2014 LORATADINE 10 MG TABS 229494 LORATADINE Inactive ZITHROMAX Z-GIANLUCA 250 MG TABS 2 today and then 1 daily for 4 days ZITHROMAX Z-GIANLUCA 250 MG TABS 1526825 AZITHROMYCIN Inactive KEFLEX 500 MG CAP 1 po qid KEFLEX 500 MG CAP 250178 CEPHALEXIN Inactive FLONASE 50 MCG/ACT SUSP 1 puff in easch nostril bid FLONASE 50 MCG/ACT SUSP FLUTICASONE PROPIONATE Inactive AUGMENTIN 875-125 MG TABS 1 bid AUGMENTIN 875-125 MG TABS 459878 AMOXICILLIN-POT CLAVULANATE Inactive BACTRIM DS 800-160 MG TAB 1 tab by mouth twice daily BACTRIM DS 800-160 MG TAB 890560 TRIMETHOPRIM-SULFAMETHOXAZOLE Inactive PREDNISONE 20 MG TAB 2 tabs daily for 3 days, 1 tab daily for 3 days, 1/2 tab daily for 2 days PREDNISONE 20 MG TAB 070785 PREDNISONE Inactive AZITHROMYCIN 250 MG TABS 2 pills day 1,1 pill day 2-5 AZITHROMYCIN 250 MG TABS 2391554 AZITHROMYCIN Inactive Immunizations Vaccine Administration Date Value Standard Description Adacel (Tetanus, reduced Diphtheria, and acellular Pertussis Immunization) Adacel [[id number]] tetanus toxoid, reduced diphtheria toxoid, and acellular [...] 369 10^3/MM^3 10*3/mm3 142-424 Lab Report: Chlamydia/GC APTIMA/[id number] - Lab chlamydia DNA probe NOT DETECTED NOT DETECTED Lab Report: Chlamydia/GC APTIMA/96971 - Microbiology Neisseria gonorrhoeae DNA probe NOT DETECTED NOT DETECTED Lab Report: Comp. Metabolic Panel - Chemistry chloride, serum 103 mmol/L 98-107 potassium, serum 4.0 mmol/L 3.5-5.2 carbon dioxide, venous blood 25.9 mmol/L 21.0-32.0 sodium, serum 140 mmol/L 055-560 1258/11/17 blood glucose 83 mg/dL 65-110 urea nitrogen, [...] 5.0 5.0-8.5 nitrite, urine, semiquantitative Negative Negative Office Visit: 2 week follow up - [...] negative Encounters Code Encounter Date Provider Facility CPT-92116 Level 3 Est. Patient 15:43:50 ENDOCRINOLOGIST Thai Almendarez Formerly named [facility] CPT-74381 Level 3 Est. Patient 14:42:12 ENDOCRINOLOGIST Liat Cheng MD [facility] CPT-37323 Level 3 Est. Patient 16:38:12 ENDOCRINOLOGIST Valentin Blanco MD [facility] CPT-61240 Level 3 Est. Patient 14:12:52 CDT Liat Cheng MD [facility] CPT-99439 Level 2 Est. Patient 12:17:18 CDT Audelia Ochoa [facility] CPT-40451 Level 3 Est. Patient 15:02:49 CDT Boo Vasquez MD [facility] CPT-09274 Level 3 Est. Patient 16:21:33 ENDOCRINOLOGIST Gama Bermeo MD [facility] CPT-98215 Level 3 Est. Patient 11:32:23 ENDOCRINOLOGIST Liat Cheng MD [facility] CPT-59479 Level 3 Est. Patient 16:59:23 CDT Liat Cheng MD [facility] CPT-52150 Level 3 Est. Patient 17:02:11 ENDOCRINOLOGIST Tay MAJOR [facility] CPT-91578 Level 3 Est. Patient 16:49:05 ENDOCRINOLOGIST Liat Cheng MD [facility] CPT-28672 Level 3 Est. Patient 16:36:13 CDT Vivien Conway C D STRIPPER [facility] Procedures Code Procedure Name Date Entry Date Standard Description CPT-J7307 Nexplanon (Implant) 16:25:36 ENDOCRINOLOGIST CPT-65706 Nexplanon Placement 16:25:36 ENDOCRINOLOGIST CPT-OV Office Visit 16:25:36 ENDOCRINOLOGIST CPT-OV Office Visit 18:49:22 ENDOCRINOLOGIST CPT-OV Office Visit 18:49:18 CDT CPT-14877 Administration single or combination vaccine inc oral 11 :11:48 CDT CPT-97319 Adacel Intramuscular Suspension 5-2-15.5 11:11:48 CDT CPT-64902 Toes 2V 17:03:02 ENDOCRINOLOGIST
--- OUTSIDE RECORDS SUMMARY | 2018-02-18 12:34 | XMS REPORT | Clinical Summary ---
Author Author Admin, QIE Organization [employer] Address Unknown Phone Unavailable Allergies, Adverse Reactions, [...] tablet by mouth twice daily CIPROFLOXACIN HCL 90774750422 Active Jillina Frazell HEEL STAINER Active FLAGYL 500 MG TAB 1 tablet by mouth bid. do not mix with etoh. METRONIDAZOLE 52027843032 Active Jillina Frazell HEEL STAINER Active FLONASE 50 MCG/ACT SUSP 1 puff in easch nostril bid FLUTICASONE PROPIONATE No Longer Active Jillpb Almendarez HEEL STAINER Active KEFLEX 500 MG CAP 1 po qid CEPHALEXIN 37527879914 No Longer Active Jillina Frankiel HEEL STAINER Active AZITHROMYCIN 250 MG TABS 2 pills day 1,1 pill day 2-5 AZITHROMYCIN 89632489463 No Longer Active Liat Cheng MD Active ZITHROMAX Z-GIANLUCA 250 MG TABS 2 today and then 1 daily for 4 days AZITHROMYCIN 71940634538 No Longer Active Liat Cheng MD Active LORATADINE 10 MG TABS 1 tablet by mouth daily PRN Congestion 2014 LORATADINE 17870980911 No Longer Active Audelia Yokum HEEL STAINER Active MUCINEX DM MAXIMUM STRENGTH 60-1200 MG [id number] 1 po BID PRN Cough DEXTROMETHORPHAN-GUAIFENESIN 50258306373 No Longer Active Audelia Yokum HEEL STAINER Active PREDNISONE 20 MG TAB 2 tabs daily for 3 days, 1 tab daily for 3 days, 1/2 tab daily for 2 days PREDNISONE 70801877768 No Longer Active Boo Vasquez MD Active BACTRIM DS 800-160 MG TAB 1 tab by mouth twice daily TRIMETHOPRIM-SULFAMETHOXAZOLE 50913371773 No Longer Active Gama Bermeo MD Active ZOFRAN 8 MG ORAL TABS 1 q 8hr prn vomiting ONDANSETRON HCL 85632618438 No Longer Active Gama Bermeo MD Active AUGMENTIN 875-125 MG TABS 1 bid AMOXICILLIN-POT CLAVULANATE 07939533942 No Longer Active Liat Cheng MD Active HYDROCODONE-ACETAMINOPHEN TABS Take as directed/PRN HYDROCODONE-ACETAMINOPHEN TABS 22370149259 No Longer Active Liat Cheng MD Active CEFDINIR 300 MG CAPS 1 PO bid x 7 days CEFDINIR 29881043261 No Longer Active Liat Cheng MD Active CEFDINIR 300 MG CAPS 1 PO bid x 7 days CEFDINIR 300 MG CAPS 394311 CEFDINIR Inactive HYDROCODONE-ACETAMINOPHEN TABS Take as directed/PRN HYDROCODONE-ACETAMINOPHEN TABS HYDROCODONE-ACETAMINOPHEN TABS Inactive ZOFRAN 8 MG ORAL TABS 1 q 8hr prn vomiting ZOFRAN 8 MG ORAL TABS 418986 ONDANSETRON HCL Inactive MUCINEX DM MAXIMUM STRENGTH 60-1200 MG [id number] 1 po BID PRN Cough MUCINEX DM MAXIMUM STRENGTH 60-1200 MG [id number] DEXTROMETHORPHAN-GUAIFENESIN Inactive LORATADINE 10 MG TABS 1 tablet by mouth daily PRN Congestion 2014 LORATADINE 10 MG TABS 229766 LORATADINE Inactive ZITHROMAX Z-GIANLUCA 250 MG TABS 2 today and then 1 daily for 4 days ZITHROMAX Z-GIANLUCA 250 MG TABS 5748843 AZITHROMYCIN Inactive KEFLEX 500 MG CAP 1 po qid KEFLEX 500 MG CAP 555379 CEPHALEXIN Inactive FLONASE 50 MCG/ACT SUSP 1 puff in easch nostril bid FLONASE 50 MCG/ACT SUSP FLUTICASONE PROPIONATE Inactive AUGMENTIN 875-125 MG TABS 1 bid AUGMENTIN 875-125 MG TABS 810118 AMOXICILLIN-POT CLAVULANATE Inactive BACTRIM DS 800-160 MG TAB 1 tab by mouth twice daily BACTRIM DS 800-160 MG TAB 328597 TRIMETHOPRIM-SULFAMETHOXAZOLE Inactive PREDNISONE 20 MG TAB 2 tabs daily for 3 days, 1 tab daily for 3 days, 1/2 tab daily for 2 days PREDNISONE 20 MG TAB 506959 PREDNISONE Inactive AZITHROMYCIN 250 MG TABS 2 pills day 1,1 pill day 2-5 AZITHROMYCIN 250 MG TABS 4688356 AZITHROMYCIN Inactive Immunizations Vaccine Administration Date Value Standard Description Adacel (Tetanus, reduced Diphtheria, and acellular Pertussis Immunization) Adacel [[id number]] tetanus toxoid, reduced diphtheria toxoid, and acellular [...] Panel - Chemistry sodium, serum 140 mmol/L 669-342 9090/11/17 carbon dioxide, venous blood 25.9 mmol/L 21.0-32.0 [...] negative Encounters Code Encounter Date Provider Facility CPT-86675 Level 3 Est. Patient 15:43:50 WIND ENERGY ENGINEER Thai Almendarez [facility] CPT-31568 Level 3 Est. Patient 14:42:12 WIND ENERGY ENGINEER Liat Cheng MD [facility] CPT-04160 Level 3 Est. Patient 16:38:12 WIND ENERGY ENGINEER Valentin Blanco MD [facility] CPT-41241 Level 3 Est. Patient 14:12:52 CDT Liat Cheng MD [facility] CPT-25406 Level 2 Est. Patient 12:17:18 CDT Audelia Ochoa [facility] CPT-22864 Level 3 Est. Patient 15:02:49 CDT Boo Vasquez MD [facility] CPT-81852 Level 3 Est. Patient 16:21:33 WIND ENERGY ENGINEER Gama Bermeo MD [facility] CPT-50041 Level 3 Est. Patient 11:32:23 WIND ENERGY ENGINEER Liat Cheng MD [facility] CPT-08063 Level 3 Est. Patient 16:59:23 CDT Liat Cheng MD [facility] CPT-44262 Level 3 Est. Patient 17:02:11 WIND ENERGY ENGINEER Tay MAJOR [facility] CPT-59118 Level 3 Est. Patient 16:49:05 WIND ENERGY ENGINEER Liat Cheng MD [facility] CPT-33804 Level 3 Est. Patient 16:36:13 CDT Vivien Conway [facility] Procedures Code Procedure Name Date Entry Date Standard Description CPT-J7307 Nexplanon (Implant) 16:25:36 WIND ENERGY ENGINEER CPT-26424 Nexplanon Placement 16:25:36 WIND ENERGY ENGINEER CPT-OV Office Visit 16:25:36 WIND ENERGY ENGINEER CPT-OV Office Visit 18:49:22 WIND ENERGY ENGINEER CPT-OV Office Visit 18:49:18 CDT CPT-92153 Administration single or combination vaccine inc oral 11 :11:48 CDT CPT-23735 Adacel Intramuscular Suspension 5-2-15.5 11:11:48 CDT CPT-51117 Toes 2V 17:03:02 WIND ENERGY ENGINEER
--- OUTSIDE RECORDS SUMMARY | 2018-02-18 12:34 | XMS REPORT | Clinical Summary ---
Author Author Admin, ISRRAEL Organization [facility] Address Unknown Phone Unavailable Allergies, Adverse [...] 1 po q8hr PRN Nausea ONDANSETRON HCL 02621063176 Active Angeline Santiago PRODUCT CONTROL AND LOGISTICS ANALYST Active NEXPLANON 68 MG SC IMPL Inserted in the left upper arm ETONOGESTREL 33601093020 Active Liat Cheng MD Active FLAGYL 500 MG TAB 1 tablet by mouth bid. do not mix with etoh. METRONIDAZOLE 98799415303 No Longer Active Liat Cheng MD Active CIPRO 500 MG TAB 1 tablet by mouth twice daily CIPROFLOXACIN HCL 01735658740 No Longer Active Jillina Frazell PRODUCT CONTROL AND LOGISTICS ANALYST Active FLONASE 50 MCG/ACT SUSP 1 puff in easch nostril bid FLUTICASONE PROPIONATE No Longer Active Jillina Erickson WELLS Active KEFLEX 500 MG CAP 1 po qid CEPHALEXIN 47783218780 No Longer Active Jillina Frankiel PRODUCT CONTROL AND LOGISTICS ANALYST Active AZITHROMYCIN 250 MG TABS 2 pills day 1,1 pill day 2-5 AZITHROMYCIN 32295847808 No Longer Active Liat Cheng MD Active ZITHROMAX Z-GIANLUCA 250 MG TABS 2 today and then 1 daily for 4 days AZITHROMYCIN 47952563534 No Longer Active Liat Cheng MD Active LORATADINE 10 MG TABS 1 tablet by mouth daily PRN Congestion 2014 LORATADINE 20096730805 No Longer Active Audelia Yokum PRODUCT CONTROL AND LOGISTICS ANALYST Active MUCINEX DM MAXIMUM STRENGTH 60-1200 MG [id number] 1 po BID PRN Cough DEXTROMETHORPHAN-GUAIFENESIN 89804711706 No Longer Active Audelia Yokum PRODUCT CONTROL AND LOGISTICS ANALYST Active PREDNISONE 20 MG TAB 2 tabs daily for 3 days, 1 tab daily for 3 days, 1/2 tab daily for 2 days PREDNISONE 61782325742 No Longer Active Boo Vasquez MD Active BACTRIM DS 800-160 MG TAB 1 tab by mouth twice daily TRIMETHOPRIM-SULFAMETHOXAZOLE 00578751503 No Longer Active Gama Bermeo MD Active ZOFRAN 8 MG ORAL TABS 1 q 8hr prn vomiting ONDANSETRON HCL 17811921445 No Longer Active Gama Bermeo MD Active AUGMENTIN 875-125 MG TABS 1 bid AMOXICILLIN-POT CLAVULANATE 15103507628 No Longer Active Liat Cheng MD Active HYDROCODONE-ACETAMINOPHEN TABS Take as directed/PRN HYDROCODONE-ACETAMINOPHEN TABS 93500976996 No Longer Active Liat Cheng MD Active CEFDINIR 300 MG CAPS 1 PO bid x 7 days CEFDINIR 48789049442 No Longer Active Liat Cheng MD Active CEFDINIR 300 MG CAPS 1 PO bid x 7 days CEFDINIR 300 MG CAPS 449680 CEFDINIR Inactive HYDROCODONE-ACETAMINOPHEN TABS Take as directed/PRN HYDROCODONE-ACETAMINOPHEN TABS HYDROCODONE-ACETAMINOPHEN TABS Inactive ZOFRAN 8 MG ORAL TABS 1 q 8hr prn vomiting ZOFRAN 8 MG ORAL TABS 557277 ONDANSETRON HCL Inactive MUCINEX DM MAXIMUM STRENGTH 60-1200 MG [id number] 1 po BID PRN Cough MUCINEX DM MAXIMUM STRENGTH 60-1200 MG [id number] DEXTROMETHORPHAN-GUAIFENESIN Inactive LORATADINE 10 MG TABS 1 tablet by mouth daily PRN Congestion 2014 LORATADINE 10 MG TABS 510127 LORATADINE Inactive ZITHROMAX Z-GIANLUCA 250 MG TABS 2 today and then 1 daily for 4 days ZITHROMAX Z-GIANLUCA 250 MG TABS 7345716 AZITHROMYCIN Inactive KEFLEX 500 MG CAP 1 po qid KEFLEX 500 MG CAP 338103 CEPHALEXIN Inactive FLONASE 50 MCG/ACT SUSP 1 puff in easch nostril bid FLONASE 50 MCG/ACT SUSP FLUTICASONE PROPIONATE Inactive CIPRO 500 MG TAB 1 tablet by mouth twice daily CIPRO 500 MG TAB 282817 CIPROFLOXACIN HCL Inactive FLAGYL 500 MG TAB 1 tablet by mouth bid. do not mix with etoh. FLAGYL 500 MG TAB 706300 METRONIDAZOLE Inactive AUGMENTIN 875-125 MG TABS 1 bid AUGMENTIN 875-125 MG TABS 852224 AMOXICILLIN-POT CLAVULANATE Inactive BACTRIM DS 800-160 MG TAB 1 tab by mouth twice daily BACTRIM DS 800-160 MG TAB 906050 TRIMETHOPRIM-SULFAMETHOXAZOLE Inactive PREDNISONE 20 MG TAB 2 tabs daily for 3 days, 1 tab daily for 3 days, 1/2 tab daily for 2 days PREDNISONE 20 MG TAB 136183 PREDNISONE Inactive AZITHROMYCIN 250 MG TABS 2 pills day 1,1 pill day 2-5 AZITHROMYCIN 250 MG TABS 5545633 AZITHROMYCIN Inactive Advance Directives Directive Description Start Date PERMISSION TO SHARE Immunizations Vaccine Administration Date Value Standard Description Adacel (Tetanus, reduced Diphtheria, and acellular Pertussis Immunization) Adacel [[id number]] tetanus toxoid, reduced diphtheria toxoid, and acellular [...] 369 10^3/MM^3 10*3/mm3 142-424 Lab Report: Chlamydia/GC APTIMA/99674 - Lab chlamydia DNA probe NOT DETECTED NOT DETECTED chlamydia DNA probe NOT DETECTED NOT DETECTED Lab Report: Chlamydia/GC APTIMA/[id number] - Microbiology Neisseria gonorrhoeae DNA probe NOT DETECTED NOT DETECTED Neisseria gonorrhoeae DNA probe NOT DETECTED NOT DETECTED Lab Report: Comp. Metabolic Panel - Chemistry sodium, serum 140 mmol/L 565-214 2083/11/17 carbon dioxide, venous blood 25.9 mmol/L 21.0-32.0 [...] negative Encounters Code Encounter Date Provider Facility CPT-26260 Level 3 Est. Patient 14:24:59 REAL ESTATE RECRUITER Liat Cheng MD [facility] CPT-08191 Level 3 Est. Patient 15:06:21 REAL ESTATE RECRUITER Thai Almendarez [facility]-76437 Level 3 Est. Patient 15:43:50 REAL ESTATE RECRUITER Thai Almendarez [facility]-73073 Level 3 Est. Patient 14:42:12 REAL ESTATE RECRUITER Liat Cheng MD [facility] CPT-05611 Level 3 Est. Patient 16:38:12 REAL ESTATE RECRUITER Valentin Blanco MD [facility] CPT-25591 Level 3 Est. Patient 14:12:52 CDT Liat Cheng MD [facility] CPT-24298 Level 2 Est. Patient 12:17:[address] [facility] CPT-25681 Level 3 Est. Patient 15:02:49 CDT Boo Vasquez MD [facility] CPT-44752 Level 3 Est. Patient 16:21:33 REAL ESTATE RECRUITER Gama Bermeo MD [facility]-53947 Level 3 Est. Patient 11:32:23 REAL ESTATE RECRUITER Liat Cheng MD [facility] CPT-71792 Level 3 Est. Patient 16:59:23 CDT Liat Cheng MD [facility] CPT-36748 Level 3 Est. Patient 17:02:11 REAL ESTATE RECRUITER Tay MAJOR [facility] CPT-90650 Level 3 Est. Patient 16:49:05 REAL ESTATE RECRUITER Liat Cheng MD [facility] CPT-66405 Level 3 Est. Patient 16:36:13 CDT Vivien Conway APRN [facility] Procedures Code Procedure Name Date Entry Date Standard Description CPT-J7307 Nexplanon (Implant) 16:25:36 REAL ESTATE RECRUITER CPT-58316 Nexplanon Placement 16:25:36 REAL ESTATE RECRUITER CPT-OV Office Visit 16:25:36 REAL ESTATE RECRUITER CPT-OV Office Visit 18:49:22 REAL ESTATE RECRUITER CPT-OV Office Visit 18:49:18 CDT CPT-47952 Administration single or combination vaccine inc oral 11 :11:48 CDT CPT-72886 Adacel Intramuscular Suspension 5-2-15.5 11:11:48 CDT CPT-40610 Toes 2V 17:03:02 REAL ESTATE RECRUITER
--- OUTSIDE RECORDS SUMMARY | 2018-02-18 12:35 | XMS REPORT | Clinical Summary ---
Author Author Admin, QIE Organization [employer] Address Unknown Phone Unavailable Allergies, Adverse Reactions, [...] Cheng MD Sinusitis, acute ICD-461.9 Inactive Liat Chegn MD Cellulitis ICD-682.9 Inactive Liat Cheng MD [...] 500 MG CAP 1 po qid CEPHALEXIN 40012805348 Active Jillina Zulayzell BIN FILLER Active FLONASE 50 MCG/ACT SUSP 1 puff in easch nostril bid FLUTICASONE PROPIONATE Active Liat Cheng MD Active AZITHROMYCIN 250 MG TABS 2 pills day 1,1 pill day 2-5 AZITHROMYCIN 50698901241 No Longer Active Liat Cheng MD Active ZITHROMAX Z-GIANLUCA 250 MG TABS 2 today and then 1 daily for 4 days AZITHROMYCIN 98780438021 No Longer Active Liat Cheng MD Active LORATADINE 10 MG TABS 1 tablet by mouth daily PRN Congestion 2014 LORATADINE 06893502933 No Longer Active Audelia Yokum BIN FILLER Active MUCINEX DM MAXIMUM STRENGTH 60-1200 MG [id number] 1 po BID PRN Cough DEXTROMETHORPHAN-GUAIFENESIN 73089294227 No Longer Active Audelia Yokum BIN FILLER Active PREDNISONE 20 MG TAB 2 tabs daily for 3 days, 1 tab daily for 3 days, 1/2 tab daily for 2 days PREDNISONE 85960554197 No Longer Active Boo Vasquez MD Active BACTRIM DS 800-160 MG TAB 1 tab by mouth twice daily TRIMETHOPRIM-SULFAMETHOXAZOLE 81300780943 No Longer Active Gama Bermeo MD Active ZOFRAN 8 MG ORAL TABS 1 q 8hr prn vomiting ONDANSETRON HCL 27631735140 No Longer Active Gama Bermeo MD Active AUGMENTIN 875-125 MG TABS 1 bid AMOXICILLIN-POT CLAVULANATE 11705726605 No Longer Active Liat Cheng MD Active HYDROCODONE-ACETAMINOPHEN TABS Take as directed/PRN HYDROCODONE-ACETAMINOPHEN TABS 47106248787 No Longer Active Liat Cheng MD Active CEFDINIR 300 MG CAPS 1 PO bid x 7 days CEFDINIR 36168793947 No Longer Active Liat Cheng MD Active CEFDINIR 300 MG CAPS 1 PO bid x 7 days CEFDINIR 300 MG CAPS 841958 CEFDINIR Inactive HYDROCODONE-ACETAMINOPHEN TABS Take as directed/PRN HYDROCODONE-ACETAMINOPHEN TABS HYDROCODONE-ACETAMINOPHEN TABS Inactive ZOFRAN 8 MG ORAL TABS 1 q 8hr prn vomiting ZOFRAN 8 MG ORAL TABS 675533 ONDANSETRON HCL Inactive MUCINEX DM MAXIMUM STRENGTH 60-1200 MG [id number] 1 po BID PRN Cough MUCINEX DM MAXIMUM STRENGTH 60-1200 MG [id number] DEXTROMETHORPHAN-GUAIFENESIN Inactive LORATADINE 10 MG TABS 1 tablet by mouth daily PRN Congestion 2014 LORATADINE 10 MG TABS 544912 LORATADINE Inactive ZITHROMAX Z-GIANLUCA 250 MG TABS 2 today and then 1 daily for 4 days ZITHROMAX Z-GIANLUCA 250 MG TABS 4785660 AZITHROMYCIN Inactive AUGMENTIN 875-125 MG TABS 1 bid AUGMENTIN 875-125 MG TABS 780425 AMOXICILLIN-POT CLAVULANATE Inactive BACTRIM DS 800-160 MG TAB 1 tab by mouth twice daily BACTRIM DS 800-160 MG TAB 239882 TRIMETHOPRIM-SULFAMETHOXAZOLE Inactive PREDNISONE 20 MG TAB 2 tabs daily for 3 days, 1 tab daily for 3 days, 1/2 tab daily for 2 days PREDNISONE 20 MG TAB 576212 PREDNISONE Inactive AZITHROMYCIN 250 MG TABS 2 pills day 1,1 pill day 2-5 AZITHROMYCIN 250 MG TABS 7042947 AZITHROMYCIN Inactive Immunizations Vaccine Administration Date Value Standard Description Adacel (Tetanus, reduced Diphtheria, and acellular Pertussis Immunization) Adacel [[id number]] tetanus toxoid, reduced diphtheria toxoid, and acellular [...] Lab Report: Comp. Metabolic Panel - Chemistry blood glucose 83 mg/dL 65-110 urea nitrogen, blood 10 mg/dL 7-18 creatinine, serum 0.68 mg/dL 0.55-1.30 alanine aminotransferase (SGPT), serum 23 U/L 12-78 aspartate aminotransferase (SGOT), serum 16 U/L 15-37 calcium, serum 8.2 mg/dL 8.5-10.1 bilirubin, serum, total 0.80 mg/dL 0.00-1.00 chloride, serum 103 mmol/L 98-107 potassium, serum 4.0 mmol/L 3.5-5.2 carbon dioxide, venous blood 25.9 mmol/L 21.0-32.0 sodium, serum 140 mmol/L 136-145 Lab Report: RapidStrep Rflx/Cx - Lab Microbial [...] negative Encounters Code Encounter Date Provider Facility CPT-57496 Level 3 Est. Patient 14:42:12 QUALITY OFFICER Liat Cheng MD [facility] CPT-67416 Level 3 Est. Patient 16:38:12 QUALITY OFFICER Valentin Blanco MD [facility] CPT-30121 Level 3 Est. Patient 14:12:52 CDT Liat Cheng MD [facility] CPT-98761 Level 2 Est. Patient 12:17:18 CDT Audelia Ochoa [facility] CPT-29185 Level 3 Est. Patient 15:02:49 CDT Boo Vasquez MD [facility] CPT-02214 Level 3 Est. Patient 16:21:33 QUALITY OFFICER Gama Bermeo MD [facility] CPT-02557 Level 3 Est. Patient 11:32:23 QUALITY OFFICER Liat Cheng MD [facility] CPT-65572 Level 3 Est. Patient 16:59:23 CDT Liat Cheng MD [facility] CPT-13154 Level 3 Est. Patient 17:02:11 QUALITY OFFICER Tay MAJOR [facility] CPT-48016 Level 3 Est. Patient 16:49:05 QUALITY OFFICER Liat Cheng MD [facility] CPT-11871 Level 3 Est. Patient 16:36:13 CDT Vivien Conway APRN [facility] Procedures Code Procedure Name Date Entry Date Standard Description CPT-J7307 Nexplanon (Implant) 16:25:36 QUALITY OFFICER CPT-04457 Nexplanon Placement 16:25:36 QUALITY OFFICER CPT-OV Office Visit 16:25:36 QUALITY OFFICER CPT-OV Office Visit 18:49:22 QUALITY OFFICER CPT-OV Office Visit 18:49:18 CDT CPT-44866 Administration single or combination vaccine inc oral 11 :11:48 CDT CPT-87584 Adacel Intramuscular Suspension 5-2-15.5 11:11:48 CDT CPT-35825 Toes 2V 17:03:02 QUALITY OFFICER
--- OUTSIDE RECORDS SUMMARY | 2018-02-18 12:35 | XMS REPORT | Clinical Summary ---
Author Author Admin, QIE Organization [employer] Address Unknown Phone Unavailable Allergies, Adverse Reactions, [...] 500 MG CAP 1 po qid CEPHALEXIN 34794862182 Active Thai Almendarez RETAIL PHARMACY TECHNICIAN Active FLONASE 50 MCG/ACT SUSP 1 puff in easch nostril bid FLUTICASONE PROPIONATE Active Liat Cheng MD Active AZITHROMYCIN 250 MG TABS 2 pills day 1,1 pill day 2-5 AZITHROMYCIN 35210751185 No Longer Active Liat Cheng MD Active ZITHROMAX Z-GIANLUCA 250 MG TABS 2 today and then 1 daily for 4 days AZITHROMYCIN 44650050973 No Longer Active Liat Cheng MD Active LORATADINE 10 MG TABS 1 tablet by mouth daily PRN Congestion 2014 LORATADINE 95650479717 No Longer Active Audelia Ochoa RETAIL PHARMACY TECHNICIAN Active MUCINEX DM MAXIMUM STRENGTH 60-1200 MG [id number] 1 po BID PRN Cough DEXTROMETHORPHAN-GUAIFENESIN 68740005970 No Longer Active Audelia Ochoa APRN Active PREDNISONE 20 MG TAB 2 tabs daily for 3 days, 1 tab daily for 3 days, 1/2 tab daily for 2 days PREDNISONE 52829553303 No Longer Active Boo Vasquez MD Active BACTRIM DS 800-160 MG TAB 1 tab by mouth twice daily TRIMETHOPRIM-SULFAMETHOXAZOLE 80772052472 No Longer Active Gama Bermeo MD Active ZOFRAN 8 MG ORAL TABS 1 q 8hr prn vomiting ONDANSETRON HCL 01940001213 No Longer Active Gama Bermeo MD Active AUGMENTIN 875-125 MG TABS 1 bid AMOXICILLIN-POT CLAVULANATE 72513616295 No Longer Active Liat Cheng MD Active HYDROCODONE-ACETAMINOPHEN TABS Take as directed/PRN HYDROCODONE-ACETAMINOPHEN TABS 86987163912 No Longer Active Liat Cheng MD Active CEFDINIR 300 MG CAPS 1 PO bid x 7 days CEFDINIR 01683593616 No Longer Active Liat Cheng MD Active CEFDINIR 300 MG CAPS 1 PO bid x 7 days CEFDINIR 300 MG CAPS 991859 CEFDINIR Inactive HYDROCODONE-ACETAMINOPHEN TABS Take as directed/PRN HYDROCODONE-ACETAMINOPHEN TABS HYDROCODONE-ACETAMINOPHEN TABS Inactive ZOFRAN 8 MG ORAL TABS 1 q 8hr prn vomiting ZOFRAN 8 MG ORAL TABS 311032 ONDANSETRON HCL Inactive MUCINEX DM MAXIMUM STRENGTH 60-1200 MG [id number] 1 po BID PRN Cough MUCINEX DM MAXIMUM STRENGTH 60-1200 MG [id number] DEXTROMETHORPHAN-GUAIFENESIN Inactive LORATADINE 10 MG TABS 1 tablet by mouth daily PRN Congestion 2014 LORATADINE 10 MG TABS 157334 LORATADINE Inactive ZITHROMAX Z-GIANLUCA 250 MG TABS 2 today and then 1 daily for 4 days ZITHROMAX Z-GIANLUCA 250 MG TABS 8724235 AZITHROMYCIN Inactive AUGMENTIN 875-125 MG TABS 1 bid AUGMENTIN 875-125 MG TABS 934620 AMOXICILLIN-POT CLAVULANATE Inactive BACTRIM DS 800-160 MG TAB 1 tab by mouth twice daily BACTRIM DS 800-160 MG TAB 745671 TRIMETHOPRIM-SULFAMETHOXAZOLE Inactive PREDNISONE 20 MG TAB 2 tabs daily for 3 days, 1 tab daily for 3 days, 1/2 tab daily for 2 days PREDNISONE 20 MG TAB 080580 PREDNISONE Inactive AZITHROMYCIN 250 MG TABS 2 pills day 1,1 pill day 2-5 AZITHROMYCIN 250 MG TABS 8481332 AZITHROMYCIN Inactive Immunizations Vaccine Administration Date Value Standard Description Adacel (Tetanus, reduced Diphtheria, and acellular Pertussis Immunization) Adacel [[id number]] tetanus toxoid, reduced diphtheria toxoid, and acellular [...] MONO w/Rflx EBV, Myco Pneumo - Hematology hemoglobin, blood 11.3 g/dL 12.0-16.0 hematocrit, blood 34.7 % 36.0-46.0 mean corpuscular volume, RBC 80 fL 80-97 mean corpuscular hemoglobin, RBC 26.1 pg 27.0-31.2 mean corpuscular hemoglobin concentration, RBC 32.7 G/DL % 31.8- 35.4 red blood cell distribution width 14.6 % 11.6-14.8 platelet count 369 10^3/MM^3 10*3/mm3 435-065 6961/11/17 erythrocyte (RBC) count 4.35 10^6/MM^3 10*6/mm3 4.04-5.48 lymphocytes as percent of blood leukocytes 28.7 % 20.5-51.1 monocytes as percent of blood leukocytes 7.4 % 1.7-9.3 neutrophils as percent of blood leukocytes 54.3 % 42.2-75.2 leukocyte count, blood 10.7 10^3/MM^3 10*3/mm3 4.6-10.2 Lab Report: Comp. Metabolic Panel - Chemistry sodium, serum 140 mmol/L 962-490 6534/11/17 creatinine, serum 0.68 mg/dL 0.55-1.30 alanine aminotransferase (SGPT), serum 23 U/L 12-78 aspartate aminotransferase (SGOT), serum 16 U/L 15-37 calcium, serum 8.2 mg/dL 8.5-10.1 bilirubin, serum, total 0.80 mg/dL 0.00-1.00 carbon dioxide, venous blood 25.9 mmol/L 21.0-32.0 potassium, serum 4.0 mmol/L 3.5-5.2 chloride, serum 103 mmol/L 98-107 blood glucose 83 mg/dL 65-110 urea nitrogen, blood 10 mg/dL 7-18 Lab Report: RapidStrep Rflx/Cx - Lab Microbial identification kit, rapid strep method Negative-Throat Culture to Follow Negative Encounters Code Encounter Date Provider Facility CPT-67458 Level 3 Est. Patient 14:42:12 BELLPERSON Liat Cheng MD [facility] CPT-64883 Level 3 Est. Patient 16:38:12 BELLPERSON Valentin Blanco MD [facility] CPT-53439 Level 3 Est. Patient 14:12:52 CDT Liat Cheng MD [facility] CPT-75795 Level 2 Est. Patient 12:17:18 CDT Audelia Ochoa [facility] CPT-84921 Level 3 Est. Patient 15:02:49 CDT Boo Vasquez MD [facility] CPT-01826 Level 3 Est. Patient 16:21:33 BELLPERSON Gama Bermeo MD [facility] CPT-59154 Level 3 Est. Patient 11:32:23 BELLPERSON Liat Cheng MD [facility] CPT-40443 Level 3 Est. Patient 16:59:23 CDT Liat Cheng MD [facility] CPT-25053 Level 3 Est. Patient 17:02:11 BELLPERSON Tay MAJOR [facility] CPT-60486 Level 3 Est. Patient 16:49:05 BELLPERSON Liat Cheng MD [facility] CPT-83449 Level 3 Est. Patient 16:36:13 CDT Vivien Conway [facility] Procedures Code Procedure Name Date Entry Date Standard Description CPT-OV Office Visit 18:49:18 CDT CPT-59248 Administration single or combination vaccine inc oral 11 :11:48 CDT CPT-27366 Adacel Intramuscular Suspension 5-2-15.5 11:11:48 CDT CPT-65272 Toes 2V 17:03:02 BELLPERSON
--- OUTSIDE RECORDS SUMMARY | 2018-02-18 12:36 | XMS REPORT | Clinical Summary ---
Author Author Admin, QIE Organization [employer] Address Unknown Phone Unavailable Allergies, Adverse Reactions, [...] ankle and foot Ankle pain, right 719.47 Active Liat Cheng MD Pain in joint involving [...] Resolved Liat Cheng MD Dizziness and giddiness Family [...] Abscess, skin ICD-682.9 Inactive Boo Vasquez MD Cellulitis ICD-682.9 Inactive Liat Cheng MD Insect bite NEC w/o infection ICD-919.4 Inactive Liat Cheng MD Upper respiratory infection, viral ICD-465.9 Oneil Cheng MD Laceration, finger ICD-883.0 Inactive Liat Cheng MD Fatigue ICD-780.79 Inactive Liat Cheng MD U R I Inactive Liat Cheng MD Abdominal bloating ICD-787.3 Inactive Liat Cheng MD Sexual activity, high risk ICD-V69.2 Inactive Liat Cheng MD Incontinence, urine ICD-788.30 Inactive Liat Cheng MD Trichomonal infection ICD-131.9 Inactive Liat Cheng MD Abdominal pain ICD-789.00 Inactive Liat Cheng MD Lightheadedness ICD-780.4 Inactive Liat Cheng MD UTI ICD-599.0 Inactive Liat Cheng MD Medication List Medication Instructions Start Date Stop Date Generic Name NDC Status Provider Patient Instruction ZOFRAN 4 MG TABS 1 po q8hr PRN Nausea ONDANSETRON HCL 73076711353 No Longer Active Liat Cheng MD Active NEXPLANON 68 MG SC IMPL Inserted in the left upper arm ETONOGESTREL 30074922525 Active Liat Cheng MD Active FLAGYL 500 MG TAB 1 tablet by mouth bid. do not mix with etoh. METRONIDAZOLE 31732383765 No Longer Active Liat Cheng MD Active CIPRO 500 MG TAB 1 tablet by mouth twice daily CIPROFLOXACIN HCL 90599270858 No Longer Active Jillina Erickson WELLS Active FLONASE 50 MCG/ACT SUSP 1 puff in easch nostril bid FLUTICASONE PROPIONATE No Longer Active Jillina Frazell MONORAIL HELPER Active KEFLEX 500 MG CAP 1 po qid CEPHALEXIN 76883682275 No Longer Active Jillina Fraaranzal MONORAIL HELPER Active AZITHROMYCIN 250 MG TABS 2 pills day 1,1 pill day 2-5 AZITHROMYCIN 06485071374 No Longer Active Liat Cheng MD Active ZITHROMAX Z-GIANLUCA 250 MG TABS 2 today and then 1 daily for 4 days AZITHROMYCIN 82276570813 No Longer Active Liat Cheng MD Active LORATADINE 10 MG TABS 1 tablet by mouth daily PRN Congestion 2014 LORATADINE 50050300064 No Longer Active Audelia Yokum MONORAIL HELPER Active MUCINEX DM MAXIMUM STRENGTH 60-1200 MG [id number] 1 po BID PRN Cough DEXTROMETHORPHAN-GUAIFENESIN 59178807622 No Longer Active Audelia Yokum MONORAIL HELPER Active PREDNISONE 20 MG TAB 2 tabs daily for 3 days, 1 tab daily for 3 days, 1/2 tab daily for 2 days PREDNISONE 23196787603 No Longer Active Boo Vasquez MD Active BACTRIM DS 800-160 MG TAB 1 tab by mouth twice daily TRIMETHOPRIM-SULFAMETHOXAZOLE 07724808661 No Longer Active Gama Bermeo MD Active ZOFRAN 8 MG ORAL TABS 1 q 8hr prn vomiting ONDANSETRON HCL 54298766644 No Longer Active Gama Bermeo MD Active AUGMENTIN 875-125 MG TABS 1 bid AMOXICILLIN-POT CLAVULANATE 52848343477 No Longer Active Liat Cheng MD Active HYDROCODONE-ACETAMINOPHEN TABS Take as directed/PRN HYDROCODONE-ACETAMINOPHEN TABS 31144708038 No Longer Active Liat Cheng MD Active CEFDINIR 300 MG CAPS 1 PO bid x 7 days CEFDINIR 76382532143 No Longer Active Liat Cheng MD Active CEFDINIR 300 MG CAPS 1 PO bid x 7 days CEFDINIR 300 MG CAPS 340574 CEFDINIR Inactive HYDROCODONE-ACETAMINOPHEN TABS Take as directed/PRN HYDROCODONE-ACETAMINOPHEN TABS HYDROCODONE-ACETAMINOPHEN TABS Inactive ZOFRAN 8 MG ORAL TABS 1 q 8hr prn vomiting ZOFRAN 8 MG ORAL TABS 136014 ONDANSETRON HCL Inactive MUCINEX DM MAXIMUM STRENGTH 60-1200 MG [id number] 1 po BID PRN Cough MUCINEX DM MAXIMUM STRENGTH 60-1200 MG [id number] DEXTROMETHORPHAN-GUAIFENESIN Inactive LORATADINE 10 MG TABS 1 tablet by mouth daily PRN Congestion 2014 LORATADINE 10 MG TABS 526503 LORATADINE Inactive ZITHROMAX Z-GIANLUCA 250 MG TABS 2 today and then 1 daily for 4 days ZITHROMAX Z-GIANLUCA 250 MG TABS 6881393 AZITHROMYCIN Inactive KEFLEX 500 MG CAP 1 po qid KEFLEX 500 MG CAP 530041 CEPHALEXIN Inactive FLONASE 50 MCG/ACT SUSP 1 puff in easch nostril bid FLONASE 50 MCG/ACT SUSP FLUTICASONE PROPIONATE Inactive CIPRO 500 MG TAB 1 tablet by mouth twice daily CIPRO 500 MG TAB 522714 CIPROFLOXACIN HCL Inactive FLAGYL 500 MG TAB 1 tablet by mouth bid. do not mix with etoh. FLAGYL 500 MG TAB 243598 METRONIDAZOLE Inactive ZOFRAN 4 MG TABS 1 po q8hr PRN Nausea ZOFRAN 4 MG TABS 755200 ONDANSETRON HCL Inactive AUGMENTIN 875-125 MG TABS 1 bid AUGMENTIN 875-125 MG TABS 314042 AMOXICILLIN-POT CLAVULANATE Inactive BACTRIM DS 800-160 MG TAB 1 tab by mouth twice daily BACTRIM DS 800-160 MG TAB 655924 TRIMETHOPRIM-SULFAMETHOXAZOLE Inactive PREDNISONE 20 MG TAB 2 tabs daily for 3 days, 1 tab daily for 3 days, 1/2 tab daily for 2 days PREDNISONE 20 MG TAB 425562 PREDNISONE Inactive AZITHROMYCIN 250 MG TABS 2 pills day 1,1 pill day 2-5 AZITHROMYCIN 250 MG TABS 8342165 AZITHROMYCIN Inactive Advance Directives Directive Description Start Date PERMISSION TO SHARE Immunizations Vaccine Administration Date Value Standard Description Adacel (Tetanus, reduced Diphtheria, and acellular Pertussis Immunization) Adacel [[id number]] tetanus toxoid, reduced diphtheria toxoid, and acellular [...] Range Description blood pressure, diastolic - 8462-4 88 mm[Hg] [...] % 11.6-14.8 platelet count 369 10^3/MM^3 10*3/mm3 224-211 3037/11/17 erythrocyte (RBC) count 4.35 10^6/MM^3 10*6/mm3 4.04-5.48 lymphocytes as percent of blood leukocytes 28.7 % 20.5-51.1 monocytes as percent of blood leukocytes 7.4 % 1.7-9.3 neutrophils as percent of blood leukocytes 54.3 % 42.2-75.2 leukocyte count, blood 10.7 10^3/MM^3 10*3/mm3 4.6-10.2 Lab Report: Chlamydia/GC APTIMA/[id number] - Lab chlamydia DNA probe NOT DETECTED NOT DETECTED chlamydia DNA probe NOT DETECTED NOT DETECTED Lab Report: Chlamydia/GC APTIMA/[id number] - Microbiology Neisseria gonorrhoeae DNA probe NOT DETECTED NOT DETECTED Neisseria gonorrhoeae DNA probe NOT DETECTED NOT DETECTED Lab Report: Comp. Metabolic Panel - Chemistry carbon dioxide, venous blood 25.9 mmol/L 21.0-32.0 potassium, serum 4.0 mmol/L 3.5-5.2 chloride, serum 103 mmol/L 98-107 blood glucose 83 mg/dL 65-110 urea nitrogen, blood 10 mg/dL 7-18 sodium, serum 140 mmol/L 780-772 1635/11/17 creatinine, serum 0.68 mg/dL 0.55-1.30 alanine aminotransferase [...] negative Encounters Code Encounter Date Provider Facility CPT-12469 Level 3 Est. Patient 16:08:19 CDT Liat Cheng MD [facility] CPT-89090 Level 3 Est. Patient 15:48:30 PRINTING EQUIPMENT MECHANIC Liat Cheng MD [facility] CPT-80835 Level 3 Est. Patient 14:24:59 PRINTING EQUIPMENT MECHANIC Liat Cheng MD [facility] CPT-80777 Level 3 Est. Patient 15:06:21 PRINTING EQUIPMENT MECHANIC Thai Almendarez [facility] CPT-20668 Level 3 Est. Patient 15:43:50 PRINTING EQUIPMENT MECHANIC Thai Almendarez [facility] CPT-94764 Level 3 Est. Patient 14:42:12 PRINTING EQUIPMENT MECHANIC Liat Cheng MD [facility] CPT-25102 Level 3 Est. Patient 16:38:12 PRINTING EQUIPMENT MECHANIC Valentin Blanco MD [facility] CPT-45775 Level 3 Est. Patient 14:12:52 CDT Liat Cheng MD [facility] CPT-12345 Level 2 Est. Patient 12:17:18 CDT Audelia Ochoa [facility] CPT-98492 Level 3 Est. Patient 15:02:49 CDT Boo Vasquez MD [facility] CPT-45513 Level 3 Est. Patient 16:21:33 PRINTING EQUIPMENT MECHANIC Gama Bermeo MD [facility] CPT-13272 Level 3 Est. Patient 11:32:23 PRINTING EQUIPMENT MECHANIC Liat Cheng MD [facility] CPT-33747 Level 3 Est. Patient 16:59:23 CDT Liat Cheng MD [facility] CPT-26495 Level 3 Est. Patient 17:02:11 PRINTING EQUIPMENT MECHANIC Tay MAJOR [facility] CPT-85919 Level 3 Est. Patient 16:49:05 PRINTING EQUIPMENT MECHANIC Liat Cheng MD [facility] CPT-02801 Level 3 Est. Patient 16:36:13 CDT Vivien Conway MONORAIL HELPER [facility] Procedures Code Procedure Name Date Entry Date Standard Description CPT-70278 Ankle, right, Complete - Min 3V 16:15:36 CDT CPT-J7307 Nexplanon (Implant) 16:25:36 PRINTING EQUIPMENT MECHANIC CPT-80346 Nexplanon Placement 16:25:36 PRINTING EQUIPMENT MECHANIC CPT-OV Office Visit 16:25:36 PRINTING EQUIPMENT MECHANIC CPT-OV Office Visit 18:49:22 PRINTING EQUIPMENT MECHANIC CPT-OV Office Visit 18:49:18 CDT CPT-03263 Administration single or combination vaccine inc oral 11 :11:48 CDT CPT-92821 Adacel Intramuscular Suspension 5-2-15.5 11:11:48 CDT CPT-45938 Toes 2V 17:03:02 PRINTING EQUIPMENT MECHANIC
--- OUTSIDE RECORDS SUMMARY | 2018-02-18 12:37 | XMS REPORT | Clinical Summary ---
Author Author Admin, QIE Organization [employer] Address Unknown Phone Unavailable Allergies, Adverse Reactions, [...] management counseling and advice HTN 401.9 Active Anyaa Ferrara MD Unspecified essential hypertension Pharyngitis 462 [...] twice a day for 10 days AMOXICILLIN 98249370259 Active Valentin Blanco MD Active NEXPLANON 68 MG SC IMPL Inserted in the left upper arm ETONOGESTREL 36239053021 No Longer Active Valentin Blanco MD Active DICLOFENAC SODIUM 50 MG TBEC 1 tablet by mouth four times daily PRN Pain 2015 DICLOFENAC SODIUM 92216916899 No Longer Active Liat Cheng MD Active ZOFRAN 4 MG TABS 1 po q8hr PRN Nausea ONDANSETRON HCL 33651293047 No Longer Active Liat Cheng MD Active FLAGYL 500 MG TAB 1 tablet by mouth bid. do not mix with etoh. METRONIDAZOLE 52846022910 No Longer Active Liat Cheng MD Active CIPRO 500 MG TAB 1 tablet by mouth twice daily CIPROFLOXACIN HCL 43091019976 No Longer Active Jillina Fraaranzal RUSSELL Active FLONASE 50 MCG/ACT SUSP 1 puff in easch nostril bid FLUTICASONE PROPIONATE No Longer Active Jillpb Fraaranzal RUSSELL Active KEFLEX 500 MG CAP 1 po qid CEPHALEXIN 17131269666 No Longer Active Jillpb Almendarez APRN Active AZITHROMYCIN 250 MG TABS 2 pills day 1,1 pill day 2-5 AZITHROMYCIN 22608957063 No Longer Active Liat Cheng MD Active ZITHROMAX Z-GIANLUCA 250 MG TABS 2 today and then 1 daily for 4 days AZITHROMYCIN 06747371199 No Longer Active Liat Cheng MD Active LORATADINE 10 MG TABS 1 tablet by mouth daily PRN Congestion 2014 LORATADINE 23277554422 No Longer Active Audelia Yokbillie WELLS Active MUCINEX DM MAXIMUM STRENGTH 60-1200 MG [id number] 1 po BID PRN Cough DEXTROMETHORPHAN-GUAIFENESIN 11446565218 No Longer Active Audelia Yokum ENGINE LATHE OPERATOR Active PREDNISONE 20 MG TAB 2 tabs daily for 3 days, 1 tab daily for 3 days, 1/2 tab daily for 2 days PREDNISONE 11000759575 No Longer Active Boo Vasquez MD Active BACTRIM DS 800-160 MG TAB 1 tab by mouth twice daily TRIMETHOPRIM-SULFAMETHOXAZOLE 64762042896 No Longer Active Gama Bermeo MD Active ZOFRAN 8 MG ORAL TABS 1 q 8hr prn vomiting ONDANSETRON HCL 70620620740 No Longer Active Gama Bermeo MD Active AUGMENTIN 875-125 MG TABS 1 bid AMOXICILLIN-POT CLAVULANATE 08015879850 No Longer Active Liat Cheng MD Active HYDROCODONE-ACETAMINOPHEN TABS Take as directed/PRN HYDROCODONE-ACETAMINOPHEN TABS 38501597527 No Longer Active Liat Cheng MD Active CEFDINIR 300 MG CAPS 1 PO bid x 7 days CEFDINIR 38737336427 No Longer Active Liat Cheng MD Active CEFDINIR 300 MG CAPS 1 PO bid x 7 days CEFDINIR 300 MG CAPS 359556 CEFDINIR Inactive HYDROCODONE-ACETAMINOPHEN TABS Take as directed/PRN HYDROCODONE-ACETAMINOPHEN TABS HYDROCODONE-ACETAMINOPHEN TABS Inactive ZOFRAN 8 MG ORAL TABS 1 q 8hr prn vomiting ZOFRAN 8 MG ORAL TABS 780424 ONDANSETRON HCL Inactive MUCINEX DM MAXIMUM STRENGTH 60-1200 MG [id number] 1 po BID PRN Cough MUCINEX DM MAXIMUM STRENGTH 60-1200 MG [id number] DEXTROMETHORPHAN-GUAIFENESIN Inactive LORATADINE 10 MG TABS 1 tablet by mouth daily PRN Congestion 2014 LORATADINE 10 MG TABS 188197 LORATADINE Inactive ZITHROMAX Z-GIANLUCA 250 MG TABS 2 today and then 1 daily for 4 days ZITHROMAX Z-GIANLUCA 250 MG TABS 2390198 AZITHROMYCIN Inactive KEFLEX 500 MG CAP 1 po qid KEFLEX 500 MG CAP 152288 CEPHALEXIN Inactive FLONASE 50 MCG/ACT SUSP 1 puff in easch nostril bid FLONASE 50 MCG/ACT SUSP FLUTICASONE PROPIONATE Inactive CIPRO 500 MG TAB 1 tablet by mouth twice daily CIPRO 500 MG TAB 024180 CIPROFLOXACIN HCL Inactive FLAGYL 500 MG TAB 1 tablet by mouth bid. do not mix with etoh. FLAGYL 500 MG TAB 512376 METRONIDAZOLE Inactive ZOFRAN 4 MG TABS 1 po q8hr PRN Nausea ZOFRAN 4 MG TABS 933199 ONDANSETRON HCL Inactive DICLOFENAC SODIUM 50 MG TBEC 1 tablet by mouth four times daily PRN Pain 2015 DICLOFENAC SODIUM 50 MG TBEC 844597 DICLOFENAC SODIUM Inactive NEXPLANON 68 MG SC IMPL Inserted in the left upper arm NEXPLANON 68 MG SC IMPL ETONOGESTREL Inactive AUGMENTIN 875-125 MG TABS 1 bid AUGMENTIN 875-125 MG TABS 182837 AMOXICILLIN-POT CLAVULANATE Inactive BACTRIM DS 800-160 MG TAB 1 tab by mouth twice daily BACTRIM DS 800-160 MG TAB 903293 TRIMETHOPRIM-SULFAMETHOXAZOLE Inactive PREDNISONE 20 MG TAB 2 tabs daily for 3 days, 1 tab daily for 3 days, 1/2 tab daily for 2 days PREDNISONE 20 MG TAB 259007 PREDNISONE Inactive AZITHROMYCIN 250 MG TABS 2 pills day 1,1 pill day 2-5 AZITHROMYCIN 250 MG TABS 4110412 AZITHROMYCIN Inactive Advance Directives Directive Description Start Date PERMISSION TO SHARE Immunizations Vaccine Administration Date Value Standard Description Adacel (Tetanus, reduced Diphtheria, and acellular Pertussis Immunization) Adacel [[id number]] tetanus toxoid, reduced diphtheria toxoid, and acellular [...] 369 10^3/MM^3 10*3/mm3 142-424 Lab Report: Chlamydia/GC APTIMA/47670 - Lab chlamydia DNA probe NOT DETECTED NOT DETECTED chlamydia DNA probe NOT DETECTED NOT DETECTED Lab Report: Chlamydia/GC APTIMA/30534 - Microbiology Neisseria gonorrhoeae DNA probe NOT DETECTED NOT DETECTED Neisseria gonorrhoeae DNA probe NOT DETECTED NOT DETECTED Lab Report: Comp. Metabolic Panel - Chemistry sodium, serum 140 mmol/L 890-068 5833/11/17 carbon dioxide, venous blood 25.9 mmol/L 21.0-32.0 [...] negative Encounters Code Encounter Date Provider Facility CPT-20942 Level 3 Est. Patient 16:38:37 CIRCULAR KNIFE MACHINE CUTTER Valentin Blanco MD [facility] CPT-81916 Level 3 Est. Patient 13:10:51 CDT Liat Cheng MD [facility] CPT-50830 Level 3 Est. Patient 14:16:58 CDT Boo Vasquez MD [facility]-76646 Level 3 Est. Patient 16:08:19 CDT Liat Cheng MD [facility] CPT-06338 Level 3 Est. Patient 15:48:30 CIRCULAR KNIFE MACHINE CUTTER Liat Cheng MD [facility] CPT-16393 Level 3 Est. Patient 14:24:59 CIRCULAR KNIFE MACHINE CUTTER Liat Cheng MD [facility] CPT-35541 Level 3 Est. Patient 15:06:21 CIRCULAR KNIFE MACHINE CUTTER Thai Almendarez [facility]-10113 Level 3 Est. Patient 15:43:50 CIRCULAR KNIFE MACHINE CUTTER Thai Almendarez [facility]-82905 Level 3 Est. Patient 14:42:12 CIRCULAR KNIFE MACHINE CUTTER Liat Cheng MD [facility]-28974 Level 3 Est. Patient 16:38:12 CIRCULAR KNIFE MACHINE CUTTER Valentin Blanco MD [facility] CPT-20085 Level 3 Est. Patient 14:12:52 CDT Liat Cheng MD [facility] CPT-04900 Level 2 Est. Patient 12:17:18 CDT Audelia Ochoa [facility] CPT-98402 Level 3 Est. Patient 15:02:49 CDT Boo Vasquez MD [facility] CPT-00859 Level 3 Est. Patient 16:21:33 CIRCULAR KNIFE MACHINE CUTTER Gama Bermeo MD [facility] CPT-67620 Level 3 Est. Patient 11:32:23 CIRCULAR KNIFE MACHINE CUTTER Liat Cheng MD [facility] CPT-60216 Level 3 Est. Patient 16:59:23 CDT Liat Cheng MD [facility] CPT-04425 Level 3 Est. Patient 17:02:11 CIRCULAR KNIFE MACHINE CUTTER Tay MAJOR [facility] CPT-59405 Level 3 Est. Patient 16:49:05 CIRCULAR KNIFE MACHINE CUTTER Liat Cheng MD [facility] CPT-32940 Level 3 Est. Patient 16:36:13 CDT Vivien Conway [facility] Procedures Code Procedure Name Date Entry Date Standard Description CPT-23842 Nexplanon Removal 15:41:24 CDT CPT-OV Office Visit 09:29:28 CDT CPT-000 Give Immunizations Due 16:59:23 CDT CPT-63303 Ankle, right, Complete - Min 3V 16:15:36 CDT CPT-J7307 Nexplanon (Implant) 16:25:36 CIRCULAR KNIFE MACHINE CUTTER CPT-28086 Nexplanon Placement 16:25:36 CIRCULAR KNIFE MACHINE CUTTER CPT-OV Office Visit 16:25:36 CIRCULAR KNIFE MACHINE CUTTER CPT-OV Office Visit 18:49:22 CIRCULAR KNIFE MACHINE CUTTER CPT-OV Office Visit 18:49:18 CDT CPT-33141 Administration single or combination vaccine inc oral 11 :11:48 CDT CPT-58217 Adacel Intramuscular Suspension 5-2-15.5 11:11:48 CDT CPT-53800 Toes 2V 17:03:02 CIRCULAR KNIFE MACHINE CUTTER
--- OUTSIDE RECORDS SUMMARY | 2018-02-18 12:38 | XMS REPORT | Clinical Summary ---
Author Author Admin, QIE Organization [employer] Address Unknown Phone Unavailable Allergies, Adverse Reactions, [...] Resolved Liat Cheng MD Dizziness and giddiness SPORTS [...] Vasquez MD Upper respiratory infection, viral ICD-465.9 Oneil Cheng MD Insect bite NEC w/o infection ICD-919.4 Inactive Liat Cheng MD Abdominal bloating ICD-787.3 Inactive Liat Cheng MD U R I Inactive Liat Cheng MD UTI ICD-599.0 Inactive Liat Cheng MD Sexual activity, high risk ICD-V69.2 Inactive Liat Cheng MD Incontinence, urine ICD-788.30 Inactive Liat Cheng MD Trichomonal infection ICD-131.9 Inactive Liat Cheng MD Abdominal pain ICD-789.00 Inactive Liat Cheng MD Lightheadedness ICD-780.4 Inactive Liat Cheng MD Fatigue ICD-780.79 Inactive Liat Cheng MD Medication List Medication Instructions Start Date Stop Date Generic Name NDC Status Provider Patient Instruction ZOFRAN 4 MG TABS 1 po q8hr PRN Nausea ONDANSETRON HCL 36352619904 No Longer Active Liat Cheng MD Active NEXPLANON 68 MG SC IMPL Inserted in the left upper arm ETONOGESTREL 72603767125 Active Liat Cheng MD Active FLAGYL 500 MG TAB 1 tablet by mouth bid. do not mix with etoh. METRONIDAZOLE 28023541169 No Longer Active Liat Cheng MD Active CIPRO 500 MG TAB 1 tablet by mouth twice daily CIPROFLOXACIN HCL 31696630052 No Longer Active Jillina Erickson WELLS Active FLONASE 50 MCG/ACT SUSP 1 puff in easch nostril bid FLUTICASONE PROPIONATE No Longer Active Jillina Frazell MUSIC VIDEO PRODUCER Active KEFLEX 500 MG CAP 1 po qid CEPHALEXIN 27142621910 No Longer Active Jillina Frazell MUSIC VIDEO PRODUCER Active AZITHROMYCIN 250 MG TABS 2 pills day 1,1 pill day 2-5 AZITHROMYCIN 85963591462 No Longer Active Liat Cheng MD Active ZITHROMAX Z-GIANLUCA 250 MG TABS 2 today and then 1 daily for 4 days AZITHROMYCIN 54037434658 No Longer Active Liat Cheng MD Active LORATADINE 10 MG TABS 1 tablet by mouth daily PRN Congestion 2014 LORATADINE 62168144896 No Longer Active Audelia Yokum MUSIC VIDEO PRODUCER Active MUCINEX DM MAXIMUM STRENGTH 60-1200 MG [id number] 1 po BID PRN Cough DEXTROMETHORPHAN-GUAIFENESIN 37107976827 No Longer Active Audelia Yokum MUSIC VIDEO PRODUCER Active PREDNISONE 20 MG TAB 2 tabs daily for 3 days, 1 tab daily for 3 days, 1/2 tab daily for 2 days PREDNISONE 95481875229 No Longer Active Boo Vasquez MD Active BACTRIM DS 800-160 MG TAB 1 tab by mouth twice daily TRIMETHOPRIM-SULFAMETHOXAZOLE 48821826356 No Longer Active Gama Bermeo MD Active ZOFRAN 8 MG ORAL TABS 1 q 8hr prn vomiting ONDANSETRON HCL 52190210379 No Longer Active Gama Bermeo MD Active AUGMENTIN 875-125 MG TABS 1 bid AMOXICILLIN-POT CLAVULANATE 49557421298 No Longer Active Liat Cheng MD Active HYDROCODONE-ACETAMINOPHEN TABS Take as directed/PRN HYDROCODONE-ACETAMINOPHEN TABS 00184753595 No Longer Active Liat Cheng MD Active CEFDINIR 300 MG CAPS 1 PO bid x 7 days CEFDINIR 46694527660 No Longer Active Liat Cheng MD Active CEFDINIR 300 MG CAPS 1 PO bid x 7 days CEFDINIR 300 MG CAPS 641344 CEFDINIR Inactive HYDROCODONE-ACETAMINOPHEN TABS Take as directed/PRN HYDROCODONE-ACETAMINOPHEN TABS HYDROCODONE-ACETAMINOPHEN TABS Inactive ZOFRAN 8 MG ORAL TABS 1 q 8hr prn vomiting ZOFRAN 8 MG ORAL TABS 988620 ONDANSETRON HCL Inactive MUCINEX DM MAXIMUM STRENGTH 60-1200 MG [id number] 1 po BID PRN Cough MUCINEX DM MAXIMUM STRENGTH 60-1200 MG [id number] DEXTROMETHORPHAN-GUAIFENESIN Inactive LORATADINE 10 MG TABS 1 tablet by mouth daily PRN Congestion 2014 LORATADINE 10 MG TABS 671279 LORATADINE Inactive ZITHROMAX Z-GIANLUCA 250 MG TABS 2 today and then 1 daily for 4 days ZITHROMAX Z-GIANLUCA 250 MG TABS 2225067 AZITHROMYCIN Inactive KEFLEX 500 MG CAP 1 po qid KEFLEX 500 MG CAP 595184 CEPHALEXIN Inactive FLONASE 50 MCG/ACT SUSP 1 puff in easch nostril bid FLONASE 50 MCG/ACT SUSP FLUTICASONE PROPIONATE Inactive CIPRO 500 MG TAB 1 tablet by mouth twice daily CIPRO 500 MG TAB 016203 CIPROFLOXACIN HCL Inactive FLAGYL 500 MG TAB 1 tablet by mouth bid. do not mix with etoh. FLAGYL 500 MG TAB 396933 METRONIDAZOLE Inactive ZOFRAN 4 MG TABS 1 po q8hr PRN Nausea ZOFRAN 4 MG TABS 126430 ONDANSETRON HCL Inactive AUGMENTIN 875-125 MG TABS 1 bid AUGMENTIN 875-125 MG TABS 257401 AMOXICILLIN-POT CLAVULANATE Inactive BACTRIM DS 800-160 MG TAB 1 tab by mouth twice daily BACTRIM DS 800-160 MG TAB 303191 TRIMETHOPRIM-SULFAMETHOXAZOLE Inactive PREDNISONE 20 MG TAB 2 tabs daily for 3 days, 1 tab daily for 3 days, 1/2 tab daily for 2 days PREDNISONE 20 MG TAB 174581 PREDNISONE Inactive AZITHROMYCIN 250 MG TABS 2 pills day 1,1 pill day 2-5 AZITHROMYCIN 250 MG TABS 7034694 AZITHROMYCIN Inactive Advance Directives Directive Description Start Date PERMISSION TO SHARE Immunizations Vaccine Administration Date Value Standard Description Adacel (Tetanus, reduced Diphtheria, and acellular Pertussis Immunization) Adacel [[id number]] tetanus toxoid, reduced diphtheria toxoid, and acellular [...] pressure, diastolic - 8462-4 83 mm[Hg] BP grayd blood pressure, systolic - 8480-6 119 mm[Hg] [...] 369 10^3/MM^3 10*3/mm3 142-424 Lab Report: Chlamydia/GC APTIMA/21056 - Lab chlamydia DNA probe NOT DETECTED NOT DETECTED chlamydia DNA probe NOT DETECTED NOT DETECTED Lab Report: Chlamydia/GC APTIMA/03388 - Microbiology Neisseria gonorrhoeae DNA probe NOT DETECTED NOT DETECTED Neisseria gonorrhoeae DNA probe NOT DETECTED NOT DETECTED Lab Report: Comp. Metabolic Panel - Chemistry sodium, serum 140 mmol/L 408-854 9326/11/17 carbon dioxide, venous blood 25.9 mmol/L 21.0-32.0 [...] negative Encounters Code Encounter Date Provider Facility CPT-41546 Level 3 Est. Patient 16:08:19 CDT Liat Cheng MD [facility] CPT-24422 Level 3 Est. Patient 15:48:30 VENDING MACHINE ASSEMBLER Liat Cheng MD [facility] CPT-54906 Level 3 Est. Patient 14:24:59 VENDING MACHINE ASSEMBLER Liat Cheng MD [facility] CPT-56841 Level 3 Est. Patient 15:06:21 VENDING MACHINE ASSEMBLER Thai Almendarez [facility] CPT-78738 Level 3 Est. Patient 15:43:50 VENDING MACHINE ASSEMBLER Thai Almendarez [facility] CPT-60598 Level 3 Est. Patient 14:42:12 VENDING MACHINE ASSEMBLER Liat Cheng MD [facility] CPT-85564 Level 3 Est. Patient 16:38:12 VENDING MACHINE ASSEMBLER Valentin Blanco MD [facility] CPT-84482 Level 3 Est. Patient 14:12:52 CDT Liat Cheng MD [facility] CPT-79995 Level 2 Est. Patient 12:17:18 CDT Audelia Ochoa [facility] CPT-26679 Level 3 Est. Patient 15:02:49 CDT Boo Vasquez MD [facility] CPT-33920 Level 3 Est. Patient 16:21:33 VENDING MACHINE ASSEMBLER Gama Bermeo MD [facility] CPT-96807 Level 3 Est. Patient 11:32:23 VENDING MACHINE ASSEMBLER Liat Cheng MD [facility] CPT-62770 Level 3 Est. Patient 16:59:23 CDT Liat Cheng MD [facility] CPT-06840 Level 3 Est. Patient 17:02:11 VENDING MACHINE ASSEMBLER Tay MAJOR [facility] CPT-71383 Level 3 Est. Patient 16:49:05 VENDING MACHINE ASSEMBLER Liat Cheng MD [facility] CPT-33474 Level 3 Est. Patient 16:36:13 CDT Vivien Conway MUSIC VIDEO PRODUCER [facility] Procedures Code Procedure Name Date Entry Date Standard Description CPT-37205 Ankle, right, Complete - Min 3V 16:15:36 CDT CPT-J7307 Nexplanon (Implant) 16:25:36 VENDING MACHINE ASSEMBLER CPT-37483 Nexplanon Placement 16:25:36 VENDING MACHINE ASSEMBLER CPT-OV Office Visit 16:25:36 VENDING MACHINE ASSEMBLER CPT-OV Office Visit 18:49:22 VENDING MACHINE ASSEMBLER CPT-OV Office Visit 18:49:18 CDT CPT-33497 Administration single or combination vaccine inc oral 11 :11:48 CDT CPT-43137 Adacel Intramuscular Suspension 5-2-15.5 11:11:48 CDT CPT-57396 Toes 2V 17:03:02 VENDING MACHINE ASSEMBLER
--- OUTSIDE RECORDS SUMMARY | 2018-02-18 12:39 | XMS REPORT | Clinical Summary ---
Author Author Admin, QIE Organization [employer] Address Unknown Phone Unavailable Allergies, Adverse Reactions, [...] 1 po q8hr PRN Nausea ONDANSETRON HCL 16584044975 Active Angeline Santiago APRN Active NEXPLANON 68 MG SC IMPL Inserted in the left upper arm ETONOGESTREL 69468516367 Active Liat Cheng MD Active FLAGYL 500 MG TAB 1 tablet by mouth bid. do not mix with etoh. METRONIDAZOLE 04202552869 No Longer Active Liat Cheng MD Active CIPRO 500 MG TAB 1 tablet by mouth twice daily CIPROFLOXACIN HCL 43581313751 No Longer Active Jillina Erickson WELLS Active FLONASE 50 MCG/ACT SUSP 1 puff in easch nostril bid FLUTICASONE PROPIONATE No Longer Active Maximllpb Almendarez APRN Active KEFLEX 500 MG CAP 1 po qid CEPHALEXIN 67765466745 No Longer Active Jillina Fraaranzal CAPTAIN AIRLINE PILOT Active AZITHROMYCIN 250 MG TABS 2 pills day 1,1 pill day 2-5 AZITHROMYCIN 41202579365 No Longer Active Liat Cheng MD Active ZITHROMAX Z-GIANLUCA 250 MG TABS 2 today and then 1 daily for 4 days AZITHROMYCIN 77552289758 No Longer Active Liat Cheng MD Active LORATADINE 10 MG TABS 1 tablet by mouth daily PRN Congestion 2014 LORATADINE 11137625476 No Longer Active Audelia Yokum CAPTAIN AIRLINE PILOT Active MUCINEX DM MAXIMUM STRENGTH 60-1200 MG [id number] 1 po BID PRN Cough DEXTROMETHORPHAN-GUAIFENESIN 22057464619 No Longer Active Audelia Yokum CAPTAIN AIRLINE PILOT Active PREDNISONE 20 MG TAB 2 tabs daily for 3 days, 1 tab daily for 3 days, 1/2 tab daily for 2 days PREDNISONE 57128584795 No Longer Active Boo Vasquez MD Active BACTRIM DS 800-160 MG TAB 1 tab by mouth twice daily TRIMETHOPRIM-SULFAMETHOXAZOLE 59273384449 No Longer Active Gama Bermeo MD Active ZOFRAN 8 MG ORAL TABS 1 q 8hr prn vomiting ONDANSETRON HCL 14260488406 No Longer Active Gama Bermeo MD Active AUGMENTIN 875-125 MG TABS 1 bid AMOXICILLIN-POT CLAVULANATE 32429105208 No Longer Active Liat Cheng MD Active HYDROCODONE-ACETAMINOPHEN TABS Take as directed/PRN HYDROCODONE-ACETAMINOPHEN TABS 88491357634 No Longer Active Liat Cheng MD Active CEFDINIR 300 MG CAPS 1 PO bid x 7 days CEFDINIR 26615381046 No Longer Active Liat Cheng MD Active CEFDINIR 300 MG CAPS 1 PO bid x 7 days CEFDINIR 300 MG CAPS 760508 CEFDINIR Inactive HYDROCODONE-ACETAMINOPHEN TABS Take as directed/PRN HYDROCODONE-ACETAMINOPHEN TABS HYDROCODONE-ACETAMINOPHEN TABS Inactive ZOFRAN 8 MG ORAL TABS 1 q 8hr prn vomiting ZOFRAN 8 MG ORAL TABS 456076 ONDANSETRON HCL Inactive MUCINEX DM MAXIMUM STRENGTH 60-1200 MG [id number] 1 po BID PRN Cough MUCINEX DM MAXIMUM STRENGTH 60-1200 MG [id number] DEXTROMETHORPHAN-GUAIFENESIN Inactive LORATADINE 10 MG TABS 1 tablet by mouth daily PRN Congestion 2014 LORATADINE 10 MG TABS 028403 LORATADINE Inactive ZITHROMAX Z-GIANLUCA 250 MG TABS 2 today and then 1 daily for 4 days ZITHROMAX Z-GIANLUCA 250 MG TABS 2566609 AZITHROMYCIN Inactive KEFLEX 500 MG CAP 1 po qid KEFLEX 500 MG CAP 408118 CEPHALEXIN Inactive FLONASE 50 MCG/ACT SUSP 1 puff in easch nostril bid FLONASE 50 MCG/ACT SUSP FLUTICASONE PROPIONATE Inactive CIPRO 500 MG TAB 1 tablet by mouth twice daily CIPRO 500 MG TAB 822544 CIPROFLOXACIN HCL Inactive FLAGYL 500 MG TAB 1 tablet by mouth bid. do not mix with etoh. FLAGYL 500 MG TAB 333516 METRONIDAZOLE Inactive AUGMENTIN 875-125 MG TABS 1 bid AUGMENTIN 875-125 MG TABS 144519 AMOXICILLIN-POT CLAVULANATE Inactive BACTRIM DS 800-160 MG TAB 1 tab by mouth twice daily BACTRIM DS 800-160 MG TAB 502349 TRIMETHOPRIM-SULFAMETHOXAZOLE Inactive PREDNISONE 20 MG TAB 2 tabs daily for 3 days, 1 tab daily for 3 days, 1/2 tab daily for 2 days PREDNISONE 20 MG TAB 712772 PREDNISONE Inactive AZITHROMYCIN 250 MG TABS 2 pills day 1,1 pill day 2-5 AZITHROMYCIN 250 MG TABS 8710252 AZITHROMYCIN Inactive Advance Directives Directive Description Start Date PERMISSION TO SHARE Immunizations Vaccine Administration Date Value Standard Description Adacel (Tetanus, reduced Diphtheria, and acellular Pertussis Immunization) Adacel [[id number]] tetanus toxoid, reduced diphtheria toxoid, and acellular [...] 369 10^3/MM^3 10*3/mm3 142-424 Lab Report: Chlamydia/GC APTIMA/16949 - Lab chlamydia DNA probe NOT DETECTED NOT DETECTED chlamydia DNA probe NOT DETECTED NOT DETECTED Lab Report: Chlamydia/GC APTIMA/15860 - Microbiology Neisseria gonorrhoeae DNA probe NOT DETECTED NOT DETECTED Neisseria gonorrhoeae DNA probe NOT DETECTED NOT DETECTED Lab Report: Comp. Metabolic Panel - Chemistry sodium, serum 140 mmol/L 633-386 8612/11/17 carbon dioxide, venous blood 25.9 mmol/L 21.0-32.0 [...] negative Encounters Code Encounter Date Provider Facility CPT-58952 Level 3 Est. Patient 15:48:30 WATER RESOURCE AGENT Liat Cheng MD [facility] CPT-70067 Level 3 Est. Patient 14:24:59 WATER RESOURCE AGENT Liat Cheng MD [facility] CPT-79478 Level 3 Est. Patient 15:06:21 WATER RESOURCE AGENT Thai Almendarez [facility]-08901 Level 3 Est. Patient 15:43:50 WATER RESOURCE AGENT Thai Almendarez [facility]-05953 Level 3 Est. Patient 14:42:12 WATER RESOURCE AGENT Liat Cheng MD [facility] CPT-26260 Level 3 Est. Patient 16:38:12 WATER RESOURCE AGENT Valentin Blanco MD [facility] CPT-94745 Level 3 Est. Patient 14:12:52 CDT Liat Cheng MD [facility]-32737 Level 2 Est. Patient 12:17:18 CDT Audelia Ochoa [facility]-62740 Level 3 Est. Patient 15:02:49 CDT Boo Vasquez MD [facility]-87713 Level 3 Est. Patient 16:21:33 WATER RESOURCE AGENT Gama Bermeo MD [facility]-08861 Level 3 Est. Patient 11:32:23 WATER RESOURCE AGENT Liat Cheng MD [facility] CPT-87463 Level 3 Est. Patient 16:59:23 CDT Liat Cheng MD [facility] CPT-29363 Level 3 Est. Patient 17:02:11 WATER RESOURCE AGENT Tay MAJOR [facility] CPT-89626 Level 3 Est. Patient 16:49:05 WATER RESOURCE AGENT Liat Cheng MD [facility] CPT-88364 Level 3 Est. Patient 16:36:13 CDT Vivien Conway APRN [facility] Procedures Code Procedure Name Date Entry Date Standard Description CPT-J7307 Nexplanon (Implant) 16:25:36 WATER RESOURCE AGENT CPT-03374 Nexplanon Placement 16:25:36 WATER RESOURCE AGENT CPT-OV Office Visit 16:25:36 WATER RESOURCE AGENT CPT-OV Office Visit 18:49:22 WATER RESOURCE AGENT CPT-OV Office Visit 18:49:18 CDT CPT-08860 Administration single or combination vaccine inc oral 11 :11:48 CDT CPT-84926 Adacel Intramuscular Suspension 5-2-15.5 11:11:48 CDT CPT-43646 Toes 2V 17:03:02 WATER RESOURCE AGENT
--- OUTSIDE RECORDS SUMMARY | 2018-02-18 12:40 | XMS REPORT | Clinical Summary ---
Author Author Admin, E Organization [facility] Address Unknown Phone Unavailable Allergies, Adverse Reactions, [...] twice a day for 10 days AMOXICILLIN 28529877929 Active Valentin Blanco MD Active NEXPLANON 68 MG SC IMPL Inserted in the left upper arm ETONOGESTREL 15228936694 No Longer Active Valentin Blanco MD Active DICLOFENAC SODIUM 50 MG TBEC 1 tablet by mouth four times daily PRN Pain 2015 DICLOFENAC SODIUM 71269451445 No Longer Active Liat Cheng MD Active ZOFRAN 4 MG TABS 1 po q8hr PRN Nausea ONDANSETRON HCL 75735439591 No Longer Active Liat Cheng MD Active FLAGYL 500 MG TAB 1 tablet by mouth bid. do not mix with etoh. METRONIDAZOLE 18102200965 No Longer Active Liat Cheng MD Active CIPRO 500 MG TAB 1 tablet by mouth twice daily CIPROFLOXACIN HCL 39717276681 No Longer Active Jillina Fraaranzal RUSSELL Active FLONASE 50 MCG/ACT SUSP 1 puff in easch nostril bid FLUTICASONE PROPIONATE No Longer Active Jillpb Fraaranzal RUSSELL Active KEFLEX 500 MG CAP 1 po qid CEPHALEXIN 82890469275 No Longer Active Jillpb Davidl RUSSELL Active AZITHROMYCIN 250 MG TABS 2 pills day 1,1 pill day 2-5 AZITHROMYCIN 25736866136 No Longer Active Liat Cheng MD Active ZITHROMAX Z-GIANLUCA 250 MG TABS 2 today and then 1 daily for 4 days AZITHROMYCIN 28155710362 No Longer Active Liat Cheng MD Active LORATADINE 10 MG TABS 1 tablet by mouth daily PRN Congestion 2014 LORATADINE 49902584074 No Longer Active Audelia Yokum RUSSELL Active MUCINEX DM MAXIMUM STRENGTH 60-1200 MG [id number] 1 po BID PRN Cough DEXTROMETHORPHAN-GUAIFENESIN 42000239502 No Longer Active Audelia Yokum LOSS PREVENTION AND SAFETY MANAGER Active PREDNISONE 20 MG TAB 2 tabs daily for 3 days, 1 tab daily for 3 days, 1/2 tab daily for 2 days PREDNISONE 53732194378 No Longer Active Boo Vasquez MD Active BACTRIM DS 800-160 MG TAB 1 tab by mouth twice daily TRIMETHOPRIM-SULFAMETHOXAZOLE 18869822091 No Longer Active Gama Bermeo MD Active ZOFRAN 8 MG ORAL TABS 1 q 8hr prn vomiting ONDANSETRON HCL 16733184899 No Longer Active Gama Bermeo MD Active AUGMENTIN 875-125 MG TABS 1 bid AMOXICILLIN-POT CLAVULANATE 25008001541 No Longer Active Liat Cheng MD Active HYDROCODONE-ACETAMINOPHEN TABS Take as directed/PRN HYDROCODONE-ACETAMINOPHEN TABS 35699583982 No Longer Active Liat Cheng MD Active CEFDINIR 300 MG CAPS 1 PO bid x 7 days CEFDINIR 77142571744 No Longer Active Liat Cheng MD Active CEFDINIR 300 MG CAPS 1 PO bid x 7 days CEFDINIR 300 MG CAPS 920907 CEFDINIR Inactive HYDROCODONE-ACETAMINOPHEN TABS Take as directed/PRN HYDROCODONE-ACETAMINOPHEN TABS HYDROCODONE-ACETAMINOPHEN TABS Inactive ZOFRAN 8 MG ORAL TABS 1 q 8hr prn vomiting ZOFRAN 8 MG ORAL TABS 385079 ONDANSETRON HCL Inactive MUCINEX DM MAXIMUM STRENGTH 60-1200 MG [id number] 1 po BID PRN Cough MUCINEX DM MAXIMUM STRENGTH 60-1200 MG [id number] DEXTROMETHORPHAN-GUAIFENESIN Inactive LORATADINE 10 MG TABS 1 tablet by mouth daily PRN Congestion 2014 LORATADINE 10 MG TABS 207700 LORATADINE Inactive ZITHROMAX Z-GIANLUCA 250 MG TABS 2 today and then 1 daily for 4 days ZITHROMAX Z-GIANLUCA 250 MG TABS 8288995 AZITHROMYCIN Inactive KEFLEX 500 MG CAP 1 po qid KEFLEX 500 MG CAP 899192 CEPHALEXIN Inactive FLONASE 50 MCG/ACT SUSP 1 puff in easch nostril bid FLONASE 50 MCG/ACT SUSP FLUTICASONE PROPIONATE Inactive CIPRO 500 MG TAB 1 tablet by mouth twice daily CIPRO 500 MG TAB 590092 CIPROFLOXACIN HCL Inactive FLAGYL 500 MG TAB 1 tablet by mouth bid. do not mix with etoh. FLAGYL 500 MG TAB 366504 METRONIDAZOLE Inactive ZOFRAN 4 MG TABS 1 po q8hr PRN Nausea ZOFRAN 4 MG TABS 690172 ONDANSETRON HCL Inactive DICLOFENAC SODIUM 50 MG TBEC 1 tablet by mouth four times daily PRN Pain 2015 DICLOFENAC SODIUM 50 MG TBEC 645543 DICLOFENAC SODIUM Inactive NEXPLANON 68 MG SC IMPL Inserted in the left upper arm NEXPLANON 68 MG SC IMPL ETONOGESTREL Inactive AUGMENTIN 875-125 MG TABS 1 bid AUGMENTIN 875-125 MG TABS 268797 AMOXICILLIN-POT CLAVULANATE Inactive BACTRIM DS 800-160 MG TAB 1 tab by mouth twice daily BACTRIM DS 800-160 MG TAB 434590 TRIMETHOPRIM-SULFAMETHOXAZOLE Inactive PREDNISONE 20 MG TAB 2 tabs daily for 3 days, 1 tab daily for 3 days, 1/2 tab daily for 2 days PREDNISONE 20 MG TAB 329363 PREDNISONE Inactive AZITHROMYCIN 250 MG TABS 2 pills day 1,1 pill day 2-5 AZITHROMYCIN 250 MG TABS 8964420 AZITHROMYCIN Inactive Advance Directives Directive Description Start Date PERMISSION TO SHARE Immunizations Vaccine Administration Date Value Standard Description Adacel (Tetanus, reduced Diphtheria, and acellular Pertussis Immunization) Adacel [[id number]] tetanus toxoid, reduced diphtheria toxoid, and acellular [...] 369 10^3/MM^3 10*3/mm3 142-424 Lab Report: Chlamydia/GC APTIMA/93544 - Lab chlamydia DNA probe NOT DETECTED NOT DETECTED chlamydia DNA probe NOT DETECTED NOT DETECTED Lab Report: Chlamydia/GC APTIMA/38207 - Microbiology Neisseria gonorrhoeae DNA probe NOT DETECTED NOT DETECTED Neisseria gonorrhoeae DNA probe NOT DETECTED NOT DETECTED Lab Report: Comp. Metabolic Panel - Chemistry sodium, serum 140 mmol/L 450-408 8221/11/17 carbon dioxide, venous blood 25.9 mmol/L 21.0-32.0 [...] negative Encounters Code Encounter Date Provider Facility CPT-88598 Level 3 Est. Patient 16:38:37 CERAMIC TILER Valentin Blanco MD [facility] CPT-14555 Level 3 Est. Patient 13:10:51 CDT Liat Cheng MD [facility] CPT-11054 Level 3 Est. Patient 14:16:58 CDT Boo Vasquez MD [facility]-27914 Level 3 Est. Patient 16:08:19 CDT Liat Cheng MD [facility] CPT-31042 Level 3 Est. Patient 15:48:30 CERAMIC TILER Liat Cheng MD [facility]-52370 Level 3 Est. Patient 14:24:59 CERAMIC TILER Liat Cheng MD [facility] CPT-68706 Level 3 Est. Patient 15:06:21 CERAMIC TILER Thai Almendarez LOSS PREVENTION AND SAFETY MANAGER [facility]-64950 Level 3 Est. Patient 15:43:50 CERAMIC TILER Thai Almendarez LOSS PREVENTION AND SAFETY MANAGER [facility]-91949 Level 3 Est. Patient 14:42:12 CERAMIC TILER Liat Cheng MD [facility]-52392 Level 3 Est. Patient 16:38:12 CERAMIC TILER Valentin Blanco MD [facility]-42385 Level 3 Est. Patient 14:12:52 CDT Liat Cheng MD [facility] CPT-59309 Level 2 Est. Patient 12:17:18 CDT Audelia Ochoa APRN [facility] CPT-81584 Level 3 Est. Patient 15:02:49 CDT Boo Vasquez MD [facility] CPT-47616 Level 3 Est. Patient 16:21:33 CERAMIC TILER Gama Bermeo MD [facility] CPT-89017 Level 3 Est. Patient 11:32:23 CERAMIC TILER Liat Cheng MD [facility] CPT-99043 Level 3 Est. Patient 16:59:23 CDT Liat Cheng MD [facility] CPT-11131 Level 3 Est. Patient 17:02:11 CERAMIC TILER Tay MAJOR [facility] CPT-70196 Level 3 Est. Patient 16:49:05 CERAMIC TILER Liat Cheng MD [facility] CPT-52142 Level 3 Est. Patient 16:36:13 CDT Vivien Conway LOSS PREVENTION AND SAFETY MANAGER [facility] Procedures Code Procedure Name Date Entry Date Standard Description CPT-20026 Nexplanon Removal 15:41:24 CDT CPT-OV Office Visit 09:29:28 CDT CPT-000 Give Immunizations Due 16:59:23 CDT CPT-33242 Ankle, right, Complete - Min 3V 16:15:36 CDT CPT-J7307 Nexplanon (Implant) 16:25:36 CERAMIC TILER CPT-99069 Nexplanon Placement 16:25:36 CERAMIC TILER CPT-OV Office Visit 16:25:36 CERAMIC TILER CPT-OV Office Visit 18:49:22 CERAMIC TILER CPT-OV Office Visit 18:49:18 CDT CPT-95934 Administration single or combination vaccine inc oral 11 :11:48 CDT CPT-63178 Adacel Intramuscular Suspension 5-2-15.5 11:11:48 CDT CPT-17112 Toes 2V 17:03:02 CERAMIC TILER
--- OUTSIDE RECORDS SUMMARY | 2018-02-18 12:41 | XMS REPORT | Clinical Summary ---
Author Author Admin, QIE Organization [facility] Address Unknown Phone Unavailable Allergies, Adverse Reactions, [...] Inactive Liat Cheng MD Abdominal bloating ICD-787.3 Oneil Cheng MD Cellulitis ICD-682.9 Inactive Liat Cheng MD Laceration, finger ICD-883.0 Inactive Liat Cheng MD U R I [...] 1 po q8hr PRN Nausea ONDANSETRON HCL 47195671811 No Longer Active Liat Cheng MD Active NEXPLANON 68 MG SC IMPL Inserted in the left upper arm ETONOGESTREL 60453851362 Active Liat Cheng MD Active FLAGYL 500 MG TAB 1 tablet by mouth bid. do not mix with etoh. METRONIDAZOLE 24623305481 No Longer Active Liat Cheng MD Active CIPRO 500 MG TAB 1 tablet by mouth twice daily CIPROFLOXACIN HCL 66554386558 No Longer Active Jillina Erickson WELLS Active FLONASE 50 MCG/ACT SUSP 1 puff in easch nostril bid FLUTICASONE PROPIONATE No Longer Active Jillina Frazell MEAT CURER Active KEFLEX 500 MG CAP 1 po qid CEPHALEXIN 93799830946 No Longer Active Jillina Frazell MEAT CURER Active AZITHROMYCIN 250 MG TABS 2 pills day 1,1 pill day 2-5 AZITHROMYCIN 64942871139 No Longer Active Liat Cheng MD Active ZITHROMAX Z-GIANLUCA 250 MG TABS 2 today and then 1 daily for 4 days AZITHROMYCIN 73235166956 No Longer Active Liat Cheng MD Active LORATADINE 10 MG TABS 1 tablet by mouth daily PRN Congestion 2014 LORATADINE 44054115425 No Longer Active Audelia Yokum MEAT CURER Active MUCINEX DM MAXIMUM STRENGTH 60-1200 MG [id number] 1 po BID PRN Cough DEXTROMETHORPHAN-GUAIFENESIN 51631179759 No Longer Active Audelia Yokum MEAT CURER Active PREDNISONE 20 MG TAB 2 tabs daily for 3 days, 1 tab daily for 3 days, 1/2 tab daily for 2 days PREDNISONE 93246335472 No Longer Active Boo Vasquez MD Active BACTRIM DS 800-160 MG TAB 1 tab by mouth twice daily TRIMETHOPRIM-SULFAMETHOXAZOLE 61150464915 No Longer Active Gama Bermeo MD Active ZOFRAN 8 MG ORAL TABS 1 q 8hr prn vomiting ONDANSETRON HCL 70858727083 No Longer Active Gama Bermeo MD Active AUGMENTIN 875-125 MG TABS 1 bid AMOXICILLIN-POT CLAVULANATE 42029316491 No Longer Active Liat Cheng MD Active HYDROCODONE-ACETAMINOPHEN TABS Take as directed/PRN HYDROCODONE-ACETAMINOPHEN TABS 50916240446 No Longer Active Liat Cheng MD Active CEFDINIR 300 MG CAPS 1 PO bid x 7 days CEFDINIR 33891364464 No Longer Active Liat Cheng MD Active CEFDINIR 300 MG CAPS 1 PO bid x 7 days CEFDINIR 300 MG CAPS 090387 CEFDINIR Inactive HYDROCODONE-ACETAMINOPHEN TABS Take as directed/PRN HYDROCODONE-ACETAMINOPHEN TABS HYDROCODONE-ACETAMINOPHEN TABS Inactive ZOFRAN 8 MG ORAL TABS 1 q 8hr prn vomiting ZOFRAN 8 MG ORAL TABS 547754 ONDANSETRON HCL Inactive MUCINEX DM MAXIMUM STRENGTH 60-1200 MG [id number] 1 po BID PRN Cough MUCINEX DM MAXIMUM STRENGTH 60-1200 MG [id number] DEXTROMETHORPHAN-GUAIFENESIN Inactive LORATADINE 10 MG TABS 1 tablet by mouth daily PRN Congestion 2014 LORATADINE 10 MG TABS 119373 LORATADINE Inactive ZITHROMAX Z-GIANLUCA 250 MG TABS 2 today and then 1 daily for 4 days ZITHROMAX Z-GIANLUCA 250 MG TABS 1938559 AZITHROMYCIN Inactive KEFLEX 500 MG CAP 1 po qid KEFLEX 500 MG CAP 028641 CEPHALEXIN Inactive FLONASE 50 MCG/ACT SUSP 1 puff in easch nostril bid FLONASE 50 MCG/ACT SUSP FLUTICASONE PROPIONATE Inactive CIPRO 500 MG TAB 1 tablet by mouth twice daily CIPRO 500 MG TAB 312972 CIPROFLOXACIN HCL Inactive FLAGYL 500 MG TAB 1 tablet by mouth bid. do not mix with etoh. FLAGYL 500 MG TAB 191823 METRONIDAZOLE Inactive ZOFRAN 4 MG TABS 1 po q8hr PRN Nausea ZOFRAN 4 MG TABS 511832 ONDANSETRON HCL Inactive AUGMENTIN 875-125 MG TABS 1 bid AUGMENTIN 875-125 MG TABS 152098 AMOXICILLIN-POT CLAVULANATE Inactive BACTRIM DS 800-160 MG TAB 1 tab by mouth twice daily BACTRIM DS 800-160 MG TAB 812119 TRIMETHOPRIM-SULFAMETHOXAZOLE Inactive PREDNISONE 20 MG TAB 2 tabs daily for 3 days, 1 tab daily for 3 days, 1/2 tab daily for 2 days PREDNISONE 20 MG TAB 289051 PREDNISONE Inactive AZITHROMYCIN 250 MG TABS 2 pills day 1,1 pill day 2-5 AZITHROMYCIN 250 MG TABS 8334466 AZITHROMYCIN Inactive Advance Directives Directive Description Start Date PERMISSION TO SHARE Immunizations Vaccine Administration Date Value Standard Description Adacel (Tetanus, reduced Diphtheria, and acellular Pertussis Immunization) Adacel [[id number]] tetanus toxoid, reduced diphtheria toxoid, and acellular [...] % 11.6-14.8 platelet count 369 10^3/MM^3 10*3/mm3 947-302 3694/11/17 lymphocytes as percent of blood leukocytes 28.7 % 20.5-51.1 monocytes as percent of blood leukocytes 7.4 % 1.7-9.3 neutrophils as percent of blood leukocytes 54.3 % 42.2-75.2 leukocyte count, blood 10.7 10^3/MM^3 10*3/mm3 4.6-10.2 Lab Report: Chlamydia/GC APTIMA/07360 - Lab chlamydia DNA probe NOT DETECTED NOT DETECTED chlamydia DNA probe NOT DETECTED NOT DETECTED Lab Report: Chlamydia/GC APTIMA/44558 - Microbiology Neisseria gonorrhoeae DNA probe NOT DETECTED NOT DETECTED Neisseria gonorrhoeae DNA probe NOT DETECTED NOT DETECTED Lab Report: Comp. Metabolic Panel - Chemistry carbon dioxide, venous blood 25.9 mmol/L 21.0-32.0 potassium, serum 4.0 mmol/L 3.5-5.2 chloride, serum 103 mmol/L 98-107 blood glucose 83 mg/dL 65-110 urea nitrogen, blood 10 mg/dL 7-18 sodium, serum 140 mmol/L 792-264 4408/11/17 creatinine, serum 0.68 mg/dL 0.55-1.30 alanine aminotransferase [...] negative Encounters Code Encounter Date Provider Facility CPT-48805 Level 3 Est. Patient 16:08:19 CDT Liat Cheng MD [facility] CPT-29123 Level 3 Est. Patient 15:48:30 FUR TRIMMING MACHINE OPERATOR Liat Cheng MD [facility] CPT-21743 Level 3 Est. Patient 14:24:59 FUR TRIMMING MACHINE OPERATOR Liat Cheng MD [facility] CPT-31113 Level 3 Est. Patient 15:06:21 FUR TRIMMING MACHINE OPERATOR Thai Almendarez [facility] CPT-95791 Level 3 Est. Patient 15:43:50 FUR TRIMMING MACHINE OPERATOR Thai Almendarez [facility] CPT-57400 Level 3 Est. Patient 14:42:12 FUR TRIMMING MACHINE OPERATOR Liat Cheng MD [facility] CPT-31489 Level 3 Est. Patient 16:38:12 FUR TRIMMING MACHINE OPERATOR Valentin Blanco MD [facility] CPT-27369 Level 3 Est. Patient 14:12:52 CDT Liat Cheng MD [facility] CPT-73074 Level 2 Est. Patient 12:17:18 CDT Audelia Ochoa [facility] CPT-75656 Level 3 Est. Patient 15:02:49 CDT Boo Vasquez MD [facility] CPT-25390 Level 3 Est. Patient 16:21:33 FUR TRIMMING MACHINE OPERATOR Gama Bermeo MD [facility] CPT-18757 Level 3 Est. Patient 11:32:23 FUR TRIMMING MACHINE OPERATOR Liat Cheng MD [facility] CPT-40879 Level 3 Est. Patient 16:59:23 CDT Liat Cheng MD [facility] CPT-90575 Level 3 Est. Patient 17:02:11 FUR TRIMMING MACHINE OPERATOR Tay MAJOR [facility] CPT-36609 Level 3 Est. Patient 16:49:05 FUR TRIMMING MACHINE OPERATOR Liat Cheng MD [facility] CPT-25083 Level 3 Est. Patient 16:36:13 CDT Vivien Conway MEAT CURER [facility] Procedures Code Procedure Name Date Entry Date Standard Description CPT-27106 Ankle, right, Complete - Min 3V 16:15:36 CDT CPT-J7307 Nexplanon (Implant) 16:25:36 FUR TRIMMING MACHINE OPERATOR CPT-66555 Nexplanon Placement 16:25:36 FUR TRIMMING MACHINE OPERATOR CPT-OV Office Visit 16:25:36 FUR TRIMMING MACHINE OPERATOR CPT-OV Office Visit 18:49:22 FUR TRIMMING MACHINE OPERATOR CPT-OV Office Visit 18:49:18 CDT CPT-19191 Administration single or combination vaccine inc oral 11 :11:48 CDT CPT-85630 Adacel Intramuscular Suspension 5-2-15.5 11:11:48 CDT CPT-34744 Toes 2V 17:03:02 FUR TRIMMING MACHINE OPERATOR
--- OUTSIDE RECORDS SUMMARY | 2018-02-18 12:42 | XMS REPORT | Clinical Summary ---
Author Author Admin, QIE Organization [employer] Address Unknown Phone Unavailable Allergies, Adverse Reactions, [...] Dizziness and giddiness Chest wall pain 786.52 Active Boo Vasquez MD Painful respiration SPORTS PHYSICAL ICD-V70.3 Inactive Boo Vasquez MD [...] MD Lightheadedness ICD-780.4 Inactive Liat Cheng MD Medication List Medication Instructions Start Date Stop Date Generic Name NDC Status Provider Patient Instruction DICLOFENAC SODIUM 50 MG TBEC 1 tablet by mouth four times daily PRN Pain 2015 DICLOFENAC SODIUM 88285994348 Active Boo Vasquez MD Active ZOFRAN 4 MG TABS 1 po q8hr PRN Nausea ONDANSETRON HCL 93130396166 No Longer Active Liat Cheng MD Active NEXPLANON 68 MG SC IMPL Inserted in the left upper arm ETONOGESTREL 37150800764 Active Liat Cheng MD Active FLAGYL 500 MG TAB 1 tablet by mouth bid. do not mix with etoh. METRONIDAZOLE 11315408944 No Longer Active Liat Cheng MD Active CIPRO 500 MG TAB 1 tablet by mouth twice daily CIPROFLOXACIN HCL 61627007983 No Longer Active Jillpb Almendarez APRN Active FLONASE 50 MCG/ACT SUSP 1 puff in easch nostril bid FLUTICASONE PROPIONATE No Longer Active Jillina Erickson GLOBAL MARKETING MANAGER Active KEFLEX 500 MG CAP 1 po qid CEPHALEXIN 32494174014 No Longer Active Thai Almendarez APRN Active AZITHROMYCIN 250 MG TABS 2 pills day 1,1 pill day 2-5 AZITHROMYCIN 77570540478 No Longer Active Liat Cheng MD Active ZITHROMAX Z-GIANLUCA 250 MG TABS 2 today and then 1 daily for 4 days AZITHROMYCIN 07783730540 No Longer Active Liat Cheng MD Active LORATADINE 10 MG TABS 1 tablet by mouth daily PRN Congestion 2014 LORATADINE 51623364965 No Longer Active Audelia Yoramy WELLS Active MUCINEX DM MAXIMUM STRENGTH 60-1200 MG [id number] 1 po BID PRN Cough DEXTROMETHORPHAN-GUAIFENESIN 82345239449 No Longer Active Audelia Yokum RUSSELL Active PREDNISONE 20 MG TAB 2 tabs daily for 3 days, 1 tab daily for 3 days, 1/2 tab daily for 2 days PREDNISONE 46113565042 No Longer Active Boo Vasquez MD Active BACTRIM DS 800-160 MG TAB 1 tab by mouth twice daily TRIMETHOPRIM-SULFAMETHOXAZOLE 55969853934 No Longer Active Gama Bermeo MD Active ZOFRAN 8 MG ORAL TABS 1 q 8hr prn vomiting ONDANSETRON HCL 22121566162 No Longer Active Gama Bermeo MD Active AUGMENTIN 875-125 MG TABS 1 bid AMOXICILLIN-POT CLAVULANATE 10809595582 No Longer Active Liat Cheng MD Active HYDROCODONE-ACETAMINOPHEN TABS Take as directed/PRN HYDROCODONE-ACETAMINOPHEN TABS 95528748289 No Longer Active Liat Cheng MD Active CEFDINIR 300 MG CAPS 1 PO bid x 7 days CEFDINIR 52223715945 No Longer Active Liat Cheng MD Active CEFDINIR 300 MG CAPS 1 PO bid x 7 days CEFDINIR 300 MG CAPS 437184 CEFDINIR Inactive HYDROCODONE-ACETAMINOPHEN TABS Take as directed/PRN HYDROCODONE-ACETAMINOPHEN TABS HYDROCODONE-ACETAMINOPHEN TABS Inactive ZOFRAN 8 MG ORAL TABS 1 q 8hr prn vomiting ZOFRAN 8 MG ORAL TABS 829445 ONDANSETRON HCL Inactive MUCINEX DM MAXIMUM STRENGTH 60-1200 MG [id number] 1 po BID PRN Cough MUCINEX DM MAXIMUM STRENGTH 60-1200 MG [id number] DEXTROMETHORPHAN-GUAIFENESIN Inactive LORATADINE 10 MG TABS 1 tablet by mouth daily PRN Congestion 2014 LORATADINE 10 MG TABS 361718 LORATADINE Inactive ZITHROMAX Z-GIANLUCA 250 MG TABS 2 today and then 1 daily for 4 days ZITHROMAX Z-GIANLUCA 250 MG TABS 2080662 AZITHROMYCIN Inactive KEFLEX 500 MG CAP 1 po qid KEFLEX 500 MG CAP 252945 CEPHALEXIN Inactive FLONASE 50 MCG/ACT SUSP 1 puff in easch nostril bid FLONASE 50 MCG/ACT SUSP FLUTICASONE PROPIONATE Inactive CIPRO 500 MG TAB 1 tablet by mouth twice daily CIPRO 500 MG TAB 577066 CIPROFLOXACIN HCL Inactive FLAGYL 500 MG TAB 1 tablet by mouth bid. do not mix with etoh. FLAGYL 500 MG TAB 299828 METRONIDAZOLE Inactive ZOFRAN 4 MG TABS 1 po q8hr PRN Nausea ZOFRAN 4 MG TABS 331691 ONDANSETRON HCL Inactive AUGMENTIN 875-125 MG TABS 1 bid AUGMENTIN 875-125 MG TABS 450507 AMOXICILLIN-POT CLAVULANATE Inactive BACTRIM DS 800-160 MG TAB 1 tab by mouth twice daily BACTRIM DS 800-160 MG TAB 726375 TRIMETHOPRIM-SULFAMETHOXAZOLE Inactive PREDNISONE 20 MG TAB 2 tabs daily for 3 days, 1 tab daily for 3 days, 1/2 tab daily for 2 days PREDNISONE 20 MG TAB 579931 PREDNISONE Inactive AZITHROMYCIN 250 MG TABS 2 pills day 1,1 pill day 2-5 AZITHROMYCIN 250 MG TABS 9658560 AZITHROMYCIN Inactive Advance Directives Directive Description Start Date PERMISSION TO SHARE Immunizations Vaccine Administration Date Value Standard Description Adacel (Tetanus, reduced Diphtheria, and acellular Pertussis Immunization) Adacel [[id number]] tetanus toxoid, reduced diphtheria toxoid, and acellular [...] Range Description blood pressure, diastolic - 8462-4 81 mm[Hg] [...] 369 10^3/MM^3 10*3/mm3 142-424 Lab Report: Chlamydia/GC APTIMA/30343 - Lab chlamydia DNA probe NOT DETECTED NOT DETECTED chlamydia DNA probe NOT DETECTED NOT DETECTED Lab Report: Chlamydia/GC APTIMA/52257 - Microbiology Neisseria gonorrhoeae DNA probe NOT DETECTED NOT DETECTED Neisseria gonorrhoeae DNA probe NOT DETECTED NOT DETECTED Lab Report: Comp. Metabolic Panel - Chemistry sodium, serum 140 mmol/L 452-635 4935/11/17 carbon dioxide, venous blood 25.9 mmol/L 21.0-32.0 [...] negative Encounters Code Encounter Date Provider Facility CPT-68003 Level 3 Est. Patient 14:16:58 CDT Boo Vasquez MD [facility] CPT-23874 Level 3 Est. Patient 16:08:19 CDT Liat Cheng MD [facility] CPT-44062 Level 3 Est. Patient 15:48:30 MIG TIG WELDER Liat Cheng MD [facility] CPT-32346 Level 3 Est. Patient 14:24:59 MIG TIG WELDER Liat Cheng MD [facility] CPT-17273 Level 3 Est. Patient 15:06:21 MIG TIG WELDER Thai Almendarez [facility] CPT-42329 Level 3 Est. Patient 15:43:50 MIG TIG WELDER Thai Almendarez [facility] CPT-49820 Level 3 Est. Patient 14:42:12 MIG TIG WELDER Liat Cheng MD [facility] CPT-91374 Level 3 Est. Patient 16:38:12 MIG TIG WELDER Valentin Blanco MD [facility] CPT-53632 Level 3 Est. Patient 14:12:52 CDT Liat Cheng MD [facility] CPT-09944 Level 2 Est. Patient 12:17:18 CDT Audelia Ochoa [facility] CPT-10243 Level 3 Est. Patient 15:02:49 CDT Boo Vasquez MD [facility] CPT-88880 Level 3 Est. Patient 16:21:33 MIG TIG WELDER Gama Bermeo MD [facility] CPT-82207 Level 3 Est. Patient 11:32:23 MIG TIG WELDER Liat Cheng MD [facility] CPT-75642 Level 3 Est. Patient 16:59:23 CDT Liat Cheng MD [facility] CPT-75652 Level 3 Est. Patient 17:02:11 MIG TIG WELDER Tay MAJOR [facility] CPT-96172 Level 3 Est. Patient 16:49:05 MIG TIG WELDER Liat Cheng MD [facility] CPT-09719 Level 3 Est. Patient 16:36:13 CDT Vivien Conway APRN [facility] Procedures Code Procedure Name Date Entry Date Standard Description CPT-73733 Ankle, right, Complete - Min 3V 16:15:36 CDT CPT-J7307 Nexplanon (Implant) 16:25:36 MIG TIG WELDER CPT-29403 Nexplanon Placement 16:25:36 MIG TIG WELDER CPT-OV Office Visit 16:25:36 MIG TIG WELDER CPT-OV Office Visit 18:49:22 MIG TIG WELDER CPT-OV Office Visit 18:49:18 CDT CPT-83347 Administration single or combination vaccine inc oral 11 :11:48 CDT CPT-55745 Adacel Intramuscular Suspension 5-2-15.5 11:11:48 CDT CPT-95193 Toes 2V 17:03:02 MIG TIG WELDER
--- OUTSIDE RECORDS SUMMARY | 2018-02-18 12:43 | XMS REPORT | Clinical Summary ---
Author Author Admin, QIE Organization [employer] Address Unknown Phone Unavailable Allergies, Adverse Reactions, [...] twice a day for 10 days AMOXICILLIN 11035113719 Active Valentin Blanco MD Active NEXPLANON 68 MG SC IMPL Inserted in the left upper arm ETONOGESTREL 55656651338 No Longer Active Valentin Blanco MD Active DICLOFENAC SODIUM 50 MG TBEC 1 tablet by mouth four times daily PRN Pain 2015 DICLOFENAC SODIUM 97548111030 No Longer Active Liat Cheng MD Active ZOFRAN 4 MG TABS 1 po q8hr PRN Nausea ONDANSETRON HCL 26277767782 No Longer Active Liat Cheng MD Active FLAGYL 500 MG TAB 1 tablet by mouth bid. do not mix with etoh. METRONIDAZOLE 10037566141 No Longer Active Liat Cheng MD Active CIPRO 500 MG TAB 1 tablet by mouth twice daily CIPROFLOXACIN HCL 20909565242 No Longer Active Jillina Fraaranzal RUSSELL Active FLONASE 50 MCG/ACT SUSP 1 puff in easch nostril bid FLUTICASONE PROPIONATE No Longer Active Jillpb Fraaranzal RUSSELL Active KEFLEX 500 MG CAP 1 po qid CEPHALEXIN 34353665336 No Longer Active Jillpb Almendarez APRN Active AZITHROMYCIN 250 MG TABS 2 pills day 1,1 pill day 2-5 AZITHROMYCIN 17543602185 No Longer Active Liat Cheng MD Active ZITHROMAX Z-GIANLUCA 250 MG TABS 2 today and then 1 daily for 4 days AZITHROMYCIN 52993794147 No Longer Active Liat Cheng MD Active LORATADINE 10 MG TABS 1 tablet by mouth daily PRN Congestion 2014 LORATADINE 34714800414 No Longer Active Audelia Yokbillie WELLS Active MUCINEX DM MAXIMUM STRENGTH 60-1200 MG [id number] 1 po BID PRN Cough DEXTROMETHORPHAN-GUAIFENESIN 58525394087 No Longer Active Audelia Yokum TILE DESIGNER Active PREDNISONE 20 MG TAB 2 tabs daily for 3 days, 1 tab daily for 3 days, 1/2 tab daily for 2 days PREDNISONE 16280802268 No Longer Active Boo Vasquez MD Active BACTRIM DS 800-160 MG TAB 1 tab by mouth twice daily TRIMETHOPRIM-SULFAMETHOXAZOLE 34760387331 No Longer Active Gama Bermeo MD Active ZOFRAN 8 MG ORAL TABS 1 q 8hr prn vomiting ONDANSETRON HCL 41789082482 No Longer Active Gama Bermeo MD Active AUGMENTIN 875-125 MG TABS 1 bid AMOXICILLIN-POT CLAVULANATE 99182555487 No Longer Active Liat Cheng MD Active HYDROCODONE-ACETAMINOPHEN TABS Take as directed/PRN HYDROCODONE-ACETAMINOPHEN TABS 02673776218 No Longer Active Liat Cheng MD Active CEFDINIR 300 MG CAPS 1 PO bid x 7 days CEFDINIR 26876232135 No Longer Active Liat Cheng MD Active CEFDINIR 300 MG CAPS 1 PO bid x 7 days CEFDINIR 300 MG CAPS 938807 CEFDINIR Inactive HYDROCODONE-ACETAMINOPHEN TABS Take as directed/PRN HYDROCODONE-ACETAMINOPHEN TABS HYDROCODONE-ACETAMINOPHEN TABS Inactive ZOFRAN 8 MG ORAL TABS 1 q 8hr prn vomiting ZOFRAN 8 MG ORAL TABS 664293 ONDANSETRON HCL Inactive MUCINEX DM MAXIMUM STRENGTH 60-1200 MG [id number] 1 po BID PRN Cough MUCINEX DM MAXIMUM STRENGTH 60-1200 MG [id number] DEXTROMETHORPHAN-GUAIFENESIN Inactive LORATADINE 10 MG TABS 1 tablet by mouth daily PRN Congestion 2014 LORATADINE 10 MG TABS 326355 LORATADINE Inactive ZITHROMAX Z-GIANLUCA 250 MG TABS 2 today and then 1 daily for 4 days ZITHROMAX Z-GIANLUCA 250 MG TABS 7020228 AZITHROMYCIN Inactive KEFLEX 500 MG CAP 1 po qid KEFLEX 500 MG CAP 788523 CEPHALEXIN Inactive FLONASE 50 MCG/ACT SUSP 1 puff in easch nostril bid FLONASE 50 MCG/ACT SUSP FLUTICASONE PROPIONATE Inactive CIPRO 500 MG TAB 1 tablet by mouth twice daily CIPRO 500 MG TAB 215000 CIPROFLOXACIN HCL Inactive FLAGYL 500 MG TAB 1 tablet by mouth bid. do not mix with etoh. FLAGYL 500 MG TAB 548766 METRONIDAZOLE Inactive ZOFRAN 4 MG TABS 1 po q8hr PRN Nausea ZOFRAN 4 MG TABS 575968 ONDANSETRON HCL Inactive DICLOFENAC SODIUM 50 MG TBEC 1 tablet by mouth four times daily PRN Pain 2015 DICLOFENAC SODIUM 50 MG TBEC 367952 DICLOFENAC SODIUM Inactive NEXPLANON 68 MG SC IMPL Inserted in the left upper arm NEXPLANON 68 MG SC IMPL ETONOGESTREL Inactive AUGMENTIN 875-125 MG TABS 1 bid AUGMENTIN 875-125 MG TABS 356741 AMOXICILLIN-POT CLAVULANATE Inactive BACTRIM DS 800-160 MG TAB 1 tab by mouth twice daily BACTRIM DS 800-160 MG TAB 604799 TRIMETHOPRIM-SULFAMETHOXAZOLE Inactive PREDNISONE 20 MG TAB 2 tabs daily for 3 days, 1 tab daily for 3 days, 1/2 tab daily for 2 days PREDNISONE 20 MG TAB 701711 PREDNISONE Inactive AZITHROMYCIN 250 MG TABS 2 pills day 1,1 pill day 2-5 AZITHROMYCIN 250 MG TABS 4381094 AZITHROMYCIN Inactive Advance Directives Directive Description Start Date PERMISSION TO SHARE Immunizations Vaccine Administration Date Value Standard Description Adacel (Tetanus, reduced Diphtheria, and acellular Pertussis Immunization) Adacel [[id number]] tetanus toxoid, reduced diphtheria toxoid, and acellular [...] 369 10^3/MM^3 10*3/mm3 142-424 Lab Report: Chlamydia/GC APTIMA/88370 - Lab chlamydia DNA probe NOT DETECTED NOT DETECTED chlamydia DNA probe NOT DETECTED NOT DETECTED Lab Report: Chlamydia/GC APTIMA/15830 - Microbiology Neisseria gonorrhoeae DNA probe NOT DETECTED NOT DETECTED Neisseria gonorrhoeae DNA probe NOT DETECTED NOT DETECTED Lab Report: Comp. Metabolic Panel - Chemistry sodium, serum 140 mmol/L 502-531 0979/11/17 carbon dioxide, venous blood 25.9 mmol/L 21.0-32.0 [...] negative Encounters Code Encounter Date Provider Facility CPT-21180 Level 3 Est. Patient 16:38:37 GUN PROFILER Valentin Blanco MD [facility] CPT-70500 Level 3 Est. Patient 13:10:51 CDT Liat Cheng MD [facility] CPT-76120 Level 3 Est. Patient 14:16:58 CDT Boo Vasquez MD [facility]-09694 Level 3 Est. Patient 16:08:19 CDT Liat Cheng MD [facility] CPT-65545 Level 3 Est. Patient 15:48:30 GUN PROFILER Liat Cheng MD [facility] CPT-18961 Level 3 Est. Patient 14:24:59 GUN PROFILER Liat Cheng MD [facility] CPT-23627 Level 3 Est. Patient 15:06:21 GUN PROFILER Thai Almendarez [facility]-51930 Level 3 Est. Patient 15:43:50 GUN PROFILER Thai Almendarez [facility]-39042 Level 3 Est. Patient 14:42:12 GUN PROFILER Liat Cheng MD [facility] [place]-90487 Level 3 Est. Patient 16:38:12 GUN PROFILER Valentin Blanco MD [facility] CPT-50571 Level 3 Est. Patient 14:12:52 CDT Liat Cheng MD [facility] CPT-91268 Level 2 Est. Patient 12:17:18 CDT Audelia Ochoa [facility] CPT-28472 Level 3 Est. Patient 15:02:49 CDT Boo Vasquez MD [facility] CPT-06789 Level 3 Est. Patient 16:21:33 GUN PROFILER Gama Bermeo MD [facility] CPT-61545 Level 3 Est. Patient 11:32:23 GUN PROFILER Liat Cheng MD [facility] CPT-39964 Level 3 Est. Patient 16:59:23 CDT Liat Cheng MD [facility] CPT-17588 Level 3 Est. Patient 17:02:11 GUN PROFILER Tay MAJOR [facility] CPT-22967 Level 3 Est. Patient 16:49:05 GUN PROFILER Liat Cheng MD [facility] CPT-13657 Level 3 Est. Patient 16:36:13 CDT Vivien Conway [facility] Procedures Code Procedure Name Date Entry Date Standard Description CPT-57242 Nexplanon Removal 15:41:24 CDT CPT-OV Office Visit 09:29:28 CDT CPT-000 Give Immunizations Due 16:59:23 CDT CPT-78941 Ankle, right, Complete - Min 3V 16:15:36 CDT CPT-J7307 Nexplanon (Implant) 16:25:36 GUN PROFILER CPT-64757 Nexplanon Placement 16:25:36 GUN PROFILER CPT-OV Office Visit 16:25:36 GUN PROFILER CPT-OV Office Visit 18:49:22 GUN PROFILER CPT-OV Office Visit 18:49:18 CDT CPT-42583 Administration single or combination vaccine inc oral 11 :11:48 CDT CPT-67450 Adacel Intramuscular Suspension 5-2-15.5 11:11:48 CDT CPT-88163 Toes 2V 17:03:02 GUN PROFILER
--- OUTSIDE RECORDS SUMMARY | 2018-02-18 12:43 | XMS REPORT | Clinical Summary ---
Author Author Admin, QIE Organization [employer] Address Unknown Phone Unavailable Allergies, Adverse Reactions, [...] U R I Active Liat Cheng MD [employer]ORTS PHYSICAL ICD-V70.3 Inactive [...] Generic Name NDC Status Provider Patient Instruction FLONASE 50 MCG/ACT SUSP 1 puff in easch nostril bid FLUTICASONE PROPIONATE Active Liat Cheng MD Active AZITHROMYCIN 250 MG TABS 2 pills day 1,1 pill day 2-5 AZITHROMYCIN 10076182653 No Longer Active Liat Cheng MD Active ZITHROMAX Z-GIANLUCA 250 MG TABS 2 today and then 1 daily for 4 days AZITHROMYCIN 96862311219 No Longer Active Liat Cheng MD Active LORATADINE 10 MG TABS 1 tablet by mouth daily PRN Congestion 2014 LORATADINE 26535669037 No Longer Active Audelia Yokum BOX BENDER Active MUCINEX DM MAXIMUM STRENGTH 60-1200 MG [id number] 1 po BID PRN Cough DEXTROMETHORPHAN-GUAIFENESIN 12521262045 No Longer Active Audelia Yokum BOX BENDER Active PREDNISONE 20 MG TAB 2 tabs daily for 3 days, 1 tab daily for 3 days, 1/2 tab daily for 2 days PREDNISONE 04969398559 No Longer Active Boo Vasquez MD Active BACTRIM DS 800-160 MG TAB 1 tab by mouth twice daily TRIMETHOPRIM-SULFAMETHOXAZOLE 45526295978 No Longer Active Gama Bermeo MD Active ZOFRAN 8 MG ORAL TABS 1 q 8hr prn vomiting ONDANSETRON HCL 22536322468 No Longer Active Gama Bermeo MD Active AUGMENTIN 875-125 MG TABS 1 bid AMOXICILLIN-POT CLAVULANATE 74349202081 No Longer Active Liat Cheng MD Active HYDROCODONE-ACETAMINOPHEN TABS Take as directed/PRN HYDROCODONE-ACETAMINOPHEN TABS 94747975185 No Longer Active Liat Cheng MD Active CEFDINIR 300 MG CAPS 1 PO bid x 7 days CEFDINIR 17863747759 No Longer Active Liat Cheng MD Active CEFDINIR 300 MG CAPS 1 PO bid x 7 days CEFDINIR 300 MG CAPS 900468 CEFDINIR Inactive HYDROCODONE-ACETAMINOPHEN TABS Take as directed/PRN HYDROCODONE-ACETAMINOPHEN TABS HYDROCODONE-ACETAMINOPHEN TABS Inactive ZOFRAN 8 MG ORAL TABS 1 q 8hr prn vomiting ZOFRAN 8 MG ORAL TABS 789540 ONDANSETRON HCL Inactive MUCINEX DM MAXIMUM STRENGTH 60-1200 MG [id number] 1 po BID PRN Cough MUCINEX DM MAXIMUM STRENGTH 60-1200 MG [id number] DEXTROMETHORPHAN-GUAIFENESIN Inactive LORATADINE 10 MG TABS 1 tablet by mouth daily PRN Congestion 2014 LORATADINE 10 MG TABS 135659 LORATADINE Inactive ZITHROMAX Z-GIANLUCA 250 MG TABS 2 today and then 1 daily for 4 days ZITHROMAX Z-GIANLUCA 250 MG TABS 6089276 AZITHROMYCIN Inactive AUGMENTIN 875-125 MG TABS 1 bid AUGMENTIN 875-125 MG TABS 344498 AMOXICILLIN-POT CLAVULANATE Inactive BACTRIM DS 800-160 MG TAB 1 tab by mouth twice daily BACTRIM DS 800-160 MG TAB 898944 TRIMETHOPRIM-SULFAMETHOXAZOLE Inactive PREDNISONE 20 MG TAB 2 tabs daily for 3 days, 1 tab daily for 3 days, 1/2 tab daily for 2 days PREDNISONE 20 MG TAB 023757 PREDNISONE Inactive AZITHROMYCIN 250 MG TABS 2 pills day 1,1 pill day 2-5 AZITHROMYCIN 250 MG TABS 1060057 AZITHROMYCIN Inactive Immunizations Vaccine Administration Date Value Standard Description Adacel (Tetanus, reduced Diphtheria, and acellular Pertussis Immunization) Adacel [[id number]] tetanus toxoid, reduced diphtheria toxoid, and acellular [...] E&M - 3141-9 237.38 [lb_av] Weight Measured Diagnostic Results Date Name [...] Panel - Chemistry sodium, serum 140 mmol/L 844-402 8433/11/17 carbon dioxide, venous blood 25.9 mmol/L 21.0-32.0 [...] Negative Encounters Code Encounter Date Provider Facility CPT-21826 Level 3 Est. Patient 14:42:12 FIRST RESPONDER Liat Cheng MD [facility] CPT-67493 Level 3 Est. Patient 16:38:12 FIRST RESPONDER Valentin Blanco MD [facility] CPT-36899 Level 3 Est. Patient 14:12:52 CDT Liat Cheng MD [facility] CPT-71129 Level 2 Est. Patient 12:17:18 CDT Audelia Gabriela [facility] CPT-86693 Level 3 Est. Patient 15:02:49 CDT Boo Vasquez MD [facility] CPT-85912 Level 3 Est. Patient 16:21:33 FIRST RESPONDER Gama Bermeo MD [facility] CPT-98709 Level 3 Est. Patient 11:32:23 FIRST RESPONDER Liat Cheng MD [facility] CPT-66326 Level 3 Est. Patient 16:59:23 CDT Liat Cheng MD [facility] CPT-73441 Level 3 Est. Patient 17:02:11 FIRST RESPONDER Tay MAJOR [facility] CPT-46283 Level 3 Est. Patient 16:49:05 FIRST RESPONDER Liat Cheng MD [facility] CPT-25485 Level 3 Est. Patient 16:36:13 CDT Vivien Conway [facility] Procedures Code Procedure Name Date Entry Date Standard Description CPT-OV Office Visit 18:49:18 CDT CPT-29587 Administration single or combination vaccine inc oral 11 :11:48 CDT CPT-37166 Adacel Intramuscular Suspension 5-2-15.5 11:11:48 CDT CPT-75533 Toes 2V 17:03:02 FIRST RESPONDER
--- OUTSIDE RECORDS SUMMARY | 2018-02-18 12:44 | XMS REPORT | Clinical Summary ---
Author Author Admin, QIE Organization [employer] Address Unknown Phone Unavailable Allergies, Adverse Reactions, [...] Cheng MD Abdominal bloating ICD-787.3 Inactive Liat Chegn MD Fatigue ICD-780.79 Inactive Liat Cheng MD [...] 1 po q8hr PRN Nausea ONDANSETRON HCL 62240943691 Active Angeline Santiago APRN Active NEXPLANON 68 MG SC IMPL Inserted in the left upper arm ETONOGESTREL 45945615187 Active Liat Cheng MD Active FLAGYL 500 MG TAB 1 tablet by mouth bid. do not mix with etoh. METRONIDAZOLE 90099052674 No Longer Active Liat Cheng MD Active CIPRO 500 MG TAB 1 tablet by mouth twice daily CIPROFLOXACIN HCL 08311757236 No Longer Active Jillina Erickson WELLS Active FLONASE 50 MCG/ACT SUSP 1 puff in easch nostril bid FLUTICASONE PROPIONATE No Longer Active Maximllpb Almendarez APRN Active KEFLEX 500 MG CAP 1 po qid CEPHALEXIN 49528028923 No Longer Active Jillina Fraaranzal ENVIRONMENTAL SCIENCE TECHNICIAN Active AZITHROMYCIN 250 MG TABS 2 pills day 1,1 pill day 2-5 AZITHROMYCIN 79232989863 No Longer Active Liat Cheng MD Active ZITHROMAX Z-GIANLUCA 250 MG TABS 2 today and then 1 daily for 4 days AZITHROMYCIN 29917359030 No Longer Active Liat Cheng MD Active LORATADINE 10 MG TABS 1 tablet by mouth daily PRN Congestion 2014 LORATADINE 62088046381 No Longer Active Audelia Yokum ENVIRONMENTAL SCIENCE TECHNICIAN Active MUCINEX DM MAXIMUM STRENGTH 60-1200 MG [id number] 1 po BID PRN Cough DEXTROMETHORPHAN-GUAIFENESIN 93020350124 No Longer Active Audelia Yokum ENVIRONMENTAL SCIENCE TECHNICIAN Active PREDNISONE 20 MG TAB 2 tabs daily for 3 days, 1 tab daily for 3 days, 1/2 tab daily for 2 days PREDNISONE 31034155254 No Longer Active Boo Vasquez MD Active BACTRIM DS 800-160 MG TAB 1 tab by mouth twice daily TRIMETHOPRIM-SULFAMETHOXAZOLE 80498493204 No Longer Active Gama Bermeo MD Active ZOFRAN 8 MG ORAL TABS 1 q 8hr prn vomiting ONDANSETRON HCL 63295323463 No Longer Active Gama Bermeo MD Active AUGMENTIN 875-125 MG TABS 1 bid AMOXICILLIN-POT CLAVULANATE 02184951896 No Longer Active Liat Cheng MD Active HYDROCODONE-ACETAMINOPHEN TABS Take as directed/PRN HYDROCODONE-ACETAMINOPHEN TABS 72250171017 No Longer Active Liat Cheng MD Active CEFDINIR 300 MG CAPS 1 PO bid x 7 days CEFDINIR 37536419686 No Longer Active Liat Cheng MD Active CEFDINIR 300 MG CAPS 1 PO bid x 7 days CEFDINIR 300 MG CAPS 248132 CEFDINIR Inactive HYDROCODONE-ACETAMINOPHEN TABS Take as directed/PRN HYDROCODONE-ACETAMINOPHEN TABS HYDROCODONE-ACETAMINOPHEN TABS Inactive ZOFRAN 8 MG ORAL TABS 1 q 8hr prn vomiting ZOFRAN 8 MG ORAL TABS 033916 ONDANSETRON HCL Inactive MUCINEX DM MAXIMUM STRENGTH 60-1200 MG [id number] 1 po BID PRN Cough MUCINEX DM MAXIMUM STRENGTH 60-1200 MG [id number] DEXTROMETHORPHAN-GUAIFENESIN Inactive LORATADINE 10 MG TABS 1 tablet by mouth daily PRN Congestion 2014 LORATADINE 10 MG TABS 394991 LORATADINE Inactive ZITHROMAX Z-GIANLUCA 250 MG TABS 2 today and then 1 daily for 4 days ZITHROMAX Z-GIANLUCA 250 MG TABS 3479716 AZITHROMYCIN Inactive KEFLEX 500 MG CAP 1 po qid KEFLEX 500 MG CAP 286672 CEPHALEXIN Inactive FLONASE 50 MCG/ACT SUSP 1 puff in easch nostril bid FLONASE 50 MCG/ACT SUSP FLUTICASONE PROPIONATE Inactive CIPRO 500 MG TAB 1 tablet by mouth twice daily CIPRO 500 MG TAB 754109 CIPROFLOXACIN HCL Inactive FLAGYL 500 MG TAB 1 tablet by mouth bid. do not mix with etoh. FLAGYL 500 MG TAB 554688 METRONIDAZOLE Inactive AUGMENTIN 875-125 MG TABS 1 bid AUGMENTIN 875-125 MG TABS 379083 AMOXICILLIN-POT CLAVULANATE Inactive BACTRIM DS 800-160 MG TAB 1 tab by mouth twice daily BACTRIM DS 800-160 MG TAB 885709 TRIMETHOPRIM-SULFAMETHOXAZOLE Inactive PREDNISONE 20 MG TAB 2 tabs daily for 3 days, 1 tab daily for 3 days, 1/2 tab daily for 2 days PREDNISONE 20 MG TAB 066902 PREDNISONE Inactive AZITHROMYCIN 250 MG TABS 2 pills day 1,1 pill day 2-5 AZITHROMYCIN 250 MG TABS 2919743 AZITHROMYCIN Inactive Advance Directives Directive Description Start Date PERMISSION TO SHARE Immunizations Vaccine Administration Date Value Standard Description Adacel (Tetanus, reduced Diphtheria, and acellular Pertussis Immunization) Adacel [[id number]] tetanus toxoid, reduced diphtheria toxoid, and acellular [...] 369 10^3/MM^3 10*3/mm3 142-424 Lab Report: Chlamydia/GC APTIMA/48472 - Lab chlamydia DNA probe NOT DETECTED NOT DETECTED chlamydia DNA probe NOT DETECTED NOT DETECTED Lab Report: Chlamydia/GC APTIMA/60278 - Microbiology Neisseria gonorrhoeae DNA probe NOT DETECTED NOT DETECTED Neisseria gonorrhoeae DNA probe NOT DETECTED NOT DETECTED Lab Report: Comp. Metabolic Panel - Chemistry sodium, serum 140 mmol/L 575-647 6601/11/17 carbon dioxide, venous blood 25.9 mmol/L 21.0-32.0 [...] negative Encounters Code Encounter Date Provider Facility CPT-01040 Level 3 Est. Patient 15:48:30 COAL MINE INSPECTOR Liat Cheng MD [facility] CPT-72741 Level 3 Est. Patient 14:24:59 COAL MINE INSPECTOR Liat Cheng MD [facility] CPT-61162 Level 3 Est. Patient 15:06:21 COAL MINE INSPECTOR Thai Almendarez [facility]-58756 Level 3 Est. Patient 15:43:50 COAL MINE INSPECTOR Thai Almendarez [facility]-96244 Level 3 Est. Patient 14:42:12 COAL MINE INSPECTOR Liat Cheng MD [facility] CPT-82330 Level 3 Est. Patient 16:38:12 COAL MINE INSPECTOR Valentin Blanco MD [facility] CPT-28813 Level 3 Est. Patient 14:12:52 CDT Liat Cheng MD [facility]-49275 Level 2 Est. Patient 12:17:18 CDT Audelia Ochoa [facility]-73326 Level 3 Est. Patient 15:02:49 CDT Boo Vasquez MD [facility]-55532 Level 3 Est. Patient 16:21:33 COAL MINE INSPECTOR Gama Bermeo MD [facility]-92454 Level 3 Est. Patient 11:32:23 COAL MINE INSPECTOR Liat Cheng MD [facility] CPT-41873 Level 3 Est. Patient 16:59:23 CDT Lita Cheng MD [facility] CPT-94536 Level 3 Est. Patient 17:02:11 COAL MINE INSPECTOR Tay MAJOR [facility] CPT-98182 Level 3 Est. Patient 16:49:05 COAL MINE INSPECTOR Liat Cheng MD [facility] CPT-64700 Level 3 Est. Patient 16:36:13 CDT Vivien Conway APRN [facility] Procedures Code Procedure Name Date Entry Date Standard Description CPT-J7307 Nexplanon (Implant) 16:25:36 COAL MINE INSPECTOR CPT-59336 Nexplanon Placement 16:25:36 COAL MINE INSPECTOR CPT-OV Office Visit 16:25:36 COAL MINE INSPECTOR CPT-OV Office Visit 18:49:22 COAL MINE INSPECTOR CPT-OV Office Visit 18:49:18 CDT CPT-10368 Administration single or combination vaccine inc oral 11 :11:48 CDT CPT-40496 Adacel Intramuscular Suspension 5-2-15.5 11:11:48 CDT CPT-07619 Toes 2V 17:03:02 COAL MINE INSPECTOR
--- OUTSIDE RECORDS SUMMARY | 2018-02-18 12:45 | XMS REPORT | Clinical Summary ---
Author Author Admin, QIE Organization [email or web address] Address Unknown Phone Unavailable Allergies, Adverse Reactions, [...] Cheng MD Acute pharyngitis Fatigue 780.79 Resolved iLat Cheng MD Other malaise and fatigue U [...] 1 po q8hr PRN Nausea ONDANSETRON HCL 49874404160 Active Angeline Santiago APRN Active NEXPLANON 68 MG SC IMPL Inserted in the left upper arm ETONOGESTREL 70882195033 Active Liat Cheng MD Active FLAGYL 500 MG TAB 1 tablet by mouth bid. do not mix with etoh. METRONIDAZOLE 60506424173 No Longer Active Liat Cheng MD Active CIPRO 500 MG TAB 1 tablet by mouth twice daily CIPROFLOXACIN HCL 33170949503 No Longer Active Jillina Erickson WELLS Active FLONASE 50 MCG/ACT SUSP 1 puff in easch nostril bid FLUTICASONE PROPIONATE No Longer Active Maximllpb Almendarez APRN Active KEFLEX 500 MG CAP 1 po qid CEPHALEXIN 01415125482 No Longer Active Jillina Fraaranzal STRETCH PRESS OPERATOR Active AZITHROMYCIN 250 MG TABS 2 pills day 1,1 pill day 2-5 AZITHROMYCIN 44636414979 No Longer Active Liat Cheng MD Active ZITHROMAX Z-GIANLUCA 250 MG TABS 2 today and then 1 daily for 4 days AZITHROMYCIN 59253444448 No Longer Active Liat Cheng MD Active LORATADINE 10 MG TABS 1 tablet by mouth daily PRN Congestion 2014 LORATADINE 99290906440 No Longer Active Audelia Yokum STRETCH PRESS OPERATOR Active MUCINEX DM MAXIMUM STRENGTH 60-1200 MG [id number] 1 po BID PRN Cough DEXTROMETHORPHAN-GUAIFENESIN 16248873545 No Longer Active Audelia Yokum STRETCH PRESS OPERATOR Active PREDNISONE 20 MG TAB 2 tabs daily for 3 days, 1 tab daily for 3 days, 1/2 tab daily for 2 days PREDNISONE 69912929233 No Longer Active Boo Vasquez MD Active BACTRIM DS 800-160 MG TAB 1 tab by mouth twice daily TRIMETHOPRIM-SULFAMETHOXAZOLE 39882818052 No Longer Active Gama Bermeo MD Active ZOFRAN 8 MG ORAL TABS 1 q 8hr prn vomiting ONDANSETRON HCL 79695265633 No Longer Active Gama Bermeo MD Active AUGMENTIN 875-125 MG TABS 1 bid AMOXICILLIN-POT CLAVULANATE 19766126053 No Longer Active Liat Cheng MD Active HYDROCODONE-ACETAMINOPHEN TABS Take as directed/PRN HYDROCODONE-ACETAMINOPHEN TABS 09115006436 No Longer Active Liat Cheng MD Active CEFDINIR 300 MG CAPS 1 PO bid x 7 days CEFDINIR 14903242033 No Longer Active Liat Cheng MD Active CEFDINIR 300 MG CAPS 1 PO bid x 7 days CEFDINIR 300 MG CAPS 806056 CEFDINIR Inactive HYDROCODONE-ACETAMINOPHEN TABS Take as directed/PRN HYDROCODONE-ACETAMINOPHEN TABS HYDROCODONE-ACETAMINOPHEN TABS Inactive ZOFRAN 8 MG ORAL TABS 1 q 8hr prn vomiting ZOFRAN 8 MG ORAL TABS 525579 ONDANSETRON HCL Inactive MUCINEX DM MAXIMUM STRENGTH 60-1200 MG [id number] 1 po BID PRN Cough MUCINEX DM MAXIMUM STRENGTH 60-1200 MG [id number] DEXTROMETHORPHAN-GUAIFENESIN Inactive LORATADINE 10 MG TABS 1 tablet by mouth daily PRN Congestion 2014 LORATADINE 10 MG TABS 498479 LORATADINE Inactive ZITHROMAX Z-GIANLUCA 250 MG TABS 2 today and then 1 daily for 4 days ZITHROMAX Z-GIANLUCA 250 MG TABS 0727032 AZITHROMYCIN Inactive KEFLEX 500 MG CAP 1 po qid KEFLEX 500 MG CAP 907393 CEPHALEXIN Inactive FLONASE 50 MCG/ACT SUSP 1 puff in easch nostril bid FLONASE 50 MCG/ACT SUSP FLUTICASONE PROPIONATE Inactive CIPRO 500 MG TAB 1 tablet by mouth twice daily CIPRO 500 MG TAB 475137 CIPROFLOXACIN HCL Inactive FLAGYL 500 MG TAB 1 tablet by mouth bid. do not mix with etoh. FLAGYL 500 MG TAB 347012 METRONIDAZOLE Inactive AUGMENTIN 875-125 MG TABS 1 bid AUGMENTIN 875-125 MG TABS 692749 AMOXICILLIN-POT CLAVULANATE Inactive BACTRIM DS 800-160 MG TAB 1 tab by mouth twice daily BACTRIM DS 800-160 MG TAB 637527 TRIMETHOPRIM-SULFAMETHOXAZOLE Inactive PREDNISONE 20 MG TAB 2 tabs daily for 3 days, 1 tab daily for 3 days, 1/2 tab daily for 2 days PREDNISONE 20 MG TAB 028007 PREDNISONE Inactive AZITHROMYCIN 250 MG TABS 2 pills day 1,1 pill day 2-5 AZITHROMYCIN 250 MG TABS 1865901 AZITHROMYCIN Inactive Advance Directives Directive Description Start Date PERMISSION TO SHARE Immunizations Vaccine Administration Date Value Standard Description Adacel (Tetanus, reduced Diphtheria, and acellular Pertussis Immunization) Adacel [[id number]] tetanus toxoid, reduced diphtheria toxoid, and acellular [...] 369 10^3/MM^3 10*3/mm3 142-424 Lab Report: Chlamydia/GC APTIMA/86820 - Lab chlamydia DNA probe NOT DETECTED NOT DETECTED chlamydia DNA probe NOT DETECTED NOT DETECTED Lab Report: Chlamydia/GC APTIMA/71131 - Microbiology Neisseria gonorrhoeae DNA probe NOT DETECTED NOT DETECTED Neisseria gonorrhoeae DNA probe NOT DETECTED NOT DETECTED Lab Report: Comp. Metabolic Panel - Chemistry sodium, serum 140 mmol/L 744-623 6989/11/17 carbon dioxide, venous blood 25.9 mmol/L 21.0-32.0 [...] negative Encounters Code Encounter Date Provider Facility CPT-52769 Level 3 Est. Patient 15:48:30 TYPEWRITER REPAIRER Liat Cheng MD [facility] CPT-86101 Level 3 Est. Patient 14:24:59 TYPEWRITER REPAIRER Liat Cheng MD [facility] CPT-20691 Level 3 Est. Patient 15:06:21 TYPEWRITER REPAIRER Thai Almendarez [facility]-56360 Level 3 Est. Patient 15:43:50 TYPEWRITER REPAIRER Thai Almendarez [facility]-53395 Level 3 Est. Patient 14:42:12 TYPEWRITER REPAIRER Liat Cheng MD [facility] CPT-46246 Level 3 Est. Patient 16:38:12 TYPEWRITER REPAIRER Valentin Blanco MD [facility] CPT-06037 Level 3 Est. Patient 14:12:52 CDT Liat Cheng MD [facility]-81209 Level 2 Est. Patient 12:17:18 CDT Audelia Ochoa [facility]-10620 Level 3 Est. Patient 15:02:49 CDT Boo Vasquez MD [facility]-40091 Level 3 Est. Patient 16:21:33 TYPEWRITER REPAIRER Gama Bermeo MD [facility]-06638 Level 3 Est. Patient 11:32:23 TYPEWRITER REPAIRER Liat Cheng MD [facility] CPT-55699 Level 3 Est. Patient 16:59:23 CDT Liat Cheng MD [facility] CPT-70579 Level 3 Est. Patient 17:02:11 TYPEWRITER REPAIRER Tay MAJOR [facility] CPT-67977 Level 3 Est. Patient 16:49:05 TYPEWRITER REPAIRER Liat Cheng MD [facility] CPT-54972 Level 3 Est. Patient 16:36:13 CDT Vivien Conway APRN [facility] Procedures Code Procedure Name Date Entry Date Standard Description CPT-J7307 Nexplanon (Implant) 16:25:36 TYPEWRITER REPAIRER CPT-74734 Nexplanon Placement 16:25:36 TYPEWRITER REPAIRER CPT-OV Office Visit 16:25:36 TYPEWRITER REPAIRER CPT-OV Office Visit 18:49:22 TYPEWRITER REPAIRER CPT-OV Office Visit 18:49:18 CDT CPT-77037 Administration single or combination vaccine inc oral 11 :11:48 CDT CPT-47859 Adacel Intramuscular Suspension 5-2-15.5 11:11:48 CDT CPT-82221 Toes 2V 17:03:02 TYPEWRITER REPAIRER
--- OUTSIDE RECORDS SUMMARY | 2018-02-18 12:46 | XMS REPORT | Clinical Summary ---
Author Author Admin, QIE Organization [employer] Address Unknown Phone Unavailable Allergies, Adverse Reactions, [...] 500 MG CAP 1 po qid CEPHALEXIN 65478216524 Active Jillina Zulayzell CARGO OPERATIONS AGENT Active FLONASE 50 MCG/ACT SUSP 1 puff in easch nostril bid FLUTICASONE PROPIONATE Active Liat Cheng MD Active AZITHROMYCIN 250 MG TABS 2 pills day 1,1 pill day 2-5 AZITHROMYCIN 64533451945 No Longer Active Liat Cheng MD Active ZITHROMAX Z-GIANLUCA 250 MG TABS 2 today and then 1 daily for 4 days AZITHROMYCIN 53047437795 No Longer Active Liat Cheng MD Active LORATADINE 10 MG TABS 1 tablet by mouth daily PRN Congestion 2014 LORATADINE 35014697420 No Longer Active Audelia Yokum CARGO OPERATIONS AGENT Active MUCINEX DM MAXIMUM STRENGTH 60-1200 MG [id number] 1 po BID PRN Cough DEXTROMETHORPHAN-GUAIFENESIN 49710279098 No Longer Active Audelia Yokum CARGO OPERATIONS AGENT Active PREDNISONE 20 MG TAB 2 tabs daily for 3 days, 1 tab daily for 3 days, 1/2 tab daily for 2 days PREDNISONE 18146568955 No Longer Active Boo Vasquez MD Active BACTRIM DS 800-160 MG TAB 1 tab by mouth twice daily TRIMETHOPRIM-SULFAMETHOXAZOLE 56062733492 No Longer Active Gama Bermeo MD Active ZOFRAN 8 MG ORAL TABS 1 q 8hr prn vomiting ONDANSETRON HCL 74446897757 No Longer Active Gama Bermeo MD Active AUGMENTIN 875-125 MG TABS 1 bid AMOXICILLIN-POT CLAVULANATE 03314091879 No Longer Active Liat Cheng MD Active HYDROCODONE-ACETAMINOPHEN TABS Take as directed/PRN HYDROCODONE-ACETAMINOPHEN TABS 29067663247 No Longer Active Liat Cheng MD Active CEFDINIR 300 MG CAPS 1 PO bid x 7 days CEFDINIR 37852762235 No Longer Active Liat Cheng MD Active CEFDINIR 300 MG CAPS 1 PO bid x 7 days CEFDINIR 300 MG CAPS 789802 CEFDINIR Inactive HYDROCODONE-ACETAMINOPHEN TABS Take as directed/PRN HYDROCODONE-ACETAMINOPHEN TABS HYDROCODONE-ACETAMINOPHEN TABS Inactive ZOFRAN 8 MG ORAL TABS 1 q 8hr prn vomiting ZOFRAN 8 MG ORAL TABS 749779 ONDANSETRON HCL Inactive MUCINEX DM MAXIMUM STRENGTH 60-1200 MG [id number] 1 po BID PRN Cough MUCINEX DM MAXIMUM STRENGTH 60-1200 MG [id number] DEXTROMETHORPHAN-GUAIFENESIN Inactive LORATADINE 10 MG TABS 1 tablet by mouth daily PRN Congestion 2014 LORATADINE 10 MG TABS 147799 LORATADINE Inactive ZITHROMAX Z-GIANLUCA 250 MG TABS 2 today and then 1 daily for 4 days ZITHROMAX Z-GIANLUCA 250 MG TABS 8479370 AZITHROMYCIN Inactive AUGMENTIN 875-125 MG TABS 1 bid AUGMENTIN 875-125 MG TABS 109589 AMOXICILLIN-POT CLAVULANATE Inactive BACTRIM DS 800-160 MG TAB 1 tab by mouth twice daily BACTRIM DS 800-160 MG TAB 964502 TRIMETHOPRIM-SULFAMETHOXAZOLE Inactive PREDNISONE 20 MG TAB 2 tabs daily for 3 days, 1 tab daily for 3 days, 1/2 tab daily for 2 days PREDNISONE 20 MG TAB 665098 PREDNISONE Inactive AZITHROMYCIN 250 MG TABS 2 pills day 1,1 pill day 2-5 AZITHROMYCIN 250 MG TABS 8426719 AZITHROMYCIN Inactive Immunizations Vaccine Administration Date Value Standard Description Adacel (Tetanus, reduced Diphtheria, and acellular Pertussis Immunization) Adacel [[id number]] tetanus toxoid, reduced diphtheria toxoid, and acellular [...] Panel - Chemistry sodium, serum 140 mmol/L 098-076 6125/11/17 carbon dioxide, venous blood 25.9 mmol/L 21.0-32.0 [...] chorionic gonadotropin, urine, qualitative (urine test) Negative Encounters Code Encounter Date Provider Facility CPT-03227 Level 3 Est. Patient 14:42:12 ELECTROENCEPHALOGRAPH TECHNOLOGIST Liat Cheng MD [facility] CPT-93519 Level 3 Est. Patient 16:38:12 ELECTROENCEPHALOGRAPH TECHNOLOGIST Valentin Blanco MD [facility] CPT-28731 Level 3 Est. Patient 14:12:52 CDT Liat Cheng MD [facility] CPT-79487 Level 2 Est. Patient 12:17:18 CDT Audelia Ochoa APRN [facility] CPT-26509 Level 3 Est. Patient 15:02:49 CDT Boo Vasquez MD [facility] CPT-80773 Level 3 Est. Patient 16:21:33 ELECTROENCEPHALOGRAPH TECHNOLOGIST Gama Bermeo MD [facility] CPT-31775 Level 3 Est. Patient 11:32:23 ELECTROENCEPHALOGRAPH TECHNOLOGIST Liat Cheng MD [facility] CPT-07676 Level 3 Est. Patient 16:59:23 CDT Liat Cheng MD [facility] CPT-45297 Level 3 Est. Patient 17:02:11 ELECTROENCEPHALOGRAPH TECHNOLOGIST Tay MAJOR [facility] CPT-84768 Level 3 Est. Patient 16:49:05 ELECTROENCEPHALOGRAPH TECHNOLOGIST Liat Cheng MD [facility] CPT-67181 Level 3 Est. Patient 16:36:13 CDT Vivien Conway APRN [facility] Procedures Code Procedure Name Date Entry Date Standard Description CPT-J7307 Nexplanon (Implant) 16:25:36 ELECTROENCEPHALOGRAPH TECHNOLOGIST CPT-82828 Nexplanon Placement 16:25:36 ELECTROENCEPHALOGRAPH TECHNOLOGIST CPT-OV Office Visit 16:25:36 ELECTROENCEPHALOGRAPH TECHNOLOGIST CPT-OV Office Visit 18:49:22 ELECTROENCEPHALOGRAPH TECHNOLOGIST CPT-OV Office Visit 18:49:18 CDT CPT-81535 Administration single or combination vaccine inc oral 11 :11:48 CDT CPT-62399 Adacel Intramuscular Suspension 5-2-15.5 11:11:48 CDT CPT-96670 Toes 2V 17:03:02 ELECTROENCEPHALOGRAPH TECHNOLOGIST
--- OUTSIDE RECORDS SUMMARY | 2018-02-18 12:46 | XMS REPORT | Clinical Summary ---
Author Author Admin, QIE Organization [email or web address] Address Unknown Phone Unavailable Allergies, Adverse Reactions, [...] tablet by mouth twice daily CIPROFLOXACIN HCL 51758004880 Active Jillina Frazell LITIGATION EXAMINER Active FLAGYL 500 MG TAB 1 tablet by mouth bid. do not mix with etoh. METRONIDAZOLE 78469177797 Active Jillina Frazell LITIGATION EXAMINER Active FLONASE 50 MCG/ACT SUSP 1 puff in easch nostril bid FLUTICASONE PROPIONATE No Longer Active Jillpb Almendarez LITIGATION EXAMINER Active KEFLEX 500 MG CAP 1 po qid CEPHALEXIN 07868160293 No Longer Active Jillina Frankiel LITIGATION EXAMINER Active AZITHROMYCIN 250 MG TABS 2 pills day 1,1 pill day 2-5 AZITHROMYCIN 22904590463 No Longer Active Liat Cheng MD Active ZITHROMAX Z-GIANLUCA 250 MG TABS 2 today and then 1 daily for 4 days AZITHROMYCIN 87628697497 No Longer Active Liat Cheng MD Active LORATADINE 10 MG TABS 1 tablet by mouth daily PRN Congestion 2014 LORATADINE 49248414771 No Longer Active Audelia Yokum LITIGATION EXAMINER Active MUCINEX DM MAXIMUM STRENGTH 60-1200 MG [id number] 1 po BID PRN Cough DEXTROMETHORPHAN-GUAIFENESIN 66199125127 No Longer Active Audelia Yokum LITIGATION EXAMINER Active PREDNISONE 20 MG TAB 2 tabs daily for 3 days, 1 tab daily for 3 days, 1/2 tab daily for 2 days PREDNISONE 92967349600 No Longer Active Boo Vasquez MD Active BACTRIM DS 800-160 MG TAB 1 tab by mouth twice daily TRIMETHOPRIM-SULFAMETHOXAZOLE 86404527002 No Longer Active Gama Bermeo MD Active ZOFRAN 8 MG ORAL TABS 1 q 8hr prn vomiting ONDANSETRON HCL 57992940019 No Longer Active Gama Bermeo MD Active AUGMENTIN 875-125 MG TABS 1 bid AMOXICILLIN-POT CLAVULANATE 34907555017 No Longer Active Liat Cheng MD Active HYDROCODONE-ACETAMINOPHEN TABS Take as directed/PRN HYDROCODONE-ACETAMINOPHEN TABS 88186166056 No Longer Active Liat Cheng MD Active CEFDINIR 300 MG CAPS 1 PO bid x 7 days CEFDINIR 52898938114 No Longer Active Liat Cheng MD Active CEFDINIR 300 MG CAPS 1 PO bid x 7 days CEFDINIR 300 MG CAPS 361153 CEFDINIR Inactive HYDROCODONE-ACETAMINOPHEN TABS Take as directed/PRN HYDROCODONE-ACETAMINOPHEN TABS HYDROCODONE-ACETAMINOPHEN TABS Inactive ZOFRAN 8 MG ORAL TABS 1 q 8hr prn vomiting ZOFRAN 8 MG ORAL TABS 352964 ONDANSETRON HCL Inactive MUCINEX DM MAXIMUM STRENGTH 60-1200 MG [id number] 1 po BID PRN Cough MUCINEX DM MAXIMUM STRENGTH 60-1200 MG [id number] DEXTROMETHORPHAN-GUAIFENESIN Inactive LORATADINE 10 MG TABS 1 tablet by mouth daily PRN Congestion 2014 LORATADINE 10 MG TABS 042891 LORATADINE Inactive ZITHROMAX Z-GIANLUCA 250 MG TABS 2 today and then 1 daily for 4 days ZITHROMAX Z-GIANLUCA 250 MG TABS 5826332 AZITHROMYCIN Inactive KEFLEX 500 MG CAP 1 po qid KEFLEX 500 MG CAP 080906 CEPHALEXIN Inactive FLONASE 50 MCG/ACT SUSP 1 puff in easch nostril bid FLONASE 50 MCG/ACT SUSP FLUTICASONE PROPIONATE Inactive AUGMENTIN 875-125 MG TABS 1 bid AUGMENTIN 875-125 MG TABS 518709 AMOXICILLIN-POT CLAVULANATE Inactive BACTRIM DS 800-160 MG TAB 1 tab by mouth twice daily BACTRIM DS 800-160 MG TAB 407187 TRIMETHOPRIM-SULFAMETHOXAZOLE Inactive PREDNISONE 20 MG TAB 2 tabs daily for 3 days, 1 tab daily for 3 days, 1/2 tab daily for 2 days PREDNISONE 20 MG TAB 194402 PREDNISONE Inactive AZITHROMYCIN 250 MG TABS 2 pills day 1,1 pill day 2-5 AZITHROMYCIN 250 MG TABS 0888312 AZITHROMYCIN Inactive Immunizations Vaccine Administration Date Value Standard Description Adacel (Tetanus, reduced Diphtheria, and acellular Pertussis Immunization) Adacel [[id number]] tetanus toxoid, reduced diphtheria toxoid, and acellular [...] 369 10^3/MM^3 10*3/mm3 142-424 Lab Report: Chlamydia/GC APTIMA/82801 - Lab chlamydia DNA probe NOT DETECTED NOT DETECTED Lab Report: Chlamydia/GC APTIMA/88903 - Microbiology Neisseria gonorrhoeae DNA probe NOT DETECTED NOT DETECTED Lab Report: Comp. Metabolic Panel - Chemistry sodium, serum 140 mmol/L 732-260 7661/11/17 carbon dioxide, venous blood 25.9 mmol/L 21.0-32.0 [...] negative Encounters Code Encounter Date Provider Facility CPT-87431 Level 3 Est. Patient 15:43:50 CURING PICKLING PACKER Thai Almendarez [facility] CPT-04012 Level 3 Est. Patient 14:42:12 CURING PICKLING PACKER Liat Cheng MD [facility] CPT-27042 Level 3 Est. Patient 16:38:12 CURING P[employer] P[employer]ER Valentin Blanco MD [facility] CPT-69406 Level 3 Est. Patient 14:12:52 CDT Liat Cheng MD [facility] CPT-90328 Level 2 Est. Patient 12:17:18 CDT Audelia Ochoa [facility] CPT-70452 Level 3 Est. Patient 15:02:49 CDT Boo Vasquez MD [facility] CPT-75615 Level 3 Est. Patient 16:21:33 CURING PICKLING P[employer]ER Gama Bermeo MD [facility] CPT-76635 Level 3 Est. Patient 11:32:23 CURING PICKLING PACKER Liat Cheng MD [facility] CPT-97181 Level 3 Est. Patient 16:59:23 CDT Liat Cheng MD [facility] CPT-12441 Level 3 Est. Patient 17:02:11 CURING PICKLING P[employer]ER Tay MAJOR [facility] CPT-49831 Level 3 Est. Patient 16:49:05 CURING PICKLING PACKER Liat Cheng MD [facility] CPT-98163 Level 3 Est. Patient 16:36:13 CDT Vivien Conway LITIGATION EXAMINER [facility] Procedures Code Procedure Name Date Entry Date Standard Description CPT-J7307 Nexplanon (Implant) 16:25:36 CURING PICKLING PACKER CPT-30341 Nexplanon Placement 16:25:36 CURING PICKLING PACKER CPT-OV Office Visit 16:25:36 CURING PICKLING PACKER CPT-OV Office Visit 18:49:22 CURING PICKLING PACKER CPT-OV Office Visit 18:49:18 CDT CPT-39589 Administration single or combination vaccine inc oral 11 :11:48 CDT CPT-10535 Adacel Intramuscular Suspension 5-2-15.5 11:11:48 CDT CPT-71894 Toes 2V 17:03:02 CURING PICKLING PACKER
--- OUTSIDE RECORDS SUMMARY | 2018-02-18 12:47 | XMS REPORT | Clinical Summary ---
Author Author Admin, QIE Organization [email or web address] Address Unknown Phone Unavailable Allergies, Adverse Reactions, [...] Generic Name NDC Status Provider Patient Instruction PREDNISONE 20 MG TAB 2 tabs daily for 3 days, 1 tab daily for 3 days, 1/2 tab daily for 2 days PREDNISONE 31294714153 No Longer Active Boo Vasquez MD Active MUCINEX DM MAXIMUM STRENGTH 60-1200 MG [id number] 1 po BID PRN Cough DEXTROMETHORPHAN-GUAIFENESIN 26787372558 Active Boo Vasquez MD Active LORATADINE 10 MG TABS 1 tablet by mouth daily PRN Congestion LORATADINE 11028636978 Active Boo Vasquez MD Active BACTRIM DS 800-160 MG TAB 1 tab by mouth twice daily TRIMETHOPRIM-SULFAMETHOXAZOLE 88033417347 No Longer Active Gama Bermeo MD Active ZOFRAN 8 MG ORAL TABS 1 q 8hr prn vomiting ONDANSETRON HCL 79879375673 No Longer Active Gama Bermeo MD Active AUGMENTIN 875-125 MG TABS 1 bid AMOXICILLIN-POT CLAVULANATE 87633555416 No Longer Active Liat Cheng MD Active HYDROCODONE-ACETAMINOPHEN TABS Take as directed/PRN HYDROCODONE-ACETAMINOPHEN TABS 39902035373 No Longer Active Liat Cheng MD Active CEFDINIR 300 MG CAPS 1 PO bid x 7 days CEFDINIR 97287328828 No Longer Active Liat Cheng MD Active CEFDINIR 300 MG CAPS 1 PO bid x 7 days CEFDINIR 300 MG CAPS 152335 CEFDINIR Inactive HYDROCODONE-ACETAMINOPHEN TABS Take as directed/PRN HYDROCODONE-ACETAMINOPHEN TABS HYDROCODONE-ACETAMINOPHEN TABS Inactive ZOFRAN 8 MG ORAL TABS 1 q 8hr prn vomiting ZOFRAN 8 MG ORAL TABS 049279 ONDANSETRON HCL Inactive AUGMENTIN 875-125 MG TABS 1 bid AUGMENTIN 875-125 MG TABS 418995 AMOXICILLIN-POT CLAVULANATE Inactive BACTRIM DS 800-160 MG TAB 1 tab by mouth twice daily BACTRIM DS 800-160 MG TAB TRIMETHOPRIM-SULFAMETHOXAZOLE Inactive PREDNISONE 20 MG TAB 2 tabs daily for 3 days, 1 tab daily for 3 days, 1/2 tab daily for 2 days PREDNISONE 20 MG TAB 097767 PREDNISONE Inactive Immunizations Vaccine Administration Date Value Standard Description Adacel (Tetanus, reduced Diphtheria, and acellular Pertussis Immunization) Adacel [[id number]] tetanus toxoid, reduced diphtheria toxoid, and acellular [...] E&M - 3141-9 233.50 [lb_av] Weight Measured Diagnostic Results Date Name Value Unit Range Description Immunizations: TB Skin Test - Challenge tests PPD results in mm 0 mm Encounters Code Encounter Date Provider Facility CPT-23086 Level 3 Est. Patient 15:02:49 CDT Boo Vasquez MD [facility] CPT-84190 Level 3 Est. Patient 16:21:33 GUEST EXPERIENCE SPECIALIST Gama Bermeo MD [facility] CPT-16019 Level 3 Est. Patient 11:32:23 GUEST EXPERIENCE SPECIALIST Liat Cheng MD [facility] CPT-67527 Level 3 Est. Patient 16:59:23 CDT Liat Cheng MD [facility] CPT-69281 Level 3 Est. Patient 17:02:11 GUEST EXPERIENCE SPECIALIST Tay MAJOR [facility] CPT-74889 Level 3 Est. Patient 16:49:05 GUEST EXPERIENCE SPECIALIST Liat Cheng MD [facility] CPT-79425 Level 3 Est. Patient 16:36:13 CDT Vivien Conway APRN [facility] Procedures Code Procedure Name Date Entry Date Standard Description CPT-21557 Administration single or combination vaccine inc oral 11 :11:48 CDT CPT-69011 Adacel Intramuscular Suspension 5-2-15.5 11:11:48 CDT CPT-76372 Toes 2V 17:03:02 GUEST EXPERIENCE SPECIALIST
--- OUTSIDE RECORDS SUMMARY | 2018-02-18 12:47 | XMS REPORT | Clinical Summary ---
Author Author Admin, QIE Organization [employer] Address Unknown Phone Unavailable Allergies, Adverse Reactions, [...] tablet by mouth twice daily CIPROFLOXACIN HCL 34421346104 Active Jillina Frazell BACK TENDER PULP DRIER Active FLAGYL 500 MG TAB 1 tablet by mouth bid. do not mix with etoh. METRONIDAZOLE 85497463658 Active Jillina Frazell BACK TENDER PULP DRIER Active FLONASE 50 MCG/ACT SUSP 1 puff in easch nostril bid FLUTICASONE PROPIONATE No Longer Active Jillpb Almendarez BACK TENDER PULP DRIER Active KEFLEX 500 MG CAP 1 po qid CEPHALEXIN 14037597977 No Longer Active Jillina Frankiel BACK TENDER PULP DRIER Active AZITHROMYCIN 250 MG TABS 2 pills day 1,1 pill day 2-5 AZITHROMYCIN 17847175219 No Longer Active Liat Cheng MD Active ZITHROMAX Z-GIANLUCA 250 MG TABS 2 today and then 1 daily for 4 days AZITHROMYCIN 90843972102 No Longer Active Liat Cheng MD Active LORATADINE 10 MG TABS 1 tablet by mouth daily PRN Congestion 2014 LORATADINE 98899587703 No Longer Active Audelia Yokum BACK TENDER PULP DRIER Active MUCINEX DM MAXIMUM STRENGTH 60-1200 MG [id number] 1 po BID PRN Cough DEXTROMETHORPHAN-GUAIFENESIN 98188209489 No Longer Active Audelia Yokum BACK TENDER PULP DRIER Active PREDNISONE 20 MG TAB 2 tabs daily for 3 days, 1 tab daily for 3 days, 1/2 tab daily for 2 days PREDNISONE 97487326465 No Longer Active Boo Vasquez MD Active BACTRIM DS 800-160 MG TAB 1 tab by mouth twice daily TRIMETHOPRIM-SULFAMETHOXAZOLE 26856090407 No Longer Active Gama Bermeo MD Active ZOFRAN 8 MG ORAL TABS 1 q 8hr prn vomiting ONDANSETRON HCL 53964051475 No Longer Active Gama Bermeo MD Active AUGMENTIN 875-125 MG TABS 1 bid AMOXICILLIN-POT CLAVULANATE 87991005480 No Longer Active Liat Cheng MD Active HYDROCODONE-ACETAMINOPHEN TABS Take as directed/PRN HYDROCODONE-ACETAMINOPHEN TABS 35936006892 No Longer Active Liat Cheng MD Active CEFDINIR 300 MG CAPS 1 PO bid x 7 days CEFDINIR 43796107784 No Longer Active Liat Cheng MD Active CEFDINIR 300 MG CAPS 1 PO bid x 7 days CEFDINIR 300 MG CAPS 016608 CEFDINIR Inactive HYDROCODONE-ACETAMINOPHEN TABS Take as directed/PRN HYDROCODONE-ACETAMINOPHEN TABS HYDROCODONE-ACETAMINOPHEN TABS Inactive ZOFRAN 8 MG ORAL TABS 1 q 8hr prn vomiting ZOFRAN 8 MG ORAL TABS 355836 ONDANSETRON HCL Inactive MUCINEX DM MAXIMUM STRENGTH 60-1200 MG [id number] 1 po BID PRN Cough MUCINEX DM MAXIMUM STRENGTH 60-1200 MG [id number] DEXTROMETHORPHAN-GUAIFENESIN Inactive LORATADINE 10 MG TABS 1 tablet by mouth daily PRN Congestion 2014 LORATADINE 10 MG TABS 897098 LORATADINE Inactive ZITHROMAX Z-GIANLUCA 250 MG TABS 2 today and then 1 daily for 4 days ZITHROMAX Z-GIANLUCA 250 MG TABS 7262166 AZITHROMYCIN Inactive KEFLEX 500 MG CAP 1 po qid KEFLEX 500 MG CAP 490805 CEPHALEXIN Inactive FLONASE 50 MCG/ACT SUSP 1 puff in easch nostril bid FLONASE 50 MCG/ACT SUSP FLUTICASONE PROPIONATE Inactive AUGMENTIN 875-125 MG TABS 1 bid AUGMENTIN 875-125 MG TABS 635565 AMOXICILLIN-POT CLAVULANATE Inactive BACTRIM DS 800-160 MG TAB 1 tab by mouth twice daily BACTRIM DS 800-160 MG TAB 615570 TRIMETHOPRIM-SULFAMETHOXAZOLE Inactive PREDNISONE 20 MG TAB 2 tabs daily for 3 days, 1 tab daily for 3 days, 1/2 tab daily for 2 days PREDNISONE 20 MG TAB 316777 PREDNISONE Inactive AZITHROMYCIN 250 MG TABS 2 pills day 1,1 pill day 2-5 AZITHROMYCIN 250 MG TABS 6505453 AZITHROMYCIN Inactive Immunizations Vaccine Administration Date Value Standard Description Adacel (Tetanus, reduced Diphtheria, and acellular Pertussis Immunization) Adacel [[id number]] tetanus toxoid, reduced diphtheria toxoid, and acellular [...] Panel - Chemistry sodium, serum 140 mmol/L 704-941 7464/11/17 carbon dioxide, venous blood 25.9 mmol/L 21.0-32.0 [...] negative Encounters Code Encounter Date Provider Facility CPT-79135 Level 3 Est. Patient 15:43:50 RESEARCH ARCHAEOLOGIST Thai Almendarez [facility] CPT-16965 Level 3 Est. Patient 14:42:12 RESEARCH ARCHAEOLOGIST Liat Cheng MD [facility] CPT-44093 Level 3 Est. Patient 16:38:12 RESEARCH ARCHAEOLOGIST Valentin Blanco MD [facility] CPT-71971 Level 3 Est. Patient 14:12:52 CDT Liat Cheng MD [facility] CPT-86775 Level 2 Est. Patient 12:17:[address] [facility] CPT-61246 Level 3 Est. Patient 15:02:49 CDT Boo Vasquez MD [facility] CPT-09470 Level 3 Est. Patient 16:21:33 RESEARCH ARCHAEOLOGIST Gama Bermeo MD [facility] CPT-94032 Level 3 Est. Patient 11:32:23 RESEARCH ARCHAEOLOGIST Liat Cheng MD [facility] CPT-45270 Level 3 Est. Patient 16:59:23 CDT Liat Cheng MD [facility] CPT-81257 Level 3 Est. Patient 17:02:11 RESEARCH ARCHAEOLOGIST Tay MAJOR [facility] CPT-07309 Level 3 Est. Patient 16:49:05 RESEARCH ARCHAEOLOGIST Liat Cheng MD [facility] CPT-89454 Level 3 Est. Patient 16:36:[address] [facility] Procedures Code Procedure Name Date Entry Date Standard Description CPT-J7307 Nexplanon (Implant) 16:25:36 RESEARCH ARCHAEOLOGIST CPT-09937 Nexplanon Placement 16:25:36 RESEARCH ARCHAEOLOGIST CPT-OV Office Visit 16:25:36 RESEARCH ARCHAEOLOGIST CPT-OV Office Visit 18:49:22 RESEARCH ARCHAEOLOGIST CPT-OV Office Visit 18:49:18 CDT CPT-68869 Administration single or combination vaccine inc oral 11 :11:48 CDT CPT-75895 Adacel Intramuscular Suspension 5-2-15.5 11:11:48 CDT CPT-74526 Toes 2V 17:03:02 RESEARCH ARCHAEOLOGIST
--- OUTSIDE RECORDS SUMMARY | 2018-02-18 12:48 | XMS REPORT | Clinical Summary ---
Author Author Admin, QIE Organization [employer] Address Unknown Phone Unavailable Allergies, Adverse Reactions, [...] 500 MG CAP 1 po qid CEPHALEXIN 22242482245 Active Jillina Zulayzell TIRE SHOP MANAGER Active FLONASE 50 MCG/ACT SUSP 1 puff in easch nostril bid FLUTICASONE PROPIONATE Active Liat Cheng MD Active AZITHROMYCIN 250 MG TABS 2 pills day 1,1 pill day 2-5 AZITHROMYCIN 15278620903 No Longer Active Liat Cheng MD Active ZITHROMAX Z-GIANLUCA 250 MG TABS 2 today and then 1 daily for 4 days AZITHROMYCIN 14975839056 No Longer Active Liat Cheng MD Active LORATADINE 10 MG TABS 1 tablet by mouth daily PRN Congestion 2014 LORATADINE 05829313718 No Longer Active Audelia Yokum TIRE SHOP MANAGER Active MUCINEX DM MAXIMUM STRENGTH 60-1200 MG [id number] 1 po BID PRN Cough DEXTROMETHORPHAN-GUAIFENESIN 88145772406 No Longer Active Audelia Yokum TIRE SHOP MANAGER Active PREDNISONE 20 MG TAB 2 tabs daily for 3 days, 1 tab daily for 3 days, 1/2 tab daily for 2 days PREDNISONE 66124572160 No Longer Active Boo Vasquez MD Active BACTRIM DS 800-160 MG TAB 1 tab by mouth twice daily TRIMETHOPRIM-SULFAMETHOXAZOLE 48730016772 No Longer Active Gama Bermeo MD Active ZOFRAN 8 MG ORAL TABS 1 q 8hr prn vomiting ONDANSETRON HCL 34590902344 No Longer Active Gama Bermeo MD Active AUGMENTIN 875-125 MG TABS 1 bid AMOXICILLIN-POT CLAVULANATE 77978111361 No Longer Active Liat Cheng MD Active HYDROCODONE-ACETAMINOPHEN TABS Take as directed/PRN HYDROCODONE-ACETAMINOPHEN TABS 07229891720 No Longer Active Liat Cheng MD Active CEFDINIR 300 MG CAPS 1 PO bid x 7 days CEFDINIR 10336474649 No Longer Active Liat Cheng MD Active CEFDINIR 300 MG CAPS 1 PO bid x 7 days CEFDINIR 300 MG CAPS 959159 CEFDINIR Inactive HYDROCODONE-ACETAMINOPHEN TABS Take as directed/PRN HYDROCODONE-ACETAMINOPHEN TABS HYDROCODONE-ACETAMINOPHEN TABS Inactive ZOFRAN 8 MG ORAL TABS 1 q 8hr prn vomiting ZOFRAN 8 MG ORAL TABS 477152 ONDANSETRON HCL Inactive MUCINEX DM MAXIMUM STRENGTH 60-1200 MG [id number] 1 po BID PRN Cough MUCINEX DM MAXIMUM STRENGTH 60-1200 MG [id number] DEXTROMETHORPHAN-GUAIFENESIN Inactive LORATADINE 10 MG TABS 1 tablet by mouth daily PRN Congestion 2014 LORATADINE 10 MG TABS 186682 LORATADINE Inactive ZITHROMAX Z-GIANLUCA 250 MG TABS 2 today and then 1 daily for 4 days ZITHROMAX Z-GIANLUCA 250 MG TABS 2692477 AZITHROMYCIN Inactive AUGMENTIN 875-125 MG TABS 1 bid AUGMENTIN 875-125 MG TABS 564261 AMOXICILLIN-POT CLAVULANATE Inactive BACTRIM DS 800-160 MG TAB 1 tab by mouth twice daily BACTRIM DS 800-160 MG TAB 385968 TRIMETHOPRIM-SULFAMETHOXAZOLE Inactive PREDNISONE 20 MG TAB 2 tabs daily for 3 days, 1 tab daily for 3 days, 1/2 tab daily for 2 days PREDNISONE 20 MG TAB 715606 PREDNISONE Inactive AZITHROMYCIN 250 MG TABS 2 pills day 1,1 pill day 2-5 AZITHROMYCIN 250 MG TABS 0523646 AZITHROMYCIN Inactive Immunizations Vaccine Administration Date Value Standard Description Adacel (Tetanus, reduced Diphtheria, and acellular Pertussis Immunization) Adacel [[id number]] tetanus toxoid, reduced diphtheria toxoid, and acellular [...] Panel - Chemistry sodium, serum 140 mmol/L 173-652 0150/11/17 carbon dioxide, venous blood 25.9 mmol/L 21.0-32.0 [...] Negative Encounters Code Encounter Date Provider Facility CPT-83526 Level 3 Est. Patient 14:42:12 RN WELLNESS Liat Cheng MD [facility] CPT-44886 Level 3 Est. Patient 16:38:12 RN WELLNESS Valentin Blanco MD [facility] CPT-07061 Level 3 Est. Patient 14:12:52 CDT Liat Cheng MD [facility] CPT-96112 Level 2 Est. Patient 12:17:18 CDT Audelia Ochoa APRN [facility] CPT-58105 Level 3 Est. Patient 15:02:49 CDT Boo Vasquez MD [facility] CPT-38643 Level 3 Est. Patient 16:21:33 RN WELLNESS Gama Bermeo MD [facility] CPT-30859 Level 3 Est. Patient 11:32:23 RN WELLNESS Liat Cheng MD [facility] CPT-40453 Level 3 Est. Patient 16:59:23 CDT Liat Cheng MD [facility] CPT-62742 Level 3 Est. Patient 17:02:11 RN WELLNESS Tay MAJOR [facility] CPT-08266 Level 3 Est. Patient 16:49:05 RN WELLNESS Liat Cheng MD [facility] CPT-70897 Level 3 Est. Patient 16:36:13 CDT Vivien Conway APRN [facility] Procedures Code Procedure Name Date Entry Date Standard Description CPT-J7307 Nexplanon (Implant) 16:25:36 RN WELLNESS CPT-93072 Nexplanon Placement 16:25:36 RN WELLNESS CPT-OV Office Visit 16:25:36 RN WELLNESS CPT-OV Office Visit 18:49:22 RN WELLNESS CPT-OV Office Visit 18:49:18 CDT CPT-48493 Administration single or combination vaccine inc oral 11 :11:48 CDT CPT-54741 Adacel Intramuscular Suspension 5-2-15.5 11:11:48 CDT CPT-79474 Toes 2V 17:03:02 RN WELLNESS
--- OUTSIDE RECORDS SUMMARY | 2018-02-18 12:49 | XMS REPORT | Clinical Summary ---
Author Author Admin, ISRRAEL Organization [facility] Address Unknown Phone Unavailable Allergies, Adverse [...] Family History of Hypertension V17.4 Resolved Boo Vasuqez MD Family history of other cardiovascular diseases [...] 1 po q8hr PRN Nausea ONDANSETRON HCL 48802626331 Active Angeline Santiago ASSISTANT BRANCH OPERATIONS MANAGER Active NEXPLANON 68 MG SC IMPL Inserted in the left upper arm ETONOGESTREL 03680899797 Active Liat Cheng MD Active FLAGYL 500 MG TAB 1 tablet by mouth bid. do not mix with etoh. METRONIDAZOLE 28481179993 No Longer Active Liat Cheng MD Active CIPRO 500 MG TAB 1 tablet by mouth twice daily CIPROFLOXACIN HCL 80986697322 No Longer Active Jillina Frazell ASSISTANT BRANCH OPERATIONS MANAGER Active FLONASE 50 MCG/ACT SUSP 1 puff in easch nostril bid FLUTICASONE PROPIONATE No Longer Active Jillina Erickson WELLS Active KEFLEX 500 MG CAP 1 po qid CEPHALEXIN 90189936759 No Longer Active Jillina Frankiel ASSISTANT BRANCH OPERATIONS MANAGER Active AZITHROMYCIN 250 MG TABS 2 pills day 1,1 pill day 2-5 AZITHROMYCIN 05506522297 No Longer Active Liat Cheng MD Active ZITHROMAX Z-GIANLUCA 250 MG TABS 2 today and then 1 daily for 4 days AZITHROMYCIN 52350679694 No Longer Active Liat Cheng MD Active LORATADINE 10 MG TABS 1 tablet by mouth daily PRN Congestion 2014 LORATADINE 48771462910 No Longer Active Audelia Yokum ASSISTANT BRANCH OPERATIONS MANAGER Active MUCINEX DM MAXIMUM STRENGTH 60-1200 MG [id number] 1 po BID PRN Cough DEXTROMETHORPHAN-GUAIFENESIN 18504433682 No Longer Active Audelia Yokum ASSISTANT BRANCH OPERATIONS MANAGER Active PREDNISONE 20 MG TAB 2 tabs daily for 3 days, 1 tab daily for 3 days, 1/2 tab daily for 2 days PREDNISONE 45435037829 No Longer Active Boo Vasquez MD Active BACTRIM DS 800-160 MG TAB 1 tab by mouth twice daily TRIMETHOPRIM-SULFAMETHOXAZOLE 28377040278 No Longer Active Gama Bermeo MD Active ZOFRAN 8 MG ORAL TABS 1 q 8hr prn vomiting ONDANSETRON HCL 05858546859 No Longer Active Gama Bermeo MD Active AUGMENTIN 875-125 MG TABS 1 bid AMOXICILLIN-POT CLAVULANATE 93816205284 No Longer Active Liat Cheng MD Active HYDROCODONE-ACETAMINOPHEN TABS Take as directed/PRN HYDROCODONE-ACETAMINOPHEN TABS 93802064088 No Longer Active Liat Cheng MD Active CEFDINIR 300 MG CAPS 1 PO bid x 7 days CEFDINIR 36825333095 No Longer Active Liat Cheng MD Active CEFDINIR 300 MG CAPS 1 PO bid x 7 days CEFDINIR 300 MG CAPS 345950 CEFDINIR Inactive HYDROCODONE-ACETAMINOPHEN TABS Take as directed/PRN HYDROCODONE-ACETAMINOPHEN TABS HYDROCODONE-ACETAMINOPHEN TABS Inactive ZOFRAN 8 MG ORAL TABS 1 q 8hr prn vomiting ZOFRAN 8 MG ORAL TABS 122416 ONDANSETRON HCL Inactive MUCINEX DM MAXIMUM STRENGTH 60-1200 MG [id number] 1 po BID PRN Cough MUCINEX DM MAXIMUM STRENGTH 60-1200 MG [id number] DEXTROMETHORPHAN-GUAIFENESIN Inactive LORATADINE 10 MG TABS 1 tablet by mouth daily PRN Congestion 2014 LORATADINE 10 MG TABS 352723 LORATADINE Inactive ZITHROMAX Z-GIANLUCA 250 MG TABS 2 today and then 1 daily for 4 days ZITHROMAX Z-GIANLUCA 250 MG TABS 1557292 AZITHROMYCIN Inactive KEFLEX 500 MG CAP 1 po qid KEFLEX 500 MG CAP 902117 CEPHALEXIN Inactive FLONASE 50 MCG/ACT SUSP 1 puff in easch nostril bid FLONASE 50 MCG/ACT SUSP FLUTICASONE PROPIONATE Inactive CIPRO 500 MG TAB 1 tablet by mouth twice daily CIPRO 500 MG TAB 135202 CIPROFLOXACIN HCL Inactive FLAGYL 500 MG TAB 1 tablet by mouth bid. do not mix with etoh. FLAGYL 500 MG TAB 843731 METRONIDAZOLE Inactive AUGMENTIN 875-125 MG TABS 1 bid AUGMENTIN 875-125 MG TABS 380887 AMOXICILLIN-POT CLAVULANATE Inactive BACTRIM DS 800-160 MG TAB 1 tab by mouth twice daily BACTRIM DS 800-160 MG TAB 479728 TRIMETHOPRIM-SULFAMETHOXAZOLE Inactive PREDNISONE 20 MG TAB 2 tabs daily for 3 days, 1 tab daily for 3 days, 1/2 tab daily for 2 days PREDNISONE 20 MG TAB 988743 PREDNISONE Inactive AZITHROMYCIN 250 MG TABS 2 pills day 1,1 pill day 2-5 AZITHROMYCIN 250 MG TABS 0272989 AZITHROMYCIN Inactive Advance Directives Directive Description Start Date PERMISSION TO SHARE Immunizations Vaccine Administration Date Value Standard Description Adacel (Tetanus, reduced Diphtheria, and acellular Pertussis Immunization) Adacel [[id number]] tetanus toxoid, reduced diphtheria toxoid, and acellular [...] 369 10^3/MM^3 10*3/mm3 142-424 Lab Report: Chlamydia/GC APTIMA/77374 - Lab chlamydia DNA probe NOT DETECTED NOT DETECTED chlamydia DNA probe NOT DETECTED NOT DETECTED Lab Report: Chlamydia/GC APTIMA/21226 - Microbiology Neisseria gonorrhoeae DNA probe NOT DETECTED NOT DETECTED Neisseria gonorrhoeae DNA probe NOT DETECTED NOT DETECTED Lab Report: Comp. Metabolic Panel - Chemistry sodium, serum 140 mmol/L 417-847 9687/11/17 carbon dioxide, venous blood 25.9 mmol/L 21.0-32.0 [...] negative Encounters Code Encounter Date Provider Facility CPT-05025 Level 3 Est. Patient 14:24:59 LABOR RELATIONS SPECIALIST Liat Cheng MD [facility] CPT-74778 Level 3 Est. Patient 15:06:21 LABOR RELATIONS SPECIALIST Thai Almendarez [facility] CPT-33579 Level 3 Est. Patient 15:43:50 LABOR RELATIONS SPECIALIST Thai Almendarez [facility] CPT-03385 Level 3 Est. Patient 14:42:12 LABOR RELATIONS SPECIALIST Liat Cheng MD [facility] CPT-15415 Level 3 Est. Patient 16:38:12 LABOR RELATIONS SPECIALIST Valentin Blanco MD [facility] CPT-22531 Level 3 Est. Patient 14:12:52 CDT Liat Cheng MD [facility] CPT-34903 Level 2 Est. Patient 12:17:18 CDT Audelia Ochoa [facility] CPT-35636 Level 3 Est. Patient 15:02:49 CDT Boo Vasquez MD [facility] CPT-54994 Level 3 Est. Patient 16:21:33 LABOR RELATIONS SPECIALIST Gama Bermeo MD [facility] CPT-00051 Level 3 Est. Patient 11:32:23 LABOR RELATIONS SPECIALIST Liat Cheng MD [facility] CPT-01851 Level 3 Est. Patient 16:59:23 CDT Liat Cheng MD [facility] CPT-63511 Level 3 Est. Patient 17:02:11 LABOR RELATIONS SPECIALIST Tay MAJOR [facility] CPT-05393 Level 3 Est. Patient 16:49:05 LABOR RELATIONS SPECIALIST Liat Cheng MD [facility] CPT-86511 Level 3 Est. Patient 16:36:13 CDT Vivien Conway [facility] Procedures Code Procedure Name Date Entry Date Standard Description CPT-J7307 Nexplanon (Implant) 16:25:36 LABOR RELATIONS SPECIALIST CPT-37598 Nexplanon Placement 16:25:36 LABOR RELATIONS SPECIALIST CPT-OV Office Visit 16:25:36 LABOR RELATIONS SPECIALIST CPT-OV Office Visit 18:49:22 LABOR RELATIONS SPECIALIST CPT-OV Office Visit 18:49:18 CDT CPT-64699 Administration single or combination vaccine inc oral 11 :11:48 CDT CPT-61481 Adacel Intramuscular Suspension 5-2-15.5 11:11:48 CDT CPT-78903 Toes 2V 17:03:02 LABOR RELATIONS SPECIALIST
--- OUTSIDE RECORDS SUMMARY | 2018-02-18 12:49 | XMS REPORT | Clinical Summary ---
Author Author Admin, QIE Organization [employer] Address Unknown Phone Unavailable Allergies, Adverse Reactions, [...] tablet by mouth twice daily CIPROFLOXACIN HCL 70815059159 No Longer Active Jillina Frazell DOOR GLASS INSTALLER Active FLAGYL 500 MG TAB 1 tablet by mouth bid. do not mix with etoh. METRONIDAZOLE 04424604192 Active Jillina Frazell DOOR GLASS INSTALLER Active FLONASE 50 MCG/ACT SUSP 1 puff in easch nostril bid FLUTICASONE PROPIONATE No Longer Active Jillina Erickson WELLS Active KEFLEX 500 MG CAP 1 po qid CEPHALEXIN 60778524558 No Longer Active Thai Almendarez APRN Active AZITHROMYCIN 250 MG TABS 2 pills day 1,1 pill day 2-5 AZITHROMYCIN 10754155040 No Longer Active Liat Cheng MD Active ZITHROMAX Z-GIANLUCA 250 MG TABS 2 today and then 1 daily for 4 days AZITHROMYCIN 74864799574 No Longer Active Liat Cheng MD Active LORATADINE 10 MG TABS 1 tablet by mouth daily PRN Congestion 2014 LORATADINE 64374050640 No Longer Active Audelia Yokum DOOR GLASS INSTALLER Active MUCINEX DM MAXIMUM STRENGTH 60-1200 MG [id number] 1 po BID PRN Cough DEXTROMETHORPHAN-GUAIFENESIN 68548270519 No Longer Active Audelia Yokum DOOR GLASS INSTALLER Active PREDNISONE 20 MG TAB 2 tabs daily for 3 days, 1 tab daily for 3 days, 1/2 tab daily for 2 days PREDNISONE 84789923513 No Longer Active Boo Vasquez MD Active BACTRIM DS 800-160 MG TAB 1 tab by mouth twice daily TRIMETHOPRIM-SULFAMETHOXAZOLE 26859358572 No Longer Active Gama Bermeo MD Active ZOFRAN 8 MG ORAL TABS 1 q 8hr prn vomiting ONDANSETRON HCL 81550930534 No Longer Active Gama Bermeo MD Active AUGMENTIN 875-125 MG TABS 1 bid AMOXICILLIN-POT CLAVULANATE 41496212118 No Longer Active Liat Cheng MD Active HYDROCODONE-ACETAMINOPHEN TABS Take as directed/PRN HYDROCODONE-ACETAMINOPHEN TABS 85070528764 No Longer Active Liat Cheng MD Active CEFDINIR 300 MG CAPS 1 PO bid x 7 days CEFDINIR 14755538723 No Longer Active Liat Cheng MD Active CEFDINIR 300 MG CAPS 1 PO bid x 7 days CEFDINIR 300 MG CAPS 803936 CEFDINIR Inactive HYDROCODONE-ACETAMINOPHEN TABS Take as directed/PRN HYDROCODONE-ACETAMINOPHEN TABS HYDROCODONE-ACETAMINOPHEN TABS Inactive ZOFRAN 8 MG ORAL TABS 1 q 8hr prn vomiting ZOFRAN 8 MG ORAL TABS 721359 ONDANSETRON HCL Inactive MUCINEX DM MAXIMUM STRENGTH 60-1200 MG [id number] 1 po BID PRN Cough MUCINEX DM MAXIMUM STRENGTH 60-1200 MG [id number] DEXTROMETHORPHAN-GUAIFENESIN Inactive LORATADINE 10 MG TABS 1 tablet by mouth daily PRN Congestion 2014 LORATADINE 10 MG TABS 020219 LORATADINE Inactive ZITHROMAX Z-GIANLUCA 250 MG TABS 2 today and then 1 daily for 4 days ZITHROMAX Z-GIANLUCA 250 MG TABS 5485149 AZITHROMYCIN Inactive KEFLEX 500 MG CAP 1 po qid KEFLEX 500 MG CAP 203367 CEPHALEXIN Inactive FLONASE 50 MCG/ACT SUSP 1 puff in easch nostril bid FLONASE 50 MCG/ACT SUSP FLUTICASONE PROPIONATE Inactive CIPRO 500 MG TAB 1 tablet by mouth twice daily CIPRO 500 MG TAB 981329 CIPROFLOXACIN HCL Inactive AUGMENTIN 875-125 MG TABS 1 bid AUGMENTIN 875-125 MG TABS 689944 AMOXICILLIN-POT CLAVULANATE Inactive BACTRIM DS 800-160 MG TAB 1 tab by mouth twice daily BACTRIM DS 800-160 MG TAB 848317 TRIMETHOPRIM-SULFAMETHOXAZOLE Inactive PREDNISONE 20 MG TAB 2 tabs daily for 3 days, 1 tab daily for 3 days, 1/2 tab daily for 2 days PREDNISONE 20 MG TAB 684249 PREDNISONE Inactive AZITHROMYCIN 250 MG TABS 2 pills day 1,1 pill day 2-5 AZITHROMYCIN 250 MG TABS 2122033 AZITHROMYCIN Inactive Immunizations Vaccine Administration Date Value Standard Description Adacel (Tetanus, reduced Diphtheria, and acellular Pertussis Immunization) Adacel [[id number]] tetanus toxoid, reduced diphtheria toxoid, and acellular [...] 369 10^3/MM^3 10*3/mm3 142-424 Lab Report: Chlamydia/GC APTIMA/85889 - Lab chlamydia DNA probe NOT DETECTED NOT DETECTED chlamydia DNA probe NOT DETECTED NOT DETECTED Lab Report: Chlamydia/GC APTIMA/87800 - Microbiology Neisseria gonorrhoeae DNA probe NOT DETECTED NOT DETECTED Neisseria gonorrhoeae DNA probe NOT DETECTED NOT DETECTED Lab Report: Comp. Metabolic Panel - Chemistry sodium, serum 140 mmol/L 516-809 9622/11/17 carbon dioxide, venous blood 25.9 mmol/L 21.0-32.0 [...] negative Encounters Code Encounter Date Provider Facility CPT-12411 Level 3 Est. Patient 15:06:21 HOSPITAL RECRUITER Thai Almendarez [facility] CPT-34289 Level 3 Est. Patient 15:43:50 HOSPITAL RECRUITER Thai Almendarez [facility] CPT-04128 Level 3 Est. Patient 14:42:12 HOSPITAL RECRUITER Liat Cheng MD [facility] CPT-33385 Level 3 Est. Patient 16:38:12 HOSPITAL RECRUITER Valentin Blanco MD [facility] CPT-29410 Level 3 Est. Patient 14:12:52 CDT Liat Cheng MD [facility] CPT-62267 Level 2 Est. Patient 12:17:18 CDT Audelia Ochoa [facility] CPT-22059 Level 3 Est. Patient 15:02:49 CDT Boo Vasquez MD [facility] CPT-11513 Level 3 Est. Patient 16:21:33 HOSPITAL RECRUITER Gama Bermeo MD [facility] CPT-98570 Level 3 Est. Patient 11:32:23 HOSPITAL RECRUITER Liat Cheng MD [facility] CPT-03693 Level 3 Est. Patient 16:59:23 CDT Liat Cheng MD [facility] CPT-98479 Level 3 Est. Patient 17:02:11 HOSPITAL RECRUITER Tay MAJOR [facility] CPT-96120 Level 3 Est. Patient 16:49:05 HOSPITAL RECRUITER Liat Cheng MD [facility] CPT-17351 Level 3 Est. Patient 16:36:13 CDT Vivien Conway [facility] Procedures Code Procedure Name Date Entry Date Standard Description CPT-J7307 Nexplanon (Implant) 16:25:36 HOSPITAL RECRUITER CPT-11212 Nexplanon Placement 16:25:36 HOSPITAL RECRUITER CPT-OV Office Visit 16:25:36 HOSPITAL RECRUITER CPT-OV Office Visit 18:49:22 HOSPITAL RECRUITER CPT-OV Office Visit 18:49:18 CDT CPT-91943 Administration single or combination vaccine inc oral 11 :11:48 CDT CPT-55261 Adacel Intramuscular Suspension 5-2-15.5 11:11:48 CDT CPT-84545 Toes 2V 17:03:02 HOSPITAL RECRUITER
--- OUTSIDE RECORDS SUMMARY | 2018-02-18 12:50 | XMS REPORT | Clinical Summary ---
Author Author Admin, QIE Organization [employer] Address Unknown Phone Unavailable Allergies, Adverse Reactions, [...] 1/2 tab daily for 2 days PREDNISONE [id number] No Longer Active Boo Vasquez MD Active MUCINEX DM MAXIMUM STRENGTH 60-1200 MG [id number] 1 po BID PRN Cough DEXTROMETHORPHAN-GUAIFENESIN 73525301332 Active Boo Vasquez MD Active LORATADINE 10 MG TABS 1 tablet by mouth daily PRN Congestion LORATADINE 81911700471 Active Boo Vasquez MD Active BACTRIM DS 800-160 MG TAB 1 tab by mouth twice daily TRIMETHOPRIM-SULFAMETHOXAZOLE 47275891709 No Longer Active Gama Bermeo MD Active ZOFRAN 8 MG ORAL TABS 1 q 8hr prn vomiting ONDANSETRON HCL 55772805402 No Longer Active Gama Bermeo MD Active AUGMENTIN 875-125 MG TABS 1 bid AMOXICILLIN-POT CLAVULANATE 10053432287 No Longer Active Liat Cheng MD Active HYDROCODONE-ACETAMINOPHEN TABS Take as directed/PRN HYDROCODONE-ACETAMINOPHEN TABS 40611090963 No Longer Active Liat Cheng MD Active CEFDINIR 300 MG CAPS 1 PO bid x 7 days CEFDINIR 54560872735 No Longer Active Liat Cheng MD Active CEFDINIR 300 MG CAPS 1 PO bid x 7 days CEFDINIR 300 MG CAPS 419545 CEFDINIR Inactive HYDROCODONE-ACETAMINOPHEN TABS Take as directed/PRN HYDROCODONE-ACETAMINOPHEN TABS HYDROCODONE-ACETAMINOPHEN TABS Inactive ZOFRAN 8 MG ORAL TABS 1 q 8hr prn vomiting ZOFRAN 8 MG ORAL TABS 092006 ONDANSETRON HCL Inactive AUGMENTIN 875-125 MG TABS 1 bid AUGMENTIN 875-125 MG TABS 589848 AMOXICILLIN-POT CLAVULANATE Inactive BACTRIM DS 800-160 MG TAB 1 tab by mouth twice daily BACTRIM DS 800-160 MG TAB TRIMETHOPRIM-SULFAMETHOXAZOLE Inactive PREDNISONE 20 MG TAB 2 tabs daily for 3 days, 1 tab daily for 3 days, 1/2 tab daily for 2 days PREDNISONE 20 MG TAB 269237 PREDNISONE Inactive Immunizations Vaccine Administration Date Value Standard Description Adacel (Tetanus, reduced Diphtheria, and acellular Pertussis Immunization) Adacel [[id number]] tetanus toxoid, reduced diphtheria toxoid, and acellular [...] Measured Encounters Code Encounter Date Provider Facility CPT-39768 Level 3 Est. Patient 15:02:49 CDT Boo Vasquez MD [facility] CPT-75263 Level 3 Est. Patient 16:21:33 MANUFACTURING ENGINEER AUTOMOTIVE Gama Bermeo MD [facility] CPT-36896 Level 3 Est. Patient 11:32:23 MANUFACTURING ENGINEER AUTOMOTIVE Liat Cheng MD [facility] CPT-33646 Level 3 Est. Patient 16:59:23 CDT Liat Cheng MD [facility] CPT-70186 Level 3 Est. Patient 17:02:11 MANUFACTURING ENGINEER AUTOMOTIVE Tay MAJOR [facility] CPT-80784 Level 3 Est. Patient 16:49:05 MANUFACTURING ENGINEER AUTOMOTIVE Liat Cheng MD [facility] CPT-35340 Level 3 Est. Patient 16:36:13 CDT Vivien Conway APRN [facility] Procedures Code Procedure Name Date Entry Date Standard Description CPT-09359 Administration single or combination vaccine inc oral 11 :11:48 CDT CPT-57375 Adacel Intramuscular Suspension 5-2-15.5 11:11:48 CDT CPT-99263 Toes 2V 17:03:02 MANUFACTURING ENGINEER AUTOMOTIVE
--- OUTSIDE RECORDS SUMMARY | 2018-02-18 12:50 | XMS REPORT | Clinical Summary ---
Author Author Admin, QIE Organization [employer] Address Unknown Phone Unavailable Allergies, Adverse Reactions, [...] tablet by mouth twice daily CIPROFLOXACIN HCL 92078170277 No Longer Active Jillina Frazell COPPER TAPPER Active FLAGYL 500 MG TAB 1 tablet by mouth bid. do not mix with etoh. METRONIDAZOLE 03517278065 Active Jillina Frazell COPPER TAPPER Active FLONASE 50 MCG/ACT SUSP 1 puff in easch nostril bid FLUTICASONE PROPIONATE No Longer Active Jillina Erickson WELLS Active KEFLEX 500 MG CAP 1 po qid CEPHALEXIN 23040929053 No Longer Active Thai Almendarez APRN Active AZITHROMYCIN 250 MG TABS 2 pills day 1,1 pill day 2-5 AZITHROMYCIN 20407381740 No Longer Active Liat Cheng MD Active ZITHROMAX Z-GIANLUCA 250 MG TABS 2 today and then 1 daily for 4 days AZITHROMYCIN 74142993346 No Longer Active Liat Cheng MD Active LORATADINE 10 MG TABS 1 tablet by mouth daily PRN Congestion 2014 LORATADINE 24157201234 No Longer Active Audelia Yokum COPPER TAPPER Active MUCINEX DM MAXIMUM STRENGTH 60-1200 MG [id number] 1 po BID PRN Cough DEXTROMETHORPHAN-GUAIFENESIN 60826424893 No Longer Active Audelia Yokum COPPER TAPPER Active PREDNISONE 20 MG TAB 2 tabs daily for 3 days, 1 tab daily for 3 days, 1/2 tab daily for 2 days PREDNISONE 08765191774 No Longer Active Boo Vasquez MD Active BACTRIM DS 800-160 MG TAB 1 tab by mouth twice daily TRIMETHOPRIM-SULFAMETHOXAZOLE 22134698441 No Longer Active Gama Bermeo MD Active ZOFRAN 8 MG ORAL TABS 1 q 8hr prn vomiting ONDANSETRON HCL 29109203044 No Longer Active Gama Bermeo MD Active AUGMENTIN 875-125 MG TABS 1 bid AMOXICILLIN-POT CLAVULANATE 97075905094 No Longer Active Liat Cheng MD Active HYDROCODONE-ACETAMINOPHEN TABS Take as directed/PRN HYDROCODONE-ACETAMINOPHEN TABS 97102053020 No Longer Active Liat Cheng MD Active CEFDINIR 300 MG CAPS 1 PO bid x 7 days CEFDINIR 65065688485 No Longer Active Liat Cheng MD Active CEFDINIR 300 MG CAPS 1 PO bid x 7 days CEFDINIR 300 MG CAPS 554513 CEFDINIR Inactive HYDROCODONE-ACETAMINOPHEN TABS Take as directed/PRN HYDROCODONE-ACETAMINOPHEN TABS HYDROCODONE-ACETAMINOPHEN TABS Inactive ZOFRAN 8 MG ORAL TABS 1 q 8hr prn vomiting ZOFRAN 8 MG ORAL TABS 533805 ONDANSETRON HCL Inactive MUCINEX DM MAXIMUM STRENGTH 60-1200 MG [id number] 1 po BID PRN Cough MUCINEX DM MAXIMUM STRENGTH 60-1200 MG [id number] DEXTROMETHORPHAN-GUAIFENESIN Inactive LORATADINE 10 MG TABS 1 tablet by mouth daily PRN Congestion 2014 LORATADINE 10 MG TABS 072721 LORATADINE Inactive ZITHROMAX Z-GIANLUCA 250 MG TABS 2 today and then 1 daily for 4 days ZITHROMAX Z-GIANLUCA 250 MG TABS 4712941 AZITHROMYCIN Inactive KEFLEX 500 MG CAP 1 po qid KEFLEX 500 MG CAP 982087 CEPHALEXIN Inactive FLONASE 50 MCG/ACT SUSP 1 puff in easch nostril bid FLONASE 50 MCG/ACT SUSP FLUTICASONE PROPIONATE Inactive CIPRO 500 MG TAB 1 tablet by mouth twice daily CIPRO 500 MG TAB 140227 CIPROFLOXACIN HCL Inactive AUGMENTIN 875-125 MG TABS 1 bid AUGMENTIN 875-125 MG TABS 249888 AMOXICILLIN-POT CLAVULANATE Inactive BACTRIM DS 800-160 MG TAB 1 tab by mouth twice daily BACTRIM DS 800-160 MG TAB 466207 TRIMETHOPRIM-SULFAMETHOXAZOLE Inactive PREDNISONE 20 MG TAB 2 tabs daily for 3 days, 1 tab daily for 3 days, 1/2 tab daily for 2 days PREDNISONE 20 MG TAB 147880 PREDNISONE Inactive AZITHROMYCIN 250 MG TABS 2 pills day 1,1 pill day 2-5 AZITHROMYCIN 250 MG TABS 8493582 AZITHROMYCIN Inactive Immunizations Vaccine Administration Date Value Standard Description Adacel (Tetanus, reduced Diphtheria, and acellular Pertussis Immunization) Adacel [[id number]] tetanus toxoid, reduced diphtheria toxoid, and acellular [...] 369 10^3/MM^3 10*3/mm3 142-424 Lab Report: Chlamydia/GC APTIMA/[id number] - Lab chlamydia DNA probe NOT DETECTED NOT DETECTED chlamydia DNA probe NOT DETECTED NOT DETECTED Lab Report: Chlamydia/GC APTIMA/[id number] - Microbiology Neisseria gonorrhoeae DNA probe NOT DETECTED NOT DETECTED Neisseria gonorrhoeae DNA probe NOT DETECTED NOT DETECTED Lab Report: Comp. Metabolic Panel - Chemistry sodium, serum 140 mmol/L 105-394 4061/11/17 carbon dioxide, venous blood 25.9 mmol/L 21.0-32.0 [...] negative Encounters Code Encounter Date Provider Facility CPT-38982 Level 3 Est. Patient 15:06:21 LIFE TESTER OUTBOARD MOTORS Thai Almendarez [facility] CPT-80984 Level 3 Est. Patient 15:43:50 LIFE TESTER OUTBOARD MOTORS Thai Almendarez [facility] CPT-03427 Level 3 Est. Patient 14:42:12 LIFE TESTER OUTBOARD MOTORS Liat Cheng [facility] CPT-44653 Level 3 Est. Patient 16:38:12 LIFE TESTER OUTBOARD MOTORS Valentin Blanco [facility] CPT-52486 Level 3 Est. Patient 14:12:52 CDT Liat Cheng MD [facility] CPT-10300 Level 2 Est. Patient 12:17:18 CDT Audelia Ochoa [facility] CPT-59387 Level 3 Est. Patient 15:02:49 CDT Boo Vasquez MD [facility] CPT-40452 Level 3 Est. Patient 16:21:33 LIFE TESTER OUTBOARD MOTORS Gama Bermeo MD [facility] CPT-37619 Level 3 Est. Patient 11:32:23 LIFE TESTER OUTBOARD MOTORS Liat Cheng [facility] CPT-57731 Level 3 Est. Patient 16:59:23 CDT Liat Cheng MD [facility] CPT-77726 Level 3 Est. Patient 17:02:11 LIFE TESTER OUTBOARD MOTORS Tay MAJOR [facility] CPT-01112 Level 3 Est. Patient 16:49:05 LIFE TESTER OUTBOARD MOTORS Liat Cheng [facility] CPT-68384 Level 3 Est. Patient 16:36:13 CDT Vivien Conway [facility] Procedures Code Procedure Name Date Entry Date Standard Description CPT-J7307 Nexplanon (Implant) 16:25:36 LIFE TESTER OUTBOARD MOTORS CPT-01972 Nexplanon Placement 16:25:36 LIFE TESTER OUTBOARD MOTORS CPT-OV Office Visit 16:25:36 LIFE TESTER OUTBOARD MOTORS CPT-OV Office Visit 18:49:22 LIFE TESTER OUTBOARD MOTORS CPT-OV Office Visit 18:49:18 CDT CPT-72186 Administration single or combination vaccine inc oral 11 :11:48 CDT CPT-26303 Adacel Intramuscular Suspension 5-2-15.5 11:11:48 CDT CPT-45797 Toes 2V 17:03:02 LIFE TESTER OUTBOARD MOTORS
--- OUTSIDE RECORDS SUMMARY | 2018-02-18 12:51 | XMS REPORT | Clinical Summary ---
Author Author Admin, QIE Organization [employer] Address Unknown Phone Unavailable Allergies, Adverse Reactions, [...] site Insect bite NEC w/o infection 919.4 Active Audelia Yokum GPS FIELD DATA COLLECTOR Insect bite, nonvenomous, of other, multiple, and unspecified sites, without mention of infection SPORTS PHYSICAL ICD-V70.3 Inactive Boo Vasquez MD [...] by mouth daily PRN Congestion 2014 LORATADINE 82060101793 No Longer Active Audelia Yokum GPS FIELD DATA COLLECTOR Active MUCINEX DM MAXIMUM STRENGTH 60-1200 MG [id number] 1 po BID PRN Cough DEXTROMETHORPHAN-GUAIFENESIN 41420584586 No Longer Active Audelia Yokum GPS FIELD DATA COLLECTOR Active PREDNISONE 20 MG TAB 2 tabs daily for 3 days, 1 tab daily for 3 days, 1/2 tab daily for 2 days PREDNISONE 10002250642 No Longer Active Boo Vasquez MD Active BACTRIM DS 800-160 MG TAB 1 tab by mouth twice daily TRIMETHOPRIM-SULFAMETHOXAZOLE 41556006860 No Longer Active Gama Bermeo MD Active ZOFRAN 8 MG ORAL TABS 1 q 8hr prn vomiting ONDANSETRON HCL 28755996498 No Longer Active Gama Bermeo MD Active AUGMENTIN 875-125 MG TABS 1 bid AMOXICILLIN-POT CLAVULANATE 65958458884 No Longer Active Liat Cheng MD Active HYDROCODONE-ACETAMINOPHEN TABS Take as directed/PRN HYDROCODONE-ACETAMINOPHEN TABS 40572432503 No Longer Active Liat Cheng MD Active CEFDINIR 300 MG CAPS 1 PO bid x 7 days CEFDINIR 55489552030 No Longer Active Liat Cheng MD Active CEFDINIR 300 MG CAPS 1 PO bid x 7 days CEFDINIR 300 MG CAPS 005111 CEFDINIR Inactive HYDROCODONE-ACETAMINOPHEN TABS Take as directed/PRN HYDROCODONE-ACETAMINOPHEN TABS HYDROCODONE-ACETAMINOPHEN TABS Inactive ZOFRAN 8 MG ORAL TABS 1 q 8hr prn vomiting ZOFRAN 8 MG ORAL TABS 278415 ONDANSETRON HCL Inactive MUCINEX DM MAXIMUM STRENGTH 60-1200 MG [id number] 1 po BID PRN Cough MUCINEX DM MAXIMUM STRENGTH 60-1200 MG [id number] DEXTROMETHORPHAN-GUAIFENESIN Inactive LORATADINE 10 MG TABS 1 tablet by mouth daily PRN Congestion 2014 LORATADINE 10 MG TABS 038219 LORATADINE Inactive AUGMENTIN 875-125 MG TABS 1 bid AUGMENTIN 875-125 MG TABS 124163 AMOXICILLIN-POT CLAVULANATE Inactive BACTRIM DS 800-160 MG TAB 1 tab by mouth twice daily BACTRIM DS 800-160 MG TAB TRIMETHOPRIM-SULFAMETHOXAZOLE Inactive PREDNISONE 20 MG TAB 2 tabs daily for 3 days, 1 tab daily for 3 days, 1/2 tab daily for 2 days PREDNISONE 20 MG TAB 467231 PREDNISONE Inactive Immunizations Vaccine Administration Date Value Standard Description Adacel (Tetanus, reduced Diphtheria, and acellular Pertussis Immunization) Adacel [[id number]] tetanus toxoid, reduced diphtheria toxoid, and acellular [...] Range Description blood pressure, diastolic - 8462-4 74 mm[Hg] [...] Measured Encounters Code Encounter Date Provider Facility CPT-82163 Level 2 Est. Patient 12:17:18 CDT Audeliadesean Ochoa [facility] CPT-07659 Level 3 Est. Patient 15:02:49 CDT Boo Vasquez MD [facility] CPT-19390 Level 3 Est. Patient 16:21:33 TREASURY ANALYST Gama Bermeo MD [facility] CPT-03571 Level 3 Est. Patient 11:32:23 TREASURY ANALYST Liat Cheng MD [facility] CPT-30192 Level 3 Est. Patient 16:59:23 CDT Liat Cheng MD [facility] CPT-96117 Level 3 Est. Patient 17:02:11 TREASURY ANALYST Tay MAJOR [facility] CPT-58101 Level 3 Est. Patient 16:49:05 TREASURY ANALYST Liat Cheng MD [facility] CPT-96312 Level 3 Est. Patient 16:36:13 CDT Vivien Conway [facility] Procedures Code Procedure Name Date Entry Date Standard Description CPT-73563 Administration single or combination vaccine inc oral 11 :11:48 CDT CPT-80277 Adacel Intramuscular Suspension 5-2-15.5 11:11:48 CDT CPT-53989 Toes 2V 17:03:02 TREASURY ANALYST
--- OUTSIDE RECORDS SUMMARY | 2018-02-18 12:52 | XMS REPORT | Clinical Summary ---
Author Author Admin, QIE Organization [employer] Address Unknown Phone Unavailable Allergies, Adverse Reactions, [...] Cheng MD UTI 599.0 Active Thai Almendarez MISSIONARY COORDINATOR Urinary tract infection, site not specified Sexual activity, high risk V69.2 Active Thai Almendarez APRN High-risk sexual behavior Family History of Diabetes ICD-V18.0 Inactive Boo Vasquez MD Family History of Hypertension ICD-V17.4 Inactive Boo Vasquez MD Pharyngitis Acute ICD-462 Inactive Liat Cheng MD SPORTS PHYSICAL ICD-V70.3 Inactive Boo Vasquez MD Toe injury ICD-959.7 Inactive Liat Cheng MD Sinusitis, acute ICD-461.9 Inactive Liat Chegn MD Gastroenteritis ICD-558.9 Inactive Liat Cheng MD Abscess, skin ICD-682.9 Inactive Boo Vasquez MD Cellulitis ICD-682.9 Inactive Liat Cheng MD Laceration, finger ICD-883.0 Inactive Liat Cheng MD Ankle pain, right ICD-719.47 Inactive Liat Cheng MD Abdominal bloating ICD-787.3 Inactive Liat Cheng MD Upper respiratory infection, viral ICD-465.9 Inactive Liat Cheng MD Insect bite NEC w/o infection ICD-919.4 Inactive Liat Cheng MD Pharyngitis ICD-462 Inactive Liat Cheng MD Fatigue ICD-780.79 Inactive Liat Cheng MD Medication List Medication Instructions Start Date Stop Date Generic Name NDC Status Provider Patient Instruction KEFLEX 500 MG CAP 1 po qid CEPHALEXIN 07619289623 Active Thai Almendarez MISSIONARY COORDINATOR Active FLONASE 50 MCG/ACT SUSP 1 puff in easch nostril bid FLUTICASONE PROPIONATE Active Liat Cheng MD Active AZITHROMYCIN 250 MG TABS 2 pills day 1,1 pill day 2-5 AZITHROMYCIN 69606750405 No Longer Active Liat Cheng MD Active ZITHROMAX Z-GIANLUCA 250 MG TABS 2 today and then 1 daily for 4 days AZITHROMYCIN 02456067025 No Longer Active Liat Cheng MD Active LORATADINE 10 MG TABS 1 tablet by mouth daily PRN Congestion 2014 LORATADINE 50293011629 No Longer Active Audelia Ochoa MISSIONARY COORDINATOR Active MUCINEX DM MAXIMUM STRENGTH 60-1200 MG [id number] 1 po BID PRN Cough DEXTROMETHORPHAN-GUAIFENESIN 33651381032 No Longer Active Audelia Ochoa APRN Active PREDNISONE 20 MG TAB 2 tabs daily for 3 days, 1 tab daily for 3 days, 1/2 tab daily for 2 days PREDNISONE 41086160093 No Longer Active Boo Vasquez MD Active BACTRIM DS 800-160 MG TAB 1 tab by mouth twice daily TRIMETHOPRIM-SULFAMETHOXAZOLE 54026120369 No Longer Active Gama Bermeo MD Active ZOFRAN 8 MG ORAL TABS 1 q 8hr prn vomiting ONDANSETRON HCL 60280315873 No Longer Active Gama Bermeo MD Active AUGMENTIN 875-125 MG TABS 1 bid AMOXICILLIN-POT CLAVULANATE 60196902585 No Longer Active Liat Cheng MD Active HYDROCODONE-ACETAMINOPHEN TABS Take as directed/PRN HYDROCODONE-ACETAMINOPHEN TABS 37863489365 No Longer Active Liat Cheng MD Active CEFDINIR 300 MG CAPS 1 PO bid x 7 days CEFDINIR 99021595673 No Longer Active Liat Cheng MD Active CEFDINIR 300 MG CAPS 1 PO bid x 7 days CEFDINIR 300 MG CAPS 929381 CEFDINIR Inactive HYDROCODONE-ACETAMINOPHEN TABS Take as directed/PRN HYDROCODONE-ACETAMINOPHEN TABS HYDROCODONE-ACETAMINOPHEN TABS Inactive ZOFRAN 8 MG ORAL TABS 1 q 8hr prn vomiting ZOFRAN 8 MG ORAL TABS 334993 ONDANSETRON HCL Inactive MUCINEX DM MAXIMUM STRENGTH 60-1200 MG [id number] 1 po BID PRN Cough MUCINEX DM MAXIMUM STRENGTH 60-1200 MG [id number] DEXTROMETHORPHAN-GUAIFENESIN Inactive LORATADINE 10 MG TABS 1 tablet by mouth daily PRN Congestion 2014 LORATADINE 10 MG TABS 777407 LORATADINE Inactive ZITHROMAX Z-GIANLUCA 250 MG TABS 2 today and then 1 daily for 4 days ZITHROMAX Z-GIANLUCA 250 MG TABS 1136171 AZITHROMYCIN Inactive AUGMENTIN 875-125 MG TABS 1 bid AUGMENTIN 875-125 MG TABS 518351 AMOXICILLIN-POT CLAVULANATE Inactive BACTRIM DS 800-160 MG TAB 1 tab by mouth twice daily BACTRIM DS 800-160 MG TAB 829748 TRIMETHOPRIM-SULFAMETHOXAZOLE Inactive PREDNISONE 20 MG TAB 2 tabs daily for 3 days, 1 tab daily for 3 days, 1/2 tab daily for 2 days PREDNISONE 20 MG TAB 918773 PREDNISONE Inactive AZITHROMYCIN 250 MG TABS 2 pills day 1,1 pill day 2-5 AZITHROMYCIN 250 MG TABS 3046817 AZITHROMYCIN Inactive Immunizations Vaccine Administration Date Value Standard Description Adacel (Tetanus, reduced Diphtheria, and acellular Pertussis Immunization) Adacel [[id number]] tetanus toxoid, reduced diphtheria toxoid, and acellular [...] % 11.6-14.8 platelet count 369 10^3/MM^3 10*3/mm3 574-106 5040/11/17 erythrocyte (RBC) count 4.35 10^6/MM^3 10*6/mm3 4.04-5.48 lymphocytes as percent of blood leukocytes 28.7 % 20.5-51.1 monocytes as percent of blood leukocytes 7.4 % 1.7-9.3 neutrophils as percent of blood leukocytes 54.3 % 42.2-75.2 leukocyte count, blood 10.7 10^3/MM^3 10*3/mm3 4.6-10.2 Lab Report: Comp. Metabolic Panel - Chemistry sodium, serum 140 mmol/L 913-119 2586/11/17 creatinine, serum 0.68 mg/dL 0.55-1.30 alanine aminotransferase [...] Negative Encounters Code Encounter Date Provider Facility CPT-29299 Level 3 Est. Patient 14:42:12 BLISTER RUST ERADICATOR Liat Cheng MD [facility] CPT-35238 Level 3 Est. Patient 16:38:12 BLISTER RUST ERADICATOR Valentin Blanco MD [facility] CPT-92017 Level 3 Est. Patient 14:12:52 CDT Liat Cheng MD [facility] CPT-66624 Level 2 Est. Patient 12:17:18 CDT Audelia Ochoa [facility] CPT-28669 Level 3 Est. Patient 15:02:49 CDT Boo Vasquez MD [facility] CPT-96065 Level 3 Est. Patient 16:21:33 BLISTER RUST ERADICATOR Gama Bermeo MD [facility] CPT-56359 Level 3 Est. Patient 11:32:23 BLISTER RUST ERADICATOR Liat Cheng MD [facility] CPT-73859 Level 3 Est. Patient 16:59:23 CDT Liat Cheng MD [facility] CPT-22079 Level 3 Est. Patient 17:02:11 BLISTER RUST ERADICATOR Tay MAJOR [facility] CPT-89537 Level 3 Est. Patient 16:49:05 BLISTER RUST ERADICATOR Liat Cheng MD [facility] CPT-73207 Level 3 Est. Patient 16:36:13 CDT Vivien Conway [facility] Procedures Code Procedure Name Date Entry Date Standard Description CPT-OV Office Visit 18:49:18 CDT CPT-80347 Administration single or combination vaccine inc oral 11 :11:48 CDT CPT-84680 Adacel Intramuscular Suspension 5-2-15.5 11:11:48 CDT CPT-94479 Toes 2V 17:03:02 BLISTER RUST ERADICATOR
--- OUTSIDE RECORDS SUMMARY | 2018-02-18 12:52 | XMS REPORT | Clinical Summary ---
Author Author Admin, QIE Organization [employer] ([employer]) Address Unknown Phone Unavailable Allergies, Adverse Reactions, Alerts Allergy Name Reaction Description Start Date Severity Status Provider IODINE break out in a rash Critical Active Anaya Ferrara MD NKDA Critical Active Tay MAJOR Conditions or [...] Active Anaya Ferrara MD Unspecified essential hypertension SPORTS PHYSICAL ICD-V70.3 Inactive Boo Vasquez MD [...] Vasquez MD Abdominal bloating ICD-787.3 Inactive Liat hCeng MD Pharyngitis ICD-462 Inactive Boo Vasquez MD [...] times daily PRN Pain 2015 DICLOFENAC SODIUM 12561177273 No Longer Active Liat Cheng MD Active ZOFRAN 4 MG TABS 1 po q8hr PRN Nausea ONDANSETRON HCL 17919399401 No Longer Active Liat Cheng MD Active NEXPLANON 68 MG SC IMPL Inserted in the left upper arm ETONOGESTREL 82066023771 Active Liat Cheng MD Active FLAGYL 500 MG TAB 1 tablet by mouth bid. do not mix with etoh. METRONIDAZOLE 19237345635 No Longer Active Liat Cheng MD Active CIPRO 500 MG TAB 1 tablet by mouth twice daily CIPROFLOXACIN HCL 43569117767 No Longer Active Jillina Frazell DAY CARE HOME PROVIDER Active FLONASE 50 MCG/ACT SUSP 1 puff in easch nostril bid FLUTICASONE PROPIONATE No Longer Active Jillina Frabroderick WELLS Active KEFLEX 500 MG CAP 1 po qid CEPHALEXIN 61594630331 No Longer Active Jillina Fraaranzal DAY CARE HOME PROVIDER Active AZITHROMYCIN 250 MG TABS 2 pills day 1,1 pill day 2-5 AZITHROMYCIN 37580476920 No Longer Active Liat Cheng MD Active ZITHROMAX Z-GIANLUCA 250 MG TABS 2 today and then 1 daily for 4 days AZITHROMYCIN 76772611592 No Longer Active Liat Cheng MD Active LORATADINE 10 MG TABS 1 tablet by mouth daily PRN Congestion 2014 LORATADINE 58493280778 No Longer Active Audelia Yokum DAY CARE HOME PROVIDER Active MUCINEX DM MAXIMUM STRENGTH 60-1200 MG [id number] 1 po BID PRN Cough DEXTROMETHORPHAN-GUAIFENESIN 45473421368 No Longer Active Audelia Yokum DAY CARE HOME PROVIDER Active PREDNISONE 20 MG TAB 2 tabs daily for 3 days, 1 tab daily for 3 days, 1/2 tab daily for 2 days PREDNISONE 30807486446 No Longer Active Boo Vasquez MD Active BACTRIM DS 800-160 MG TAB 1 tab by mouth twice daily TRIMETHOPRIM-SULFAMETHOXAZOLE 57767375333 No Longer Active Gama Bermeo MD Active ZOFRAN 8 MG ORAL TABS 1 q 8hr prn vomiting ONDANSETRON HCL 85779236167 No Longer Active Gama Bermeo MD Active AUGMENTIN 875-125 MG TABS 1 bid AMOXICILLIN-POT CLAVULANATE 51082524904 No Longer Active Liat Cheng MD Active HYDROCODONE-ACETAMINOPHEN TABS Take as directed/PRN HYDROCODONE-ACETAMINOPHEN TABS 84621450529 No Longer Active Liat Cheng MD Active CEFDINIR 300 MG CAPS 1 PO bid x 7 days CEFDINIR 94860976794 No Longer Active Liat Cheng MD Active CEFDINIR 300 MG CAPS 1 PO bid x 7 days CEFDINIR 300 MG CAPS 886309 CEFDINIR Inactive HYDROCODONE-ACETAMINOPHEN TABS Take as directed/PRN HYDROCODONE-ACETAMINOPHEN TABS HYDROCODONE-ACETAMINOPHEN TABS Inactive ZOFRAN 8 MG ORAL TABS 1 q 8hr prn vomiting ZOFRAN 8 MG ORAL TABS 643405 ONDANSETRON HCL Inactive MUCINEX DM MAXIMUM STRENGTH 60-1200 MG [id number] 1 po BID PRN Cough MUCINEX DM MAXIMUM STRENGTH 60-1200 MG [id number] DEXTROMETHORPHAN-GUAIFENESIN Inactive LORATADINE 10 MG TABS 1 tablet by mouth daily PRN Congestion 2014 LORATADINE 10 MG TABS 707614 LORATADINE Inactive ZITHROMAX Z-GIANLUCA 250 MG TABS 2 today and then 1 daily for 4 days ZITHROMAX Z-GIANLUCA 250 MG TABS 7177057 AZITHROMYCIN Inactive KEFLEX 500 MG CAP 1 po qid KEFLEX 500 MG CAP 459001 CEPHALEXIN Inactive FLONASE 50 MCG/ACT SUSP 1 puff in easch nostril bid FLONASE 50 MCG/ACT SUSP FLUTICASONE PROPIONATE Inactive CIPRO 500 MG TAB 1 tablet by mouth twice daily CIPRO 500 MG TAB 095312 CIPROFLOXACIN HCL Inactive FLAGYL 500 MG TAB 1 tablet by mouth bid. do not mix with etoh. FLAGYL 500 MG TAB 013792 METRONIDAZOLE Inactive ZOFRAN 4 MG TABS 1 po q8hr PRN Nausea ZOFRAN 4 MG TABS 204064 ONDANSETRON HCL Inactive DICLOFENAC SODIUM 50 MG TBEC 1 tablet by mouth four times daily PRN Pain 2015 DICLOFENAC SODIUM 50 MG TBEC 020966 DICLOFENAC SODIUM Inactive AUGMENTIN 875-125 MG TABS 1 bid AUGMENTIN 875-125 MG TABS 071979 AMOXICILLIN-POT CLAVULANATE Inactive BACTRIM DS 800-160 MG TAB 1 tab by mouth twice daily BACTRIM DS 800-160 MG TAB 232117 TRIMETHOPRIM-SULFAMETHOXAZOLE Inactive PREDNISONE 20 MG TAB 2 tabs daily for 3 days, 1 tab daily for 3 days, 1/2 tab daily for 2 days PREDNISONE 20 MG TAB 744861 PREDNISONE Inactive AZITHROMYCIN 250 MG TABS 2 pills day 1,1 pill day 2-5 AZITHROMYCIN 250 MG TABS 2762463 AZITHROMYCIN Inactive Advance Directives Directive Description Start Date PERMISSION TO SHARE Immunizations Vaccine Administration Date Value Standard Description Adacel (Tetanus, reduced Diphtheria, and acellular Pertussis Immunization) Adacel [[id number]] tetanus toxoid, reduced diphtheria toxoid, and acellular [...] E&M - 3141-9 248.4 [lb_av] Weight Measured Diagnostic Results Date Name [...] 369 10^3/MM^3 10*3/mm3 142-424 Lab Report: Chlamydia/GC APTIMA/36392 - Lab chlamydia DNA probe NOT DETECTED NOT DETECTED chlamydia DNA probe NOT DETECTED NOT DETECTED Lab Report: Chlamydia/GC APTIMA/58449 - Microbiology Neisseria gonorrhoeae DNA probe NOT DETECTED NOT DETECTED Neisseria gonorrhoeae DNA probe NOT DETECTED NOT DETECTED Lab Report: Comp. Metabolic Panel - Chemistry sodium, serum 140 mmol/L 969-663 6619/11/17 carbon dioxide, venous blood 25.9 mmol/L 21.0-32.0 [...] negative Encounters Code Encounter Date Provider Facility CPT-44058 Level 3 Est. Patient 13:10:51 CDT Liat Cheng MD [facility] CPT-49392 Level 3 Est. Patient 14:16:58 CDT Boo Vasquez MD [facility]-63688 Level 3 Est. Patient 16:08:19 CDT Liat Cheng MD [facility] CPT-04025 Level 3 Est. Patient 15:48:30 CHILD CARE ASSOCIATE TEACHER Liat Cheng MD [facility] CPT-95161 Level 3 Est. Patient 14:24:59 CHILD CARE ASSOCIATE TEACHER Liat Cheng MD [facility] CPT-36894 Level 3 Est. Patient 15:06:21 CHILD CARE ASSOCIATE TEACHER Thai Almendarez [facility] CPT-35676 Level 3 Est. Patient 15:43:50 CHILD CARE ASSOCIATE TEACHER Thai Almendarez DAY CARE HOME PROVIDER [facility]-98766 Level 3 Est. Patient 14:42:12 CHILD CARE ASSOCIATE TEACHER Liat Cheng MD [facility] CPT-89082 Level 3 Est. Patient 16:38:12 CHILD CARE ASSOCIATE TEACHER Valentin Blanco MD [facility] CPT-20788 Level 3 Est. Patient 14:12:52 CDT Liat Cheng MD [facility] CPT-06295 Level 2 Est. Patient 12:17:18 CDT [facility] Level 3 Est. Patient 15:02:49 CDT Boo Vasquez MD [facility] CPT-77537 Level 3 Est. Patient 16:21:33 CHILD CARE ASSOCIATE TEACHER Gama Bermeo MD [facility] CPT-02266 Level 3 Est. Patient 11:32:23 CHILD CARE ASSOCIATE TEACHER Liat Cheng MD [facility] CPT-37236 Level 3 Est. Patient 16:59:23 CDT Liat Cheng MD [facility] CPT-60413 Level 3 Est. Patient 17:02:11 CHILD CARE ASSOCIATE TEACHER Tay MAJOR [facility] CPT-21160 Level 3 Est. Patient 16:49:05 CHILD CARE ASSOCIATE TEACHER Liat Cheng MD [facility] CPT-22570 Level 3 Est. Patient 16:36:13 CDT Vivien Conway DAY CARE HOME PROVIDER [facility] Procedures Code Procedure Name Date Entry Date Standard Description CPT-67281 Nexplanon Removal 15:41:24 CDT CPT-OV Office Visit 09:29:28 CDT CPT-000 Give Immunizations Due 16:59:23 CDT CPT-09002 Ankle, right, Complete - Min 3V 16:15:36 CDT CPT-J7307 Nexplanon (Implant) 16:25:36 CHILD CARE ASSOCIATE TEACHER CPT-72634 Nexplanon Placement 16:25:36 CHILD CARE ASSOCIATE TEACHER CPT-OV Office Visit 16:25:36 CHILD CARE ASSOCIATE TEACHER CPT-OV Office Visit 18:49:22 CHILD CARE ASSOCIATE TEACHER CPT-OV Office Visit 18:49:18 CDT CPT-93552 Administration single or combination vaccine inc oral 11 :11:48 CDT CPT-81262 Adacel Intramuscular Suspension 5-2-15.5 11:11:48 CDT CPT-70697 Toes 2V 17:03:02 CHILD CARE ASSOCIATE TEACHER
--- OUTSIDE RECORDS SUMMARY | 2018-02-18 12:53 | XMS REPORT | Clinical Summary ---
Author Author Admin, QIE Organization [employer] Address Unknown Phone Unavailable Allergies, Adverse Reactions, [...] MD Acute pharyngitis Toe injury 959.7 Resolved Lait Cheng MD Other and unspecified injury to [...] on contraceptive management Incontinence, urine 788.30 Resolved Lita Cheng MD Urinary incontinence, unspecified Trichomonal infection 131.9 Resolved Liat Cheng MD Trichomoniasis, unspecified Abdominal pain 789.00 Resolved Liat Cheng MD Abdominal pain, unspecified site Lightheadedness 780.4 Resolved Liat Cheng MD Dizziness and giddiness Chest wall pain 786.52 Resolved Liat Cheng MD Painful respiration Pharyngitis Acute Active Liat Cheng MD Acute pharyngitis Family History of Diabetes ICD-V18.0 Inactive Boo Vasquez MD Family History of Hypertension ICD-V17.4 Inactive Boo Vasquez MD Pharyngitis Acute ICD-462 Inactive Liat Cheng MD SPORTS PHYSICAL ICD-V70.3 Inactive Boo Vasquez MD Toe injury ICD-959.7 Inactive Liat Cheng MD Laceration, finger ICD-883.0 Inactive Liat Cheng MD Gastroenteritis ICD-558.9 Inactive Liat Cheng MD Abscess, skin ICD-682.9 Inactive Boo Vasquez MD Sinusitis, acute ICD-461.9 Inactive Liat Cheng MD Cellulitis ICD-682.9 Inactive Liat Cheng MD Insect bite NEC w/o infection ICD-919.4 Inactive Liat Cheng MD Upper respiratory infection, viral ICD-465.9 Inactive Liat Cheng MD Abdominal bloating ICD-787.3 Inactive Liat Cheng MD Pharyngitis ICD-462 Inactive Boo Vasquez MD Ankle pain, right ICD-719.47 Inactive Boo Vasquez MD U R I Inactive Liat Cheng MD UTI ICD-599.0 Inactive Liat Cheng MD Sexual activity, high risk ICD-V69.2 Inactive Liat Cheng MD Incontinence, urine ICD-788.30 Inactive Liat Chegn MD Trichomonal infection ICD-131.9 Inactive Liat Cheng MD Abdominal pain ICD-789.00 Inactive Liat Cheng MD Lightheadedness ICD-780.4 Inactive Liat Cheng MD Chest wall pain ICD-786.52 Inactive Liat Cheng MD Fatigue ICD-780.79 Inactive Liat Cheng MD Medication List Medication Instructions Start Date Stop Date Generic Name NDC Status Provider Patient Instruction DICLOFENAC SODIUM 50 MG TBEC 1 tablet by mouth four times daily PRN Pain 2015 DICLOFENAC SODIUM 27472816086 No Longer Active Liat Cheng MD Active ZOFRAN 4 MG TABS 1 po q8hr PRN Nausea ONDANSETRON HCL 27934549970 No Longer Active Liat Cheng MD Active NEXPLANON 68 MG SC IMPL Inserted in the left upper arm ETONOGESTREL 27645095651 Active Liat Cheng MD Active FLAGYL 500 MG TAB 1 tablet by mouth bid. do not mix with etoh. METRONIDAZOLE 58318015075 No Longer Active Liat Cheng MD Active CIPRO 500 MG TAB 1 tablet by mouth twice daily CIPROFLOXACIN HCL 51140984750 No Longer Active Jillina Frazell ARMATURE WINDER REPAIRER Active FLONASE 50 MCG/ACT SUSP 1 puff in easch nostril bid FLUTICASONE PROPIONATE No Longer Active Jillina Frazell ARMATURE WINDER REPAIRER Active KEFLEX 500 MG CAP 1 po qid CEPHALEXIN 33216658756 No Longer Active Jillina Frazell ARMATURE WINDER REPAIRER Active AZITHROMYCIN 250 MG TABS 2 pills day 1,1 pill day 2-5 AZITHROMYCIN 32053154201 No Longer Active Liat Cheng MD Active ZITHROMAX Z-GIANLUCA 250 MG TABS 2 today and then 1 daily for 4 days AZITHROMYCIN 46954856393 No Longer Active Liat Cheng MD Active LORATADINE 10 MG TABS 1 tablet by mouth daily PRN Congestion 2014 LORATADINE 10899011472 No Longer Active Audelia Yokum ARMATURE WINDER REPAIRER Active MUCINEX DM MAXIMUM STRENGTH 60-1200 MG [id number]-[id number] 1 po BID PRN Cough DEXTROMETHORPHAN-GUAIFENESIN 24845275060 No Longer Active Audelia Yokum ARMATURE WINDER REPAIRER Active PREDNISONE 20 MG TAB 2 tabs daily for 3 days, 1 tab daily for 3 days, 1/2 tab daily for 2 days PREDNISONE 32736837284 No Longer Active Boo Vasquez MD Active BACTRIM DS 800-160 MG TAB 1 tab by mouth twice daily TRIMETHOPRIM-SULFAMETHOXAZOLE 80499257022 No Longer Active aGma Bermeo MD Active ZOFRAN 8 MG ORAL TABS 1 q 8hr prn vomiting ONDANSETRON HCL 04687758464 No Longer Active Gama Bermeo MD Active AUGMENTIN 875-125 MG TABS 1 bid AMOXICILLIN-POT CLAVULANATE 38136536957 No Longer Active Liat Cheng MD Active HYDROCODONE-ACETAMINOPHEN TABS Take as directed/PRN HYDROCODONE-ACETAMINOPHEN TABS 82943508176 No Longer Active Liat Cheng MD Active CEFDINIR 300 MG CAPS 1 PO bid x 7 days CEFDINIR 96710294937 No Longer Active Liat Cheng MD Active CEFDINIR 300 MG CAPS 1 PO bid x 7 days CEFDINIR 300 MG CAPS 821619 CEFDINIR Inactive HYDROCODONE-ACETAMINOPHEN TABS Take as directed/PRN HYDROCODONE-ACETAMINOPHEN TABS HYDROCODONE-ACETAMINOPHEN TABS Inactive ZOFRAN 8 MG ORAL TABS 1 q 8hr prn vomiting ZOFRAN 8 MG ORAL TABS 383203 ONDANSETRON HCL Inactive MUCINEX DM MAXIMUM STRENGTH 60-1200 MG [id number] 1 po BID PRN Cough MUCINEX DM MAXIMUM STRENGTH 60-1200 MG [id number] DEXTROMETHORPHAN-GUAIFENESIN Inactive LORATADINE 10 MG TABS 1 tablet by mouth daily PRN Congestion 2014 LORATADINE 10 MG TABS 784697 LORATADINE Inactive ZITHROMAX Z-GIANLUCA 250 MG TABS 2 today and then 1 daily for 4 days ZITHROMAX Z-GIANLUCA 250 MG TABS 4295071 AZITHROMYCIN Inactive KEFLEX 500 MG CAP 1 po qid KEFLEX 500 MG CAP 386040 CEPHALEXIN Inactive FLONASE 50 MCG/ACT SUSP 1 puff in easch nostril bid FLONASE 50 MCG/ACT SUSP 631842 FLUTICASONE PROPIONATE Inactive CIPRO 500 MG TAB 1 tablet by mouth twice daily CIPRO 500 MG TAB 488696 CIPROFLOXACIN HCL Inactive FLAGYL 500 MG TAB 1 tablet by mouth bid. do not mix with etoh. FLAGYL 500 MG TAB 629274 METRONIDAZOLE Inactive ZOFRAN 4 MG TABS 1 po q8hr PRN Nausea ZOFRAN 4 MG TABS 671562 ONDANSETRON HCL Inactive DICLOFENAC SODIUM 50 MG TBEC 1 tablet by mouth four times daily PRN Pain 2015 DICLOFENAC SODIUM 50 MG TBEC 118204 DICLOFENAC SODIUM Inactive AUGMENTIN 875-125 MG TABS 1 bid AUGMENTIN 875-125 MG TABS 400313 AMOXICILLIN-POT CLAVULANATE Inactive BACTRIM DS 800-160 MG TAB 1 tab by mouth twice daily BACTRIM DS 800-160 MG TAB 148374 TRIMETHOPRIM-SULFAMETHOXAZOLE Inactive PREDNISONE 20 MG TAB 2 tabs daily for 3 days, 1 tab daily for 3 days, 1/2 tab daily for 2 days PREDNISONE 20 MG TAB 781830 PREDNISONE Inactive AZITHROMYCIN 250 MG TABS 2 pills day 1,1 pill day 2-5 AZITHROMYCIN 250 MG TABS 1278621 AZITHROMYCIN Inactive Advance Directives Directive Description Start Date PERMISSION TO SHARE Immunizations Vaccine Administration Date Value Standard Description Adacel (Tetanus, reduced Diphtheria, and acellular Pertussis Immunization) Adacel [[id number]] tetanus toxoid, reduced diphtheria toxoid, and acellular [...] % 11.6-14.8 platelet count 369 10^3/MM^3 10*3/mm3 808-037 7539/11/17 lymphocytes as percent of blood leukocytes 28.7 % 20.5-51.1 monocytes as percent of blood leukocytes 7.4 % 1.7-9.3 neutrophils as percent of blood leukocytes 54.3 % 42.2-75.2 leukocyte count, blood 10.7 10^3/MM^3 10*3/mm3 4.6-10.2 Lab Report: Chlamydia/GC APTIMA/64280 - Lab chlamydia DNA probe NOT DETECTED NOT DETECTED chlamydia DNA probe NOT DETECTED NOT DETECTED Lab Report: Chlamydia/GC APTIMA/72185 - Microbiology Neisseria gonorrhoeae DNA probe NOT DETECTED NOT DETECTED Neisseria gonorrhoeae DNA probe NOT DETECTED NOT DETECTED Lab Report: Comp. Metabolic Panel - Chemistry carbon dioxide, venous blood 25.9 mmol/L 21.0-32.0 potassium, serum 4.0 mmol/L 3.5-5.2 chloride, serum 103 mmol/L 98-107 blood glucose 83 mg/dL 65-110 urea nitrogen, blood 10 mg/dL 7-18 sodium, serum 140 mmol/L 316-064 2593/11/17 creatinine, serum 0.68 mg/dL 0.55-1.30 alanine aminotransferase [...] negative Encounters Code Encounter Date Provider Facility CPT-86668 Level 3 Est. Patient 13:10:51 CDT Liat Cheng MD [facility] CPT-54458 Level 3 Est. Patient 14:16:58 CDT Boo Vasquez MD [facility]-54068 Level 3 Est. Patient 16:08:19 CDT Liat Cheng MD [facility] CPT-60258 Level 3 Est. Patient 15:48:30 JOB FORWARDER Liat Cheng MD [facility] CPT-06388 Level 3 Est. Patient 14:24:59 JOB FORWARDER Liat Cheng MD [facility] CPT-87653 Level 3 Est. Patient 15:06:21 JOB FORWARDER Thai Almendarez [facility]-54553 Level 3 Est. Patient 15:43:50 JOB FORWARDER Thai Almendarez [facility]-37893 Level 3 Est. Patient 14:42:12 JOB FORWARDER Liat Cheng MD [facility] CPT-01341 Level 3 Est. Patient 16:38:12 JOB FORWARDER Valentin Blanco MD [facility] CPT-86881 Level 3 Est. Patient 14:12:52 CDT Liat Cheng MD [facility] CPT-59479 Level 2 Est. Patient 12:17:18 CDT [facility]-74769 Level 3 Est. Patient 15:02:49 CDT Boo Vasquez MD [facility] CPT-60347 Level 3 Est. Patient 16:21:33 JOB FORWARDER Gama Bermeo MD [facility] CPT-67840 Level 3 Est. Patient 11:32:23 JOB FORWARDER Liat Cheng MD [facility] CPT-58958 Level 3 Est. Patient 16:59:23 CDT Liat Cheng MD [facility] CPT-47899 Level 3 Est. Patient 17:02:11 JOB FORWARDER Tay MAJOR [facility] CPT-35011 Level 3 Est. Patient 16:49:05 JOB FORWARDER Liat Cheng MD [facility] CPT-65387 Level 3 Est. Patient 16:36:13 CDT Vivien Conway ARMATURE WINDER REPAIRER [facility] Procedures Code Procedure Name Date Entry Date Standard Description CPT-57639 Ankle, right, Complete - Min 3V 16:15:36 CDT CPT-J7307 Nexplanon (Implant) 16:25:36 JOB FORWARDER CPT-07997 Nexplanon Placement 16:25:36 JOB FORWARDER CPT-OV Office Visit 16:25:36 JOB FORWARDER CPT-OV Office Visit 18:49:22 JOB FORWARDER CPT-OV Office Visit 18:49:18 CDT CPT-35969 Administration single or combination vaccine inc oral 11 :11:48 CDT CPT-61793 Adacel Intramuscular Suspension 5-2-15.5 11:11:48 CDT CPT-92656 Toes 2V 17:03:02 JOB FORWARDER
--- OUTSIDE RECORDS SUMMARY | 2018-02-18 12:54 | XMS REPORT | Clinical Summary ---
Author Author Admin, QIE Organization [employer] Address Unknown Phone Unavailable Allergies, Adverse Reactions, [...] times daily PRN Pain 2015 DICLOFENAC SODIUM 47068485317 Active Boo Vasquez MD Active ZOFRAN 4 MG TABS 1 po q8hr PRN Nausea ONDANSETRON HCL 80660828813 No Longer Active Liat Cheng MD Active NEXPLANON 68 MG SC IMPL Inserted in the left upper arm ETONOGESTREL 73334627370 Active Liat Cheng MD Active FLAGYL 500 MG TAB 1 tablet by mouth bid. do not mix with etoh. METRONIDAZOLE 47524109966 No Longer Active Liat Cheng MD Active CIPRO 500 MG TAB 1 tablet by mouth twice daily CIPROFLOXACIN HCL 78226170228 No Longer Active Jillpb Almendarez APRN Active FLONASE 50 MCG/ACT SUSP 1 puff in easch nostril bid FLUTICASONE PROPIONATE No Longer Active Jillina Erickson PACKAGE CAR DRIVER Active KEFLEX 500 MG CAP 1 po qid CEPHALEXIN 68743863067 No Longer Active Thai Almendarez APRN Active AZITHROMYCIN 250 MG TABS 2 pills day 1,1 pill day 2-5 AZITHROMYCIN 72222889938 No Longer Active Liat Cheng MD Active ZITHROMAX Z-GIANLUCA 250 MG TABS 2 today and then 1 daily for 4 days AZITHROMYCIN 32700179024 No Longer Active Liat Cheng MD Active LORATADINE 10 MG TABS 1 tablet by mouth daily PRN Congestion 2014 LORATADINE 59457951466 No Longer Active Audelia Yoramy WELLS Active MUCINEX DM MAXIMUM STRENGTH 60-1200 MG [id number] 1 po BID PRN Cough DEXTROMETHORPHAN-GUAIFENESIN 40085328858 No Longer Active Audelia Yokum RUSSELL Active PREDNISONE 20 MG TAB 2 tabs daily for 3 days, 1 tab daily for 3 days, 1/2 tab daily for 2 days PREDNISONE 34926730050 No Longer Active Boo Vasquez MD Active BACTRIM DS 800-160 MG TAB 1 tab by mouth twice daily TRIMETHOPRIM-SULFAMETHOXAZOLE 43364933764 No Longer Active Gama Bermeo MD Active ZOFRAN 8 MG ORAL TABS 1 q 8hr prn vomiting ONDANSETRON HCL 35366150505 No Longer Active Gama Bermeo MD Active AUGMENTIN 875-125 MG TABS 1 bid AMOXICILLIN-POT CLAVULANATE 80515280456 No Longer Active Liat Cheng MD Active HYDROCODONE-ACETAMINOPHEN TABS Take as directed/PRN HYDROCODONE-ACETAMINOPHEN TABS 75647962694 No Longer Active Liat Cheng MD Active CEFDINIR 300 MG CAPS 1 PO bid x 7 days CEFDINIR 47171156616 No Longer Active Liat Cheng MD Active CEFDINIR 300 MG CAPS 1 PO bid x 7 days CEFDINIR 300 MG CAPS 161177 CEFDINIR Inactive HYDROCODONE-ACETAMINOPHEN TABS Take as directed/PRN HYDROCODONE-ACETAMINOPHEN TABS HYDROCODONE-ACETAMINOPHEN TABS Inactive ZOFRAN 8 MG ORAL TABS 1 q 8hr prn vomiting ZOFRAN 8 MG ORAL TABS 034503 ONDANSETRON HCL Inactive MUCINEX DM MAXIMUM STRENGTH 60-1200 MG [id number] 1 po BID PRN Cough MUCINEX DM MAXIMUM STRENGTH 60-1200 MG [id number] DEXTROMETHORPHAN-GUAIFENESIN Inactive LORATADINE 10 MG TABS 1 tablet by mouth daily PRN Congestion 2014 LORATADINE 10 MG TABS 704063 LORATADINE Inactive ZITHROMAX Z-GIANLUCA 250 MG TABS 2 today and then 1 daily for 4 days ZITHROMAX Z-GIANLUCA 250 MG TABS 3880972 AZITHROMYCIN Inactive KEFLEX 500 MG CAP 1 po qid KEFLEX 500 MG CAP 998763 CEPHALEXIN Inactive FLONASE 50 MCG/ACT SUSP 1 puff in easch nostril bid FLONASE 50 MCG/ACT SUSP FLUTICASONE PROPIONATE Inactive CIPRO 500 MG TAB 1 tablet by mouth twice daily CIPRO 500 MG TAB 601559 CIPROFLOXACIN HCL Inactive FLAGYL 500 MG TAB 1 tablet by mouth bid. do not mix with etoh. FLAGYL 500 MG TAB 828176 METRONIDAZOLE Inactive ZOFRAN 4 MG TABS 1 po q8hr PRN Nausea ZOFRAN 4 MG TABS 090731 ONDANSETRON HCL Inactive AUGMENTIN 875-125 MG TABS 1 bid AUGMENTIN 875-125 MG TABS 048503 AMOXICILLIN-POT CLAVULANATE Inactive BACTRIM DS 800-160 MG TAB 1 tab by mouth twice daily BACTRIM DS 800-160 MG TAB 701521 TRIMETHOPRIM-SULFAMETHOXAZOLE Inactive PREDNISONE 20 MG TAB 2 tabs daily for 3 days, 1 tab daily for 3 days, 1/2 tab daily for 2 days PREDNISONE 20 MG TAB 222732 PREDNISONE Inactive AZITHROMYCIN 250 MG TABS 2 pills day 1,1 pill day 2-5 AZITHROMYCIN 250 MG TABS 2589739 AZITHROMYCIN Inactive Advance Directives Directive Description Start Date PERMISSION TO SHARE Immunizations Vaccine Administration Date Value Standard Description Adacel (Tetanus, reduced Diphtheria, and acellular Pertussis Immunization) Adacel [[id number]] tetanus toxoid, reduced diphtheria toxoid, and acellular [...] % 11.6-14.8 platelet count 369 10^3/MM^3 10*3/mm3 786-705 7125/11/17 lymphocytes as percent of blood leukocytes 28.7 % 20.5-51.1 monocytes as percent of blood leukocytes 7.4 % 1.7-9.3 neutrophils as percent of blood leukocytes 54.3 % 42.2-75.2 leukocyte count, blood 10.7 10^3/MM^3 10*3/mm3 4.6-10.2 Lab Report: Chlamydia/GC APTIMA/01913 - Lab chlamydia DNA probe NOT DETECTED NOT DETECTED chlamydia DNA probe NOT DETECTED NOT DETECTED Lab Report: Chlamydia/GC APTIMA/96807 - Microbiology Neisseria gonorrhoeae DNA probe NOT DETECTED NOT DETECTED Neisseria gonorrhoeae DNA probe NOT DETECTED NOT DETECTED Lab Report: Comp. Metabolic Panel - Chemistry sodium, serum 140 mmol/L 536-254 0247/11/17 carbon dioxide, venous blood 25.9 mmol/L 21.0-32.0 [...] negative Encounters Code Encounter Date Provider Facility CPT-98198 Level 3 Est. Patient 14:16:58 CDT Boo Vasquez MD [facility] CPT-57764 Level 3 Est. Patient 16:08:19 CDT Liat Cheng MD [facility] CPT-68282 Level 3 Est. Patient 15:48:30 WORKERS COMPENSATION ANALYST Liat Cheng MD [facility] CPT-63048 Level 3 Est. Patient 14:24:59 WORKERS COMPENSATION ANALYST Liat Cheng MD [facility] CPT-48704 Level 3 Est. Patient 15:06:21 WORKERS COMPENSATION ANALYST Thai Almendarez [facility] CPT-53115 Level 3 Est. Patient 15:43:50 WORKERS COMPENSATION ANALYST Thai Almendarez [facility] CPT-34224 Level 3 Est. Patient 14:42:12 WORKERS COMPENSATION ANALYST Liat Cheng MD [facility] CPT-46977 Level 3 Est. Patient 16:38:12 WORKERS COMPENSATION ANALYST Valentin Blanco MD [facility] CPT-67650 Level 3 Est. Patient 14:12:52 CDT Liat Cheng MD [facility] CPT-80876 Level 2 Est. Patient 12:17:18 CDT Audelia Ochoa [facility] CPT-85883 Level 3 Est. Patient 15:02:49 CDT Boo Vasquez MD [facility] CPT-18903 Level 3 Est. Patient 16:21:33 WORKERS COMPENSATION ANALYST Gama Bermeo MD [facility] CPT-42156 Level 3 Est. Patient 11:32:23 WORKERS COMPENSATION ANALYST Liat Cheng MD [facility] CPT-40252 Level 3 Est. Patient 16:59:23 CDT Liat Cheng MD [facility] CPT-36617 Level 3 Est. Patient 17:02:11 WORKERS COMPENSATION ANALYST Tay MAJOR [facility] CPT-71737 Level 3 Est. Patient 16:49:05 WORKERS COMPENSATION ANALYST Liat Chneg MD [facility] CPT-52289 Level 3 Est. Patient 16:36:13 CDT Vivien Conway APRN [facility] Procedures Code Procedure Name Date Entry Date Standard Description CPT-51611 Ankle, right, Complete - Min 3V 16:15:36 CDT CPT-J7307 Nexplanon (Implant) 16:25:36 WORKERS COMPENSATION ANALYST CPT-25012 Nexplanon Placement 16:25:36 WORKERS COMPENSATION ANALYST CPT-OV Office Visit 16:25:36 WORKERS COMPENSATION ANALYST CPT-OV Office Visit 18:49:22 WORKERS COMPENSATION ANALYST CPT-OV Office Visit 18:49:18 CDT CPT-05324 Administration single or combination vaccine inc oral 11 :11:48 CDT CPT-25262 Adacel Intramuscular Suspension 5-2-15.5 11:11:48 CDT CPT-40872 Toes 2V 17:03:02 WORKERS COMPENSATION ANALYST
--- OUTSIDE RECORDS SUMMARY | 2018-02-18 12:55 | XMS REPORT | Clinical Summary ---
Author Author Admin, QIE Organization [employer] Address Unknown Phone Unavailable Allergies, Adverse Reactions, [...] of unspecified sites Laceration, finger 883.0 Resolved Lita Cheng MD Open wound of fingers, without [...] 1 po q8hr PRN Nausea ONDANSETRON HCL 58481520901 No Longer Active Liat Cheng MD Active NEXPLANON 68 MG SC IMPL Inserted in the left upper arm ETONOGESTREL 43950792046 Active Liat Cheng MD Active FLAGYL 500 MG TAB 1 tablet by mouth bid. do not mix with etoh. METRONIDAZOLE 90464529849 No Longer Active Liat Cheng MD Active CIPRO 500 MG TAB 1 tablet by mouth twice daily CIPROFLOXACIN HCL 94849561363 No Longer Active Jillpb Almendarez APRN Active FLONASE 50 MCG/ACT SUSP 1 puff in easch nostril bid FLUTICASONE PROPIONATE No Longer Active Jillina Zulayzell PATIENT RESOURCE SPECIALIST Active KEFLEX 500 MG CAP 1 po qid CEPHALEXIN 68834833410 No Longer Active Jillina Fraaranzal PATIENT RESOURCE SPECIALIST Active AZITHROMYCIN 250 MG TABS 2 pills day 1,1 pill day 2-5 AZITHROMYCIN 10647619299 No Longer Active Liat Cheng MD Active ZITHROMAX Z-GIANLUCA 250 MG TABS 2 today and then 1 daily for 4 days AZITHROMYCIN 08881169880 No Longer Active Liat Cheng MD Active LORATADINE 10 MG TABS 1 tablet by mouth daily PRN Congestion 2014 LORATADINE 84831956329 No Longer Active Audelia Yokum PATIENT RESOURCE SPECIALIST Active MUCINEX DM MAXIMUM STRENGTH 60-1200 MG [id number] 1 po BID PRN Cough DEXTROMETHORPHAN-GUAIFENESIN 28046032461 No Longer Active Audelia Yokum PATIENT RESOURCE SPECIALIST Active PREDNISONE 20 MG TAB 2 tabs daily for 3 days, 1 tab daily for 3 days, 1/2 tab daily for 2 days PREDNISONE 78962185156 No Longer Active Boo Vasquez MD Active BACTRIM DS 800-160 MG TAB 1 tab by mouth twice daily TRIMETHOPRIM-SULFAMETHOXAZOLE 61952694709 No Longer Active Gama Bermeo MD Active ZOFRAN 8 MG ORAL TABS 1 q 8hr prn vomiting ONDANSETRON HCL 52689156162 No Longer Active Gama Bermeo MD Active AUGMENTIN 875-125 MG TABS 1 bid AMOXICILLIN-POT CLAVULANATE 44146143744 No Longer Active Liat Cheng MD Active HYDROCODONE-ACETAMINOPHEN TABS Take as directed/PRN HYDROCODONE-ACETAMINOPHEN TABS 66677965582 No Longer Active Liat Cheng MD Active CEFDINIR 300 MG CAPS 1 PO bid x 7 days CEFDINIR 02177700862 No Longer Active Liat Cheng MD Active CEFDINIR 300 MG CAPS 1 PO bid x 7 days CEFDINIR 300 MG CAPS 856515 CEFDINIR Inactive HYDROCODONE-ACETAMINOPHEN TABS Take as directed/PRN HYDROCODONE-ACETAMINOPHEN TABS HYDROCODONE-ACETAMINOPHEN TABS Inactive ZOFRAN 8 MG ORAL TABS 1 q 8hr prn vomiting ZOFRAN 8 MG ORAL TABS 624187 ONDANSETRON HCL Inactive MUCINEX DM MAXIMUM STRENGTH 60-1200 MG [id number] 1 po BID PRN Cough MUCINEX DM MAXIMUM STRENGTH 60-1200 MG [id number] DEXTROMETHORPHAN-GUAIFENESIN Inactive LORATADINE 10 MG TABS 1 tablet by mouth daily PRN Congestion 2014 LORATADINE 10 MG TABS 978596 LORATADINE Inactive ZITHROMAX Z-GIANLUCA 250 MG TABS 2 today and then 1 daily for 4 days ZITHROMAX Z-GIANLUCA 250 MG TABS 5263701 AZITHROMYCIN Inactive KEFLEX 500 MG CAP 1 po qid KEFLEX 500 MG CAP 965883 CEPHALEXIN Inactive FLONASE 50 MCG/ACT SUSP 1 puff in easch nostril bid FLONASE 50 MCG/ACT SUSP FLUTICASONE PROPIONATE Inactive CIPRO 500 MG TAB 1 tablet by mouth twice daily CIPRO 500 MG TAB 898931 CIPROFLOXACIN HCL Inactive FLAGYL 500 MG TAB 1 tablet by mouth bid. do not mix with etoh. FLAGYL 500 MG TAB 247473 METRONIDAZOLE Inactive ZOFRAN 4 MG TABS 1 po q8hr PRN Nausea ZOFRAN 4 MG TABS 967663 ONDANSETRON HCL Inactive AUGMENTIN 875-125 MG TABS 1 bid AUGMENTIN 875-125 MG TABS 761284 AMOXICILLIN-POT CLAVULANATE Inactive BACTRIM DS 800-160 MG TAB 1 tab by mouth twice daily BACTRIM DS 800-160 MG TAB 590585 TRIMETHOPRIM-SULFAMETHOXAZOLE Inactive PREDNISONE 20 MG TAB 2 tabs daily for 3 days, 1 tab daily for 3 days, 1/2 tab daily for 2 days PREDNISONE 20 MG TAB 504386 PREDNISONE Inactive AZITHROMYCIN 250 MG TABS 2 pills day 1,1 pill day 2-5 AZITHROMYCIN 250 MG TABS 4370173 AZITHROMYCIN Inactive Advance Directives Directive Description Start Date PERMISSION TO SHARE Immunizations Vaccine Administration Date Value Standard Description Adacel (Tetanus, reduced Diphtheria, and acellular Pertussis Immunization) Adacel [[id number]] tetanus toxoid, reduced diphtheria toxoid, and acellular [...] 369 10^3/MM^3 10*3/mm3 142-424 Lab Report: Chlamydia/GC APTIMA/51021 - Lab chlamydia DNA probe NOT DETECTED NOT DETECTED chlamydia DNA probe NOT DETECTED NOT DETECTED Lab Report: Chlamydia/GC APTIMA/45305 - Microbiology Neisseria gonorrhoeae DNA probe NOT DETECTED NOT DETECTED Neisseria gonorrhoeae DNA probe NOT DETECTED NOT DETECTED Lab Report: Comp. Metabolic Panel - Chemistry sodium, serum 140 mmol/L 882-648 1449/11/17 carbon dioxide, venous blood 25.9 mmol/L 21.0-32.0 [...] negative Encounters Code Encounter Date Provider Facility CPT-51993 Level 3 Est. Patient 16:08:19 CDT Liat Cheng MD [facility] CPT-41107 Level 3 Est. Patient 15:48:30 FIRER DIESEL LOCOMOTIVE Liat Cheng MD [facility] CPT-35590 Level 3 Est. Patient 14:24:59 FIRER DIESEL LOCOMOTIVE Liat Cheng MD [facility] CPT-55755 Level 3 Est. Patient 15:06:21 FIRER DIESEL LOCOMOTIVE Thai Almendarez [facility] CPT-57263 Level 3 Est. Patient 15:43:50 FIRER DIESEL LOCOMOTIVE Thai Almendarez [facility] CPT-52994 Level 3 Est. Patient 14:42:12 FIRER DIESEL LOCOMOTIVE Liat Cheng MD [facility] CPT-49654 Level 3 Est. Patient 16:38:12 FIRER DIESEL LOCOMOTIVE Valentin Blanco MD [facility] CPT-23431 Level 3 Est. Patient 14:12:52 CDT Liat Cheng MD [facility] CPT-46849 Level 2 Est. Patient 12:17:18 CDT Audelia Ochoa [facility] CPT-02611 Level 3 Est. Patient 15:02:49 CDT Boo Vasquez MD [facility] CPT-74064 Level 3 Est. Patient 16:21:33 FIRER DIESEL LOCOMOTIVE Gama Bermeo MD [facility] CPT-01235 Level 3 Est. Patient 11:32:23 FIRER DIESEL LOCOMOTIVE Liat Cheng MD [facility] CPT-17365 Level 3 Est. Patient 16:59:23 CDT Liat Cheng MD [facility] CPT-37731 Level 3 Est. Patient 17:02:11 FIRER DIESEL LOCOMOTIVE Tay MAJOR [facility] CPT-31874 Level 3 Est. Patient 16:49:05 FIRER DIESEL LOCOMOTIVE Liat Cheng MD [facility] CPT-90184 Level 3 Est. Patient 16:36:13 CDT Vivien Conway PATIENT RESOURCE SPECIALIST [facility] Procedures Code Procedure Name Date Entry Date Standard Description CPT-49425 Ankle, right, Complete - Min 3V 16:15:36 CDT CPT-J7307 Nexplanon (Implant) 16:25:36 FIRER DIESEL LOCOMOTIVE CPT-89298 Nexplanon Placement 16:25:36 FIRER DIESEL LOCOMOTIVE CPT-OV Office Visit 16:25:36 FIRER DIESEL LOCOMOTIVE CPT-OV Office Visit 18:49:22 FIRER DIESEL LOCOMOTIVE CPT-OV Office Visit 18:49:18 CDT CPT-52707 Administration single or combination vaccine inc oral 11 :11:48 CDT CPT-45348 Adacel Intramuscular Suspension 5-2-15.5 11:11:48 CDT CPT-44979 Toes 2V 17:03:02 FIRER DIESEL LOCOMOTIVE
--- OUTSIDE RECORDS SUMMARY | 2018-02-18 12:56 | XMS REPORT | Clinical Summary ---
Author Author Admin, QIE Organization [employer] Address Unknown Phone Unavailable Allergies, Adverse Reactions, [...] twice a day for 10 days AMOXICILLIN 59713149504 Active Valentin Blanco MD Active NEXPLANON 68 MG SC IMPL Inserted in the left upper arm ETONOGESTREL 45651096310 No Longer Active Valentin Blanco MD Active DICLOFENAC SODIUM 50 MG TBEC 1 tablet by mouth four times daily PRN Pain 2015 DICLOFENAC SODIUM 56152798864 No Longer Active Liat Cheng MD Active ZOFRAN 4 MG TABS 1 po q8hr PRN Nausea ONDANSETRON HCL 11626189954 No Longer Active Liat Cheng MD Active FLAGYL 500 MG TAB 1 tablet by mouth bid. do not mix with etoh. METRONIDAZOLE 06541579266 No Longer Active Liat Cheng MD Active CIPRO 500 MG TAB 1 tablet by mouth twice daily CIPROFLOXACIN HCL 45563779032 No Longer Active Jillina Fraaranzal RUSSELL Active FLONASE 50 MCG/ACT SUSP 1 puff in easch nostril bid FLUTICASONE PROPIONATE No Longer Active Jillpb Fraaranzal RUSSELL Active KEFLEX 500 MG CAP 1 po qid CEPHALEXIN 35434285198 No Longer Active Jillpb Almendarez APRN Active AZITHROMYCIN 250 MG TABS 2 pills day 1,1 pill day 2-5 AZITHROMYCIN 70858543144 No Longer Active Liat Cheng MD Active ZITHROMAX Z-GIANLUCA 250 MG TABS 2 today and then 1 daily for 4 days AZITHROMYCIN 17585152031 No Longer Active Liat Cheng MD Active LORATADINE 10 MG TABS 1 tablet by mouth daily PRN Congestion 2014 LORATADINE 05958435199 No Longer Active Audelia Yokbillie WELLS Active MUCINEX DM MAXIMUM STRENGTH 60-1200 MG [id number] 1 po BID PRN Cough DEXTROMETHORPHAN-GUAIFENESIN 15325060463 No Longer Active Audelia Yokum WHITING CAN WORKER Active PREDNISONE 20 MG TAB 2 tabs daily for 3 days, 1 tab daily for 3 days, 1/2 tab daily for 2 days PREDNISONE 90793554989 No Longer Active Boo Vasquez MD Active BACTRIM DS 800-160 MG TAB 1 tab by mouth twice daily TRIMETHOPRIM-SULFAMETHOXAZOLE 06428796039 No Longer Active Gama Bermeo MD Active ZOFRAN 8 MG ORAL TABS 1 q 8hr prn vomiting ONDANSETRON HCL 58257995031 No Longer Active Gama Bermeo MD Active AUGMENTIN 875-125 MG TABS 1 bid AMOXICILLIN-POT CLAVULANATE 86131918320 No Longer Active Liat Cheng MD Active HYDROCODONE-ACETAMINOPHEN TABS Take as directed/PRN HYDROCODONE-ACETAMINOPHEN TABS 01379599894 No Longer Active Liat Cheng MD Active CEFDINIR 300 MG CAPS 1 PO bid x 7 days CEFDINIR 19100957565 No Longer Active Liat Cheng MD Active CEFDINIR 300 MG CAPS 1 PO bid x 7 days CEFDINIR 300 MG CAPS 213261 CEFDINIR Inactive HYDROCODONE-ACETAMINOPHEN TABS Take as directed/PRN HYDROCODONE-ACETAMINOPHEN TABS HYDROCODONE-ACETAMINOPHEN TABS Inactive ZOFRAN 8 MG ORAL TABS 1 q 8hr prn vomiting ZOFRAN 8 MG ORAL TABS 531043 ONDANSETRON HCL Inactive MUCINEX DM MAXIMUM STRENGTH 60-1200 MG [id number] 1 po BID PRN Cough MUCINEX DM MAXIMUM STRENGTH 60-1200 MG [id number] DEXTROMETHORPHAN-GUAIFENESIN Inactive LORATADINE 10 MG TABS 1 tablet by mouth daily PRN Congestion 2014 LORATADINE 10 MG TABS 739533 LORATADINE Inactive ZITHROMAX Z-GIANLUCA 250 MG TABS 2 today and then 1 daily for 4 days ZITHROMAX Z-GIANLUCA 250 MG TABS 3496998 AZITHROMYCIN Inactive KEFLEX 500 MG CAP 1 po qid KEFLEX 500 MG CAP 022945 CEPHALEXIN Inactive FLONASE 50 MCG/ACT SUSP 1 puff in easch nostril bid FLONASE 50 MCG/ACT SUSP FLUTICASONE PROPIONATE Inactive CIPRO 500 MG TAB 1 tablet by mouth twice daily CIPRO 500 MG TAB 239885 CIPROFLOXACIN HCL Inactive FLAGYL 500 MG TAB 1 tablet by mouth bid. do not mix with etoh. FLAGYL 500 MG TAB 600488 METRONIDAZOLE Inactive ZOFRAN 4 MG TABS 1 po q8hr PRN Nausea ZOFRAN 4 MG TABS 892181 ONDANSETRON HCL Inactive DICLOFENAC SODIUM 50 MG TBEC 1 tablet by mouth four times daily PRN Pain 2015 DICLOFENAC SODIUM 50 MG TBEC 089916 DICLOFENAC SODIUM Inactive NEXPLANON 68 MG SC IMPL Inserted in the left upper arm NEXPLANON 68 MG SC IMPL ETONOGESTREL Inactive AUGMENTIN 875-125 MG TABS 1 bid AUGMENTIN 875-125 MG TABS 242279 AMOXICILLIN-POT CLAVULANATE Inactive BACTRIM DS 800-160 MG TAB 1 tab by mouth twice daily BACTRIM DS 800-160 MG TAB 441866 TRIMETHOPRIM-SULFAMETHOXAZOLE Inactive PREDNISONE 20 MG TAB 2 tabs daily for 3 days, 1 tab daily for 3 days, 1/2 tab daily for 2 days PREDNISONE 20 MG TAB 021645 PREDNISONE Inactive AZITHROMYCIN 250 MG TABS 2 pills day 1,1 pill day 2-5 AZITHROMYCIN 250 MG TABS 0704123 AZITHROMYCIN Inactive Advance Directives Directive Description Start Date PERMISSION TO SHARE Immunizations Vaccine Administration Date Value Standard Description Adacel (Tetanus, reduced Diphtheria, and acellular Pertussis Immunization) Adacel [[id number]] tetanus toxoid, reduced diphtheria toxoid, and acellular [...] E&M - 3141-9 254 [lb_av] Weight Measured Diagnostic Results Date Name Value Unit Range Description Lab Report: Chlamydia/GC APTIMA/38590 - Lab chlamydia DNA probe NOT DETECTED NOT DETECTED chlamydia DNA probe NOT DETECTED NOT DETECTED Lab Report: Chlamydia/GC APTIMA/13147 - Microbiology Neisseria gonorrhoeae DNA probe NOT DETECTED NOT DETECTED Neisseria gonorrhoeae DNA probe NOT DETECTED NOT DETECTED Lab Report: RapidStrep Rflx/Cx - Lab Microbial [...] negative Encounters Code Encounter Date Provider Facility CPT-56222 Level 3 Est. Patient 16:38:37 REVENUE INSPECTOR [facility] CPT-23768 Level 3 Est. Patient 13:10:51 CDT Liat Cheng MD [facility] CPT-99590 Level 3 Est. Patient 14:16:58 CDT Boo Vasquez MD [facility]-50672 Level 3 Est. Patient 16:08:19 CDT Liat Cheng MD [facility] CPT-26016 Level 3 Est. Patient 15:48:30 REVENUE INSPECTOR Liat Cheng MD [facility] CPT-54387 Level 3 Est. Patient 14:24:59 REVENUE INSPECTOR Liat Cheng MD [facility] CPT-05066 Level 3 Est. Patient 15:06:21 REVENUE INSPECTOR Thai Almendarez [facility]-64213 Level 3 Est. Patient 15:43:50 REVENUE INSPECTOR Thai Almendarez [facility] CPT-62068 Level 3 Est. Patient 14:42:12 REVENUE INSPECTOR iLat Cheng MD [facility]-97838 Level 3 Est. Patient 16:38:12 REVENUE INSPECTOR Valentin Blanco MD [facility] CPT-94955 Level 3 Est. Patient 14:12:52 CDT Liat Cheng MD [facility] CPT-95953 Level 2 Est. Patient 12:17:18 CDT Audelia Ochoa [facility] CPT-25755 Level 3 Est. Patient 15:02:49 CDT Boo Vasquez MD [facility]-74150 Level 3 Est. Patient 16:21:33 REVENUE INSPECTOR Gama Bermeo MD [facility]-92968 Level 3 Est. Patient 11:32:23 REVENUE INSPECTOR Liat Cheng MD [facility] CPT-73741 Level 3 Est. Patient 16:59:23 CDT Liat Cheng MD [facility] CPT-93222 Level 3 Est. Patient 17:02:11 REVENUE INSPECTOR Tay MAJOR [facility] CPT-31799 Level 3 Est. Patient 16:49:05 REVENUE INSPECTOR Liat Cheng MD [facility] CPT-44099 Level 3 Est. Patient 16:36:13 CDT Vivien Conway APRN [facility] Procedures Code Procedure Name Date Entry Date Standard Description CPT-35171 Nexplanon Removal 15:41:24 CDT CPT-OV Office Visit 09:29:28 CDT CPT-000 Give Immunizations Due 16:59:23 CDT CPT-02872 Ankle, right, Complete - Min 3V 16:15:36 CDT CPT-J7307 Nexplanon (Implant) 16:25:36 REVENUE INSPECTOR CPT-74480 Nexplanon Placement 16:25:36 REVENUE INSPECTOR CPT-OV Office Visit 16:25:36 REVENUE INSPECTOR CPT-OV Office Visit 18:49:22 REVENUE INSPECTOR CPT-OV Office Visit 18:49:18 CDT CPT-33273 Administration single or combination vaccine inc oral 11 :11:48 CDT CPT-35842 Adacel Intramuscular Suspension 5-2-15.5 11:11:48 CDT CPT-01007 Toes 2V 17:03:02 REVENUE INSPECTOR
--- OUTSIDE RECORDS SUMMARY | 2018-02-18 12:57 | XMS REPORT | Clinical Summary ---
Author Author Admin, QIE Organization [facility] Address Unknown Phone Unavailable Allergies, Adverse Reactions, [...] 500 MG CAP 1 po qid CEPHALEXIN [id number] Active Thai Almendarez COLLISION TECHNICIAN Active FLONASE 50 MCG/ACT SUSP 1 puff in easch nostril bid FLUTICASONE PROPIONATE Active Liat Cheng MD Active AZITHROMYCIN 250 MG TABS 2 pills day 1,1 pill day 2-5 AZITHROMYCIN 77611787663 No Longer Active Liat Cheng MD Active ZITHROMAX Z-GIANLUCA 250 MG TABS 2 today and then 1 daily for 4 days AZITHROMYCIN 68167796881 No Longer Active Liat Cheng MD Active LORATADINE 10 MG TABS 1 tablet by mouth daily PRN Congestion 2014 LORATADINE 16294950397 No Longer Active Audelia Ochoa COLLISION TECHNICIAN Active MUCINEX DM MAXIMUM STRENGTH 60-1200 MG [id number] 1 po BID PRN Cough DEXTROMETHORPHAN-GUAIFENESIN 38993837030 No Longer Active Audelia Ochoa APRN Active PREDNISONE 20 MG TAB 2 tabs daily for 3 days, 1 tab daily for 3 days, 1/2 tab daily for 2 days PREDNISONE 08095905155 No Longer Active Boo Vasquez MD Active BACTRIM DS 800-160 MG TAB 1 tab by mouth twice daily TRIMETHOPRIM-SULFAMETHOXAZOLE 70474242533 No Longer Active Gama Bermeo MD Active ZOFRAN 8 MG ORAL TABS 1 q 8hr prn vomiting ONDANSETRON HCL 76114874300 No Longer Active Gama Bermeo MD Active AUGMENTIN 875-125 MG TABS 1 bid AMOXICILLIN-POT CLAVULANATE 60745428020 No Longer Active Liat Cheng MD Active HYDROCODONE-ACETAMINOPHEN TABS Take as directed/PRN HYDROCODONE-ACETAMINOPHEN TABS 41490822420 No Longer Active Liat Cheng MD Active CEFDINIR 300 MG CAPS 1 PO bid x 7 days CEFDINIR 98610388131 No Longer Active Liat Cheng MD Active CEFDINIR 300 MG CAPS 1 PO bid x 7 days CEFDINIR 300 MG CAPS 685676 CEFDINIR Inactive HYDROCODONE-ACETAMINOPHEN TABS Take as directed/PRN HYDROCODONE-ACETAMINOPHEN TABS HYDROCODONE-ACETAMINOPHEN TABS Inactive ZOFRAN 8 MG ORAL TABS 1 q 8hr prn vomiting ZOFRAN 8 MG ORAL TABS 583314 ONDANSETRON HCL Inactive MUCINEX DM MAXIMUM STRENGTH 60-1200 MG [id number] 1 po BID PRN Cough MUCINEX DM MAXIMUM STRENGTH 60-1200 MG [id number] DEXTROMETHORPHAN-GUAIFENESIN Inactive LORATADINE 10 MG TABS 1 tablet by mouth daily PRN Congestion 2014 LORATADINE 10 MG TABS 572173 LORATADINE Inactive ZITHROMAX Z-GIANLUCA 250 MG TABS 2 today and then 1 daily for 4 days ZITHROMAX Z-GIANLUCA 250 MG TABS 4095205 AZITHROMYCIN Inactive AUGMENTIN 875-125 MG TABS 1 bid AUGMENTIN 875-125 MG TABS 248006 AMOXICILLIN-POT CLAVULANATE Inactive BACTRIM DS 800-160 MG TAB 1 tab by mouth twice daily BACTRIM DS 800-160 MG TAB 880560 TRIMETHOPRIM-SULFAMETHOXAZOLE Inactive PREDNISONE 20 MG TAB 2 tabs daily for 3 days, 1 tab daily for 3 days, 1/2 tab daily for 2 days PREDNISONE 20 MG TAB 725753 PREDNISONE Inactive AZITHROMYCIN 250 MG TABS 2 pills day 1,1 pill day 2-5 AZITHROMYCIN 250 MG TABS 9765100 AZITHROMYCIN Inactive Immunizations Vaccine Administration Date Value Standard Description Adacel (Tetanus, reduced Diphtheria, and acellular Pertussis Immunization) Adacel [[id number]] tetanus toxoid, reduced diphtheria toxoid, and acellular [...] Panel - Chemistry sodium, serum 140 mmol/L 591-339 6632/11/17 carbon dioxide, venous blood 25.9 mmol/L 21.0-32.0 [...] Negative Encounters Code Encounter Date Provider Facility CPT-48270 Level 3 Est. Patient 14:42:12 AIR BRAKE OPERATOR Liat Cheng MD [facility] CPT-83905 Level 3 Est. Patient 16:38:12 AIR BRAKE OPERATOR Valentin Blanco MD [facility] CPT-89205 Level 3 Est. Patient 14:12:52 CDT Liat Cheng MD [facility] CPT-66014 Level 2 Est. Patient 12:17:18 CDT Audelia Ochoa [facility] CPT-33793 Level 3 Est. Patient 15:02:49 CDT Boo Vasquez MD [facility] CPT-33586 Level 3 Est. Patient 16:21:33 AIR BRAKE OPERATOR Gama Bermeo MD [facility] CPT-75989 Level 3 Est. Patient 11:32:23 AIR BRAKE OPERATOR Liat Cheng MD [facility] CPT-41722 Level 3 Est. Patient 16:59:23 CDT Liat Cheng MD [facility] CPT-05322 Level 3 Est. Patient 17:02:11 AIR BRAKE OPERATOR Tay MAJOR [facility] CPT-69820 Level 3 Est. Patient 16:49:05 AIR BRAKE OPERATOR Liat Cheng MD [facility] CPT-16651 Level 3 Est. Patient 16:36:13 CDT Vivien Conway [facility] Procedures Code Procedure Name Date Entry Date Standard Description CPT-OV Office Visit 18:49:18 CDT CPT-71463 Administration single or combination vaccine inc oral 11 :11:48 CDT CPT-20323 Adacel Intramuscular Suspension 5-2-15.5 11:11:48 CDT CPT-47980 Toes 2V 17:03:02 AIR BRAKE OPERATOR
--- OUTSIDE RECORDS SUMMARY | 2018-02-18 12:58 | XMS REPORT | Clinical Summary ---
Author Author Admin, QIE Organization [facility] Address Unknown Phone Unavailable Allergies, Adverse Reactions, [...] 1 po q8hr PRN Nausea ONDANSETRON HCL 35462241824 Active Angeline Santiago APRN Active NEXPLANON 68 MG SC IMPL Inserted in the left upper arm ETONOGESTREL 94370873080 Active Liat Cheng MD Active FLAGYL 500 MG TAB 1 tablet by mouth bid. do not mix with etoh. METRONIDAZOLE 87802003603 No Longer Active Liat Cheng MD Active CIPRO 500 MG TAB 1 tablet by mouth twice daily CIPROFLOXACIN HCL 29727066968 No Longer Active Jillina Erickson WELLS Active FLONASE 50 MCG/ACT SUSP 1 puff in easch nostril bid FLUTICASONE PROPIONATE No Longer Active Maximllpb Almendarez APRN Active KEFLEX 500 MG CAP 1 po qid CEPHALEXIN 56198373004 No Longer Active Jillina Fraaranzal FILM CUTTER Active AZITHROMYCIN 250 MG TABS 2 pills day 1,1 pill day 2-5 AZITHROMYCIN 08999193330 No Longer Active Liat Cheng MD Active ZITHROMAX Z-GIANLUCA 250 MG TABS 2 today and then 1 daily for 4 days AZITHROMYCIN 73268020950 No Longer Active Liat Cheng MD Active LORATADINE 10 MG TABS 1 tablet by mouth daily PRN Congestion 2014 LORATADINE 97053096328 No Longer Active Audelia Yokum FILM CUTTER Active MUCINEX DM MAXIMUM STRENGTH 60-1200 MG [id number] 1 po BID PRN Cough DEXTROMETHORPHAN-GUAIFENESIN 42469494925 No Longer Active Audelia Yokum FILM CUTTER Active PREDNISONE 20 MG TAB 2 tabs daily for 3 days, 1 tab daily for 3 days, 1/2 tab daily for 2 days PREDNISONE 16109508578 No Longer Active Boo Vasquez MD Active BACTRIM DS 800-160 MG TAB 1 tab by mouth twice daily TRIMETHOPRIM-SULFAMETHOXAZOLE 98217177280 No Longer Active Gama Bermeo MD Active ZOFRAN 8 MG ORAL TABS 1 q 8hr prn vomiting ONDANSETRON HCL 84918717126 No Longer Active Gama Bermeo MD Active AUGMENTIN 875-125 MG TABS 1 bid AMOXICILLIN-POT CLAVULANATE 60162983344 No Longer Active Liat Cheng MD Active HYDROCODONE-ACETAMINOPHEN TABS Take as directed/PRN HYDROCODONE-ACETAMINOPHEN TABS 48726146079 No Longer Active Liat Cheng MD Active CEFDINIR 300 MG CAPS 1 PO bid x 7 days CEFDINIR 29319801440 No Longer Active Liat Cheng MD Active CEFDINIR 300 MG CAPS 1 PO bid x 7 days CEFDINIR 300 MG CAPS 882410 CEFDINIR Inactive HYDROCODONE-ACETAMINOPHEN TABS Take as directed/PRN HYDROCODONE-ACETAMINOPHEN TABS HYDROCODONE-ACETAMINOPHEN TABS Inactive ZOFRAN 8 MG ORAL TABS 1 q 8hr prn vomiting ZOFRAN 8 MG ORAL TABS 061242 ONDANSETRON HCL Inactive MUCINEX DM MAXIMUM STRENGTH 60-1200 MG [id number] 1 po BID PRN Cough MUCINEX DM MAXIMUM STRENGTH 60-1200 MG [id number] DEXTROMETHORPHAN-GUAIFENESIN Inactive LORATADINE 10 MG TABS 1 tablet by mouth daily PRN Congestion 2014 LORATADINE 10 MG TABS 996778 LORATADINE Inactive ZITHROMAX Z-GIANLUCA 250 MG TABS 2 today and then 1 daily for 4 days ZITHROMAX Z-GIANLUCA 250 MG TABS 1354353 AZITHROMYCIN Inactive KEFLEX 500 MG CAP 1 po qid KEFLEX 500 MG CAP 934602 CEPHALEXIN Inactive FLONASE 50 MCG/ACT SUSP 1 puff in easch nostril bid FLONASE 50 MCG/ACT SUSP FLUTICASONE PROPIONATE Inactive CIPRO 500 MG TAB 1 tablet by mouth twice daily CIPRO 500 MG TAB 348442 CIPROFLOXACIN HCL Inactive FLAGYL 500 MG TAB 1 tablet by mouth bid. do not mix with etoh. FLAGYL 500 MG TAB 762180 METRONIDAZOLE Inactive AUGMENTIN 875-125 MG TABS 1 bid AUGMENTIN 875-125 MG TABS 217920 AMOXICILLIN-POT CLAVULANATE Inactive BACTRIM DS 800-160 MG TAB 1 tab by mouth twice daily BACTRIM DS 800-160 MG TAB 661448 TRIMETHOPRIM-SULFAMETHOXAZOLE Inactive PREDNISONE 20 MG TAB 2 tabs daily for 3 days, 1 tab daily for 3 days, 1/2 tab daily for 2 days PREDNISONE 20 MG TAB 898591 PREDNISONE Inactive AZITHROMYCIN 250 MG TABS 2 pills day 1,1 pill day 2-5 AZITHROMYCIN 250 MG TABS 7785756 AZITHROMYCIN Inactive Advance Directives Directive Description Start Date PERMISSION TO SHARE Immunizations Vaccine Administration Date Value Standard Description Adacel (Tetanus, reduced Diphtheria, and acellular Pertussis Immunization) Adacel [[id number]] tetanus toxoid, reduced diphtheria toxoid, and acellular [...] 369 10^3/MM^3 10*3/mm3 142-424 Lab Report: Chlamydia/GC APTIMA/86134 - Lab chlamydia DNA probe NOT DETECTED NOT DETECTED chlamydia DNA probe NOT DETECTED NOT DETECTED Lab Report: Chlamydia/GC APTIMA/[id number] - Microbiology Neisseria gonorrhoeae DNA probe NOT DETECTED NOT DETECTED Neisseria gonorrhoeae DNA probe NOT DETECTED NOT DETECTED Lab Report: Comp. Metabolic Panel - Chemistry sodium, serum 140 mmol/L 540-963 5699/11/17 carbon dioxide, venous blood 25.9 mmol/L 21.0-32.0 [...] negative Encounters Code Encounter Date Provider Facility CPT-41325 Level 3 Est. Patient 15:48:30 PLASTIC PRODUCTS SALES REPRESENTATIVE Liat Cheng MD [facility] CPT-00590 Level 3 Est. Patient 14:24:59 PLASTIC PRODUCTS SALES REPRESENTATIVE Liat Cheng MD [facility] CPT-25068 Level 3 Est. Patient 15:06:21 PLASTIC PRODUCTS SALES REPRESENTATIVE Thai Almendarez Formerly named [facility]-08368 Level 3 Est. Patient 15:43:50 PLASTIC PRODUCTS SALES REPRESENTATIVE Thai Almendarez Formerly named [facility]-84672 Level 3 Est. Patient 14:42:12 PLASTIC PRODUCTS SALES REPRESENTATIVE Liat Cheng MD [facility] CPT-78093 Level 3 Est. Patient 16:38:12 PLASTIC PRODUCTS SALES REPRESENTATIVE Valentin Blanco MD [facility] CPT-89892 Level 3 Est. Patient 14:12:52 CDT Liat Cheng MD [facility]-88780 Level 2 Est. Patient 12:17:18 CDT Audelia Ochoa [facility]-14311 Level 3 Est. Patient 15:02:49 CDT Boo Vasquez MD [facility]-79649 Level 3 Est. Patient 16:21:33 PLASTIC PRODUCTS SALES REPRESENTATIVE Gama Bermeo MD [facility]-02819 Level 3 Est. Patient 11:32:23 PLASTIC PRODUCTS SALES REPRESENTATIVE Liat Cheng MD [facility] CPT-32035 Level 3 Est. Patient 16:59:23 CDT Liat Cheng MD [facility] CPT-29528 Level 3 Est. Patient 17:02:11 PLASTIC PRODUCTS SALES REPRESENTATIVE Tay MAJOR [facility] CPT-57697 Level 3 Est. Patient 16:49:05 PLASTIC PRODUCTS SALES REPRESENTATIVE Liat Cheng MD [facility] CPT-11887 Level 3 Est. Patient 16:36:13 CDT Vivien Conway APRN [facility] Procedures Code Procedure Name Date Entry Date Standard Description CPT-J7307 Nexplanon (Implant) 16:25:36 PLASTIC PRODUCTS SALES REPRESENTATIVE CPT-35641 Nexplanon Placement 16:25:36 PLASTIC PRODUCTS SALES REPRESENTATIVE CPT-OV Office Visit 16:25:36 PLASTIC PRODUCTS SALES REPRESENTATIVE CPT-OV Office Visit 18:49:22 PLASTIC PRODUCTS SALES REPRESENTATIVE CPT-OV Office Visit 18:49:18 CDT CPT-02748 Administration single or combination vaccine inc oral 11 :11:48 CDT CPT-50335 Adacel Intramuscular Suspension 5-2-15.5 11:11:48 CDT CPT-36640 Toes 2V 17:03:02 PLASTIC PRODUCTS SALES REPRESENTATIVE
--- OUTSIDE RECORDS SUMMARY | 2018-02-18 12:59 | XMS REPORT | Clinical Summary ---
Author Author Admin, QIE Organization [facility] Address Unknown Phone Unavailable Allergies, Adverse [...] times daily PRN Pain 2015 DICLOFENAC SODIUM 35216656234 No Longer Active Liat Cheng MD Active ZOFRAN 4 MG TABS 1 po q8hr PRN Nausea ONDANSETRON HCL 77520603639 No Longer Active Liat Cheng MD Active NEXPLANON 68 MG SC IMPL Inserted in the left upper arm ETONOGESTREL 59720030685 Active Liat Cheng MD Active FLAGYL 500 MG TAB 1 tablet by mouth bid. do not mix with etoh. METRONIDAZOLE 90164124759 No Longer Active Liat Cheng MD Active CIPRO 500 MG TAB 1 tablet by mouth twice daily CIPROFLOXACIN HCL 79816487067 No Longer Active Jillina Frazell MOBILE EQUIPMENT SERVICER Active FLONASE 50 MCG/ACT SUSP 1 puff in easch nostril bid FLUTICASONE PROPIONATE No Longer Active Jillina Frazell MOBILE EQUIPMENT SERVICER Active KEFLEX 500 MG CAP 1 po qid CEPHALEXIN 93166077076 No Longer Active Jillina Fraaranzal MOBILE EQUIPMENT SERVICER Active AZITHROMYCIN 250 MG TABS 2 pills day 1,1 pill day 2-5 AZITHROMYCIN 55997641478 No Longer Active Liat Cheng MD Active ZITHROMAX Z-GIANLUCA 250 MG TABS 2 today and then 1 daily for 4 days AZITHROMYCIN 80858737502 No Longer Active Liat Cheng MD Active LORATADINE 10 MG TABS 1 tablet by mouth daily PRN Congestion 2014 LORATADINE 51524760828 No Longer Active Audelia Yokum MOBILE EQUIPMENT SERVICER Active MUCINEX DM MAXIMUM STRENGTH 60-1200 MG [id number] 1 po BID PRN Cough DEXTROMETHORPHAN-GUAIFENESIN 26980536281 No Longer Active Audelia Yokum MOBILE EQUIPMENT SERVICER Active PREDNISONE 20 MG TAB 2 tabs daily for 3 days, 1 tab daily for 3 days, 1/2 tab daily for 2 days PREDNISONE 81582335557 No Longer Active Boo Vasquez MD Active BACTRIM DS 800-160 MG TAB 1 tab by mouth twice daily TRIMETHOPRIM-SULFAMETHOXAZOLE 20655827404 No Longer Active Gama Bermeo MD Active ZOFRAN 8 MG ORAL TABS 1 q 8hr prn vomiting ONDANSETRON HCL 47263683924 No Longer Active Gama Bermeo MD Active AUGMENTIN 875-125 MG TABS 1 bid AMOXICILLIN-POT CLAVULANATE 41560883147 No Longer Active Liat Cheng MD Active HYDROCODONE-ACETAMINOPHEN TABS Take as directed/PRN HYDROCODONE-ACETAMINOPHEN TABS 10359351094 No Longer Active Liat Cheng MD Active CEFDINIR 300 MG CAPS 1 PO bid x 7 days CEFDINIR 86502203576 No Longer Active Liat Cheng MD Active CEFDINIR 300 MG CAPS 1 PO bid x 7 days CEFDINIR 300 MG CAPS 453448 CEFDINIR Inactive HYDROCODONE-ACETAMINOPHEN TABS Take as directed/PRN HYDROCODONE-ACETAMINOPHEN TABS HYDROCODONE-ACETAMINOPHEN TABS Inactive ZOFRAN 8 MG ORAL TABS 1 q 8hr prn vomiting ZOFRAN 8 MG ORAL TABS 309306 ONDANSETRON HCL Inactive MUCINEX DM MAXIMUM STRENGTH 60-1200 MG [id number] 1 po BID PRN Cough MUCINEX DM MAXIMUM STRENGTH 60-1200 MG [id number] DEXTROMETHORPHAN-GUAIFENESIN Inactive LORATADINE 10 MG TABS 1 tablet by mouth daily PRN Congestion 2014 LORATADINE 10 MG TABS 061311 LORATADINE Inactive ZITHROMAX Z-GIANLUCA 250 MG TABS 2 today and then 1 daily for 4 days ZITHROMAX Z-GIANLUCA 250 MG TABS 6929164 AZITHROMYCIN Inactive KEFLEX 500 MG CAP 1 po qid KEFLEX 500 MG CAP 515991 CEPHALEXIN Inactive FLONASE 50 MCG/ACT SUSP 1 puff in easch nostril bid FLONASE 50 MCG/ACT SUSP 651603 FLUTICASONE PROPIONATE Inactive CIPRO 500 MG TAB 1 tablet by mouth twice daily CIPRO 500 MG TAB 852835 CIPROFLOXACIN HCL Inactive FLAGYL 500 MG TAB 1 tablet by mouth bid. do not mix with etoh. FLAGYL 500 MG TAB 294957 METRONIDAZOLE Inactive ZOFRAN 4 MG TABS 1 po q8hr PRN Nausea ZOFRAN 4 MG TABS 600838 ONDANSETRON HCL Inactive DICLOFENAC SODIUM 50 MG TBEC 1 tablet by mouth four times daily PRN Pain 2015 DICLOFENAC SODIUM 50 MG TBEC 177811 DICLOFENAC SODIUM Inactive AUGMENTIN 875-125 MG TABS 1 bid AUGMENTIN 875-125 MG TABS 052629 AMOXICILLIN-POT CLAVULANATE Inactive BACTRIM DS 800-160 MG TAB 1 tab by mouth twice daily BACTRIM DS 800-160 MG TAB 285753 TRIMETHOPRIM-SULFAMETHOXAZOLE Inactive PREDNISONE 20 MG TAB 2 tabs daily for 3 days, 1 tab daily for 3 days, 1/2 tab daily for 2 days PREDNISONE 20 MG TAB 902368 PREDNISONE Inactive AZITHROMYCIN 250 MG TABS 2 pills day 1,1 pill day 2-5 AZITHROMYCIN 250 MG TABS 3181343 AZITHROMYCIN Inactive Advance Directives Directive Description Start Date PERMISSION TO SHARE Immunizations Vaccine Administration Date Value Standard Description Adacel (Tetanus, reduced Diphtheria, and acellular Pertussis Immunization) Adacel [[id number]] tetanus toxoid, reduced diphtheria toxoid, and acellular [...] 369 10^3/MM^3 10*3/mm3 142-424 Lab Report: Chlamydia/GC APTIMA/27188 - Lab chlamydia DNA probe NOT DETECTED NOT DETECTED chlamydia DNA probe NOT DETECTED NOT DETECTED Lab Report: Chlamydia/GC APTIMA/80262 - Microbiology Neisseria gonorrhoeae DNA probe NOT DETECTED NOT DETECTED Neisseria gonorrhoeae DNA probe NOT DETECTED NOT DETECTED Lab Report: Comp. Metabolic Panel - Chemistry sodium, serum 140 mmol/L 410-869 6776/11/17 carbon dioxide, venous blood 25.9 mmol/L 21.0-32.0 [...] negative Encounters Code Encounter Date Provider Facility CPT-81370 Level 3 Est. Patient 13:10:51 CDT Liat Cheng MD [facility] CPT-65199 Level 3 Est. Patient 14:16:58 CDT Boo Vasquez MD [facility]-41377 Level 3 Est. Patient 16:08:19 CDT Liat Cehng MD [facility]-76053 Level 3 Est. Patient 15:48:30 ELECTRICAL WIRING LINEMAN Liat Cheng MD [facility] CPT-22705 Level 3 Est. Patient 14:24:59 ELECTRICAL WIRING LINEMAN Liat Cheng MD [facility]-09096 Level 3 Est. Patient 15:06:21 ELECTRICAL WIRING LINEMAN Thai Almendarez [facility]-15190 Level 3 Est. Patient 15:43:50 ELECTRICAL WIRING LINEMAN Thai Almendarez [facility]-89168 Level 3 Est. Patient 14:42:12 ELECTRICAL WIRING LINEMAN Liat Cheng MD [facility]-87683 Level 3 Est. Patient 16:38:12 ELECTRICAL WIRING LINEMAN Valentin Blanco MD [facility] CPT-39387 Level 3 Est. Patient 14:12:52 CDT Liat Cheng MD [facility] CPT-29243 Level 2 Est. Patient 12:17:18 CDT [facility]28 Level 3 Est. Patient 15:02:49 CDT Boo Vasquez MD [facility] CPT-14924 Level 3 Est. Patient 16:21:33 ELECTRICAL WIRING LINEMAN Gama Bermeo MD [facility] CPT-61642 Level 3 Est. Patient 11:32:23 ELECTRICAL WIRING LINEMAN Liat Cheng MD [facility] CPT-15732 Level 3 Est. Patient 16:59:23 CDT Liat Cheng MD [facility] CPT-21986 Level 3 Est. Patient 17:02:11 ELECTRICAL WIRING LINEMAN Tay MAJOR [facility] CPT-34021 Level 3 Est. Patient 16:49:05 ELECTRICAL WIRING LINEMAN Liat Cheng MD [facility] CPT-87540 Level 3 Est. Patient 16:36:13 CDT Vivien Conway MOBILE EQUIPMENT SERVICER [facility] Procedures Code Procedure Name Date Entry Date Standard Description CPT-92185 Ankle, right, Complete - Min 3V 16:15:36 CDT CPT-J7307 Nexplanon (Implant) 16:25:36 ELECTRICAL WIRING LINEMAN CPT-91713 Nexplanon Placement 16:25:36 ELECTRICAL WIRING LINEMAN CPT-OV Office Visit 16:25:36 ELECTRICAL WIRING LINEMAN CPT-OV Office Visit 18:49:22 ELECTRICAL WIRING LINEMAN CPT-OV Office Visit 18:49:18 CDT CPT-31375 Administration single or combination vaccine inc oral 11 :11:48 CDT CPT-41496 Adacel Intramuscular Suspension 5-2-15.5 11:11:48 CDT CPT-16835 Toes 2V 17:03:02 ELECTRICAL WIRING LINEMAN
--- OUTSIDE RECORDS SUMMARY | 2018-02-18 13:02 | XMS REPORT | Clinical Summary ---
Author Author Admin, QIE Organization [employer] Address Unknown Phone Unavailable Allergies, Adverse Reactions, [...] twice a day for 10 days AMOXICILLIN 15446833775 Active Valentin Blanco MD Active NEXPLANON 68 MG SC IMPL Inserted in the left upper arm ETONOGESTREL 65583659733 No Longer Active Valentin Blanco MD Active DICLOFENAC SODIUM 50 MG TBEC 1 tablet by mouth four times daily PRN Pain 2015 DICLOFENAC SODIUM 19818063283 No Longer Active Liat Cheng MD Active ZOFRAN 4 MG TABS 1 po q8hr PRN Nausea ONDANSETRON HCL 67737911765 No Longer Active Liat Cheng MD Active FLAGYL 500 MG TAB 1 tablet by mouth bid. do not mix with etoh. METRONIDAZOLE 68875983961 No Longer Active Liat Cheng MD Active CIPRO 500 MG TAB 1 tablet by mouth twice daily CIPROFLOXACIN HCL 07309724810 No Longer Active Jillina Fraaranzal RUSSELL Active FLONASE 50 MCG/ACT SUSP 1 puff in easch nostril bid FLUTICASONE PROPIONATE No Longer Active Jillpb Fraaranzal RUSSELL Active KEFLEX 500 MG CAP 1 po qid CEPHALEXIN 15559694069 No Longer Active Jillpb Almendarez APRN Active AZITHROMYCIN 250 MG TABS 2 pills day 1,1 pill day 2-5 AZITHROMYCIN 99159195207 No Longer Active Liat Cheng MD Active ZITHROMAX Z-GIANLUCA 250 MG TABS 2 today and then 1 daily for 4 days AZITHROMYCIN 46343814305 No Longer Active Liat Cheng MD Active LORATADINE 10 MG TABS 1 tablet by mouth daily PRN Congestion 2014 LORATADINE 77789538364 No Longer Active Audelia Yokbillie WELLS Active MUCINEX DM MAXIMUM STRENGTH 60-1200 MG [id number] 1 po BID PRN Cough DEXTROMETHORPHAN-GUAIFENESIN 55504252874 No Longer Active Audelia Yokum EXPLORATION DRILLER Active PREDNISONE 20 MG TAB 2 tabs daily for 3 days, 1 tab daily for 3 days, 1/2 tab daily for 2 days PREDNISONE 35482574727 No Longer Active Boo Vasquez MD Active BACTRIM DS 800-160 MG TAB 1 tab by mouth twice daily TRIMETHOPRIM-SULFAMETHOXAZOLE 96007844247 No Longer Active Gama Bermeo MD Active ZOFRAN 8 MG ORAL TABS 1 q 8hr prn vomiting ONDANSETRON HCL 91338109114 No Longer Active Gama Bermeo MD Active AUGMENTIN 875-125 MG TABS 1 bid AMOXICILLIN-POT CLAVULANATE 41341694006 No Longer Active Liat Cheng MD Active HYDROCODONE-ACETAMINOPHEN TABS Take as directed/PRN HYDROCODONE-ACETAMINOPHEN TABS 14192980941 No Longer Active Liat Cheng MD Active CEFDINIR 300 MG CAPS 1 PO bid x 7 days CEFDINIR 22247311028 No Longer Active Liat Cheng MD Active CEFDINIR 300 MG CAPS 1 PO bid x 7 days CEFDINIR 300 MG CAPS 273253 CEFDINIR Inactive HYDROCODONE-ACETAMINOPHEN TABS Take as directed/PRN HYDROCODONE-ACETAMINOPHEN TABS HYDROCODONE-ACETAMINOPHEN TABS Inactive ZOFRAN 8 MG ORAL TABS 1 q 8hr prn vomiting ZOFRAN 8 MG ORAL TABS 930089 ONDANSETRON HCL Inactive MUCINEX DM MAXIMUM STRENGTH 60-1200 MG [id number] 1 po BID PRN Cough MUCINEX DM MAXIMUM STRENGTH 60-1200 MG [id number] DEXTROMETHORPHAN-GUAIFENESIN Inactive LORATADINE 10 MG TABS 1 tablet by mouth daily PRN Congestion 2014 LORATADINE 10 MG TABS 052081 LORATADINE Inactive ZITHROMAX Z-GIANLUCA 250 MG TABS 2 today and then 1 daily for 4 days ZITHROMAX Z-GIANLUCA 250 MG TABS 2911356 AZITHROMYCIN Inactive KEFLEX 500 MG CAP 1 po qid KEFLEX 500 MG CAP 115790 CEPHALEXIN Inactive FLONASE 50 MCG/ACT SUSP 1 puff in easch nostril bid FLONASE 50 MCG/ACT SUSP FLUTICASONE PROPIONATE Inactive CIPRO 500 MG TAB 1 tablet by mouth twice daily CIPRO 500 MG TAB 166179 CIPROFLOXACIN HCL Inactive FLAGYL 500 MG TAB 1 tablet by mouth bid. do not mix with etoh. FLAGYL 500 MG TAB 657863 METRONIDAZOLE Inactive ZOFRAN 4 MG TABS 1 po q8hr PRN Nausea ZOFRAN 4 MG TABS 149380 ONDANSETRON HCL Inactive DICLOFENAC SODIUM 50 MG TBEC 1 tablet by mouth four times daily PRN Pain 2015 DICLOFENAC SODIUM 50 MG TBEC 441491 DICLOFENAC SODIUM Inactive NEXPLANON 68 MG SC IMPL Inserted in the left upper arm NEXPLANON 68 MG SC IMPL ETONOGESTREL Inactive AUGMENTIN 875-125 MG TABS 1 bid AUGMENTIN 875-125 MG TABS 531587 AMOXICILLIN-POT CLAVULANATE Inactive BACTRIM DS 800-160 MG TAB 1 tab by mouth twice daily BACTRIM DS 800-160 MG TAB 696259 TRIMETHOPRIM-SULFAMETHOXAZOLE Inactive PREDNISONE 20 MG TAB 2 tabs daily for 3 days, 1 tab daily for 3 days, 1/2 tab daily for 2 days PREDNISONE 20 MG TAB 365796 PREDNISONE Inactive AZITHROMYCIN 250 MG TABS 2 pills day 1,1 pill day 2-5 AZITHROMYCIN 250 MG TABS 2457684 AZITHROMYCIN Inactive Advance Directives Directive Description Start Date PERMISSION TO SHARE Immunizations Vaccine Administration Date Value Standard Description Adacel (Tetanus, reduced Diphtheria, and acellular Pertussis Immunization) Adacel [[id number]] tetanus toxoid, reduced diphtheria toxoid, and acellular [...] Value Unit Range Description Lab Report: Chlamydia/GC APTIMA/42919 - Lab chlamydia DNA probe NOT DETECTED NOT DETECTED chlamydia DNA probe NOT DETECTED NOT DETECTED Lab Report: Chlamydia/GC APTIMA/39803 - Microbiology Neisseria gonorrhoeae DNA probe NOT [...] negative Encounters Code Encounter Date Provider Facility CPT-37412 Level 3 Est. Patient 16:38:37 ANIMAL SHELTER SUPERVISOR Valentin Blanco MD [facility] CPT-59026 Level 3 Est. Patient 13:10:51 CDT Liat Cheng MD [facility] CPT-06646 Level 3 Est. Patient 14:16:58 CDT Boo Vasquez MD [facility]-79156 Level 3 Est. Patient 16:08:19 CDT Liat Cheng MD [facility] CPT-80342 Level 3 Est. Patient 15:48:30 ANIMAL SHELTER SUPERVISOR Liat Cheng MD [facility] CPT-80171 Level 3 Est. Patient 14:24:59 ANIMAL SHELTER SUPERVISOR Liat Cheng MD [facility] CPT-91417 Level 3 Est. Patient 15:06:21 ANIMAL SHELTER SUPERVISOR Thai Almendarez [facility]-76252 Level 3 Est. Patient 15:43:50 ANIMAL SHELTER SUPERVISOR Thai Almendarez [facility] CPT-35445 Level 3 Est. Patient 14:42:12 ANIMAL SHELTER SUPERVISOR Liat Cheng MD [facility]-61980 Level 3 Est. Patient 16:38:12 ANIMAL SHELTER SUPERVISOR Valentin Blanco MD [facility] CPT-26161 Level 3 Est. Patient 14:12:52 CDT Liat Cheng MD [facility] CPT-47770 Level 2 Est. Patient 12:17:18 CDT Audelia Ochoa [facility] CPT-58360 Level 3 Est. Patient 15:02:49 CDT Boo Vasquez MD [facility]-26933 Level 3 Est. Patient 16:21:33 ANIMAL SHELTER SUPERVISOR Gama Bermeo MD [facility]-23788 Level 3 Est. Patient 11:32:23 ANIMAL SHELTER SUPERVISOR Liat Cheng MD [facility] CPT-19561 Level 3 Est. Patient 16:59:23 CDT Liat Cheng MD [facility] CPT-86362 Level 3 Est. Patient 17:02:11 ANIMAL SHELTER SUPERVISOR Tay MAJOR [facility] CPT-78634 Level 3 Est. Patient 16:49:05 ANIMAL SHELTER SUPERVISOR Liat Cheng MD [facility] CPT-94473 Level 3 Est. Patient 16:36:13 CDT Vivien Conway APRN [facility] Procedures Code Procedure Name Date Entry Date Standard Description CPT-27814 Nexplanon Removal 15:41:24 CDT CPT-OV Office Visit 09:29:28 CDT CPT-000 Give Immunizations Due 16:59:23 CDT CPT-74735 Ankle, right, Complete - Min 3V 16:15:36 CDT CPT-J7307 Nexplanon (Implant) 16:25:36 ANIMAL SHELTER SUPERVISOR CPT-45794 Nexplanon Placement 16:25:36 ANIMAL SHELTER SUPERVISOR CPT-OV Office Visit 16:25:36 ANIMAL SHELTER SUPERVISOR CPT-OV Office Visit 18:49:22 ANIMAL SHELTER SUPERVISOR CPT-OV Office Visit 18:49:18 CDT CPT-13356 Administration single or combination vaccine inc oral 11 :11:48 CDT CPT-51968 Adacel Intramuscular Suspension 5-2-15.5 11:11:48 CDT CPT-64170 Toes 2V 17:03:02 ANIMAL SHELTER SUPERVISOR
--- OUTSIDE RECORDS SUMMARY | 2018-02-18 13:03 | XMS REPORT | Clinical Summary ---
Author Author Admin, QIE Organization [employer] Address Unknown Phone Unavailable Allergies, Adverse Reactions, [...] 500 MG CAP 1 po qid CEPHALEXIN 11272833430 Active Thai Almendarez MANUFACTURING MILLWRIGHT Active FLONASE 50 MCG/ACT SUSP 1 puff in easch nostril bid FLUTICASONE PROPIONATE Active Liat Cheng MD Active AZITHROMYCIN 250 MG TABS 2 pills day 1,1 pill day 2-5 AZITHROMYCIN 07922061974 No Longer Active Liat Cheng MD Active ZITHROMAX Z-GIANLUCA 250 MG TABS 2 today and then 1 daily for 4 days AZITHROMYCIN 07225207401 No Longer Active Liat Cheng MD Active LORATADINE 10 MG TABS 1 tablet by mouth daily PRN Congestion 2014 LORATADINE 35534169868 No Longer Active Audelia Ochoa MANUFACTURING MILLWRIGHT Active MUCINEX DM MAXIMUM STRENGTH 60-1200 MG [id number] 1 po BID PRN Cough DEXTROMETHORPHAN-GUAIFENESIN 59683544577 No Longer Active Audelia Ochoa APRN Active PREDNISONE 20 MG TAB 2 tabs daily for 3 days, 1 tab daily for 3 days, 1/2 tab daily for 2 days PREDNISONE 62279523349 No Longer Active Boo Vasquez MD Active BACTRIM DS 800-160 MG TAB 1 tab by mouth twice daily TRIMETHOPRIM-SULFAMETHOXAZOLE 59802052295 No Longer Active Gama Bermeo MD Active ZOFRAN 8 MG ORAL TABS 1 q 8hr prn vomiting ONDANSETRON HCL 78421398702 No Longer Active Gama Bermeo MD Active AUGMENTIN 875-125 MG TABS 1 bid AMOXICILLIN-POT CLAVULANATE 78649076073 No Longer Active Liat Cheng MD Active HYDROCODONE-ACETAMINOPHEN TABS Take as directed/PRN HYDROCODONE-ACETAMINOPHEN TABS 36529693482 No Longer Active Liat Cheng MD Active CEFDINIR 300 MG CAPS 1 PO bid x 7 days CEFDINIR 72402281375 No Longer Active Liat Cheng MD Active CEFDINIR 300 MG CAPS 1 PO bid x 7 days CEFDINIR 300 MG CAPS 113845 CEFDINIR Inactive HYDROCODONE-ACETAMINOPHEN TABS Take as directed/PRN HYDROCODONE-ACETAMINOPHEN TABS HYDROCODONE-ACETAMINOPHEN TABS Inactive ZOFRAN 8 MG ORAL TABS 1 q 8hr prn vomiting ZOFRAN 8 MG ORAL TABS 457387 ONDANSETRON HCL Inactive MUCINEX DM MAXIMUM STRENGTH 60-1200 MG [id number] 1 po BID PRN Cough MUCINEX DM MAXIMUM STRENGTH 60-1200 MG [id number] DEXTROMETHORPHAN-GUAIFENESIN Inactive LORATADINE 10 MG TABS 1 tablet by mouth daily PRN Congestion 2014 LORATADINE 10 MG TABS 974366 LORATADINE Inactive ZITHROMAX Z-GIANLUCA 250 MG TABS 2 today and then 1 daily for 4 days ZITHROMAX Z-GIANLUCA 250 MG TABS 4484531 AZITHROMYCIN Inactive AUGMENTIN 875-125 MG TABS 1 bid AUGMENTIN 875-125 MG TABS 361973 AMOXICILLIN-POT CLAVULANATE Inactive BACTRIM DS 800-160 MG TAB 1 tab by mouth twice daily BACTRIM DS 800-160 MG TAB 381049 TRIMETHOPRIM-SULFAMETHOXAZOLE Inactive PREDNISONE 20 MG TAB 2 tabs daily for 3 days, 1 tab daily for 3 days, 1/2 tab daily for 2 days PREDNISONE 20 MG TAB 228021 PREDNISONE Inactive AZITHROMYCIN 250 MG TABS 2 pills day 1,1 pill day 2-5 AZITHROMYCIN 250 MG TABS 9416555 AZITHROMYCIN Inactive Immunizations Vaccine Administration Date Value Standard Description Adacel (Tetanus, reduced Diphtheria, and acellular Pertussis Immunization) Adacel [[id number]] tetanus toxoid, reduced diphtheria toxoid, and acellular [...] Panel - Chemistry sodium, serum 140 mmol/L 438-196 3474/11/17 carbon dioxide, venous blood 25.9 mmol/L 21.0-32.0 [...] Negative Encounters Code Encounter Date Provider Facility CPT-35582 Level 3 Est. Patient 14:42:12 TIRE SETTER Liat Cheng MD [facility] CPT-14418 Level 3 Est. Patient 16:38:12 TIRE SETTER Valentin Blanco MD [facility] CPT-11896 Level 3 Est. Patient 14:12:52 CDT Liat Cheng MD [facility] CPT-55797 Level 2 Est. Patient 12:17:18 CDT Audelia Ochoa [facility] CPT-14960 Level 3 Est. Patient 15:02:49 CDT Boo Vasquez MD [facility] CPT-53437 Level 3 Est. Patient 16:21:33 TIRE SETTER Gama Bermeo MD [facility] CPT-75649 Level 3 Est. Patient 11:32:23 TIRE SETTER Liat Cheng MD [facility] CPT-93891 Level 3 Est. Patient 16:59:23 CDT Liat Cheng MD [facility] CPT-80917 Level 3 Est. Patient 17:02:11 TIRE SETTER Tay MAJOR [facility] CPT-91724 Level 3 Est. Patient 16:49:05 TIRE SETTER Liat Cheng MD [facility] CPT-58050 Level 3 Est. Patient 16:36:13 CDT Vivien Conway [facility] Procedures Code Procedure Name Date Entry Date Standard Description CPT-OV Office Visit 18:49:18 CDT CPT-98070 Administration single or combination vaccine inc oral 11 :11:48 CDT CPT-64406 Adacel Intramuscular Suspension 5-2-15.5 11:11:48 CDT CPT-48333 Toes 2V 17:03:02 TIRE SETTER
--- OUTSIDE RECORDS SUMMARY | 2018-02-18 13:04 | XMS REPORT | Clinical Summary ---
Author Author Admin, QIE Organization [employer] Address Unknown Phone Unavailable Allergies, Adverse Reactions, [...] tablet by mouth twice daily CIPROFLOXACIN HCL 66905166940 No Longer Active Jillina Frazell NEWS VIDEOTAPE EDITOR Active FLAGYL 500 MG TAB 1 tablet by mouth bid. do not mix with etoh. METRONIDAZOLE 03140160572 Active Jillina Frazell NEWS VIDEOTAPE EDITOR Active FLONASE 50 MCG/ACT SUSP 1 puff in easch nostril bid FLUTICASONE PROPIONATE No Longer Active Jillina Erickson WELLS Active KEFLEX 500 MG CAP 1 po qid CEPHALEXIN 53179644946 No Longer Active Thai Almendarez APRN Active AZITHROMYCIN 250 MG TABS 2 pills day 1,1 pill day 2-5 AZITHROMYCIN 63536012728 No Longer Active Liat Cheng MD Active ZITHROMAX Z-GIANLUCA 250 MG TABS 2 today and then 1 daily for 4 days AZITHROMYCIN 73722209245 No Longer Active Liat Cheng MD Active LORATADINE 10 MG TABS 1 tablet by mouth daily PRN Congestion 2014 LORATADINE 60198611999 No Longer Active Audelia Yokum NEWS VIDEOTAPE EDITOR Active MUCINEX DM MAXIMUM STRENGTH 60-1200 MG [id number] 1 po BID PRN Cough DEXTROMETHORPHAN-GUAIFENESIN 53932092840 No Longer Active Audelia Yokum NEWS VIDEOTAPE EDITOR Active PREDNISONE 20 MG TAB 2 tabs daily for 3 days, 1 tab daily for 3 days, 1/2 tab daily for 2 days PREDNISONE 90505243090 No Longer Active Boo Vasquez MD Active BACTRIM DS 800-160 MG TAB 1 tab by mouth twice daily TRIMETHOPRIM-SULFAMETHOXAZOLE 72762425083 No Longer Active Gama Bermeo MD Active ZOFRAN 8 MG ORAL TABS 1 q 8hr prn vomiting ONDANSETRON HCL 18932836781 No Longer Active Gama Bermeo MD Active AUGMENTIN 875-125 MG TABS 1 bid AMOXICILLIN-POT CLAVULANATE 57821342458 No Longer Active Liat Cheng MD Active HYDROCODONE-ACETAMINOPHEN TABS Take as directed/PRN HYDROCODONE-ACETAMINOPHEN TABS 47586479232 No Longer Active Liat Cheng MD Active CEFDINIR 300 MG CAPS 1 PO bid x 7 days CEFDINIR 60372929109 No Longer Active Liat Cheng MD Active CEFDINIR 300 MG CAPS 1 PO bid x 7 days CEFDINIR 300 MG CAPS 473017 CEFDINIR Inactive HYDROCODONE-ACETAMINOPHEN TABS Take as directed/PRN HYDROCODONE-ACETAMINOPHEN TABS HYDROCODONE-ACETAMINOPHEN TABS Inactive ZOFRAN 8 MG ORAL TABS 1 q 8hr prn vomiting ZOFRAN 8 MG ORAL TABS 985913 ONDANSETRON HCL Inactive MUCINEX DM MAXIMUM STRENGTH 60-1200 MG [id number] 1 po BID PRN Cough MUCINEX DM MAXIMUM STRENGTH 60-1200 MG [id number] DEXTROMETHORPHAN-GUAIFENESIN Inactive LORATADINE 10 MG TABS 1 tablet by mouth daily PRN Congestion 2014 LORATADINE 10 MG TABS 452210 LORATADINE Inactive ZITHROMAX Z-GIANLUCA 250 MG TABS 2 today and then 1 daily for 4 days ZITHROMAX Z-GIANLUCA 250 MG TABS 1973182 AZITHROMYCIN Inactive KEFLEX 500 MG CAP 1 po qid KEFLEX 500 MG CAP 348309 CEPHALEXIN Inactive FLONASE 50 MCG/ACT SUSP 1 puff in easch nostril bid FLONASE 50 MCG/ACT SUSP FLUTICASONE PROPIONATE Inactive CIPRO 500 MG TAB 1 tablet by mouth twice daily CIPRO 500 MG TAB 204085 CIPROFLOXACIN HCL Inactive AUGMENTIN 875-125 MG TABS 1 bid AUGMENTIN 875-125 MG TABS 512677 AMOXICILLIN-POT CLAVULANATE Inactive BACTRIM DS 800-160 MG TAB 1 tab by mouth twice daily BACTRIM DS 800-160 MG TAB 235663 TRIMETHOPRIM-SULFAMETHOXAZOLE Inactive PREDNISONE 20 MG TAB 2 tabs daily for 3 days, 1 tab daily for 3 days, 1/2 tab daily for 2 days PREDNISONE 20 MG TAB 595830 PREDNISONE Inactive AZITHROMYCIN 250 MG TABS 2 pills day 1,1 pill day 2-5 AZITHROMYCIN 250 MG TABS 8611146 AZITHROMYCIN Inactive Immunizations Vaccine Administration Date Value Standard Description Adacel (Tetanus, reduced Diphtheria, and acellular Pertussis Immunization) Adacel [[id number]] tetanus toxoid, reduced diphtheria toxoid, and acellular [...] 369 10^3/MM^3 10*3/mm3 142-424 Lab Report: Chlamydia/GC APTIMA/23467 - Lab chlamydia DNA probe NOT DETECTED NOT DETECTED Lab Report: Chlamydia/GC APTIMA/34695 - Microbiology Neisseria gonorrhoeae DNA probe NOT DETECTED NOT DETECTED Lab Report: Comp. Metabolic Panel - Chemistry sodium, serum 140 mmol/L 398-190 4337/11/17 carbon dioxide, venous blood 25.9 mmol/L 21.0-32.0 [...] negative Encounters Code Encounter Date Provider Facility CPT-62221 Level 3 Est. Patient 15:06:21 CAT SCAN TECH Thai Almendarez [facility] CPT-94230 Level 3 Est. Patient 15:43:50 CAT SCAN TECH Thai Almendarez [facility] CPT-41706 Level 3 Est. Patient 14:42:12 CAT SCAN TECH Liat Cheng MD [facility] CPT-07354 Level 3 Est. Patient 16:38:12 CAT SCAN TECH Valentin Blanco MD [facility] CPT-99830 Level 3 Est. Patient 14:12:52 CDT Liat Cheng MD [facility] CPT-48265 Level 2 Est. Patient 12:17:18 CDT [facility] Level 3 Est. Patient 15:02:49 CDT Boo Vasquez MD [facility] CPT-55882 Level 3 Est. Patient 16:21:33 CAT SCAN TECH Gama Bermeo MD [facility] CPT-66770 Level 3 Est. Patient 11:32:23 CAT SCAN TECH Liat Cheng MD [facility] CPT-82826 Level 3 Est. Patient 16:59:23 CDT Liat Cheng MD [facility] CPT-53346 Level 3 Est. Patient 17:02:11 CAT SCAN TECH Tay MAJOR [facility] CPT-08339 Level 3 Est. Patient 16:49:05 CAT SCAN TECH Liat Cheng MD [facility] CPT-74737 Level 3 Est. Patient 16:36:13 CDT Vivien Conway NEWS VIDEOTAPE EDITOR [facility] Procedures Code Procedure Name Date Entry Date Standard Description CPT-J7307 Nexplanon (Implant) 16:25:36 CAT SCAN TECH CPT-13724 Nexplanon Placement 16:25:36 CAT SCAN TECH CPT-OV Office Visit 16:25:36 CAT SCAN TECH CPT-OV Office Visit 18:49:22 CAT SCAN TECH CPT-OV Office Visit 18:49:18 CDT CPT-89820 Administration single or combination vaccine inc oral 11 :11:48 CDT CPT-11171 Adacel Intramuscular Suspension 5-2-15.5 11:11:48 CDT CPT-11972 Toes 2V 17:03:02 CAT SCAN TECH
--- OUTSIDE RECORDS SUMMARY | 2018-02-18 13:05 | XMS REPORT | Clinical Summary ---
Author Author Admin, QIE Organization [employer] Address Unknown Phone Unavailable Allergies, Adverse Reactions, [...] tablet by mouth twice daily CIPROFLOXACIN HCL 70170835307 Active Jillina Frazell PHYSICAL CHEMISTRY TEACHER Active FLAGYL 500 MG TAB 1 tablet by mouth bid. do not mix with etoh. METRONIDAZOLE 62497854926 Active Jillina Frazell PHYSICAL CHEMISTRY TEACHER Active FLONASE 50 MCG/ACT SUSP 1 puff in easch nostril bid FLUTICASONE PROPIONATE No Longer Active Jillpb Almendarez PHYSICAL CHEMISTRY TEACHER Active KEFLEX 500 MG CAP 1 po qid CEPHALEXIN 55178868661 No Longer Active Jillina Frankiel PHYSICAL CHEMISTRY TEACHER Active AZITHROMYCIN 250 MG TABS 2 pills day 1,1 pill day 2-5 AZITHROMYCIN 92504179810 No Longer Active Liat Cheng MD Active ZITHROMAX Z-GIANLUCA 250 MG TABS 2 today and then 1 daily for 4 days AZITHROMYCIN 48087808858 No Longer Active Liat Cheng MD Active LORATADINE 10 MG TABS 1 tablet by mouth daily PRN Congestion 2014 LORATADINE 65490567624 No Longer Active Audelia Yokum PHYSICAL CHEMISTRY TEACHER Active MUCINEX DM MAXIMUM STRENGTH 60-1200 MG [id number]-TDR 1 po BID PRN Cough DEXTROMETHORPHAN-GUAIFENESIN 33251100745 No Longer Active Audelia Yokum PHYSICAL CHEMISTRY TEACHER Active PREDNISONE 20 MG TAB 2 tabs daily for 3 days, 1 tab daily for 3 days, 1/2 tab daily for 2 days PREDNISONE 06414721629 No Longer Active Boo Vasquez MD Active BACTRIM DS 800-160 MG TAB 1 tab by mouth twice daily TRIMETHOPRIM-SULFAMETHOXAZOLE 29288325610 No Longer Active Gama Bermeo MD Active ZOFRAN 8 MG ORAL TABS 1 q 8hr prn vomiting ONDANSETRON HCL 81496242019 No Longer Active Gama Bermeo MD Active AUGMENTIN 875-125 MG TABS 1 bid AMOXICILLIN-POT CLAVULANATE 33755776623 No Longer Active Liat Cheng MD Active HYDROCODONE-ACETAMINOPHEN TABS Take as directed/PRN HYDROCODONE-ACETAMINOPHEN TABS 20044669610 No Longer Active Liat Cheng MD Active CEFDINIR 300 MG CAPS 1 PO bid x 7 days CEFDINIR 57306536551 No Longer Active Liat Cheng MD Active CEFDINIR 300 MG CAPS 1 PO bid x 7 days CEFDINIR 300 MG CAPS 795518 CEFDINIR Inactive HYDROCODONE-ACETAMINOPHEN TABS Take as directed/PRN HYDROCODONE-ACETAMINOPHEN TABS HYDROCODONE-ACETAMINOPHEN TABS Inactive ZOFRAN 8 MG ORAL TABS 1 q 8hr prn vomiting ZOFRAN 8 MG ORAL TABS 471948 ONDANSETRON HCL Inactive MUCINEX DM MAXIMUM STRENGTH 60-1200 MG [id number] 1 po BID PRN Cough MUCINEX DM MAXIMUM STRENGTH 60-1200 MG [id number] DEXTROMETHORPHAN-GUAIFENESIN Inactive LORATADINE 10 MG TABS 1 tablet by mouth daily PRN Congestion 2014 LORATADINE 10 MG TABS 948415 LORATADINE Inactive ZITHROMAX Z-GIANLUCA 250 MG TABS 2 today and then 1 daily for 4 days ZITHROMAX Z-GIANLUCA 250 MG TABS 7294394 AZITHROMYCIN Inactive KEFLEX 500 MG CAP 1 po qid KEFLEX 500 MG CAP 907647 CEPHALEXIN Inactive FLONASE 50 MCG/ACT SUSP 1 puff in easch nostril bid FLONASE 50 MCG/ACT SUSP FLUTICASONE PROPIONATE Inactive AUGMENTIN 875-125 MG TABS 1 bid AUGMENTIN 875-125 MG TABS 306049 AMOXICILLIN-POT CLAVULANATE Inactive BACTRIM DS 800-160 MG TAB 1 tab by mouth twice daily BACTRIM DS 800-160 MG TAB 575780 TRIMETHOPRIM-SULFAMETHOXAZOLE Inactive PREDNISONE 20 MG TAB 2 tabs daily for 3 days, 1 tab daily for 3 days, 1/2 tab daily for 2 days PREDNISONE 20 MG TAB 687361 PREDNISONE Inactive AZITHROMYCIN 250 MG TABS 2 pills day 1,1 pill day 2-5 AZITHROMYCIN 250 MG TABS 3469458 AZITHROMYCIN Inactive Immunizations Vaccine Administration Date Value Standard Description Adacel (Tetanus, reduced Diphtheria, and acellular Pertussis Immunization) Adacel [[id number]] tetanus toxoid, reduced diphtheria toxoid, and acellular [...] 369 10^3/MM^3 10*3/mm3 142-424 Lab Report: Chlamydia/GC APTIMA/24861 - Lab chlamydia DNA probe NOT DETECTED NOT DETECTED Lab Report: Chlamydia/GC APTIMA/65254 - Microbiology Neisseria gonorrhoeae DNA probe NOT DETECTED NOT DETECTED Lab Report: Comp. Metabolic Panel - Chemistry sodium, serum 140 mmol/L 436-101 5710/11/17 carbon dioxide, venous blood 25.9 mmol/L 21.0-32.0 [...] negative Encounters Code Encounter Date Provider Facility CPT-41428 Level 3 Est. Patient 15:43:50 FLAKER OPERATOR Thai Almendarez [facility] CPT-72794 Level 3 Est. Patient 14:42:12 FLAKER OPERATOR Liat Cheng MD [facility] CPT-03551 Level 3 Est. Patient 16:38:12 FLAKER OPERATOR Valentin Blanco MD [facility] CPT-45946 Level 3 Est. Patient 14:12:52 CDT Liat Cheng MD [facility] CPT-45765 Level 2 Est. Patient 12:17:18 CDT Audelia Ochoa [facility] CPT-63412 Level 3 Est. Patient 15:02:49 CDT Boo Vasquez MD [facility] CPT-98457 Level 3 Est. Patient 16:21:33 FLAKER OPERATOR Gama Bermeo MD [facility] CPT-24640 Level 3 Est. Patient 11:32:23 FLAKER OPERATOR Liat Cheng MD [facility] CPT-90945 Level 3 Est. Patient 16:59:23 CDT Liat Cheng MD [facility] CPT-78242 Level 3 Est. Patient 17:02:11 FLAKER OPERATOR Tay MAJOR [facility] CPT-21333 Level 3 Est. Patient 16:49:05 FLAKER OPERATOR Liat Cheng MD [facility] CPT-05515 Level 3 Est. Patient 16:36:13 CDT Vivien Conway PHYSICAL CHEMISTRY TEACHER [facility] Procedures Code Procedure Name Date Entry Date Standard Description CPT-J7307 Nexplanon (Implant) 16:25:36 FLAKER OPERATOR CPT-24833 Nexplanon Placement 16:25:36 FLAKER OPERATOR CPT-OV Office Visit 16:25:36 FLAKER OPERATOR CPT-OV Office Visit 18:49:22 FLAKER OPERATOR CPT-OV Office Visit 18:49:18 CDT CPT-15933 Administration single or combination vaccine inc oral 11 :11:48 CDT CPT-29008 Adacel Intramuscular Suspension 5-2-15.5 11:11:48 CDT CPT-94313 Toes 2V 17:03:02 FLAKER OPERATOR
--- OUTSIDE RECORDS SUMMARY | 2018-02-18 13:06 | XMS REPORT | Clinical Summary ---
Author Author Admin, QIE Organization [employer] Address Unknown Phone Unavailable Allergies, Adverse Reactions, [...] MD Cellulitis ICD-682.9 Inactive Liat Cheng MD Gastroenteritis ICD-558.9 Inactive [...] U R I Inactive Liat Cheng MD Laceration, finger ICD-883.0 Inactive Liat Cheng MD Medication List Medication Instructions Start Date Stop Date Generic Name ND Status Provider Patient Instruction KEFLEX 500 MG CAP 1 po qid CEPHALEXIN [id number] Active Maximllpb Almendarez BORING MACHINE OPERATOR Active FLONASE 50 MCG/ACT SUSP 1 puff in easch nostril bid FLUTICASONE PROPIONATE Active Liat Cheng MD Active AZITHROMYCIN 250 MG TABS 2 pills day 1,1 pill day 2-5 AZITHROMYCIN 64877561969 No Longer Active Liat Cheng MD Active ZITHROMAX Z-GIANLUCA 250 MG TABS 2 today and then 1 daily for 4 days AZITHROMYCIN 97137078474 No Longer Active Liat Cheng MD Active LORATADINE 10 MG TABS 1 tablet by mouth daily PRN Congestion 2014 LORATADINE 70745385016 No Longer Active Audelia Yokum BORING MACHINE OPERATOR Active MUCINEX DM MAXIMUM STRENGTH 60-1200 MG [id number] 1 po BID PRN Cough DEXTROMETHORPHAN-GUAIFENESIN 82328322195 No Longer Active Audelia Yokum BORING MACHINE OPERATOR Active PREDNISONE 20 MG TAB 2 tabs daily for 3 days, 1 tab daily for 3 days, 1/2 tab daily for 2 days PREDNISONE 65757115290 No Longer Active Boo Vasquez MD Active BACTRIM DS 800-160 MG TAB 1 tab by mouth twice daily TRIMETHOPRIM-SULFAMETHOXAZOLE 41242725771 No Longer Active Gama Bermeo MD Active ZOFRAN 8 MG ORAL TABS 1 q 8hr prn vomiting ONDANSETRON HCL 86095816961 No Longer Active Gama Bermeo MD Active AUGMENTIN 875-125 MG TABS 1 bid AMOXICILLIN-POT CLAVULANATE 62441731329 No Longer Active Liat Cheng MD Active HYDROCODONE-ACETAMINOPHEN TABS Take as directed/PRN HYDROCODONE-ACETAMINOPHEN TABS 84793867769 No Longer Active Liat Cheng MD Active CEFDINIR 300 MG CAPS 1 PO bid x 7 days CEFDINIR 14397108364 No Longer Active Liat Cheng MD Active CEFDINIR 300 MG CAPS 1 PO bid x 7 days CEFDINIR 300 MG CAPS 783020 CEFDINIR Inactive HYDROCODONE-ACETAMINOPHEN TABS Take as directed/PRN HYDROCODONE-ACETAMINOPHEN TABS HYDROCODONE-ACETAMINOPHEN TABS Inactive ZOFRAN 8 MG ORAL TABS 1 q 8hr prn vomiting ZOFRAN 8 MG ORAL TABS 302132 ONDANSETRON HCL Inactive MUCINEX DM MAXIMUM STRENGTH 60-1200 MG [id number] 1 po BID PRN Cough MUCINEX DM MAXIMUM STRENGTH 60-1200 MG [id number] DEXTROMETHORPHAN-GUAIFENESIN Inactive LORATADINE 10 MG TABS 1 tablet by mouth daily PRN Congestion 2014 LORATADINE 10 MG TABS 517278 LORATADINE Inactive ZITHROMAX Z-GIANLUCA 250 MG TABS 2 today and then 1 daily for 4 days ZITHROMAX Z-GIANLUCA 250 MG TABS 5028977 AZITHROMYCIN Inactive AUGMENTIN 875-125 MG TABS 1 bid AUGMENTIN 875-125 MG TABS 465747 AMOXICILLIN-POT CLAVULANATE Inactive BACTRIM DS 800-160 MG TAB 1 tab by mouth twice daily BACTRIM DS 800-160 MG TAB 312144 TRIMETHOPRIM-SULFAMETHOXAZOLE Inactive PREDNISONE 20 MG TAB 2 tabs daily for 3 days, 1 tab daily for 3 days, 1/2 tab daily for 2 days PREDNISONE 20 MG TAB 353490 PREDNISONE Inactive AZITHROMYCIN 250 MG TABS 2 pills day 1,1 pill day 2-5 AZITHROMYCIN 250 MG TABS 8215900 AZITHROMYCIN Inactive Immunizations Vaccine Administration Date Value Standard Description Adacel (Tetanus, reduced Diphtheria, and acellular Pertussis Immunization) Adacel [[id number]] tetanus toxoid, reduced diphtheria toxoid, and acellular [...] Panel - Chemistry sodium, serum 140 mmol/L 905-178 1466/11/17 carbon dioxide, venous blood 25.9 mmol/L 21.0-32.0 [...] negative Encounters Code Encounter Date Provider Facility CPT-50511 Level 3 Est. Patient 14:42:12 MANAGER HEMATOLOGY Liat Cheng MD [facility] CPT-87500 Level 3 Est. Patient 16:38:12 MANAGER HEMATOLOGY Valentin Blanco MD [facility] CPT-53138 Level 3 Est. Patient 14:12:52 CDT Liat Cheng MD [facility] CPT-81164 Level 2 Est. Patient 12:17:18 CDT Audelia Ochoa [facility] CPT-53707 Level 3 Est. Patient 15:02:49 CDT Boo Vasquez MD [facility] CPT-55686 Level 3 Est. Patient 16:21:33 MANAGER HEMATOLOGY Gama Bermeo MD [facility] CPT-11731 Level 3 Est. Patient 11:32:23 MANAGER HEMATOLOGY Liat Cheng MD [facility] CPT-29668 Level 3 Est. Patient 16:59:23 CDT Liat Cheng MD [facility] CPT-63328 Level 3 Est. Patient 17:02:11 MANAGER HEMATOLOGY Tay MAJOR [facility] CPT-05528 Level 3 Est. Patient 16:49:05 MANAGER HEMATOLOGY Liat Cheng MD [facility] CPT-33162 Level 3 Est. Patient 16:36:13 CDT Vivien Conway BORING MACHINE OPERATOR [facility] Procedures Code Procedure Name Date Entry Date Standard Description CPT-J7307 Nexplanon (Implant) 16:25:36 MANAGER HEMATOLOGY CPT-53783 Nexplanon Placement 16:25:36 MANAGER HEMATOLOGY CPT-OV Office Visit 16:25:36 MANAGER HEMATOLOGY CPT-OV Office Visit 18:49:22 MANAGER HEMATOLOGY CPT-OV Office Visit 18:49:18 CDT CPT-05277 Administration single or combination vaccine inc oral 11 :11:48 CDT CPT-00023 Adacel Intramuscular Suspension 5-2-15.5 11:11:48 CDT CPT-01316 Toes 2V 17:03:02 MANAGER HEMATOLOGY
--- OUTSIDE RECORDS SUMMARY | 2018-02-18 13:07 | XMS REPORT | Clinical Summary ---
Author Author Admin, QIE Organization [employer] Address Unknown Phone Unavailable Allergies, Adverse Reactions, [...] 1 po q8hr PRN Nausea ONDANSETRON HCL 08753416007 No Longer Active Liat Cheng MD Active NEXPLANON 68 MG SC IMPL Inserted in the left upper arm ETONOGESTREL 29067290683 Active Liat Cheng MD Active FLAGYL 500 MG TAB 1 tablet by mouth bid. do not mix with etoh. METRONIDAZOLE 40891104557 No Longer Active Liat Cheng MD Active CIPRO 500 MG TAB 1 tablet by mouth twice daily CIPROFLOXACIN HCL 96367920486 No Longer Active Jillpb Almendarez APRN Active FLONASE 50 MCG/ACT SUSP 1 puff in easch nostril bid FLUTICASONE PROPIONATE No Longer Active Jillina Zulayzell STOCK BROKER Active KEFLEX 500 MG CAP 1 po qid CEPHALEXIN 84170458143 No Longer Active Jillina Fraaranzal STOCK BROKER Active AZITHROMYCIN 250 MG TABS 2 pills day 1,1 pill day 2-5 AZITHROMYCIN 26638606368 No Longer Active Liat Cheng MD Active ZITHROMAX Z-GIANLUCA 250 MG TABS 2 today and then 1 daily for 4 days AZITHROMYCIN 43295495221 No Longer Active Liat Cheng MD Active LORATADINE 10 MG TABS 1 tablet by mouth daily PRN Congestion 2014 LORATADINE 42809312435 No Longer Active Audelia Yokum STOCK BROKER Active MUCINEX DM MAXIMUM STRENGTH 60-1200 MG [id number] 1 po BID PRN Cough DEXTROMETHORPHAN-GUAIFENESIN 52545794415 No Longer Active Audelia Yokum STOCK BROKER Active PREDNISONE 20 MG TAB 2 tabs daily for 3 days, 1 tab daily for 3 days, 1/2 tab daily for 2 days PREDNISONE 04586108674 No Longer Active Boo Vasquez MD Active BACTRIM DS 800-160 MG TAB 1 tab by mouth twice daily TRIMETHOPRIM-SULFAMETHOXAZOLE 01013331818 No Longer Active Gama Bermeo MD Active ZOFRAN 8 MG ORAL TABS 1 q 8hr prn vomiting ONDANSETRON HCL 87900826618 No Longer Active Gama Bermeo MD Active AUGMENTIN 875-125 MG TABS 1 bid AMOXICILLIN-POT CLAVULANATE 67435429975 No Longer Active Liat Cheng MD Active HYDROCODONE-ACETAMINOPHEN TABS Take as directed/PRN HYDROCODONE-ACETAMINOPHEN TABS 27980277669 No Longer Active Liat Cheng MD Active CEFDINIR 300 MG CAPS 1 PO bid x 7 days CEFDINIR 42173094243 No Longer Active Liat Cheng MD Active CEFDINIR 300 MG CAPS 1 PO bid x 7 days CEFDINIR 300 MG CAPS 704974 CEFDINIR Inactive HYDROCODONE-ACETAMINOPHEN TABS Take as directed/PRN HYDROCODONE-ACETAMINOPHEN TABS HYDROCODONE-ACETAMINOPHEN TABS Inactive ZOFRAN 8 MG ORAL TABS 1 q 8hr prn vomiting ZOFRAN 8 MG ORAL TABS 118854 ONDANSETRON HCL Inactive MUCINEX DM MAXIMUM STRENGTH 60-1200 MG [id number] 1 po BID PRN Cough MUCINEX DM MAXIMUM STRENGTH 60-1200 MG [id number] DEXTROMETHORPHAN-GUAIFENESIN Inactive LORATADINE 10 MG TABS 1 tablet by mouth daily PRN Congestion 2014 LORATADINE 10 MG TABS 129431 LORATADINE Inactive ZITHROMAX Z-GIANLUCA 250 MG TABS 2 today and then 1 daily for 4 days ZITHROMAX Z-GIANLUCA 250 MG TABS 2614578 AZITHROMYCIN Inactive KEFLEX 500 MG CAP 1 po qid KEFLEX 500 MG CAP 749508 CEPHALEXIN Inactive FLONASE 50 MCG/ACT SUSP 1 puff in easch nostril bid FLONASE 50 MCG/ACT SUSP FLUTICASONE PROPIONATE Inactive CIPRO 500 MG TAB 1 tablet by mouth twice daily CIPRO 500 MG TAB 376840 CIPROFLOXACIN HCL Inactive FLAGYL 500 MG TAB 1 tablet by mouth bid. do not mix with etoh. FLAGYL 500 MG TAB 630161 METRONIDAZOLE Inactive ZOFRAN 4 MG TABS 1 po q8hr PRN Nausea ZOFRAN 4 MG TABS 839164 ONDANSETRON HCL Inactive AUGMENTIN 875-125 MG TABS 1 bid AUGMENTIN 875-125 MG TABS 381229 AMOXICILLIN-POT CLAVULANATE Inactive BACTRIM DS 800-160 MG TAB 1 tab by mouth twice daily BACTRIM DS 800-160 MG TAB 658635 TRIMETHOPRIM-SULFAMETHOXAZOLE Inactive PREDNISONE 20 MG TAB 2 tabs daily for 3 days, 1 tab daily for 3 days, 1/2 tab daily for 2 days PREDNISONE 20 MG TAB 142017 PREDNISONE Inactive AZITHROMYCIN 250 MG TABS 2 pills day 1,1 pill day 2-5 AZITHROMYCIN 250 MG TABS 2937194 AZITHROMYCIN Inactive Advance Directives Directive Description Start Date PERMISSION TO SHARE Immunizations Vaccine Administration Date Value Standard Description Adacel (Tetanus, reduced Diphtheria, and acellular Pertussis Immunization) Adacel [[id number]] tetanus toxoid, reduced diphtheria toxoid, and acellular [...] 369 10^3/MM^3 10*3/mm3 142-424 Lab Report: Chlamydia/GC APTIMA/[id number] - Lab chlamydia DNA probe NOT DETECTED NOT DETECTED chlamydia DNA probe NOT DETECTED NOT DETECTED Lab Report: Chlamydia/GC APTIMA/[id number] - Microbiology Neisseria gonorrhoeae DNA probe NOT DETECTED NOT DETECTED Neisseria gonorrhoeae DNA probe NOT DETECTED NOT DETECTED Lab Report: Comp. Metabolic Panel - Chemistry sodium, serum 140 mmol/L 777-385 1567/11/17 carbon dioxide, venous blood 25.9 mmol/L 21.0-32.0 [...] negative Encounters Code Encounter Date Provider Facility CPT-15666 Level 3 Est. Patient 16:08:19 CDT Liat Cheng MD [facility] CPT-72144 Level 3 Est. Patient 15:48:30 WEIGHT ANALYST Liat Cheng MD [facility] CPT-70793 Level 3 Est. Patient 14:24:59 WEIGHT ANALYST Liat Cheng MD [facility] CPT-24987 Level 3 Est. Patient 15:06:21 WEIGHT ANALYST Thai Almendarez [facility] CPT-52694 Level 3 Est. Patient 15:43:50 WEIGHT ANALYST Thai Almendarez [facility] CPT-19688 Level 3 Est. Patient 14:42:12 WEIGHT ANALYST Liat Cheng MD [facility] CPT-73209 Level 3 Est. Patient 16:38:12 WEIGHT ANALYST Valentin Blanco MD [facility] CPT-06859 Level 3 Est. Patient 14:12:52 CDT Liat Cheng MD [facility] CPT-49043 Level 2 Est. Patient 12:17:18 CDT Audelia Ochoa [facility] CPT-26131 Level 3 Est. Patient 15:02:49 CDT Boo Vasquez MD [facility] CPT-21526 Level 3 Est. Patient 16:21:33 WEIGHT ANALYST Gama Bermeo MD [facility] CPT-04204 Level 3 Est. Patient 11:32:23 WEIGHT ANALYST Liat Cheng MD [facility] CPT-86699 Level 3 Est. Patient 16:59:23 CDT Liat Cheng MD [facility] CPT-64428 Level 3 Est. Patient 17:02:11 WEIGHT ANALYST Tay MAJOR [facility] CPT-05287 Level 3 Est. Patient 16:49:05 WEIGHT ANALYST Liat Cheng MD [facility] CPT-69179 Level 3 Est. Patient 16:36:13 CDT Vivien Conway STOCK BROKER [facility] Procedures Code Procedure Name Date Entry Date Standard Description CPT-02256 Ankle, right, Complete - Min 3V 16:15:36 CDT CPT-J7307 Nexplanon (Implant) 16:25:36 WEIGHT ANALYST CPT-81019 Nexplanon Placement 16:25:36 WEIGHT ANALYST CPT-OV Office Visit 16:25:36 WEIGHT ANALYST CPT-OV Office Visit 18:49:22 WEIGHT ANALYST CPT-OV Office Visit 18:49:18 CDT CPT-22871 Administration single or combination vaccine inc oral 11 :11:48 CDT CPT-72289 Adacel Intramuscular Suspension 5-2-15.5 11:11:48 CDT CPT-81581 Toes 2V 17:03:02 WEIGHT ANALYST
--- OUTSIDE RECORDS SUMMARY | 2018-02-18 13:08 | XMS REPORT | Clinical Summary ---
Author Author Admin, QIE Organization [employer] Address Unknown Phone Unavailable Allergies, Adverse [...] NEC w/o infection 919.4 Active Audelia Yokum SHANK BURNISHER Insect bite, nonvenomous, of other, multiple, and unspecified sites, without mention of infection Family History of Diabetes ICD-V18.0 Inactive Boo Vasquez MD Family History of Hypertension ICD-V17.4 Inactive Boo Vasquez MD Pharyngitis Acute ICD-462 Inactive Liat Cheng MD Toe injury ICD-959.7 Inactive Liat Cheng MD Sinusitis, acute ICD-461.9 Inactive Liat Cheng MD SPORTS PHYSICAL ICD-V70.3 Inactive Boo Vasquez MD Laceration, finger ICD-883.0 Inactive Liat Cheng MD Gastroenteritis ICD-558.9 Oneil Cheng MD Abscess, skin ICD-682.9 Inactive Boo Vasquez MD Cellulitis ICD-682.9 Oneil Cheng MD Medication List Medication Instructions Start Date Stop Date Generic Name NDC Status Provider Patient Instruction LORATADINE 10 MG TABS 1 tablet by mouth daily PRN Congestion 2014 LORATADINE 24780625157 No Longer Active Audelia Yokum SHANK BURNISHER Active MUCINEX DM MAXIMUM STRENGTH 60-1200 MG [id number] 1 po BID PRN Cough DEXTROMETHORPHAN-GUAIFENESIN 53179255108 No Longer Active Audelia Yokum SHANK BURNISHER Active PREDNISONE 20 MG TAB 2 tabs daily for 3 days, 1 tab daily for 3 days, 1/2 tab daily for 2 days PREDNISONE 61724143528 No Longer Active Boo Vasquez MD Active BACTRIM DS 800-160 MG TAB 1 tab by mouth twice daily TRIMETHOPRIM-SULFAMETHOXAZOLE 23815199898 No Longer Active Gama Bermeo MD Active ZOFRAN 8 MG ORAL TABS 1 q 8hr prn vomiting ONDANSETRON HCL 81120266968 No Longer Active Gama Bermeo MD Active AUGMENTIN 875-125 MG TABS 1 bid AMOXICILLIN-POT CLAVULANATE 52337350009 No Longer Active Liat Cheng MD Active HYDROCODONE-ACETAMINOPHEN TABS Take as directed/PRN HYDROCODONE-ACETAMINOPHEN TABS 39228546214 No Longer Active Liat Cheng MD Active CEFDINIR 300 MG CAPS 1 PO bid x 7 days CEFDINIR 00157360974 No Longer Active Liat Cheng MD Active CEFDINIR 300 MG CAPS 1 PO bid x 7 days CEFDINIR 300 MG CAPS 776816 CEFDINIR Inactive HYDROCODONE-ACETAMINOPHEN TABS Take as directed/PRN HYDROCODONE-ACETAMINOPHEN TABS HYDROCODONE-ACETAMINOPHEN TABS Inactive ZOFRAN 8 MG ORAL TABS 1 q 8hr prn vomiting ZOFRAN 8 MG ORAL TABS 958494 ONDANSETRON HCL Inactive MUCINEX DM MAXIMUM STRENGTH 60-1200 MG [id number] 1 po BID PRN Cough MUCINEX DM MAXIMUM STRENGTH 60-1200 MG [id number] DEXTROMETHORPHAN-GUAIFENESIN Inactive LORATADINE 10 MG TABS 1 tablet by mouth daily PRN Congestion 2014 LORATADINE 10 MG TABS 458881 LORATADINE Inactive AUGMENTIN 875-125 MG TABS 1 bid AUGMENTIN 875-125 MG TABS 895980 AMOXICILLIN-POT CLAVULANATE Inactive BACTRIM DS 800-160 MG TAB 1 tab by mouth twice daily BACTRIM DS 800-160 MG TAB TRIMETHOPRIM-SULFAMETHOXAZOLE Inactive PREDNISONE 20 MG TAB 2 tabs daily for 3 days, 1 tab daily for 3 days, 1/2 tab daily for 2 days PREDNISONE 20 MG TAB 598185 PREDNISONE Inactive Immunizations Vaccine Administration Date Value Standard Description Adacel (Tetanus, reduced Diphtheria, and acellular Pertussis Immunization) Adacel [[id number]] tetanus toxoid, reduced diphtheria toxoid, and acellular [...] Measured Encounters Code Encounter Date Provider Facility CPT-21249 Level 2 Est. Patient 12:17:18 CDT Audeliadesean Ochoa [facility] CPT-52509 Level 3 Est. Patient 15:02:49 CDT Boo Vasquez MD [facility] CPT-83824 Level 3 Est. Patient 16:21:33 APPLICATION ASSISTANT Gama Bermeo MD [facility] CPT-89253 Level 3 Est. Patient 11:32:23 APPLICATION ASSISTANT Liat Cheng MD [facility] CPT-67064 Level 3 Est. Patient 16:59:23 CDT Liat Cheng MD [facility] CPT-77205 Level 3 Est. Patient 17:02:11 APPLICATION ASSISTANT Tay MAJOR [facility] CPT-38326 Level 3 Est. Patient 16:49:05 APPLICATION ASSISTANT Liat Cheng MD [facility] CPT-22568 Level 3 Est. Patient 16:36:13 CDT Vivien Conway [facility] Procedures Code Procedure Name Date Entry Date Standard Description CPT-66727 Administration single or combination vaccine inc oral 11 :11:48 CDT CPT-98804 Adacel Intramuscular Suspension 5-2-15.5 11:11:48 CDT CPT-68740 Toes 2V 17:03:02 APPLICATION ASSISTANT
--- OUTSIDE RECORDS SUMMARY | 2018-02-18 13:09 | XMS REPORT | Clinical Summary ---
Author Author Admin, QIE Organization [employer] Address Unknown Phone Unavailable Allergies, Adverse Reactions, [...] NEC w/o infection 919.4 Active Audelia Yokum [employer] Insect bite, nonvenomous, of other, multiple, and [...] by mouth daily PRN Congestion 2014 LORATADINE 92643151737 No Longer Active Audelia Yokum [employer]LE[employer] Active MUCINEX DM MAXIMUM STRENGTH 60-1200 MG [id number] 1 po BID PRN Cough DEXTROMETHORPHAN-GUAIFENESIN 52903489578 No Longer Active Audelia Yokum [employer]LEMENT[employer]ER Active PREDNISONE 20 MG TAB 2 tabs daily for 3 days, 1 tab daily for 3 days, 1/2 tab daily for 2 days PREDNISONE 81005237390 No Longer Active Boo Vasquez MD Active BACTRIM DS 800-160 MG TAB 1 tab by mouth twice daily TRIMETHOPRIM-SULFAMETHOXAZOLE 47438659408 No Longer Active Gama Bermeo MD Active ZOFRAN 8 MG ORAL TABS 1 q 8hr prn vomiting ONDANSETRON HCL 64439858045 No Longer Active Gama Bermeo MD Active AUGMENTIN 875-125 MG TABS 1 bid AMOXICILLIN-POT CLAVULANATE 40050625281 No Longer Active Liat Cheng MD Active HYDROCODONE-ACETAMINOPHEN TABS Take as directed/PRN HYDROCODONE-ACETAMINOPHEN TABS 80476195749 No Longer Active Liat Cheng MD Active CEFDINIR 300 MG CAPS 1 PO bid x 7 days CEFDINIR 08262876303 No Longer Active Liat Cheng MD Active CEFDINIR 300 MG CAPS 1 PO bid x 7 days CEFDINIR 300 MG CAPS 791897 CEFDINIR Inactive HYDROCODONE-ACETAMINOPHEN TABS Take as directed/PRN HYDROCODONE-ACETAMINOPHEN TABS HYDROCODONE-ACETAMINOPHEN TABS Inactive ZOFRAN 8 MG ORAL TABS 1 q 8hr prn vomiting ZOFRAN 8 MG ORAL TABS 529236 ONDANSETRON HCL Inactive MUCINEX DM MAXIMUM STRENGTH 60-1200 MG [id number] 1 po BID PRN Cough MUCINEX DM MAXIMUM STRENGTH 60-1200 MG [id number] DEXTROMETHORPHAN-GUAIFENESIN Inactive LORATADINE 10 MG TABS 1 tablet by mouth daily PRN Congestion 2014 LORATADINE 10 MG TABS 253408 LORATADINE Inactive AUGMENTIN 875-125 MG TABS 1 bid AUGMENTIN 875-125 MG TABS 857401 AMOXICILLIN-POT CLAVULANATE Inactive BACTRIM DS 800-160 MG TAB 1 tab by mouth twice daily BACTRIM DS 800-160 MG TAB TRIMETHOPRIM-SULFAMETHOXAZOLE Inactive PREDNISONE 20 MG TAB 2 tabs daily for 3 days, 1 tab daily for 3 days, 1/2 tab daily for 2 days PREDNISONE 20 MG TAB 601442 PREDNISONE Inactive Immunizations Vaccine Administration Date Value Standard Description Adacel (Tetanus, reduced Diphtheria, and acellular Pertussis Immunization) Adacel [[id number]] tetanus toxoid, reduced diphtheria toxoid, and acellular [...] Measured Encounters Code Encounter Date Provider Facility CPT-48444 Level 2 Est. Patient 12:17:18 CDT Audeliadesean Ochoa [facility] CPT-09958 Level 3 Est. Patient 15:02:49 CDT Boo Vasquez MD [facility] CPT-08522 Level 3 Est. Patient 16:21:33 DIRECTOR IMMUNOLOGY Gama Bermeo MD [facility] CPT-19883 Level 3 Est. Patient 11:32:23 DIRECTOR IMMUNOLOGY Liat Cheng MD [facility] CPT-36822 Level 3 Est. Patient 16:59:23 CDT Liat Cheng MD [facility] CPT-69670 Level 3 Est. Patient 17:02:11 DIRECTOR IMMUNOLOGY Tay MAJOR [facility] CPT-31032 Level 3 Est. Patient 16:49:05 DIRECTOR IMMUNOLOGY Liat Cheng MD [facility] CPT-42564 Level 3 Est. Patient 16:36:13 CDT Vivien Conway [facility] Procedures Code Procedure Name Date Entry Date Standard Description CPT-94303 Administration single or combination vaccine inc oral 11 :11:48 CDT CPT-99046 Adacel Intramuscular Suspension 5-2-15.5 11:11:48 CDT CPT-76257 Toes 2V 17:03:02 DIRECTOR IMMUNOLOGY
--- OUTSIDE RECORDS SUMMARY | 2018-02-18 13:09 | XMS REPORT | Clinical Summary ---
Author Author Admin, QIE Organization [employer] Address Unknown Phone Unavailable Allergies, Adverse Reactions, [...] 1/2 tab daily for 2 days PREDNISONE 82866619081 Active Boo Vasquez MD Active MUCINEX DM MAXIMUM STRENGTH 60-1200 MG [id number] 1 po BID PRN Cough DEXTROMETHORPHAN-GUAIFENESIN 91851691232 Active Boo Vasquez MD Active LORATADINE 10 MG TABS 1 tablet by mouth daily PRN Congestion LORATADINE 21407694104 Active Boo Vasquez MD Active BACTRIM DS 800-160 MG TAB 1 tab by mouth twice daily TRIMETHOPRIM-SULFAMETHOXAZOLE 47188620376 No Longer Active Gama Bermeo MD Active ZOFRAN 8 MG ORAL TABS 1 q 8hr prn vomiting ONDANSETRON HCL 42244438246 No Longer Active Gama Bermeo MD Active AUGMENTIN 875-125 MG TABS 1 bid AMOXICILLIN-POT CLAVULANATE 22874347535 No Longer Active Liat Cheng MD Active HYDROCODONE-ACETAMINOPHEN TABS Take as directed/PRN HYDROCODONE-ACETAMINOPHEN TABS 56487444820 No Longer Active Liat Cheng MD Active CEFDINIR 300 MG CAPS 1 PO bid x 7 days CEFDINIR 95454167608 No Longer Active Liat Cheng MD Active CEFDINIR 300 MG CAPS 1 PO bid x 7 days CEFDINIR 300 MG CAPS 801975 CEFDINIR Inactive HYDROCODONE-ACETAMINOPHEN TABS Take as directed/PRN HYDROCODONE-ACETAMINOPHEN TABS HYDROCODONE-ACETAMINOPHEN TABS Inactive ZOFRAN 8 MG ORAL TABS 1 q 8hr prn vomiting ZOFRAN 8 MG ORAL TABS 033940 ONDANSETRON HCL Inactive AUGMENTIN 875-125 MG TABS 1 bid AUGMENTIN 875-125 MG TABS 373280 AMOXICILLIN-POT CLAVULANATE Inactive BACTRIM DS 800-160 MG TAB 1 tab by mouth twice daily BACTRIM DS 800-160 MG TAB TRIMETHOPRIM-SULFAMETHOXAZOLE Inactive Immunizations Vaccine Administration Date Value Standard Description Adacel (Tetanus, reduced Diphtheria, and acellular Pertussis Immunization) Adacel [[id number]] tetanus toxoid, reduced diphtheria toxoid, and acellular [...] mm Encounters Code Encounter Date Provider Facility CPT-55443 Level 3 Est. Patient 15:02:49 CDT Boo Vasquez MD [facility] CPT-36533 Level 3 Est. Patient 16:21:33 ASSISTANT MEDIA BUYER Gama Bermeo MD [facility] CPT-47867 Level 3 Est. Patient 11:32:23 ASSISTANT MEDIA BUYER Liat Cheng MD [facility] CPT-01977 Level 3 Est. Patient 16:59:23 CDT Liat Cheng MD [facility] CPT-95391 Level 3 Est. Patient 17:02:11 ASSISTANT MEDIA BUYER Tay MAJOR [facility] CPT-34103 Level 3 Est. Patient 16:49:05 ASSISTANT MEDIA BUYER Liat Cheng MD [facility] CPT-68034 Level 3 Est. Patient 16:36:13 CDT Vivien Conway APRN [facility] Procedures Code Procedure Name Date Entry Date Standard Description CPT-60662 Administration single or combination vaccine inc oral 11 :11:48 CDT CPT-75246 Adacel Intramuscular Suspension 5-2-15.5 11:11:48 CDT CPT-34364 Toes 2V 17:03:02 ASSISTANT MEDIA BUYER
--- OUTSIDE RECORDS SUMMARY | 2018-02-18 13:09 | XMS REPORT | Clinical Summary ---
Author Author Admin, QIE Organization [employer] Address Unknown Phone Unavailable Allergies, Adverse Reactions, [...] 1 po q8hr PRN Nausea ONDANSETRON HCL 04632806249 Active Angeline Santiago APRN Active NEXPLANON 68 MG SC IMPL Inserted in the left upper arm ETONOGESTREL 48679546254 Active Liat Cheng MD Active FLAGYL 500 MG TAB 1 tablet by mouth bid. do not mix with etoh. METRONIDAZOLE 28311915347 No Longer Active Lita Cheng MD Active CIPRO 500 MG TAB 1 tablet by mouth twice daily CIPROFLOXACIN HCL 91919523336 No Longer Active Jillina Erickson WELLS Active FLONASE 50 MCG/ACT SUSP 1 puff in easch nostril bid FLUTICASONE PROPIONATE No Longer Active Maximllpb Almendarez APRN Active KEFLEX 500 MG CAP 1 po qid CEPHALEXIN 87121344210 No Longer Active Jillina Fraaranzal COMPARISON SHOPPER Active AZITHROMYCIN 250 MG TABS 2 pills day 1,1 pill day 2-5 AZITHROMYCIN 56401557488 No Longer Active Liat Cheng MD Active ZITHROMAX Z-GIANLUCA 250 MG TABS 2 today and then 1 daily for 4 days AZITHROMYCIN 41458071084 No Longer Active Liat Cheng MD Active LORATADINE 10 MG TABS 1 tablet by mouth daily PRN Congestion 2014 LORATADINE 07992418912 No Longer Active Audelia Yokum COMPARISON SHOPPER Active MUCINEX DM MAXIMUM STRENGTH 60-1200 MG [id number] 1 po BID PRN Cough DEXTROMETHORPHAN-GUAIFENESIN 39571547408 No Longer Active Audelia Yokum COMPARISON SHOPPER Active PREDNISONE 20 MG TAB 2 tabs daily for 3 days, 1 tab daily for 3 days, 1/2 tab daily for 2 days PREDNISONE 93056586742 No Longer Active Boo Vasquez MD Active BACTRIM DS 800-160 MG TAB 1 tab by mouth twice daily TRIMETHOPRIM-SULFAMETHOXAZOLE 47167714229 No Longer Active Gama Bermeo MD Active ZOFRAN 8 MG ORAL TABS 1 q 8hr prn vomiting ONDANSETRON HCL 56963069126 No Longer Active Gama Bermeo MD Active AUGMENTIN 875-125 MG TABS 1 bid AMOXICILLIN-POT CLAVULANATE 05806864270 No Longer Active Liat Cheng MD Active HYDROCODONE-ACETAMINOPHEN TABS Take as directed/PRN HYDROCODONE-ACETAMINOPHEN TABS 93725495447 No Longer Active Liat Cheng MD Active CEFDINIR 300 MG CAPS 1 PO bid x 7 days CEFDINIR 28166367365 No Longer Active Liat Cheng MD Active CEFDINIR 300 MG CAPS 1 PO bid x 7 days CEFDINIR 300 MG CAPS 815322 CEFDINIR Inactive HYDROCODONE-ACETAMINOPHEN TABS Take as directed/PRN HYDROCODONE-ACETAMINOPHEN TABS HYDROCODONE-ACETAMINOPHEN TABS Inactive ZOFRAN 8 MG ORAL TABS 1 q 8hr prn vomiting ZOFRAN 8 MG ORAL TABS 214403 ONDANSETRON HCL Inactive MUCINEX DM MAXIMUM STRENGTH 60-1200 MG [id number] 1 po BID PRN Cough MUCINEX DM MAXIMUM STRENGTH 60-1200 MG [id number] DEXTROMETHORPHAN-GUAIFENESIN Inactive LORATADINE 10 MG TABS 1 tablet by mouth daily PRN Congestion 2014 LORATADINE 10 MG TABS 553224 LORATADINE Inactive ZITHROMAX Z-GIANLUCA 250 MG TABS 2 today and then 1 daily for 4 days ZITHROMAX Z-GIANLUCA 250 MG TABS 5371572 AZITHROMYCIN Inactive KEFLEX 500 MG CAP 1 po qid KEFLEX 500 MG CAP 754540 CEPHALEXIN Inactive FLONASE 50 MCG/ACT SUSP 1 puff in easch nostril bid FLONASE 50 MCG/ACT SUSP FLUTICASONE PROPIONATE Inactive CIPRO 500 MG TAB 1 tablet by mouth twice daily CIPRO 500 MG TAB 713507 CIPROFLOXACIN HCL Inactive FLAGYL 500 MG TAB 1 tablet by mouth bid. do not mix with etoh. FLAGYL 500 MG TAB 740209 METRONIDAZOLE Inactive AUGMENTIN 875-125 MG TABS 1 bid AUGMENTIN 875-125 MG TABS 449928 AMOXICILLIN-POT CLAVULANATE Inactive BACTRIM DS 800-160 MG TAB 1 tab by mouth twice daily BACTRIM DS 800-160 MG TAB 639994 TRIMETHOPRIM-SULFAMETHOXAZOLE Inactive PREDNISONE 20 MG TAB 2 tabs daily for 3 days, 1 tab daily for 3 days, 1/2 tab daily for 2 days PREDNISONE 20 MG TAB 773154 PREDNISONE Inactive AZITHROMYCIN 250 MG TABS 2 pills day 1,1 pill day 2-5 AZITHROMYCIN 250 MG TABS 5109858 AZITHROMYCIN Inactive Advance Directives Directive Description Start Date PERMISSION TO SHARE Immunizations Vaccine Administration Date Value Standard Description Adacel (Tetanus, reduced Diphtheria, and acellular Pertussis Immunization) Adacel [[id number]] tetanus toxoid, reduced diphtheria toxoid, and acellular [...] 369 10^3/MM^3 10*3/mm3 142-424 Lab Report: Chlamydia/GC APTIMA/[id number] - Lab chlamydia DNA probe NOT DETECTED NOT DETECTED chlamydia DNA probe NOT DETECTED NOT DETECTED Lab Report: Chlamydia/GC APTIMA/[id number] - Microbiology Neisseria gonorrhoeae DNA probe NOT DETECTED NOT DETECTED Neisseria gonorrhoeae DNA probe NOT DETECTED NOT DETECTED Lab Report: Comp. Metabolic Panel - Chemistry sodium, serum 140 mmol/L 218-546 6587/11/17 carbon dioxide, venous blood 25.9 mmol/L 21.0-32.0 [...] negative Encounters Code Encounter Date Provider Facility CPT-97710 Level 3 Est. Patient 15:48:30 RUBBING BED OPERATOR Liat Cheng MD [facility] CPT-29204 Level 3 Est. Patient 14:24:59 RUBBING BED OPERATOR Liat Cheng MD [facility] CPT-61078 Level 3 Est. Patient 15:06:21 RUBBING BED OPERATOR Thai Almendarez [facility]-88063 Level 3 Est. Patient 15:43:50 RUBBING BED OPERATOR Thai Almendarez [facility]-34585 Level 3 Est. Patient 14:42:12 RUBBING BED OPERATOR Liat Cheng MD [facility] CPT-19221 Level 3 Est. Patient 16:38:12 RUBBING BED OPERATOR Valentin Blanco MD [facility] CPT-24556 Level 3 Est. Patient 14:12:52 CDT Liat Cheng MD [facility]-75394 Level 2 Est. Patient 12:17:18 CDT Audelia Ochoa [facility]-90071 Level 3 Est. Patient 15:02:49 CDT Boo Vasquez MD [facility]-53654 Level 3 Est. Patient 16:21:33 RUBBING BED OPERATOR Gama Bermeo MD [facility]-65073 Level 3 Est. Patient 11:32:23 RUBBING BED OPERATOR Liat Cheng MD [facility] CPT-40687 Level 3 Est. Patient 16:59:23 CDT Liat Cheng MD [facility] CPT-74760 Level 3 Est. Patient 17:02:11 RUBBING BED OPERATOR Tay MAJOR [facility] CPT-53983 Level 3 Est. Patient 16:49:05 RUBBING BED OPERATOR Liat Cheng MD [facility] CPT-12001 Level 3 Est. Patient 16:36:13 CDT Vivien Conway APRN [facility] Procedures Code Procedure Name Date Entry Date Standard Description CPT-J7307 Nexplanon (Implant) 16:25:36 RUBBING BED OPERATOR CPT-87444 Nexplanon Placement 16:25:36 RUBBING BED OPERATOR CPT-OV Office Visit 16:25:36 RUBBING BED OPERATOR CPT-OV Office Visit 18:49:22 RUBBING BED OPERATOR CPT-OV Office Visit 18:49:18 CDT CPT-15792 Administration single or combination vaccine inc oral 11 :11:48 CDT CPT-74736 Adacel Intramuscular Suspension 5-2-15.5 11:11:48 CDT CPT-83557 Toes 2V 17:03:02 RUBBING BED OPERATOR
--- OUTSIDE RECORDS SUMMARY | 2018-02-18 13:09 | XMS REPORT | Clinical Summary ---
Author Author Admin, ISRRAEL Organization [facility] [employer] Address Unknown Phone Allergies, Adverse Reactions, Alerts Allergy Name Reaction Description Start Date Severity Status Provider NKDA Critical Active Tay MAJOR Conditions or Problems Problem Name Problem Code Onset Date Status Entry Date Provider Comment Standard Description Annotate SPORTS PHYSICAL V70.3 Active Vivien Conway APRN Other general medical examination for administrative purposes Family History of Diabetes V18.0 Active Liat Cheng MD Family history of diabetes mellitus Family History of Hypertension V17.4 Active Liat Cheng MD Family history of other cardiovascular diseases Pharyngitis Acute 462 Inactive Liat Cheng MD Acute pharyngitis Toe injury 959.7 Active Stacia Carrera Other and unspecified injury to knee, leg, ankle, and foot Sinusitis, acute 461.9 Active Tay MAJOR Acute sinusitis, unspecified Pharyngitis Acute ICD-462 Inactive Liat Cheng MD Medication List Medication Instructions Start Date Stop Date Generic Name NDC Status Provider Patient Instruction CEFDINIR 300 MG CAPS 1 PO bid x 7 days CEFDINIR 65162645372 Active Tay MAJOR Active HYDROCODONE-ACETAMINOPHEN TABS Take as directed/PRN HYDROCODONE-ACETAMINOPHEN TABS 62934757441 Active Tay MAJOR Active Immunizations Vaccine Administration Date Value Standard Description Adacel immunization Adacel [[id number]] tetanus toxoid, reduced diphtheria toxoid, and acellular pertussis vaccine, adsorbed DPT immunization #5 Historical oral polio vaccine (OPV) #4 Historical poliovirus vaccine, unspecified formulation MMR virus immunization #2 Historical DPT immunization #4 Historical oral polio vaccine (OPV) #3 Historical poliovirus vaccine, unspecified formulation MMR virus immunization #1 Historical hepatitis B vaccine #3 Historical hepatitis B vaccine, unspecified formulation DPT immunization #3 Historical Hemophilus influenza B immunization #3 Historical Haemophilus influenzae type b vaccine, conjugate unspecified formulation hepatitis B vaccine #2 Historical hepatitis B vaccine, unspecified formulation DPT immunization #2 Historical Hemophilus influenza B immunization #2 Historical Haemophilus influenzae type b vaccine, conjugate unspecified formulation oral polio vaccine (OPV) #2 Historical poliovirus vaccine, unspecified formulation hepatitis B vaccine #1 Historical hepatitis B vaccine, unspecified formulation DPT immunization #1 Historical Hemophilus influenza B immunization #1 Historical Haemophilus influenzae type b vaccine, conjugate unspecified formulation oral polio vaccine (OPV) #1 Historical poliovirus vaccine, unspecified formulation Vital Signs Date Name Value Unit Range Description blood pressure, diastolic 86 mm[Hg] BP grady blood pressure, systolic 137 mm[Hg] BP sys pulse rate E&M 103 /min Heart rate temperature E&M 98.8 [degF] Body temperature blood pressure, diastolic 70 mm[Hg] BP grady blood pressure, systolic 112 mm[Hg] BP sys height E&M 65.5 [in_us] Bdy height temperature E&M 98.7 [degF] Body temperature weight E&M 223 [lb_av] Weight Measured blood pressure, diastolic 84 mm[Hg] BP grady blood pressure, systolic 144 mm[Hg] BP sys height E&M 66 [in_us] Bdy height pulse rate E&M 86 /min Heart rate temperature E&M 98.3 [degF] Body temperature weight E&M 223 [lb_av] Weight Measured Diagnostic Results Date Name Value Unit Range Description Lab Report: Rapid Strep - Microbiology Microbial identification kit, rapid strep method Negative-Throat Culture to Follow Negative Encounters Code Encounter Date Provider Facility CPT-28103 Level 3 Est. Patient 17:02:11 FAMILY SERVICE ASSISTANT Tay MAJOR [facility] CPT-18939 Level 3 Est. Patient 16:49:05 FAMILY SERVICE ASSISTANT Liat Cheng MD [facility] CPT-87816 Level 3 Est. Patient 16:36:13 CDT Vivien Conway APRN [facility] Procedures Code Procedure Name Date Entry Date Standard Description CPT-74928 Toes 2V 17:03:02 FAMILY SERVICE ASSISTANT
--- OUTSIDE RECORDS SUMMARY | 2018-02-18 13:10 | XMS REPORT | Clinical Summary ---
Author Author Admin, ISRRAEL Organization [employer] Address Unknown Phone Unavailable Allergies, Adverse Reactions, [...] fingers, without mention of complication Gastroenteritis 558.9 Active Liat Cheng MD Other and unspecified noninfectious gastroenteritis and colitis Pharyngitis Acute ICD-462 Inactive Liat Cheng MD Toe injury ICD-959.7 Inactive Liat Cheng MD Sinusitis, acute ICD-461.9 Inactive Liat Cheng MD Cellulitis ICD-682.9 Inactive Liat Cheng MD Laceration, finger ICD-883.0 Inactive Liat Cheng MD Medication List Medication Instructions Start Date Stop Date Generic Name NDC Status Provider Patient Instruction ZOFRAN 8 MG ORAL TABS 1 q 8hr prn vomiting ONDANSETRON HCL 05180497677 Active Liat Cheng MD Active AUGMENTIN 875-125 MG TABS 1 bid AMOXICILLIN-POT CLAVULANATE 73170257097 No Longer Active Liat Cheng MD Active HYDROCODONE-ACETAMINOPHEN TABS Take as directed/PRN HYDROCODONE-ACETAMINOPHEN TABS 19555468281 No Longer Active Liat Cheng MD Active CEFDINIR 300 MG CAPS 1 PO bid x 7 days CEFDINIR 46629827764 No Longer Active Liat Cheng MD Active CEFDINIR 300 MG CAPS 1 PO bid x 7 days CEFDINIR 300 MG CAPS 030286 CEFDINIR Inactive HYDROCODONE-ACETAMINOPHEN TABS Take as directed/PRN HYDROCODONE-ACETAMINOPHEN TABS HYDROCODONE-ACETAMINOPHEN TABS Inactive AUGMENTIN 875-125 MG TABS 1 bid AUGMENTIN 875-125 MG TABS 948513 AMOXICILLIN-POT CLAVULANATE Inactive Immunizations Vaccine Administration Date Value Standard Description Adacel (Tetanus, reduced Diphtheria, and acellular Pertussis Immunization) Adacel [[id number]] tetanus toxoid, reduced diphtheria toxoid, and acellular [...] Range Description blood pressure, diastolic - 8462-4 64 mm[Hg] [...] E&M - 3141-9 233.50 [lb_av] Weight Measured blood pressure, diastolic - 8462-4 86 mm[Hg] BP grady blood pressure, systolic - 8480-6 137 mm[Hg] BP sys pulse rate E&M - 8867-4 103 /min Heart rate temperature E&M 98.8 [degF] Body temperature Diagnostic Results Date Name Value Unit Range Description Immunizations: TB Skin Test - Challenge tests PPD results in mm 0 mm Encounters Code Encounter Date Provider Facility CPT-27368 Level 3 Est. Patient 11:32:23 GARNETT ROOM WORKER Liat Cheng MD [facility] CPT-70003 Level 3 Est. Patient 16:59:23 CDT Liat Cheng MD [facility] CPT-49753 Level 3 Est. Patient 17:02:11 GARNETT ROOM WORKER Tay MAJOR [facility] CPT-68630 Level 3 Est. Patient 16:49:05 GARNETT ROOM WORKER Liat Cheng MD [facility] CPT-44975 Level 3 Est. Patient 16:36:13 CDT Vivien Conway APRN [facility] Procedures Code Procedure Name Date Entry Date Standard Description CPT-93732 Administration single or combination vaccine inc oral 11 :11:48 CDT CPT-65913 Adacel Intramuscular Suspension 5-2-15.5 11:11:48 CDT CPT-36279 Toes 2V 17:03:02 GARNETT ROOM WORKER
--- OUTSIDE RECORDS SUMMARY | 2018-02-18 13:10 | XMS REPORT | Clinical Summary ---
Author Author Admin, ISRRAEL Organization [facility] [employer] Address Unknown Phone Allergies, Adverse Reactions, Alerts [...] 1 PO bid x 7 days CEFDINIR 38545670290 Active Tay MAJOR Active HYDROCODONE-ACETAMINOPHEN TABS Take as directed/PRN HYDROCODONE-ACETAMINOPHEN TABS 70124841172 Active Tay MAJOR Active Immunizations Vaccine Administration Date Value Standard Description Adacel immunization Adacel [[id number]] tetanus toxoid, reduced diphtheria toxoid, and acellular [...] Negative Encounters Code Encounter Date Provider Facility CPT-76430 Level 3 Est. Patient 17:02:11 SUPERVISOR OF GUIDANCE AND TESTING Tay MAJOR [facility] CPT-86309 Level 3 Est. Patient 16:49:05 SUPERVISOR OF GUIDANCE AND TESTING Liat Cheng MD [facility] CPT-04518 Level 3 Est. Patient 16:36:13 CDT Vivien Conway APRN [facility] Procedures Code Procedure Name Date Entry Date Standard Description CPT-27421 Toes 2V 17:03:02 SUPERVISOR OF GUIDANCE AND TESTING
--- OUTSIDE RECORDS SUMMARY | 2018-02-18 13:10 | XMS REPORT | Clinical Summary ---
Author Author Admin, ISRRAEL Organization [employer] Address Unknown Phone Unavailable Allergies, Adverse Reactions, [...] Cheng MD Acute sinusitis, unspecified Cellulitis 682.9 Active Liat Cheng MD Cellulitis and abscess of unspecified sites Pharyngitis Acute ICD-462 Inactive Liat Cheng MD Toe injury ICD-959.7 Inactive Liat Cheng MD Sinusitis, acute ICD-461.9 Inactive Liat Cheng MD Medication List Medication Instructions Start Date Stop Date Generic Name NDC Status Provider Patient Instruction AUGMENTIN 875-125 MG TABS 1 bid AMOXICILLIN-POT CLAVULANATE 59473571115 Active Liat Cheng MD Active HYDROCODONE-ACETAMINOPHEN TABS Take as directed/PRN HYDROCODONE-ACETAMINOPHEN TABS 13233023845 No Longer Active Liat Cheng MD Active CEFDINIR 300 MG CAPS 1 PO bid x 7 days CEFDINIR 83835923312 No Longer Active Liat Cheng MD Active CEFDINIR 300 MG CAPS 1 PO bid x 7 days CEFDINIR 300 MG CAPS 453001 CEFDINIR Inactive HYDROCODONE-ACETAMINOPHEN TABS Take as directed/PRN HYDROCODONE-ACETAMINOPHEN TABS HYDROCODONE-ACETAMINOPHEN TABS Inactive Immunizations Vaccine Administration Date Value Standard Description Adacel (Tetanus, reduced Diphtheria, and acellular Pertussis Immunization) Adacel [[id number]] tetanus toxoid, reduced diphtheria toxoid, and acellular [...] 98.8 [degF] Body temperature blood pressure, diastolic - 8462-4 70 mm[Hg] BP grady blood pressure, systolic - 8480-6 112 mm[Hg] BP sys height E&M - 8302-2 65.5 [in_us] Bdy height temperature E&M 98.7 [degF] Body temperature weight E&M - 3141-9 223 [lb_av] Weight Measured blood pressure, diastolic - 8462-4 84 mm[Hg] BP grady blood pressure, systolic - 8480-6 144 mm[Hg] BP sys height E&M - 8302-2 66 [in_us] Bdy height pulse rate E&M - 8867-4 86 /min Heart rate temperature E&M 98.3 [degF] Body temperature weight E&M - 3141-9 223 [lb_av] Weight Measured Diagnostic Results Date Name Value Unit Range Description Lab Report: Rapid Strep - Lab Microbial identification kit, rapid strep method Negative-Throat Culture to Follow Negative Encounters Code Encounter Date Provider Facility CPT-07590 Level 3 Est. Patient 17:02:11 COTTON GIN YARD SUPERVISOR Tay MAJOR [facility] CPT-55745 Level 3 Est. Patient 16:49:05 COTTON GIN YARD SUPERVISOR Liat Cheng MD [facility] CPT-62399 Level 3 Est. Patient 16:36:13 CDT Vivien Conway APRN [facility] Procedures Code Procedure Name Date Entry Date Standard Description CPT-15890 Toes 2V 17:03:02 COTTON GIN YARD SUPERVISOR
--- OUTSIDE RECORDS SUMMARY | 2018-02-18 13:10 | XMS REPORT | Clinical Summary ---
Author Author Admin, ISRRAEL Organization [employer] Address Unknown Phone Unavailable Allergies, Adverse Reactions, [...] 875-125 MG TABS 1 bid AMOXICILLIN-POT CLAVULANATE 30366730839 Active Lait Cheng MD Active HYDROCODONE-ACETAMINOPHEN TABS Take as directed/PRN HYDROCODONE-ACETAMINOPHEN TABS 85486997279 No Longer Active Liat Cheng MD Active CEFDINIR 300 MG CAPS 1 PO bid x 7 days CEFDINIR 33517793028 No Longer Active Liat Cheng MD Active CEFDINIR 300 MG CAPS 1 PO bid x 7 days CEFDINIR 300 MG CAPS 080802 CEFDINIR Inactive HYDROCODONE-ACETAMINOPHEN TABS Take as directed/PRN HYDROCODONE-ACETAMINOPHEN TABS HYDROCODONE-ACETAMINOPHEN TABS Inactive Immunizations Vaccine Administration Date Value Standard Description Adacel (Tetanus, reduced Diphtheria, and acellular Pertussis Immunization) Adacel [[id number]] tetanus toxoid, reduced diphtheria toxoid, and acellular [...] tests PPD results in mm 0 mm Lab Report: Rapid Strep - Lab Microbial identification kit, rapid strep method Negative-Throat Culture to Follow Negative Encounters Code Encounter Date Provider Facility CPT-88074 Level 3 Est. Patient 17:02:11 TRUCK JUMPER Tay MAJOR [facility] CPT-24086 Level 3 Est. Patient 16:49:05 TRUCK JUMPER Liat Cheng MD [facility] CPT-96746 Level 3 Est. Patient 16:36:13 CDT Vivien Conway APRN [facility] Procedures Code Procedure Name Date Entry Date Standard Description CPT-49432 Toes 2V 17:03:02 TRUCK JUMPER
--- OUTSIDE RECORDS SUMMARY | 2018-02-18 13:10 | XMS REPORT | Clinical Summary ---
Author Author Admin, ISRRAEL Organization [facility] [employer] Address Unknown Phone Allergies, Adverse Reactions, Alerts [...] 1 PO bid x 7 days CEFDINIR 74023253857 Active Tay MAJOR Active HYDROCODONE-ACETAMINOPHEN TABS Take as directed/PRN HYDROCODONE-ACETAMINOPHEN TABS 26270067684 Active Tay MAJOR Active Immunizations Vaccine Administration Date Value Standard Description Adacel immunization Adacel [[id number]] tetanus toxoid, reduced diphtheria toxoid, and acellular [...] Negative Encounters Code Encounter Date Provider Facility CPT-76127 Level 3 Est. Patient 17:02:11 BIOPHYSICS PROFESSOR Tay MAJOR [facility] CPT-22269 Level 3 Est. Patient 16:49:05 BIOPHYSICS PROFESSOR Liat Cheng MD [facility] CPT-03899 Level 3 Est. Patient 16:36:13 CDT Vivien Conway APRN [facility] Procedures Code Procedure Name Date Entry Date Standard Description CPT-53171 Toes 2V 17:03:02 BIOPHYSICS PROFESSOR
--- OUTSIDE RECORDS SUMMARY | 2018-02-18 13:11 | XMS REPORT | Clinical Summary ---
Author Author Admin, ISRRAEL Organization [facility] Address Unknown Phone Unavailable Allergies, Adverse [...] abscess of unspecified sites Laceration, finger 883.0 Active Liat Cheng MD Open wound of fingers, without mention of complication Pharyngitis Acute ICD-462 Inactive Liat Cheng MD Toe injury ICD-959.7 Inactive Liat Cheng MD Sinusitis, acute ICD-461.9 Inactive Liat Cheng MD Cellulitis ICD-682.9 Inactive Liat Cheng MD Medication List Medication Instructions Start Date Stop Date Generic Name NDC Status Provider Patient Instruction AUGMENTIN 875-125 MG TABS 1 bid AMOXICILLIN-POT CLAVULANATE 79165552380 No Longer Active Liat Cheng MD Active HYDROCODONE-ACETAMINOPHEN TABS Take as directed/PRN HYDROCODONE-ACETAMINOPHEN TABS 92935585636 No Longer Active Liat Cheng MD Active CEFDINIR 300 MG CAPS 1 PO bid x 7 days CEFDINIR 68322703924 No Longer Active Liat Cheng MD Active CEFDINIR 300 MG CAPS 1 PO bid x 7 days CEFDINIR 300 MG CAPS 062354 CEFDINIR Inactive HYDROCODONE-ACETAMINOPHEN TABS Take as directed/PRN HYDROCODONE-ACETAMINOPHEN TABS HYDROCODONE-ACETAMINOPHEN TABS Inactive AUGMENTIN 875-125 MG TABS 1 bid AUGMENTIN 875-125 MG TABS 358435 AMOXICILLIN-POT CLAVULANATE Inactive Immunizations Vaccine Administration Date Value Standard Description Adacel immunization Adacel [[id number]] tetanus toxoid, reduced diphtheria toxoid, and acellular [...] Value Unit Range Description blood pressure, diastolic 64 mm[Hg] BP grady blood pressure, systolic 130 mm[Hg] BP sys height E&M 65 [in_us] Bdy height temperature E&M 98.4 [degF] Body temperature weight E&M 230.13 [lb_av] Weight Measured blood pressure, diastolic 70 mm[Hg] BP grday blood pressure, systolic 130 mm[Hg] BP sys height E&M 65.5 [in_us] Bdy height temperature E&M 99.5 [degF] Body temperature weight E&M 233.50 [lb_av] Weight Measured blood pressure, diastolic 86 mm[Hg] BP grady [...] 0 mm Lab Report: Rapid Strep - Microbiology Microbial identification kit, rapid strep method Negative-Throat Culture to Follow Negative Encounters Code Encounter Date Provider Facility CPT-60303 Level 3 Est. Patient 16:59:23 CDT Liat Cheng MD [facility] CPT-14763 Level 3 Est. Patient 17:02:11 REGIONAL ECONOMIC LIAISON Tay MAJOR [facility] CPT-64913 Level 3 Est. Patient 16:49:05 REGIONAL ECONOMIC LIAISON Liat Cheng MD [facility] CPT-15705 Level 3 Est. Patient 16:36:13 CDT Vivien Conway APRN [facility] Procedures Code Procedure Name Date Entry Date Standard Description CPT-35015 Toes 2V 17:03:02 REGIONAL ECONOMIC LIAISON
--- OUTSIDE RECORDS SUMMARY | 2018-02-18 13:11 | XMS REPORT | Clinical Summary ---
Author Author Admin, ISRRAEL Organization [employer] Address Unknown Phone Unavailable Allergies, Adverse Reactions, [...] noninfectious gastroenteritis and colitis Abscess, skin 682.9 Active Gama Bermeo MD Cellulitis and abscess of unspecified sites Pharyngitis Acute ICD-462 Inactive Liat Cheng MD Toe injury ICD-959.7 Inactive Liat Cheng MD Sinusitis, acute ICD-461.9 Inactive Liat Cheng MD Cellulitis ICD-682.9 Inactive Liat Cheng MD Laceration, finger ICD-883.0 Inactive Liat Cheng MD Gastroenteritis ICD-558.9 Inactive Liat Cheng MD Medication List Medication Instructions Start Date Stop Date Generic Name NDC Status Provider Patient Instruction BACTRIM DS 800-160 MG TAB 1 tab by mouth twice daily TRIMETHOPRIM-SULFAMETHOXAZOLE 09507456729 No Longer Active Gama Bermeo MD Active ZOFRAN 8 MG ORAL TABS 1 q 8hr prn vomiting ONDANSETRON HCL 50298125893 No Longer Active Gama Bermeo MD Active AUGMENTIN 875-125 MG TABS 1 bid AMOXICILLIN-POT CLAVULANATE 67656438304 No Longer Active Liat Cheng MD Active HYDROCODONE-ACETAMINOPHEN TABS Take as directed/PRN HYDROCODONE-ACETAMINOPHEN TABS 01496108253 No Longer Active Liat Cheng MD Active CEFDINIR 300 MG CAPS 1 PO bid x 7 days CEFDINIR 38049495945 No Longer Active Liat Cheng MD Active CEFDINIR 300 MG CAPS 1 PO bid x 7 days CEFDINIR 300 MG CAPS 782046 CEFDINIR Inactive HYDROCODONE-ACETAMINOPHEN TABS Take as directed/PRN HYDROCODONE-ACETAMINOPHEN TABS HYDROCODONE-ACETAMINOPHEN TABS Inactive ZOFRAN 8 MG ORAL TABS 1 q 8hr prn vomiting ZOFRAN 8 MG ORAL TABS 808781 ONDANSETRON HCL Inactive AUGMENTIN 875-125 MG TABS 1 bid AUGMENTIN 875-125 MG TABS 535068 AMOXICILLIN-POT CLAVULANATE Inactive BACTRIM DS 800-160 MG TAB 1 tab by mouth twice daily BACTRIM DS 800-160 MG TAB TRIMETHOPRIM-SULFAMETHOXAZOLE Inactive Immunizations Vaccine Administration Date Value Standard Description Adacel (Tetanus, reduced Diphtheria, and acellular Pertussis Immunization) Adacel [[id number]] tetanus toxoid, reduced diphtheria toxoid, and acellular [...] Range Description blood pressure, diastolic - 8462-4 77 mm[Hg] [...] mm Encounters Code Encounter Date Provider Facility CPT-09018 Level 3 Est. Patient 16:21:33 CONSUMER CREDIT COUNSELOR Gama Bermeo MD [facility] CPT-66801 Level 3 Est. Patient 11:32:23 CONSUMER CREDIT COUNSELOR Liat Cheng MD [facility] CPT-19496 Level 3 Est. Patient 16:59:23 CDT Liat Cheng MD [facility] CPT-22167 Level 3 Est. Patient 17:02:11 CONSUMER CREDIT COUNSELOR Tay MAJOR [facility] CPT-67856 Level 3 Est. Patient 16:49:05 CONSUMER CREDIT COUNSELOR Liat Cheng MD [facility] CPT-63979 Level 3 Est. Patient 16:36:13 CDT Vivien Conway APRN [facility] Procedures Code Procedure Name Date Entry Date Standard Description CPT-67101 Administration single or combination vaccine inc oral 11 :11:48 CDT CPT-26614 Adacel Intramuscular Suspension 5-2-15.5 11:11:48 CDT CPT-04089 Toes 2V 17:03:02 CONSUMER CREDIT COUNSELOR
--- OUTSIDE RECORDS SUMMARY | 2018-02-18 13:11 | XMS REPORT | Clinical Summary ---
Author Author Admin, ISRRAEL Organization [employer] Address Unknown Phone Unavailable Allergies, Adverse Reactions, [...] 875-125 MG TABS 1 bid AMOXICILLIN-POT CLAVULANATE 59613283942 No Longer Active Liat Cheng MD Active HYDROCODONE-ACETAMINOPHEN TABS Take as directed/PRN HYDROCODONE-ACETAMINOPHEN TABS 14753802669 No Longer Active Liat Cheng MD Active CEFDINIR 300 MG CAPS 1 PO bid x 7 days CEFDINIR 43803475261 No Longer Active Liat Cheng MD Active CEFDINIR 300 MG CAPS 1 PO bid x 7 days CEFDINIR 300 MG CAPS 722732 CEFDINIR Inactive HYDROCODONE-ACETAMINOPHEN TABS Take as directed/PRN HYDROCODONE-ACETAMINOPHEN TABS HYDROCODONE-ACETAMINOPHEN TABS Inactive AUGMENTIN 875-125 MG TABS 1 bid AUGMENTIN 875-125 MG TABS 235328 AMOXICILLIN-POT CLAVULANATE Inactive Immunizations Vaccine Administration Date Value Standard Description Adacel immunization Adacel [[id number]] tetanus toxoid, reduced diphtheria toxoid, and acellular pertussis vaccine, adsorbed DPT immunization #5 Historical oral polio vaccine (OPV) #4 Historical poliovirus vaccine, unspecified formulation MMR virus immunization #2 Historical DPT immunization #4 Historical oral polio vaccine (OPV) #3 Historical poliovirus vaccine, unspecified formulation MMR virus immunization #1 Historical Hemophilus influenza B [...] immunization #2 Historical hepatitis B vaccine #2 Historical hepatitis B vaccine, unspecified formulation Hemophilus influenza B immunization #1 Historical Haemophilus influenzae type b vaccine, conjugate unspecified formulation oral polio vaccine (OPV) #1 Historical poliovirus vaccine, unspecified formulation DPT immunization #1 Historical hepatitis B vaccine #1 Historical hepatitis B vaccine, unspecified formulation Vital Signs Date Name Value Unit Range Description blood pressure, diastolic 64 mm[Hg] BP grady blood pressure, systolic 130 mm[Hg] BP sys height E&M 65 [in_us] Bdy height temperature E&M 98.4 [degF] Body temperature weight E&M 230.13 [lb_av] Weight Measured blood pressure, diastolic 70 mm[Hg] BP grady blood pressure, systolic 130 [...] Negative Encounters Code Encounter Date Provider Facility CPT-55599 Level 3 Est. Patient 16:59:23 CDT Liat Cheng MD [facility] CPT-66078 Level 3 Est. Patient 17:02:11 PATIENT RESOURCE COORDINATOR Tay MAJOR [facility] CPT-61975 Level 3 Est. Patient 16:49:05 PATIENT RESOURCE COORDINATOR Liat Cheng MD [facility] CPT-68668 Level 3 Est. Patient 16:36:13 CDT Vivien Conway APRN [facility] Procedures Code Procedure Name Date Entry Date Standard Description CPT-86617 Administration single or combination vaccine inc oral 11 :11:48 CDT CPT-22161 Adacel Intramuscular Suspension 5-2-15.5 11:11:48 CDT CPT-09371 Toes 2V 17:03:02 PATIENT RESOURCE COORDINATOR
--- OUTSIDE RECORDS SUMMARY | 2018-02-18 13:11 | XMS REPORT | Clinical Summary ---
Author Author Admin, ISRRAEL Organization [employer] Address Unknown Phone Unavailable Allergies, Adverse Reactions, [...] 1 tab by mouth twice daily TRIMETHOPRIM-SULFAMETHOXAZOLE 89375621029 No Longer Active Gama Bermeo MD Active ZOFRAN 8 MG ORAL TABS 1 q 8hr prn vomiting ONDANSETRON HCL 93285424226 No Longer Active Gama Bermeo MD Active AUGMENTIN 875-125 MG TABS 1 bid AMOXICILLIN-POT CLAVULANATE 63719696245 No Longer Active Liat Cheng MD Active HYDROCODONE-ACETAMINOPHEN TABS Take as directed/PRN HYDROCODONE-ACETAMINOPHEN TABS 04896943573 No Longer Active Liat Cheng MD Active CEFDINIR 300 MG CAPS 1 PO bid x 7 days CEFDINIR 32422411303 No Longer Active Liat Cheng MD Active CEFDINIR 300 MG CAPS 1 PO bid x 7 days CEFDINIR 300 MG CAPS 367196 CEFDINIR Inactive HYDROCODONE-ACETAMINOPHEN TABS Take as directed/PRN HYDROCODONE-ACETAMINOPHEN TABS HYDROCODONE-ACETAMINOPHEN TABS Inactive ZOFRAN 8 MG ORAL TABS 1 q 8hr prn vomiting ZOFRAN 8 MG ORAL TABS 380469 ONDANSETRON HCL Inactive AUGMENTIN 875-125 MG TABS 1 bid AUGMENTIN 875-125 MG TABS 751638 AMOXICILLIN-POT CLAVULANATE Inactive BACTRIM DS 800-160 MG TAB 1 tab by mouth twice daily BACTRIM DS 800-160 MG TAB TRIMETHOPRIM-SULFAMETHOXAZOLE Inactive Immunizations Vaccine Administration Date Value Standard Description Adacel (Tetanus, reduced Diphtheria, and acellular Pertussis Immunization) Adacel [[id number]] tetanus toxoid, reduced diphtheria toxoid, and acellular [...] mm Encounters Code Encounter Date Provider Facility CPT-47844 Level 3 Est. Patient 16:21:33 GLASS WORKER Gama Bermeo MD [facility] CPT-95468 Level 3 Est. Patient 11:32:23 GLASS WORKER Liat Cheng MD [facility] CPT-84576 Level 3 Est. Patient 16:59:23 CDT Liat Cheng MD [facility] CPT-21021 Level 3 Est. Patient 17:02:11 GLASS WORKER Tay MAJOR [facility] CPT-20442 Level 3 Est. Patient 16:49:05 GLASS WORKER Liat Cheng MD [facility] CPT-73367 Level 3 Est. Patient 16:36:13 CDT Vivien Conway APRN [facility] Procedures Code Procedure Name Date Entry Date Standard Description CPT-91816 Administration single or combination vaccine inc oral 11 :11:48 CDT CPT-40456 Adacel Intramuscular Suspension 5-2-15.5 11:11:48 CDT CPT-20909 Toes 2V 17:03:02 GLASS WORKER
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
--- OUTSIDE RECORDS SUMMARY | 2018-02-18 13:12 | XMS REPORT | Clinical Summary ---
Author Author Admin, ISRRAEL Organization [employer] Address Unknown Phone Unavailable Allergies, Adverse Reactions, [...] 875-125 MG TABS 1 bid AMOXICILLIN-POT CLAVULANATE 37444626888 No Longer Active Liat Cheng MD Active HYDROCODONE-ACETAMINOPHEN TABS Take as directed/PRN HYDROCODONE-ACETAMINOPHEN TABS 94543832928 No Longer Active Liat Cheng MD Active CEFDINIR 300 MG CAPS 1 PO bid x 7 days CEFDINIR 76337468285 No Longer Active Liat Cheng MD Active CEFDINIR 300 MG CAPS 1 PO bid x 7 days CEFDINIR 300 MG CAPS 821260 CEFDINIR Inactive HYDROCODONE-ACETAMINOPHEN TABS Take as directed/PRN HYDROCODONE-ACETAMINOPHEN TABS HYDROCODONE-ACETAMINOPHEN TABS Inactive AUGMENTIN 875-125 MG TABS 1 bid AUGMENTIN 875-125 MG TABS 595496 AMOXICILLIN-POT CLAVULANATE Inactive Immunizations Vaccine Administration Date Value Standard Description Adacel immunization Adacel [[id number]] tetanus toxoid, reduced diphtheria toxoid, and acellular [...] Negative Encounters Code Encounter Date Provider Facility CPT-97362 Level 3 Est. Patient 16:59:23 CDT Liat Cheng MD [facility] CPT-64677 Level 3 Est. Patient 17:02:11 DIRECTOR OF MEDICAL SERVICES Tay MAJOR [facility] CPT-49295 Level 3 Est. Patient 16:49:05 DIRECTOR OF MEDICAL SERVICES Liat Cheng MD [facility] CPT-11948 Level 3 Est. Patient 16:36:13 CDT Vivien Conway APRN [facility] Procedures Code Procedure Name Date Entry Date Standard Description CPT-23585 Administration single or combination vaccine inc oral 11 :11:48 CDT CPT-23600 Adacel Intramuscular Suspension 5-2-15.5 11:11:48 CDT CPT-01178 Toes 2V 17:03:02 DIRECTOR OF MEDICAL SERVICES
--- OUTSIDE RECORDS SUMMARY | 2018-02-18 13:12 | XMS REPORT | Clinical Summary ---
Author Author Admin, ISRRAEL Organization [employer] Address Unknown Phone Unavailable Allergies, Adverse Reactions, [...] 1 q 8hr prn vomiting ONDANSETRON HCL 25010471936 Active Liat Cheng MD Active AUGMENTIN 875-125 MG TABS 1 bid AMOXICILLIN-POT CLAVULANATE 16327846140 No Longer Active Liat Cheng MD Active HYDROCODONE-ACETAMINOPHEN TABS Take as directed/PRN HYDROCODONE-ACETAMINOPHEN TABS 99868738995 No Longer Active Liat Cheng MD Active CEFDINIR 300 MG CAPS 1 PO bid x 7 days CEFDINIR 69301845725 No Longer Active Liat Cheng MD Active CEFDINIR 300 MG CAPS 1 PO bid x 7 days CEFDINIR 300 MG CAPS 712775 CEFDINIR Inactive HYDROCODONE-ACETAMINOPHEN TABS Take as directed/PRN HYDROCODONE-ACETAMINOPHEN TABS HYDROCODONE-ACETAMINOPHEN TABS Inactive AUGMENTIN 875-125 MG TABS 1 bid AUGMENTIN 875-125 MG TABS 166673 AMOXICILLIN-POT CLAVULANATE Inactive Immunizations Vaccine Administration Date Value Standard Description Adacel (Tetanus, reduced Diphtheria, and acellular Pertussis Immunization) Adacel [ULN189] tetanus toxoid, reduced diphtheria toxoid, and acellular [...] mm Encounters Code Encounter Date Provider Facility CPT-65516 Level 3 Est. Patient 11:32:23 COMPANY PILOT Liat Cheng MD [facility] CPT-68631 Level 3 Est. Patient 16:59:23 CDT Liat Cheng [address] [facility] CPT-31434 Level 3 Est. Patient 17:02:[address] [facility] CPT-88855 Level 3 Est. Patient 16:49:05 COMPANY PILOT Liat Cheng MD [facility] CPT-33106 Level 3 Est. Patient 16:36:13 CDT Vivien Conway APRN [facility] Procedures Code Procedure Name Date Entry Date Standard Description CPT-88335 Administration single or combination vaccine inc oral 11 :11:48 CDT CPT-03790 Adacel Intramuscular Suspension 5-2-15.5 11:11:48 CDT CPT-89207 Toes 2V 17:03:02 COMPANY PILOT
== END 2018-02-17 21:11 | disposition home or self-care (01) ==
LOC: ER 20:09
DX: N39.0 Urinary tract infection, site not specified (principal)
CPT/HCPCS: 81000; 84703; 87077; 87088; 87186; 99284

== ENCOUNTER → 2019-01-01 | Outpatient (CLI) | payer MEDICAID ==
[~2019-01-01] MED LIST: SULF1TAB35 PO
--- NOTE | 2019-01-01 16:28 | Diagnostic Imaging Report ---
INDICATION: Anatomical survey. TECHNIQUE: Multiple real-time grayscale images were obtained over the gravid uterus. COMPARISON: None FINDINGS: There is a single living intrauterine in a cephalic presentation. The biometry correlates with gestational age of 20 weeks 3 days. There is a normal volume of amniotic fluid. Placenta is posterior. There is no previa. Anatomical survey is unremarkable. This includes a four-chamber heart and three-vessel cord. Heart rate is 160 beats per minute and regular. The evaluation of the intracranial structures is somewhat limited. Biometrical measurements are as follows: Biparietal 4.81 cm, age 20 weeks 4 days. Head circumference 18.20 cm, age 20 weeks 5 days. Abdominal circumference 15.05 cm, age 20 weeks 3 days. Femur length 3.21 cm, age 20 weeks 0 days. Sonographic estimate age: 20 weeks 3 days. Sonographic estimated date of delivery: 05/18/2019. Estimated Weight: 339 gm (+/- 50 gm). LMP percentile: 33%. heart rate: 160 beats per minute. number: 1 of 1. IMPRESSION: Single living intrauterine in a cephalic presentation with sonographically estimated gestational age of 20 weeks 3 days and estimated date of confinement, May 28, 2019. Suboptimal evaluation of the intracranial structures. Recommend followup ultrasound for reevaluation. Dictated by: Dictated on workstation # [id number]
== END ==
LOC: RAD 14:10
PROVIDERS: ATTEND Obstetrics & Gynecology
DX: Z34.92 Encounter for supervision of normal pregnancy, unspecified, second trimester (principal); Z3A.20 20 weeks gestation of pregnancy
CPT/HCPCS: 76805

== ENCOUNTER 2019-02-18 19:53 | Outpatient (CLI) | payer MEDICAID ==
[~2019-02-18] VITALS: Ht 172.7 cm; Wt 111.1 kg
--- NOTE | 2019-02-18 20:00 | NUR ---
ZAC RETANA presented to unit via ambulation from ED, accompanied by SO, with c/o EXHAUSTED,VOMITING,CRAMPING. ZAC RETANA weighed, gowned, voided, and to bed. EFHM and TOCO applied, VS taken. ZAC RETANA oriented to bed controls, call light, TV, heat, and A/C controls.
[2019-02-18] MEDS ORDERED: PREN1TAB79 PO (20:07)
[2019-02-18 20:16] LABS: BILIRUBIN,URINE NEGATIVE (NEGATIVE); CLARITY,URINE CLEAR; COLOR,URINE YELLOW; GLUCOSE, URINE (UA) NEGATIVE (NEGATIVE); KETONES,URINE 4+ (NEGATIVE); LEUKOCYTE ESTERASE ,URINE NEGATIVE (NEGATIVE); NITRITE,URINE NEGATIVE (NEGATIVE); PH,URINE 5 (5-9); PROTEIN,URINE NEGATIVE (NEGATIVE); UROBILINOGEN,URINE NORMAL (NORMAL)
[2019-02-18 20:24] LABS: BACTERIA,URINE TRACE /HPF
[2019-02-18 20:25] VITALS: BP 143/93
[2019-02-18 20:27] VITALS: BP 136/79
[2019-02-18 20:28] VITALS: BP 136/79
[2019-02-18] MEDS ORDERED: NS IV 1000 ML 1,000 ML ONE (20:33)
[2019-02-18] MEDS ORDERED: NS IV 1000 ML 1,000 ML IV SCH (20:45)
[2019-02-18 20:53] LABS: BASOPHILS % (AUTO) 0 % (0-10); EOSINOPHILS # (AUTO) 0.3 10^3/uL (0.0-0.3); EOSINOPHILS % (AUTO) 2 % (0-10); HEMATOCRIT 31 % (35-52); HEMOGLOBIN 10.5 G/DL (11.5-16.0); LYMPHOCYTES # (AUTO) 2.8 X 10^3 (1.0-4.0); LYMPHOCYTES % (AUTO) 23 % (12-44); MEAN CORPUSCULAR HEMOGLOBIN 27 PG (25-34); MEAN CORPUSCULAR HGB CONC 34 G/DL (32-36); MEAN CORPUSCULAR VOLUME 80 FL (80-99); MEAN PLATELET VOLUME 9.2 FL (7.4-10.4); MONOCYTES # (AUTO) 0.8 X 10^3 (0.0-1.0); MONOCYTES % (AUTO) 6 % (0-12); NEUTROPHILS # (AUTO) 8.6 X 10^3 (1.8-7.8); NEUTROPHILS % (AUTO) 69 % (42-75); PLATELET COUNT 316 10^3/uL (130-400); RED CELL DISTRIBUTION WIDTH 12.8 % (10.0-14.5); WHITE BLOOD COUNT 12.5 10^3/uL (4.3-11.0)
[2019-02-18 21:12] LABS: ALANINE AMINOTRANSFERASE 19 U/L (0-55); ALBUMIN 3.5 GM/DL (3.2-4.5); ALKALINE PHOSPHATASE 80 U/L (40-136); BILIRUBIN,TOTAL 0.6 MG/DL (0.1-1.0); BUN/CREATININE RATIO 9; CALCIUM 9.3 MG/DL (8.5-10.1); CARBON DIOXIDE 21 MMOL/L (21-32); CHLORIDE 103 MMOL/L (98-107); CREATININE SERUM 0.64 MG/DL (0.60-1.30); GFR ESTIMATED > 60; GLUCOSE 117 MG/DL (70-105); POTASSIUM 3.3 MMOL/L (3.6-5.0); SODIUM 136 MMOL/L (135-145); TOTAL PROTEIN 7.1 GM/DL (6.4-8.2)
[2019-02-18] MEDS ORDERED: FERR-84 PO (21:29)
--- NOTE | 2019-02-18 21:35 | NUR ---
Discharge instructions verbalized with pt. pt verbalized understanding. pt will follow up with in the office.
--- NOTE | 2019-02-19 08:48 | Physician Query-Final Dx ---
Clinic Account Progress/Dx Physician Query: Please include # weeks of gestation Date of Service Feb 18, 2019 at 19:53 VICTORIANO CALVIN Feb 19, 2019 08:48
== END 2019-02-18 21:35 | disposition home or self-care (01) ==
LOC: LDRP 19:53 → WSo 19:53
PROVIDERS: ATTEND Obstetrics & Gynecology
DX: Z34.92 Encounter for supervision of normal pregnancy, unspecified, second trimester (principal); Z3A.27 27 weeks gestation of pregnancy
CPT/HCPCS: 36415; 80053; 81000; 84443; 85025; 87088; 96360; 99212

== ENCOUNTER 2019-03-18 09:00 | Outpatient (CLI) | payer MEDICAID ==
[~2019-03-18] VITALS: Ht 172.7 cm; Wt 112.0 kg
[~2019-03-18 09:00] MED LIST changes: +FERR-84 PO; +PREN1TAB79 PO
--- NOTE | 2019-03-18 09:10 | NUR ---
Arrived to unit from ED dept with c/o bleeding this a.m. when wiping after voiding and lower pelvic pain that is constant and back pain for last 2 days. pt reports "I have a UTI." pt denies having picked up her prescription for UTI that was diagnosed in clinic. Wt obtained and to room 319. Gowned and urine sample obtained. To bed and monitors on. Oriented to room, call light and surroundings. Pt denies movement this a.m. pt denies having to wear a pad due to vaginal bleeding. denies intercourse recently
[2019-03-18 09:30] VITALS: BP 133/77
--- NOTE | 2019-03-18 09:30 | NUR ---
pt reports movement since monitors placed.
[2019-03-18 09:43] LABS: BILIRUBIN,URINE NEGATIVE (NEGATIVE); CLARITY,URINE CLEAR; COLOR,URINE YELLOW; GLUCOSE, URINE (UA) NEGATIVE (NEGATIVE); KETONES,URINE NEGATIVE (NEGATIVE); LEUKOCYTE ESTERASE ,URINE 2+ (NEGATIVE); NITRITE,URINE NEGATIVE (NEGATIVE); PROTEIN,URINE 2+ (NEGATIVE)
[2019-03-18 10:12] LABS: BACTERIA,URINE FEW /HPF; WBC,URINE TNTC /HPF
--- NOTE | 2019-03-18 10:25 | NUR ---
Dr Bishop called and notified of pt arrival, c/o, assessment, ua result, fhr pattern, no contractions noted, no vaginal bleeding noted. new order for discharge received.
--- NOTE | 2019-03-18 10:30 | NUR ---
Discharge instructions explained, signed and copy to patient. pt verbalized understanding of instructions and denied questions. pt up to get dressed at this time
--- NOTE | 2019-03-18 10:36 | NUR ---
Pt discharged to home. Ambulates self downstairs accompanied by s.o. to private vehicle with belongings in hand.
--- NOTE | 2019-03-19 09:49 | Physician Query-Final Dx ---
VICTORIANO CALVIN 03/19/19 0949: Clinic Account Progress/Dx Physician Query: Please give diagnosis Please include # weeks gestation Date of Service Mar 18, 2019 at 09:00 ULISSES HIDALGO DO 03/19/19 1247: Clinic Account Progress/Dx DIAGNOSIS: Diagnosis 31 week IUP UTI Cramps VICTORIANO CALVIN Mar 19, 2019 09:49 POSULISSES HIDALGO DO Mar 19, 2019 12:47 POS
== END 2019-03-18 10:36 | disposition home or self-care (01) ==
LOC: WSo 09:00 → LDRP 09:00 → WSo 10:36
PROVIDERS: ATTEND Obstetrics & Gynecology
DX: O23.43 Unspecified infection of urinary tract in pregnancy, third trimester (principal); O26.893 Other specified pregnancy related conditions, third trimester; Z3A.31 31 weeks gestation of pregnancy
CPT/HCPCS: 81000; 87077; 87088; 87186; 99212

== ENCOUNTER 2019-04-30 18:24 | Outpatient (CLI) | payer MEDICAID ==
[~2019-04-30] VITALS: Ht 172.7 cm; Wt 112.0 kg
--- NOTE | 2019-04-30 18:30 | NUR ---
ZAC RETANA presented to unit via AMBULATION from ED, accompanied by S/0, with c/o LEAKING FLUID/PELVIC PAIN. ZAC RETANA Matt weighed, gowned, voided, and to bed. EFHM and TOCO applied, VS taken. MAZINEZMARLENY Gutierrez oriented to bed controls, call light, TV, heat, and A/C controls.
[2019-04-30 18:40] VITALS: BP 137/78
--- NOTE | 2019-04-30 18:40 | NUR ---
amnio test negative. reviewed poc to evaluate for Reactive NST. verbalized understanding.
[2019-04-30] MEDS ORDERED: AMOX500T2 PO (18:48)
--- NOTE | 2019-04-30 19:17 | NUR ---
rn to room, vss, amnio swab done. exp date 03/08/21 lot #[id number] negative and no fluid or leaking noted at introits. Will call dr. dubose and update on pt's arrival and hx.
--- NOTE | 2019-04-30 19:20 | NUR ---
Dr. dubose notified via telephone of pt's c/o fluid leaking throughout day when going to bathroom, denies recent sex. amnio negative x2. no ctx's felt by pt, denies bleeding or pressure in pelvis. +Fm. no ctx's noted on monitor, dc order received. no need to for sve due to no ctx's or pressure. Pt to see dr. tatum at routine appointment. pt removed from external monitors and up to change into clothes.
--- NOTE | 2019-04-30 19:20 | NUR ---
Discussed pt's increased heart rate with dr. dubose on phone.
[2019-04-30 19:24] VITALS: BP 129/74
[2019-04-30 19:25] VITALS: BP 129/74
--- NOTE | 2019-04-30 19:34 | NUR ---
Discharge instructions read and reviewed with pt, signed and ambulated off unit.
--- NOTE | 2019-05-03 08:20 | Physician Query-Final Dx ---
Clinic Account Progress/Dx Physician Query: Please give diagnosis Please give # weeks gestation Date of Service Apr 30, 2019 at 18:24 VICTORIANO CALVIN May 03, 2019 08:20
== END 2019-04-30 19:34 | disposition home or self-care (01) ==
LOC: WSo 18:24 → LDRP 18:24 → WSo 19:34
PROVIDERS: ATTEND Obstetrics & Gynecology
DX: O42.92 Full-term premature rupture of membranes, unspecified as to length of time between rupture and onset of labor (principal); Z3A.37 37 weeks gestation of pregnancy
CPT/HCPCS: 99213

== ENCOUNTER 2019-05-12 13:47 | Outpatient (CLI) | payer MEDICAID ==
[~2019-05-12] VITALS: Ht 172.7 cm; Wt 114.6 kg
[~2019-05-12 13:47] MED LIST changes: +AMOX500T2 PO
--- NOTE | 2019-05-12 13:52 | NUR ---
ZAC RETANA presented to unit from ED, accompanied by family, with c/o CONTRACTIONS. ZAC RETANA weighed, gowned, voided, and to bed. EFHM and TOCO applied, VS taken. ZAC RETANA oriented to bed controls, call light, TV, heat, and A/C controls.
[2019-05-12 14:05] VITALS: BP 123/91
[2019-05-12 14:22] LABS: BILIRUBIN,URINE NEGATIVE (NEGATIVE); CLARITY,URINE TURBID; COLOR,URINE YELLOW; GLUCOSE, URINE (UA) NEGATIVE (NEGATIVE); KETONES,URINE NEGATIVE (NEGATIVE); LEUKOCYTE ESTERASE ,URINE NEGATIVE (NEGATIVE); NITRITE,URINE NEGATIVE (NEGATIVE); PH,URINE 5.5 (5-9); PROTEIN,URINE TRACE (NEGATIVE)
[2019-05-12 14:33] LABS: BACTERIA,URINE TRACE /HPF
--- NOTE | 2019-05-12 14:33 | NUR ---
Nitrazine exam negative. SVE anterior/Fingertip/50%. Cervix tunnels closed.
--- NOTE | 2019-05-12 14:40 | NUR ---
Dr. Bishop notified of patient's arrival, complaints, exam, UA, and EFM tracing. New orders received.
[2019-05-12 14:42] VITALS: BP 121/76
--- NOTE | 2019-05-12 14:51 | NUR ---
Discharge instructions and medications reviewed with patient both written and verbally. Patient verbalizes understanding and questions answered.
--- NOTE | 2019-05-12 14:53 | NUR ---
Patient discharged at this time and ambulated from the unit accompanied by family. No signs or symptoms of distress noted.
--- NOTE | 2019-05-14 08:37 | Physician Query-Final Dx ---
VICTORIANO CALVIN 05/14/19 0836: Clinic Account Progress/Dx Physician Query: Please give diagnosis Please give # weeks gestation Date of Service May 12, 2019 at 13:47 ULISSES HIDALGO DO 05/15/19 0757: Clinic Account Progress/Dx DIAGNOSIS: Diagnosis 39 week IUP Uterine contractions Pelvic pressure VICTORIANO CALVIN May 14, 2019 08:36 ULISSES HIDALGO DO May 15, 2019 07:57
== END 2019-05-12 14:53 | disposition home or self-care (01) ==
LOC: LDRP 13:47 → WSo 13:47
PROVIDERS: ATTEND Obstetrics & Gynecology
DX: O62.9 Abnormality of forces of labor, unspecified (principal); Z3A.39 39 weeks gestation of pregnancy
CPT/HCPCS: 81000; 99213

== ENCOUNTER 2019-05-20 18:50 | Inpatient (IN) | payer MEDICAID ==
[~2019-05-20] VITALS: Ht 172 cm; Wt 113.0 kg
[2019-05-20] VITALS (11 sets, daily range): BP systolic 116–135; BP diastolic 60–89
--- NOTE | 2019-05-20 19:00 | NUR ---
ZAC RETANA presented to unit via ambulatory from ED, accompanied by family, with c/o INDUCTION 40 06/15. ZAC RETANA weighed, gowned, voided, and to bed. EFHM and TOCO applied, VS taken. ZAC RETANA oriented to bed controls, call light, TV, heat, and A/C controls.
[2019-05-20] MEDS ORDERED: NS IV 500 ML 500 ML IV SCH ×2 (19:15→19:45)
[2019-05-20] MEDS ORDERED: MISOPROSTOL 100 MCG (CYTOTEC) TAB PO ONE (19:15)
[2019-05-20] MEDS: D5 LR IV SOLUTION 1,000 ML IV SCH (19:45)
[2019-05-20 19:57] LABS: BASOPHILS % (AUTO) 0 % (0-10); EOSINOPHILS # (AUTO) 0.2 10^3/uL (0.0-0.3); EOSINOPHILS % (AUTO) 2 % (0-10); HEMATOCRIT 34 % (35-52); HEMOGLOBIN 11.2 G/DL (11.5-16.0); LYMPHOCYTES # (AUTO) 3.2 X 10^3 (1.0-4.0); LYMPHOCYTES % (AUTO) 36 % (12-44); MEAN CORPUSCULAR HEMOGLOBIN 26 PG (25-34); MEAN CORPUSCULAR HGB CONC 33 G/DL (32-36); MEAN CORPUSCULAR VOLUME 79 FL (80-99); MONOCYTES # (AUTO) 0.7 X 10^3 (0.0-1.0); MONOCYTES % (AUTO) 8 % (0-12); NEUTROPHILS # (AUTO) 4.7 X 10^3 (1.8-7.8); NEUTROPHILS % (AUTO) 54 % (42-75); PLATELET COUNT 339 10^3/uL (130-400); RED CELL DISTRIBUTION WIDTH 14.9 % (10.0-14.5); WHITE BLOOD COUNT 8.7 10^3/uL (4.3-11.0)
[2019-05-20] MEDS ORDERED: MISOPROSTOL 100 MCG (CYTOTEC) TAB PO SCH (23:15)
[2019-05-21] VITALS (61 sets, daily range): BP systolic 100–160; BP diastolic 52–96
[2019-05-21 01:48] LABS: BILIRUBIN,URINE NEGATIVE (NEGATIVE); CLARITY,URINE CLEAR; COLOR,URINE YELLOW; GLUCOSE, URINE (UA) NEGATIVE (NEGATIVE); KETONES,URINE NEGATIVE (NEGATIVE); LEUKOCYTE ESTERASE ,URINE NEGATIVE (NEGATIVE); NITRITE,URINE NEGATIVE (NEGATIVE); PROTEIN,URINE NEGATIVE (NEGATIVE)
[2019-05-21 01:49] LABS: BACTERIA,URINE TRACE /HPF
[2019-05-21] MEDS: D5 LR IV SOLUTION 1,000 ML IV SCH ×2 (02:58→11:02)
[2019-05-21] MEDS ORDERED: SUFENTA 0.6MCG/ML BUPIVA 0.125 100 ML ONE (03:36)
[2019-05-21] MEDS ORDERED: LACTATED RINGERS 1,000 ML IV SCH (04:49)
[2019-05-21] MEDS ORDERED: METOCLOPRAMIDE INJ 10 MG/2 ML (REGLAN) IV PRN (05:00)
[2019-05-21] MEDS ORDERED: NALOXONE 0.4 MG/ML 1 ML (NARCAN) VIAL IV PRN ×2 (05:00)
[2019-05-21] MEDS ORDERED: diphenhydrAMINE 50 MG/ML INJ (BENADRYL) IV PRN (05:00)
[2019-05-21] MEDS ORDERED: ONDANSETRON 4 MG/2 ML (SDV) Z0FRAN IV PRN (05:00)
[2019-05-21] MEDS: OXYTOCIN/NORMAL SALINE 500 ML IV SCH ×2 (05:19→15:09)
[2019-05-21] MEDS: EPIDURAL (SUFENTA 0.6MCG/ML BUPIVA 0.125%) 100 ML BAG EPI SCH ×2 (06:01→11:03)
--- NOTE | 2019-05-21 07:33 | History & Physical-OB ---
OB - Chief Complaint & HPI Date/Time Date of Admission: Date of Admission: May 20, 2019 at 18:50 Date seen by a Provider: May 21, 2019 Time Seen by a Provider: 07:30 Chief Complaint/History OB-Reason for Admission/Chief: Induction of Labor Hx : 1 Hx Para: 0 Expected Date of Delivery: May 18, 2019 Gestational Age in Weeks: 40 Gestational Age in Days: 2 Indication for induction: post dates Admission Nurse Assessment Rev: Yes Allergies and Home Medications Allergies Coded Allergies: Iodine and Iodide Containing Produc (Verified Allergy, Unknown, Rash, ) Home Medications Ferrous Sulfate 325 Mg Tablet, 325 MG PO DAILY Prescribed by: TERRA CARTWRIGHT on 02/18/192128 Vit W-Ca,Fe,FA(<1 mg) 1 Each Tablet, 1 EACH PO DAILY, (Reported) Patient Home Medication List Home Medication List Reviewed: Yes OB - History Hx of Present Care: Yes Ultrasounds: Normal mid trimester US Obstetrical Complications: None Medical Complications: None Delivery History Adverse Rxn to Tranfusion: No Patient Past Medical History n/a Social History/Family History Recent Infectious Disease Expo: No Alcohol Use: Denies Use Recreational Drug Use: No 2nd Hand Smoke Exposure: Yes Immunizations Date of Influenza Vaccine: Feb 06, 2019 OB - Admission Exam Physical Exam Vitals: Vital Signs 05/21/19 05/21/19 06:45 07:00 Temp 36.8 Pulse 69 Resp 18 B/P (MAP) 127/77 (94) Pulse Ox 99 O2 Delivery Room Air HEENT: NCAT Heart: Rhythm Normal Lungs: Clear Abdomen: Gravid Extremities: Normal Reflexes: Normal Cervical Dilatation: 1cm Effacement: 75% Station: -1 Membranes: Intact Heart Rate: 130's Accelerations: Accelerations Present Decelerations: No Decelerations 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) Contractions on Admission: >10 Minutes Apart Labs Laboratory Tests Test 05/20/19 19:45 05/21/19 01:30 Range/Units White Blood Count 8.7 4.3-11.0 10^3/uL Red Blood Count 4.35 4.35-5.85 10^6/uL Hemoglobin 11.2 L 11.5-16.0 G/DL Hematocrit 34 L 35-52 % Mean Corpuscular Volume 79 L 80-99 FL Mean Corpuscular Hemoglobin 26 25-34 PG Mean Corpuscular Hemoglobin Concent 33 32-36 G/DL Red Cell Distribution Width 14.9 H 10.0-14.5 % Platelet Count 339 130-400 10^3/uL Mean Platelet Volume 9.0 7.4-10.4 FL Neutrophils (%) (Auto) 54 42-75 % Lymphocytes (%) (Auto) 36 12-44 % Monocytes (%) (Auto) 8 0-12 % Eosinophils (%) (Auto) 2 0-10 % Basophils (%) (Auto) 0 0-10 % Neutrophils # (Auto) 4.7 1.8-7.8 X 10^3 Lymphocytes # (Auto) 3.2 1.0-4.0 X 10^3 Monocytes # (Auto) 0.7 0.0-1.0 X 10^3 Eosinophils # (Auto) 0.2 0.0-0.3 10^3/uL Basophils # (Auto) 0.0 0.0-0.1 10^3/uL Urine Color YELLOW Urine Clarity CLEAR Urine pH 6.0 5-9 Urine Specific Wilder 1.025 H 1.016-1.022 Urine Protein NEGATIVE NEGATIVE Urine Glucose (UA) NEGATIVE NEGATIVE Urine Ketones NEGATIVE NEGATIVE Urine Nitrite NEGATIVE NEGATIVE Urine Bilirubin NEGATIVE NEGATIVE Urine Urobilinogen 0.2 < = 1.0 MG/DL Urine Leukocyte Esterase NEGATIVE NEGATIVE Urine RBC (Auto) NEGATIVE NEGATIVE Urine RBC NONE /HPF Urine WBC NONE /HPF Urine Squamous Epithelial Cells 5-10 /HPF Urine Crystals NONE /LPF Urine Bacteria TRACE /HPF Urine Casts NONE /LPF Urine Mucus LARGE H /LPF Urine Culture Indicated NO OB - Assessment/Plan/Diagnosis Assessment Assessment: induction of labor Admission Dx 23 yo G1 @ 40.2 Post dates BMI 38 Admission Status: Inpatient Order (span 2 midnights) Reason for Inpatient Admission: Post dates Induction of labor Plan Plan: Induction Induction Method: per Misoprostol Protocol ULISSES HIDALGO DO May 21, 2019 07:33
[2019-05-21] MEDS ORDERED: LIDOCAINE/EPI 2% 1:200,00 (XYLOCAINE) 10 ML VIAL ONE (14:09)
--- NOTE | 2019-05-21 14:45 | NUR ---
massaging fundus. moderate to heavy flow with massage. no clot expressed. assisted out of stirrups. pericare performed by this Rn. vpad to perineum. repositioned to semifowler. epidural off. [id number] epidural cath removed tip intact.
[2019-05-21] MEDS ORDERED: OXYTOCIN/NORMAL SALINE 500 ML IV SCH (14:53)
--- NOTE | 2019-05-21 14:59 | OB Labor & Delivery Record ---
L&D History Date of Service Date of Service: May 21, 2019 History Expected Date of Delivery: May 18, 2019 Gestational Age in Weeks: 40 Hx : 1 Hx Para: 0 Complications Events: Routine care Operative Indications (Cesarea: N/A-Vaginal Delivery Intrapartal Events: None L&D Stage1 Monitors and Tracing Monitor Mode: External Heart Rate: 140 Station: -1 Warp Starter Variability: Average (6-10) Short Term Variability: Present Presentation: Vertex Vital Signs VS - Last 72 Hours, by Label 05/20/19 05/20/19 05/20/19 05/20/19 19:05 19:45 20:15 20:39 Temp 36.5 36.5 Pulse 125 95 85 111 Resp 18 18 18 18 B/P (MAP) 135/89 (104) 135/88 (104) 131/81 (98) Pulse Ox 97 97 O2 Delivery Room Air Room Air Room Air Room Air 05/20/19 05/20/19 05/20/19 05/20/19 20:45 21:15 21:45 22:30 Pulse 87 71 69 76 Resp 18 18 18 18 B/P (MAP) 124/83 (97) 116/63 (80) 124/74 (91) 129/66 (87) O2 Delivery Room Air Room Air Room Air Room Air 05/20/19 05/20/19 05/20/19 05/21/19 22:45 23:15 23:45 00:15 Temp 36.5 Pulse 87 79 85 68 Resp 18 18 18 18 B/P (MAP) 118/65 (82) 124/76 (92) 131/60 (83) 125/79 (94) O2 Delivery Room Air Room Air Room Air Room Air 05/21/19 05/21/19 05/21/19 05/21/19 00:45 01:15 02:15 02:45 Pulse 77 77 76 73 Resp 18 18 18 18 B/P (MAP) 123/74 (90) 130/80 (97) 122/73 (89) 130/58 (82) O2 Delivery Room Air Room Air Room Air Room Air 05/21/19 05/21/19 05/21/19 05/21/19 03:15 04:00 04:15 04:30 Temp 36.5 Pulse 76 82 86 98 Resp 18 18 18 18 B/P (MAP) 101/61 (74) 122/81 (95) 114/83 (93) 160/84 (109) Pulse Ox 100 O2 Delivery Room Air Room Air Room Air Room Air 05/21/19 05/21/19 05/21/19 05/21/19 04:35 04:40 04:45 04:55 Pulse 100 92 98 115 Resp 18 18 18 18 B/P (MAP) 126/67 (86) 128/68 (88) 135/64 (87) 116/79 (91) Pulse Ox 100 100 100 100 O2 Delivery Room Air Room Air Room Air Room Air 05/21/19 05/21/19 05/21/19 05/21/19 05:05 05:10 05:20 05:30 Pulse 113 116 75 81 Resp 18 18 18 18 B/P (MAP) 107/72 (84) 100/52 (68) 135/77 (96) 128/78 (95) Pulse Ox 98 98 98 98 O2 Delivery Room Air Room Air Room Air Room Air 05/21/19 05/21/19 05/21/19 05/21/19 05:40 05:45 05:50 06:15 Pulse 83 71 75 80 Resp 18 18 18 18 B/P (MAP) 109/62 (78) 116/67 (83) 127/73 (91) 126/70 (88) Pulse Ox 98 98 98 98 O2 Delivery Room Air Room Air Room Air Room Air 05/21/19 05/21/19 05/21/19 05/21/19 06:30 06:45 07:00 07:15 Temp 36.8 Pulse 77 71 69 63 Resp 18 18 18 18 B/P (MAP) 140/82 (101) 127/81 (96) 127/77 (94) 119/69 (86) Pulse Ox 100 100 99 99 O2 Delivery Room Air Room Air Room Air Room Air 05/21/19 05/21/19 05/21/19 05/21/19 07:30 07:45 08:00 08:15 Pulse 67 65 64 76 Resp 18 18 18 18 B/P (MAP) 114/68 (83) 136/79 (98) 129/75 (93) 129/80 (96) Pulse Ox 99 99 99 100 O2 Delivery Room Air Room Air Room Air Room Air 05/21/19 05/21/19 05/21/1913/20 08:30 08:45 09:00 09:15 Pulse 75 63 72 74 Resp 18 18 18 18 B/P (MAP) 131/79 (96) 129/68 (88) 130/72 (91) 124/78 (93) Pulse Ox 97 97 100 98 O2 Delivery Room Air Room Air Room Air Room Air 05/21/19 05/21/19 05/21/19 05/21/19 09:30 09:45 10:00 10:15 Pulse 81 74 72 67 Resp 18 18 18 18 B/P (MAP) 152/96 (114) 122/75 (91) 126/80 (95) 119/78 (92) Pulse Ox 98 98 99 99 O2 Delivery Room Air Room Air Room Air Room Air 05/21/19 05/21/19 05/21/19 05/21/19 10:30 10:45 11:00 11:15 Pulse 71 73 68 65 Resp 18 18 18 18 B/P (MAP) 127/82 (97) 125/76 (92) 127/74 (91) 127/77 (94) Pulse Ox 100 100 100 100 O2 Delivery Room Air Room Air Room Air Room Air 05/21/19 05/21/19 05/21/19 05/21/19 11:30 11:45 12:00 12:15 Pulse 68 68 67 71 Resp 18 18 18 18 B/P (MAP) 109/62 (78) 122/75 (91) 124/67 (86) 130/81 (97) Pulse Ox 100 100 O2 Delivery Room Air Room Air Room Air Room Air Rupture of Membranes Spontaneous Ruture of Membrane: Yes Amniotic Membrane Rupture Time: 0330 Amniotic Membrane Fluid Desc.: Meconium Stained Amniotic Fluid Membrane Tests: Nitrazine Positive Vaginal Bleeding Description: Normal Show Induction/Anesthesia Epidural Cath Placement - Time: 0437 Progress/Notes Pitocin augmentation started after SROM this am, and epidural received. Patient progressed to complete and +2 L&D Stage2 Stage Two Stage II Date: May 21, 2019 Monitors and Tracing Monitor Mode: External Heart Rate: 140 Monitor Decelerations: Variable Longterm Variability: Average (6-10) Short Term Variability: Present Position: Right Occiput Anterior Presentation: Vertex Cord Descript/Complications Cord Vessel Description: 3 Vessels Complications nuchal cord x 1 reduced Delivery Type Infant Delivery Method: Spontaneous Vaginal Anterior Shoulder: Left Episiotomy/Perineal Laceration Laceraction(s)/Extensions: Yes Episiotomy Description: Midline Location Modifier: Medial Degree (describe repair) midline episiotomy repaired using 3-0 and 2-0 vicryl suture in usual fashion Condition of Infant Delivery 1 minute Comment: 7 5 minute Comment: 9 Notes Live female infant weight 7lbs 7oz Condition of Condition of : Living Exam: No Observed Abnormalities Resuscitation Resuscitation: N/A - Spontaneous Resp L&D Stage3 Stage Three Stage III Date: May 21, 2019 Pictocin Pitocin Administration mu/min: 12 Pitocin ml/hr: 12 Pitocin Administration Comment: 30 mu wide open at delivery of placenta Placenta Delivery Placenta Delivery: Spontaneous Delivery Summary Summary Estimated blood loss (mL): 350 Attending at delivery: Ulisses Hidalgo DO Condition of Delivery Examined: Cervix Examined, Uterus Explored Post Hemorrhage: No Condition of Mother stable Condition of Infant (s) stable ULISSES HIDALGO DO May 21, 2019 2:59 pm
[2019-05-21] MEDS ORDERED: HYDROcodone/APAP 5 MG/325 MG (LORTAB) TAB PO PRN (15:00)
[2019-05-21] MEDS ORDERED: WITCH HAZEL(TUCKS) 40 EA JAR TOP PRN (15:00)
[2019-05-21] MEDS ORDERED: MEASLES,MUMPS,RUBELLA 1 EA INJ SQ ONE (15:00)
[2019-05-21] MEDS ORDERED: DIBUCAINE (NUPERCAINAL) 1% OINT 30 GM TOP PRN (15:00)
[2019-05-21] MEDS ORDERED: BENZOCAINE/MENTHOL (DERMOPLAST) 60 ML CAN TP PRN (15:00)
[2019-05-21] MEDS ORDERED: TETANUS,DIPTH,PERTUSS P/F (BOOSTRIX) 0.5 ML VIAL IM ONE (15:00)
[2019-05-21] MEDS: IBUPROFEN 600 MG (MOTRIN) TAB PO SCH ×2 (15:09→21:40)
[2019-05-21] MEDS: DOCUSATE SODIUM 100 MG (COLACE) CAP PO SCH (21:41)
[2019-05-21] MEDS ORDERED: CATHETER FLUSH 10 ML SYR IV SCH (22:00)
[2019-05-22] VITALS: BP 127/76
--- NOTE | 2019-05-22 00:41 | NUR ---
Pt educated on perineal care. Both parents educated on care. Mother resting with SO and family at bedside with lights on.
[2019-05-22 04:00] VITALS: BP 148/92
--- NOTE | 2019-05-22 04:00 | NUR ---
Pt c/o severe cramping pt educated on keeping bladder empty and to try to void. Pt woke after several hours of sleeping and requested pain medications. motrin due and given to pt.
[2019-05-22] MEDS: IBUPROFEN 600 MG (MOTRIN) TAB PO SCH ×4 (04:21→20:33)
[2019-05-22 05:17] LABS: BASOPHILS % (AUTO) 0 % (0-10); EOSINOPHILS # (AUTO) 0.2 10^3/uL (0.0-0.3); EOSINOPHILS % (AUTO) 1 % (0-10); HEMATOCRIT 25 % (35-52); HEMOGLOBIN 8.1 G/DL (11.5-16.0); LYMPHOCYTES # (AUTO) 2.9 X 10^3 (1.0-4.0); LYMPHOCYTES % (AUTO) 28 % (12-44); MEAN CORPUSCULAR HEMOGLOBIN 26 PG (25-34); MEAN CORPUSCULAR HGB CONC 32 G/DL (32-36); MEAN CORPUSCULAR VOLUME 80 FL (80-99); MEAN PLATELET VOLUME 8.8 FL (7.4-10.4); MONOCYTES % (AUTO) 10 % (0-12); NEUTROPHILS # (AUTO) 6.4 X 10^3 (1.8-7.8); NEUTROPHILS % (AUTO) 61 % (42-75); PLATELET COUNT 255 10^3/uL (130-400); RED CELL DISTRIBUTION WIDTH 14.9 % (10.0-14.5); WHITE BLOOD COUNT 10.5 10^3/uL (4.3-11.0)
--- NOTE | 2019-05-22 06:58 | Anesthesia-Regional Post-Op ---
Regional Patient Condition Mental Status: Alert, Oriented x3 Circulation: Same as Pre-Op Headache: Absent Sensation: Full Recovery Motor Block: Absent Post Op Complications Complications None Follow Up Care/Instructions Patient Instructions None needed. Anesthesia/Patient Condition Patient is doing well, no complaints, stable vital signs, no apparent adverse anesthesia problems. No complications reported per nursing. TOBIAS CANTOR CRNA May 22, 2019 06:58
--- NOTE | 2019-05-22 07:55 | NUR ---
ambulating in [place], dr tatum here seeing patient.
--- NOTE | 2019-05-22 08:10 | Postpartum Progress Note ---
Note Note Day # 1 Subjective: Patient is without complaints. Ambulating, voiding. Tolerating a regular diet without nausea or vomiting. Normal lochia. Pain is well controlled with oral pain medications. Objective: Physical Exam: General - Alert and oriented, no apparent distress Abdomen - Soft, appropriately tender to palpation, non-distended, fundus firm at umbilicus Extremities - no edema, negative Hansa's bilaterally Assessment: PPD 1 NVD Acute blood loss anemia Plan: Routine care. Encourage breast feeding. Encourage ambulation. Ferrous sulfate supplementation. Plan for discharge tomorrow Vitals - Labs Vital Signs - I&O Vital Signs Date Time Temp Pulse Resp B/P (MAP) Pulse Ox O2 Delivery O2 Flow Rate FiO2 05/22/19 04:00 36.9 110 18 148/92 (110) Room Air 05/22/19 00:00 37.1 112 18 127/76 (93) 97 Room Air 05/21/19 20:00 37.0 88 18 120/75 (90) 97 Room Air 05/21/19 16:30 110 18 132/82 (99) Room Air 05/21/19 16:00 85 18 138/86 (103) Room Air 05/21/19 15:30 92 18 122/74 (90) Room Air 05/21/19 15:15 36.4 95 18 144/90 (108) Room Air 05/21/19 15:00 36.7 121 18 131/80 (97) Room Air 05/21/19 14:48 36.5 103 18 136/56 (82) Room Air 05/21/19 14:35 36.9 103 18 139/81 (100) Room Air 05/21/19 14:20 80 18 144/87 (106) Room Air 05/21/19 14:05 86 18 144/90 (108) Room Air 05/21/19 13:50 74 18 139/80 (99) Room Air 05/21/19 13:30 79 18 141/88 (105) Room Air 05/21/19 13:15 81 18 131/81 (98) Room Air 05/21/19 13:00 78 18 135/76 (95) Room Air 05/21/19 12:45 70 18 150/91 (110) Room Air 05/21/19 12:30 65 18 124/75 (91) Room Air 05/21/19 12:30 37.0 Room Air 05/21/19 12:15 71 18 130/81 (97) Room Air 05/21/19 12:00 67 18 124/67 (86) Room Air 05/21/19 11:45 68 18 122/75 (91) 100 Room Air 05/21/19 11:30 68 18 109/62 (78) 100 Room Air 05/21/19 11:15 65 18 127/77 (94) 100 Room Air 05/21/19 11:00 68 18 127/74 (91) 100 Room Air 05/21/19 10:45 73 18 125/76 (92) 100 Room Air 05/21/19 10:30 71 18 127/82 (97) 100 Room Air 05/21/19 10:15 67 18 119/78 (92) 99 Room Air 05/21/19 10:00 72 18 126/80 (95) 99 Room Air 05/21/19 09:45 74 18 122/75 (91) 98 Room Air 05/21/19 09:30 81 18 152/96 (114) 98 Room Air 05/21/19 09:15 74 18 124/78 (93) 98 Room Air 05/21/19 09:00 72 18 130/72 (91) 100 Room Air 05/21/19 08:45 63 18 129/68 (88) 97 Room Air 05/21/19 08:30 75 18 131/79 (96) 97 Room Air 05/21/19 08:15 76 18 129/80 (96) 100 Room Air I & O 05/22/19 07:00 Intake Total 1875 ml Balance 1875 ml Labs Laboratory Tests 05/22/19 05:01: White Blood Count 10.5, Red Blood Count 3.13L, Hemoglobin 8.1#L, Hematocrit 25L, Mean Corpuscular Volume 80, Mean Corpuscular Hemoglobin 26, Mean Corpuscular Hemoglobin Concent 32, Red Cell Distribution Width 14.9H, Platelet Count 255, Mean Platelet Volume 8.8, Neutrophils (%) (Auto) 61, Lymphocytes (%) (Auto) 28, Monocytes (%) (Auto) 10, Eosinophils (%) (Auto) 1, Basophils (%) (Auto) 0, Neutrophils # (Auto) 6.4, Lymphocytes # (Auto) 2.9, Monocytes # (Auto) 1.0, Eosinophils # (Auto) 0.2, Basophils # (Auto) 0.0 ULISSES HIDALGO DO May 22, 2019 08:10
[2019-05-22 08:15] VITALS: BP 126/89
--- NOTE | 2019-05-22 08:20 | Discharge Inst-Women's Service ---
Discharge Inst-Women's Serv Depart Medication/Instructions New, Converted or Re-Newed RX: RX on Chart Problems Reviewed?: Yes Consults/Follow Up Additional Follow Up: Yes Orders/Referrals Dr. Hidalgo in 6 weeks Activity Activity: Activity as Tolerated Driving Instructions: No Driving for 1 Week NO SMOKING: NO SMOKING Nothing Inside Vagina: No Douching, No [place], No Tampons Diet Discharge Diet: No Restrictions Symptoms to Report to : Bleeding Excessive, Pain Increased, Fever Over 101 Degrees F, Vaginal Bleeding Increase, Questions/Concerns For Any Problems or Questions: Contact Your Physician ULISSES HIDALGO DO May 22, 2019 08:20
[2019-05-22] MEDS ORDERED: DIBU30OI TOP (08:22)
[2019-05-22] MEDS ORDERED: DOCU100C37 PO (08:22)
[2019-05-22] MEDS ORDERED: BENZ78AE2 TP (08:22)
[2019-05-22] MEDS ORDERED: IBUP-844 PO (08:22)
[2019-05-22] MEDS ORDERED: ACHD5005 PO (08:22)
[2019-05-22] MEDS ORDERED: FERR325T18 PO (08:22)
[2019-05-22] MEDS: PRENATAL VITAMIN 1 EA TAB PO SCH (09:57)
[2019-05-22] MEDS: DOCUSATE SODIUM 100 MG (COLACE) CAP PO SCH ×2 (09:57→20:33)
[2019-05-22] MEDS: FERROUS SULF 325 MG (IRON) TAB PO SCH (09:58)
[2019-05-22 15:00] VITALS: BP 132/90
[2019-05-22 20:30] VITALS: BP 126/69
[2019-05-23] MEDS: IBUPROFEN 600 MG (MOTRIN) TAB PO SCH ×2 (02:02→09:59)
[2019-05-23 02:07] VITALS: BP 140/65
--- NOTE | 2019-05-23 03:16 | NUR ---
Infant to nursery for monitoring while mother rests.
--- NOTE | 2019-05-23 08:01 | Postpartum Progress Note ---
Note Note Day # 2 Subjective: Patient is without complaints. Ambulating, voiding. Tolerating a regular diet without nausea or vomiting. Normal lochia. Pain is well controlled with oral pain medications. Objective: Physical Exam: General - Alert and oriented, no apparent distress Abdomen - Soft, appropriately tender to palpation, non-distended, fundus firm at umbilicus Extremities - no edema, negative Hansa's bilaterally Assessment: PPD 2 NVD Acute blood loss amemia Plan: Routine care. Encourage breast feeding. Encourage ambulation. Ferrous sulfate supplementation. Plan for discharge today Vitals - Labs Vital Signs - I&O Vital Signs Date Time Temp Pulse Resp B/P (MAP) Pulse Ox O2 Delivery O2 Flow Rate FiO2 05/23/19 02:07 37.2 78 20 140/65 (90) Room Air 05/22/19 20:30 36.8 84 20 126/69 (88) 100 Room Air 05/22/19 15:00 36.8 98 20 132/90 (104) Room Air 05/22/19 08:15 36.3 91 20 126/89 (101) Room Air ULISSES HIDALGO DO May 23, 2019 08:01
[2019-05-23] MEDS: PRENATAL VITAMIN 1 EA TAB PO SCH (09:59)
[2019-05-23] MEDS: FERROUS SULF 325 MG (IRON) TAB PO SCH (09:59)
[2019-05-23] MEDS: DOCUSATE SODIUM 100 MG (COLACE) CAP PO SCH (09:59)
[2019-05-23 10:00] VITALS: BP 121/75
--- NOTE | 2019-05-23 15:25 | NUR ---
ZAC RETANA demonstrates understanding of discharge instructions and accurately returns instructions upon questioning. Copy of Post-Discharge Instructions and Medication Discharge Instructions given to patient. ZAC RETANA is able to manage continuing needs after discharge. Patients belongings returned to patient. Skin dry and intact; no breakdown noted. Patient discharged from [id number] on 05-23-19 at 1525. ZAC RETANA left floor via ambulation, accompanied by staff and s/o.
--- NOTE | 2019-05-25 10:48 | NUR ---
CM/SS visited with MOB and baby for social work consult. Plan: The patient will return home with the father of the baby. Mitzi from [employer] was consulted for a medical card for baby. A healthy families referral will be made to help get extra supports in the home. Summary: The mother of baby (MOB) and babys grandmother were present in the room. Patient states that this is her first baby. She reports that when she was discharged that the only concern she had for baby was "chocking" and did not express any concerns with being a new mother. The father of the baby will be present at the home and the mother will be in town for short term stay. A Healthy family referral will be made for the patient to get extra support in the home. No other needs at this time.
== END 2019-05-23 15:25 | disposition home or self-care (01) | DRG 806 ==
LOC: LDRP 18:50
PROVIDERS: ADMIT Obstetrics & Gynecology; ATTEND Obstetrics & Gynecology
PROC: 3E0DXGC Introduction of Other Therapeutic Substance into Mouth and Pharynx, External Approach (ICD-10-PCS; 2019-05-20)
PROC: 10E0XZZ Delivery of Products of Conception, External Approach (ICD-10-PCS; principal; 2019-05-21)
PROC: 0W8NXZZ Division of Female Perineum, External Approach (ICD-10-PCS; 2019-05-21)
DX: O48.0 Post-term pregnancy (principal); O90.81 Anemia of the puerperium; D62 Acute posthemorrhagic anemia; O77.0 Labor and delivery complicated by meconium in amniotic fluid; O69.81X0 Labor and delivery complicated by cord around neck, without compression, not applicable or unspecified; Z3A.40 40 weeks gestation of pregnancy; Z37.0 Single live birth; Z87.891 Personal history of nicotine dependence
CPT/HCPCS: 36415; 81000; 85025; 86850; 86900; 86901